=== PATIENT | male | born 1945 | race Caucasian/White ===

== ENCOUNTER → 2019-07-05 | Day surgery (SDC) | payer MEDICARE ==
[~2019-07-05] MED LIST: ATROPINE SULFATE 0.4 MG/ML 1 ML VIAL IM STA; SODIUM CHLORIDE 0.9% 500 ML 500 ML in EMPTY BAG 1 BAG IV PRN
--- NOTE | 2019-07-05 11:25 | US ---
EXAMINATION TYPE: US chest DATE OF EXAM: 07/05/2019 COMPARISON: CXR 06/30/19 CLINICAL HISTORY: J90 Pleural effusion Lt side. Abnormal x-ray. TECHNIQUE: Targeted ultrasound of the posterior lower left hemithorax EXAM MEASUREMENTS: Left Pleural Effusion pocket size: 11.5 cm Left skin surface to fluid distance: 1.7 cm Left side marked for possible thoracentesis outside the dept. Pulmonologists are able to review the images in the patient?s EMR. Confirmation of large left-sided pleural effusion on 8 images saved. No significant right effusion on single image saved. IMPRESSIONS: As above.
--- NOTE | 2019-07-05 12:49 | XR ---
EXAMINATION TYPE: XR chest 1V portable DATE OF EXAM: 07/05/2019 COMPARISON: Chest x-ray 5 days ago. HISTORY: Post left-sided thoracentesis TECHNIQUE: Single AP portable frontal upright view of the chest is obtained. FINDINGS: There is persistent moderate large size left-sided pleural effusion with associated compre ssive atelectasis. There is silhouetting of left heart border and hemidiaphragm The cardiac silhouet te size is enlarged with dual lead pacemaker and atherosclerotic aorta. Right lung remains clear. No pneumothorax noted after left-sided thoracentesis. No new mediastinal shift. The osseous structures are intact. IMPRESSION: No pneumothorax after left-sided thoracentesis. Persistent moderate to large size left p leural effusion.
--- NOTE | 2019-07-05 12:50 | PCN ---
PROCEDURE NOTE PROCEDURE: Left thoracentesis. Indication Pleural effusion. A time-out was completed verifying correct patient, procedure, site, positioning , and implant (s) or special equipment if applicable. Ultrasound guidance was used and appropriate fluid pocket was identified and marked. Patient was positioned, prepped and draped in usual sterile fashion. Lidocaine was used to anesthetize the area. A Thoracentesis catheter was introduced into the pleural space and fluid was removed. Blood loss was none. A chest x-ray was ordered to evaluate for pneumothorax. Total Fluid Removed 1850 mL. Color of Fluid: Dark brown Fluid was sent for appropriate laboratory tests. Patient tolerated the procedure well and there were no complications. The left posterior chest was marked by ultrasound. The fluid was sent for analysis. There was no immediate complication. There was 1850 mL of dark brown fluid removed. The patient tolerated the procedure well. There was no immediate complication. The patient will have a chest x-ray to determine whether or not there are any complications. The patient can resume his Plavix and aspirin tonight. MMODL / IJN: [id number] /
[2019-07-05 15:05] VITALS: TEMP 98.2
[2019-07-05 15:12] VITALS: RESP 16
[2019-07-05 15:18] VITALS: BP 105/70
[2019-07-05 15:19] VITALS: PULSE 64
[2019-07-05 16:28] LABS: Color,BF Yellow
[2019-07-05 16:32] LABS: Appearance,BF Cloudy
[2019-07-05 16:56] LABS: Nucleated Cells, Body Fluid 900 /uL; RBC, Body Fluid 16100 /uL
[2019-07-05 16:58] LABS: Mononuclear WBC,Body Fluid 100 %; Total Cells Counted,Body Fluid 100
== END ==
LOC: PROCWHC3 10:47
PROVIDERS: ATTEND Internal Medicine Critical Care Medicine
DX: J90 Pleural effusion, not elsewhere classified (principal); F41.9 Anxiety disorder, unspecified; I42.9 Cardiomyopathy, unspecified; F32.9 Major depressive disorder, single episode, unspecified; I25.10 Atherosclerotic heart disease of native coronary artery without angina pectoris; I50.9 Heart failure, unspecified; Z85.46 Personal history of malignant neoplasm of prostate; Z79.82 Long term (current) use of aspirin; Z79.899 Other long term (current) drug therapy; Z79.02 Long term (current) use of antithrombotics/antiplatelets; Z87.891 Personal history of nicotine dependence
CPT/HCPCS: 87798 ×3; 87496; 87498; 87529; 89050; 87252; 87502; 87634; 87070; 87205; 87075; 87116; 87102; 87206; 82945; 83615; 84157; 71045; 76604; 96372; 32554; J0461; 88108; 88305; 88341; 88342

== ENCOUNTER 2019-07-26 07:44 | Day surgery (SDC) | payer MEDICARE ==
[2019-07-26] MEDS ORDERED: ALPRAZolam 0.25 MG TAB PO ONE (08:22)
[2019-07-26 08:24] LABS: Mean Platelet Volume 7.2; Platelet Count 378 k/uL (150-450)
[2019-07-26 08:34] LABS: Prothrombin Time 10.5 sec (9.0-12.0)
[2019-07-26 08:41] VITALS: TEMP 97.6
--- NOTE | 2019-07-26 10:24 | XR ---
EXAMINATION TYPE: XR chest 1V portable DATE OF EXAM: 07/26/2019 COMPARISON: Prior chest x-ray dated 07/21/2019, 07/05/2019 HISTORY: Status post left thoracentesis TECHNIQUE: Single frontal view of the chest is obtained. FINDINGS: Minimal left apical pneumothorax is suspected. There is some improvement in the left pleur al effusion. Intracardiac defibrillator leads, generator are stable. Right lung shows stable appearan ce. Heart size is somewhat obscured. IMPRESSION: Minimal left apical pneumothorax.
[2019-07-26 11:39] VITALS: RESP 16
--- NOTE | 2019-07-26 12:39 | XR ---
EXAMINATION TYPE: XR chest 1V portable DATE OF EXAM: 07/26/2019 COMPARISON: Thoracentesis done 07/26/2019 and chest x-ray of 07/26/2019 (earlier on the same date). HISTORY: Status post thoracentesis. Evaluate for pneumothorax. TECHNIQUE: Single frontal view of the chest is obtained. FINDINGS: There is a persistent moderate left pleural effusion with associated left-sided airspace d isease. No postprocedural pneumothorax is seen. Dual-lead left-sided cardiac device is noted. Cardiom ediastinal silhouette appears similar but obscured and left cardiac border. Strand-like right basilar atelectasis is again noted. Degenerative changes of the shoulders. No acute osseous process. IMPRESSION: No postprocedural pneumothorax. Persistent moderate left pleural effusion and associated left-sided airspace disease.
--- NOTE | 2019-07-26 13:04 | US ---
EXAMINATION TYPE: US thoracentesis DATE OF EXAM: 07/26/2019 COMPARISON: Chest x-ray dated 07/21/2019 HISTORY: Pleural effusion. FINDINGS: Maximal barrier technique was utilized. The skin overlying a suitable pocket of fluid was localized and the overlying skin prepped and draped. Lidocaine was used for local anesthesia. Ultras ound was used with sterile technique. A 5 Jordanian catheter over guide needle was advanced into the pl eural fluid collection using ultrasound guidance and the catheter advanced, needle removed. Approxim ately 1.8 liter(s) of serous fluid was removed. Catheter was withdrawn and hemostasis achieved. Post procedure chest x-ray pending. The patient remained in observation for 2 1/2 hours following the proc edure. IMPRESSION: STATUS POST ULTRASOUND GUIDED THORACENTESIS, POST PROCEDURE CHEST X-RAY PENDING. THIS UT OCEDURE WAS PERFORMED BY THE UNDERSIGNED.
[2019-07-26 13:30] VITALS: BP 105/61; PULSE 70
[2019-07-26 14:48] LABS: Appearance,BF Hazy; Color,BF Yellow; Nucleated Cells, Body Fluid 1125 /uL; RBC, Body Fluid 3150 /uL
[2019-07-26 15:22] LABS: Mononuclear WBC,Body Fluid 99 %; Polynuclear WBC,Body Fluid 1 %; Total Cells Counted,Body Fluid 100
[2019-07-26 17:37] LABS: Glucose, BF Source Pleural Fluid; Glucose, Body Fluid 66 mg/dL; LDH, Body Fluid Source Pleural Fluid; Total Protein, Body Fluid 5000 mg/dL
== END 2019-07-26 13:30 | disposition home or self-care (01) ==
LOC: RADPROMAIN 07:44
PROVIDERS: ATTEND Internal Medicine Critical Care Medicine
DX: J90 Pleural effusion, not elsewhere classified (principal)
CPT/HCPCS: 32555; 71045; 82945; 83615; 84157; 85049; 85610; 87070; 87075; 87102; 87116; 87205; 87206; 88108; 88305; 88341; 88342; 89050

== ENCOUNTER → 2019-08-18 | Outpatient (CLI) | payer MEDICARE ==
[2019-08-18 13:39] LABS: INR 0.9 (<1.2); Partial Thromboplastin Time 24.8 sec (22.0-30.0)
[2019-08-18 13:42] LABS: Potassium 5.6 mmol/L (3.5-5.1)
== END | disposition home or self-care (01) ==
LOC: LABPAT 12:55
PROVIDERS: ATTEND Thoracic Surgery (Cardiothoracic Vascular Surgery)
DX: Z01.812 Encounter for preprocedural laboratory examination (principal); J90 Pleural effusion, not elsewhere classified; E86.0 Dehydration; R58 Hemorrhage, not elsewhere classified; E87.70 Fluid overload, unspecified
CPT/HCPCS: 80051; 82565; 82947; 84520; 85610; 85730

== ENCOUNTER 2019-08-25 09:54 | Day surgery (SDC) | payer MEDICARE ==
[2019-08-22 10:34] VITALS: BMI 27.3
[~2019-08-25 09:54] MED LIST changes: -ATROPINE SULFATE 0.4 MG/ML 1 ML VIAL IM STA; +HYDROmorphone 0.5 MG/0.5 ML SYRINGE IVP PRN; +LACTATED RINGERS 1,000 ML IV SCH; -SODIUM CHLORIDE 0.9% 500 ML 500 ML in EMPTY BAG 1 BAG IV PRN
[2019-08-25] MEDS ORDERED: LIDOCAINE 1% 20 ML VIAL (10MG/ML) FOR IV START INTRADERMA ONE (11:04)
[2019-08-25] MEDS ORDERED: ONDANSETRON 4 MG/2 ML VIAL IVP ONE (11:21)
[2019-08-25] MEDS ORDERED: LIDOCAINE 1% INJ 10MG/ML (20 ML MDV) SQ ONE ×3 (12:06→12:28)
[2019-08-25] MEDS ORDERED: fentaNYL (PF) 50 MCG/ML 2 ML AMP ONE (12:10)
[2019-08-25] MEDS ORDERED: MIDAZOLAM 2 MG/2 ML VIAL ONE (12:10)
[2019-08-25] MEDS ORDERED: KETOROLAC 30 MG/ML 1 ML VIAL ONE (12:10)
[2019-08-25] MEDS ORDERED: PROPOFOL 10 MG/ML 20 ML VIAL IV ONE (12:10)
[2019-08-25 13:02] VITALS: TEMP 96.9
--- NOTE | 2019-08-25 13:06 | FL ---
EXAMINATION TYPE: FL fluoroscopy <1hr DATE OF EXAM: 08/25/2019 CLINICAL HISTORY: Left pleural catheter insertion. TECHNIQUE: Fluoroscopy. COMPARISON: None. FINDINGS: Fluoroscopic guidance was provided during pleural catheter insertion procedure performed b mandeep Perez. A total of 4 seconds of fluoroscopic time was utilized during the procedure and single spot intraoperative image is acquired. Single image acquired focus is on lung base. IMPRESSION: As Above.
--- NOTE | 2019-08-25 13:09 | P.OP ---
Date of Procedure: 08/25/19 Preoperative Diagnosis: Recurrent left pleural effusion Postoperative Diagnosis: Same Procedure(s) Performed: Left Pleurx catheter implant with fluoroscopy Implants: Pleurx catheter Anesthesia: MAC Surgeon: Grant Perez Estimated Blood Loss (ml): 3 IV fluids (ml): 400 Pathology: other (Left pleural fluid for cytology) Condition: stable Disposition: PACU Indications for Procedure: 73-year-old male with recurrent left pleural effusion. This is a exudative effusion. He does have a history of heart failure. Patient is severely symptomatic and the fluid has recurred quite rapidly. He has had 3 previous thoracenteses in the last 4 months. Pleurx catheter drainage was recommended. Operative Findings: 3800 mL of serous fluid was drained Description of Procedure: Patient was brought to the operating room, placed supine on the fluoroscopy table. IV sedation was given. The left chest was sterilely wrapped and draped along with the left upper abdomen. One percent lidocaine was used to anesthetize the site and the left pleural space wasn't entered with a 18-gauge needle in the sixth interspace in the anterior axillary line. Clear serous fluid was identified. Guidewire was threaded into the left pleural cavity under fluoroscopic guidance. This site was then enlarged to 1.2 cm with a 11 blade. One percent lidocaine was used to anesthetize an area just below the costal margin and a counterincision was made here about 0.7 cm. Pleurx catheter was then tunneled from the subcostal site to the wire site and the cuff was left just under the skin at the subcostal site. Introducer and dilator were placed over the guidewire and passed into the left pleural space under fluoroscopic guidance. Dilator and wire were removed and through the introducer sheath the Pleurx catheter was introduced into the chest cavity. Introducer sheath was split and removed. Purse catheter was connected to suction and 3.75 L of fluid was suctioned free. The entry site was closed with a 4-0 Vicryl subcuticular stitch. The Pleurx catheter was secured at the exit site with a 2-0 silk suture. Band-Aid dressing was applied at the entry site and a standard Pleurx dressing at the exit site once we had completed drainage of the Pleurx catheter. Patient was then transferred to recovery in stable condition.
[2019-08-25] MEDS ORDERED: HYDROmorphone 1 MG/ML 1 ML SYRINGE IVP ONE ×7 (13:12→14:08)
--- NOTE | 2019-08-25 13:47 | XR ---
EXAMINATION TYPE: XR chest 1V portable DATE OF EXAM: 08/25/2019 COMPARISON: Chest x-ray August 15, 2019 and older studies. HISTORY: Left sided pleural catheter insertion. TECHNIQUE: Single frontal view of the chest is obtained. FINDINGS: There is new left basilar pleural catheter with improvement in left-sided effusion. Right l lacy remains clear. There is chronic parenchymal change. Right lung remains clear. The cardiac silhou ette size remains enlarged with dual lead pacemaker/AICD. The osseous structures remain demineraliz ed. IMPRESSION: Improved left-sided effusion after pleural catheter placement.
[2019-08-25] MEDS ORDERED: LACTATED RINGERS 1,000 ML IV ONE (14:17)
[2019-08-25 14:41] VITALS: BP 109/69; PULSE 57; RESP 16
== END 2019-08-25 15:09 | disposition home health service (06) ==
LOC: OR 09:54
PROVIDERS: ATTEND Thoracic Surgery (Cardiothoracic Vascular Surgery)
DX: J90 Pleural effusion, not elsewhere classified (principal); I50.22 Chronic systolic (congestive) heart failure; I25.10 Atherosclerotic heart disease of native coronary artery without angina pectoris; I25.5 Ischemic cardiomyopathy; E78.2 Mixed hyperlipidemia; Z95.810 Presence of automatic (implantable) cardiac defibrillator; Z79.02 Long term (current) use of antithrombotics/antiplatelets; Z79.82 Long term (current) use of aspirin; Z79.899 Other long term (current) drug therapy; Z95.5 Presence of coronary angioplasty implant and graft; Z88.6 Allergy status to analgesic agent; Z88.8 Allergy status to other drugs, medicaments and biological substances; Z87.891 Personal history of nicotine dependence; Z82.49 Family history of ischemic heart disease and other diseases of the circulatory system; Z85.46 Personal history of malignant neoplasm of prostate
CPT/HCPCS: 32550; 88108; 88305; 84132; 76000; 71045; J2250; J0690; J2405; J2001; J3010; J1885; J1170; J2704

== ENCOUNTER 2020-01-20 22:11 | Inpatient (IN) | payer MEDICARE ==
--- NOTE | 2020-01-20 22:54 | XR ---
EXAMINATION TYPE: XR chest 2V DATE OF EXAM: 01/20/2020 COMPARISON: 01/06/2020 HISTORY: Pleural effusion TECHNIQUE: FINDINGS: Heart is enlarged. There is blunting of the left costophrenic angle. There is left axillary pacemaker. There is mild pulmonary vascular congestion. Bony thorax is intact. IMPRESSION: Left pleural effusion and pleural thickening on the left lateral chest wall unchanged. Pu lmonary vascular congestion increased compared to last exam and consistent with some congestive heart failure.
[2020-01-20 22:56] LABS: Calcium 10.2 mg/dL (8.4-10.2); Potassium 5.5 mmol/L (3.5-5.1); Total Bilirubin 0.7 mg/dL (0.2-1.3); Total Protein 7.6 g/dL (6.3-8.2)
[2020-01-20] MEDS ORDERED: FUROSEMIDE 10 MG/ML 4 ML VIAL IV STA (22:58)
[2020-01-20 23:00] LABS: Anisocytosis Slight; Basophils % (A) 1 %; Eosinophils # (A) 0.1 k/uL (0-0.7); Eosinophils % (A) 1 %; HCT 45.1 % (39.0-53.0); HGB 13.8 gm/dL (13.0-17.5); Hypochromasia Moderate; Lymphocytes # (A) 0.9 k/uL (1.0-4.8); Lymphocytes % (A) 12 %; MCH 27.4 pg (25.0-35.0); MCHC 30.6 g/dL (31.0-37.0); MCV 89.7 fL (80.0-100.0); Mean Platelet Volume 8.2; Monocytes # (A) 0.5 k/uL (0-1.0); Monocytes % (A) 7 %; Neutrophils # (A) 6.1 k/uL (1.3-7.7); Neutrophils % (A) 78 %; Platelet Count 301 k/uL (150-450); RBC 5.03 m/uL (4.30-5.90); RDW 16.8 % (11.5-15.5); WBC 7.8 k/uL (3.8-10.6)
--- NOTE | 2020-01-20 23:00 | ED ---
SOB HPI <Kevin Melissa - Last Filed: 01/21/20 02:14> - General Source: patient Mode of arrival: wheelchair Limitations: no limitations <Isabel Wagoner - Last Filed: 01/21/20 14:43> - General Chief Complaint: Shortness of Breath Stated Complaint: JOHN Time Seen by Provider: 01/20/20 22:20 - History of Present Illness Initial Comments: 74-year-old male with history of congestive heart failure, chronic pleural effusion with drain currently placed presenting today for chief complaint of shortness of breath x 1 month. Patient states he's had increasing and progressive shortness of breath for the past month. He states is a chronic left-sided pleural effusion that he drains at home himself. He follows battery repairer Dr. Vale. Patient states that he has had stress of breath increasing over the past month he states he had seen his battery repairer within this timeframe. Patient states this was similar to his his CHF exacerbations in the past. Patient states he was a previous smoker. Patient denies any wheezing cough congestion he denies hemoptysis or leg swelling. Patient denies any histo ry of DVT or pulmonary embolism. Patient denies any chest pain pressure. Deep inspiration. Patient denies any recent surgeries, he denies any recent immobilization. Patient denies any recent fevers. Patient states the shortness of breath increases with lying flat or when ambulating. Remaining review of systems negative upon arrival patient appears well no signs of acute distress however is found to be hypoxic, low BP with improvement on second reading during history taking. Placed on oxygen. (Isabel Wagoner) - Related Data Home Medications Medication Instructions Recorded Confirmed Aspirin 81 mg PO QAM 06/03/16 01/21/20 Atorvastatin [Lipitor] 40 mg PO QAM 06/03/16 01/21/20 Clopidogrel [Plavix] 75 mg PO QAM 06/03/16 01/21/20 Furosemide [Lasix] 20 mg PO DAILY@1400 06/03/16 01/21/20 Lisinopril [Zestril] 2.5 mg PO QAM 06/03/16 01/21/20 Acetaminophen [Tylenol Arthritis] 650 mg PO Q6H PRN 10/07/16 01/21/20 Midodrine [ProAmatine] 10 mg PO BID 07/05/19 01/21/20 Furosemide [Lasix] 40 mg PO DAILY 01/21/20 01/21/20 QUEtiapine [SEROquel] 25 mg PO HS 01/21/20 01/21/20 Venlafaxine HCl [Effexor] 100 mg PO BID-W/MEALS 01/21/20 01/21/20 Previous Rx's Medication Instructions Recorded Carvedilol [Coreg] 3.125 mg PO BID-W/MEALS #60 tab 02/10/16 Nitroglycerin Sl Tabs [Nitrostat] 0.4 mg SUBLINGUAL Q5M PRN #25 tab 02/10/16 Allergies Allergy/AdvReac Type Severity Reaction Status Date / Time No Known Allergies Allergy Verified 01/21/20 12:14 Review of Systems ROS Other: All systems not noted in ROS Statement are negative. <Kevin Melissa - Last Filed: 01/21/20 02:14> ROS Other: All systems not noted in ROS Statement are negative. <Isabel Wagoner - Last Filed: 01/21/20 14:43> ROS Statement: Those systems with pertinent positive or pertinent negative responses have been documented in the HPI. Past Medical History Past Medical History: Heart Failure Additional Past Medical History / Comment(s): PROSTATE CANCER (2006-HAD IMPLANT). LEFT PLEURAL EFFUSION History of Any Multi-Drug Resistant Organisms: None Reported Past Surgical History: Hernia Repair, Orthopedic Surgery Additional Past Surgical History / Comment(s): TOTAL RIGHT HIP (2014). ORIF OF RIGHT HIP, REMOVAL OF HARDWARE RT HIP, 07/12/15. CARDIAC SURGERY Past Anesthesia/Blood Transfusion Reactions: No Reported Reaction Type of Cardiac Device: Permanent Pacemaker, AICD Device Placement Date:: 06/06/16 Past Psychological History: Anxiety, Depression Smoking Status: Former smoker Past Alcohol Use History: None Reported Past Drug Use History: None Reported - Past Family History Mother Family Medical History: Cancer, Hypertension Additional Family Medical History / Comment(s): MELANOMA Father Family Medical History: Congestive Heart Failure (CHF) Sister(s) Family Medical History: No Reported History Daughter(s) Family Medical History: No Reported History Son(s) Family Medical History: No Reported History <Isabel Wagoner - Last Filed: 01/21/20 14:43> General Exam Limitations: no limitations <Isabel Wagoner - Last Filed: 01/21/20 14:43> - General Exam Comments Initial Comments: General: The patient is awake and alert, in no distress, speaking complete sentences but does seem short of breath grossly when talking for long periods of time Eye: Pupils are equal, round and reactive to light, extra-ocular movements are intact. No nystagmus. There is normal conjunctiva bilaterally. No signs of icterus. Ears, nose, mouth and throat: There are moist mucous membranes and no oral lesions. Neck: The neck is supple, there is no tenderness or JVD. Cardiovascular: There is a regular rate and rhythm. No murmur, rub or gallop is appreciated. Respiratory: Respirations are non-labored, breath sounds are equal. Rhonchi and rales at lung bases b/l noted, no wheeze or stridor. Gastrointestinal: Soft, non-distended, non-tender abdomen without masses or organomegaly noted. There is no rebound or guarding present. Musculoskeletal: Normal ROM, no tenderness. Strength 5/5. Sensation intact. Radial and DP pulses equal bilaterally 2+. Neurological: A&O x 3. CN II-XII intact grossly, There are no obvious motor or sensory deficits. Coordination appears grossly intact. Speech is normal. Skin: Skin is warm and dry and no rashes or lesions are noted. NO LE edema. Psychiatric: Cooperative, appropriate mood & affect, normal judgment. (Pallavi Wagoneralexandra Kincaid) Course <Isabel Wagoner - Last Filed: 01/21/20 14:43> Vital Signs 01/20/20 01/20/20 01/20/20 22:13 22:30 23:00 Temperature 98.9 F Pulse Rate 81 103 H 105 H Respiratory 24 Rate Blood Pressure 77/58 90/61 96/64 O2 Sat by Pulse 93 L 100 99 Oximetry 01/20/20 01/20/20 01/21/20 23:30 23:45 00:00 Temperature Pulse Rate 104 H 104 H 105 H Respiratory Rate Blood Pressure 97/63 O2 Sat by Pulse 97 100 100 Oximetry 01/21/20 01/21/20 01/21/20 00:15 00:23 00:30 Temperature Pulse Rate 103 H 103 H 105 H Respiratory 25 H Rate Blood Pressure 75/23 85/68 85/68 O2 Sat by Pulse 100 99 Oximetry 01/21/20 01/21/20 01/21/20 00:38 00:45 01:00 Temperature Pulse Rate 104 H 103 H 105 H Respiratory 24 Rate Blood Pressure 129/60 129/60 129/60 O2 Sat by Pulse 100 100 Oximetry 01/21/20 01/21/20 01/21/20 01:03 01:15 01:22 Temperature Pulse Rate 93 105 H 102 H Respiratory 24 24 Rate Blood Pressure 82/58 88/54 91/50 O2 Sat by Pulse 99 100 100 Oximetry 01/21/20 01/21/20 01/21/20 01:30 01:44 01:45 Temperature Pulse Rate 106 H 102 H 105 H Respiratory 22 Rate Blood Pressure 91/50 98/65 98/65 O2 Sat by Pulse 100 98 94 L Oximetry 01/21/20 01/21/20 01/21/20 02:00 02:15 02:30 Temperature Pulse Rate 106 H 104 H 107 H Respiratory Rate Blood Pressure 85/65 86/65 84/56 O2 Sat by Pulse 81 L 100 99 Oximetry 01/21/20 01/21/20 01/21/20 02:45 02:54 03:15 Temperature Pulse Rate 106 H 105 H 49 L Respiratory 24 Rate Blood Pressure 114/76 88/52 88/66 O2 Sat by Pulse 100 100 100 Oximetry 01/21/20 01/21/20 03:29 03:30 Temperature 97.6 F Pulse Rate 101 H 106 H Respiratory 22 Rate Blood Pressure 92/75 92/75 O2 Sat by Pulse 100 100 Oximetry - Reevaluation(s) Reevaluation #1: Discussed case with Dr. Melissa, he will resume further management of patient including possible central line for BP management. 01/21/20 00:00 (Isabel Wagoner) Medical Decision Making - Lab Data Result diagrams: 01/20/20 22:37 01/20/20 22:37 <Kevin Melissa - Last Filed: 01/21/20 02:14> - Lab Data Result diagrams: 01/21/20 08:52 01/21/20 08:52 <Isabel Wagoner - Last Filed: 01/21/20 14:43> - Medical Decision Making Patient 74-year-old man presenting with symptoms of progressive worsening of CHF. He has lost all of his exercise tolerance. He is having severe exertional dyspnea. He is having orthopnea. The patient's workup does reveal evidence of congestive heart failure in the labs and any imaging. In light of this patient be admitted. He has not had recent echocardiogram and this will be ordered. I patient was having some hypotension in the urgency department, and this is discussed with the lockstitch zipper setter and also with cardiology. Patient started on levofed. I did discuss central line placement and at this point the patient is refusing to have this done, despite discussion that peripheral administration is not the optimal route. Patient states he may reconsider if things are not improving after trying peripheral administration The patient lactic acid does appear to be due to inadequate perfusion. He is not having symptoms of infection. No fever or chills. He does have risk factor in the indwelling thoracentesis tube. The patient has not noted any erythema or warmth. He has not noted any change in the drainage which she states remains straw-colored and clear. At his next drainage will send specimen for culture. (Kevin Melissa) - Lab Data Lab Results 01/20/20 01/20/20 01/20/20 Range/Units 22:37 22:37 22:37 WBC 7.8 (3.8-10.6) k/uL RBC 5.03 (4.30-5.90) m/uL Hgb 13.8 (13.0-17.5) gm/dL Hct 45.1 (39.0-53.0) % MCV 89.7 (80.0-100.0) fL MCH 27.4 (25.0-35.0) pg MCHC 30.6 L (31.0-37.0) g/dL RDW 16.8 H (11.5-15.5) % Plt Count 301 (150-450) k/uL Neutrophils % 78 % Lymphocytes % 12 % Monocytes % 7 % Eosinophils % 1 % Basophils % 1 % Neutrophils # 6.1 (1.3-7.7) k/uL Lymphocytes # 0.9 L (1.0-4.8) k/uL Monocytes # 0.5 (0-1.0) k/uL Eosinophils # 0.1 (0-0.7) k/uL Basophils # 0.0 (0-0.2) k/uL Hypochromasia Moderate Anisocytosis Slight PT 12.8 H (9.0-12.0) sec INR 1.3 H (<1.2) APTT 26.1 (22.0-30.0) sec D-Dimer 4.08 H (<0.60) mg/L FEU Sodium 133 L (137-145) mmol/L Potassium 5.5 H (3.5-5.1) mmol/L Chloride 98 (98-107) mmol/L Carbon Dioxide 23 (22-30) mmol/L Anion Gap 12 mmol/L BUN 32 H (9-20) mg/dL Creatinine 1.11 (0.66-1.25) mg/dL Est GFR (CKD-EPI)AfAm 76 (>60 ml/min/1.73 sqM) Est GFR (CKD-EPI)NonAf 66 (>60 ml/min/1.73 sqM) Glucose 126 H (74-99) mg/dL Lactic Ac Sepsis Rflx Plasma Lactic Acid Gurinder (0.7-2.0) mmol/L Calcium 10.2 (8.4-10.2) mg/dL Total Bilirubin 0.7 (0.2-1.3) mg/dL AST 198 H (17-59) U/L ALT 173 H (4-49) U/L Alkaline Phosphatase 287 H (38-126) U/L Troponin I (0.000-0.034) ng/mL NT-Pro-B Natriuret Pep pg/mL Total Protein 7.6 (6.3-8.2) g/dL Albumin 4.0 (3.5-5.0) g/dL 01/20/20 01/20/20 01/20/20 Range/Units 22:37 22:37 22:37 WBC (3.8-10.6) k/uL RBC (4.30-5.90) m/uL Hgb (13.0-17.5) gm/dL Hct (39.0-53.0) % MCV (80.0-100.0) fL MCH (25.0-35.0) pg MCHC (31.0-37.0) g/dL RDW (11.5-15.5) % Plt Count (150-450) k/uL Neutrophils % % Lymphocytes % % Monocytes % % Eosinophils % % Basophils % % Neutrophils # (1.3-7.7) k/uL Lymphocytes # (1.0-4.8) k/uL Monocytes # (0-1.0) k/uL Eosinophils # (0-0.7) k/uL Basophils # (0-0.2) k/uL Hypochromasia Anisocytosis PT (9.0-12.0) sec INR (<1.2) APTT (22.0-30.0) sec D-Dimer (<0.60) mg/L FEU Sodium (137-145) mmol/L Potassium (3.5-5.1) mmol/L Chloride (98-107) mmol/L Carbon Dioxide (22-30) mmol/L Anion Gap mmol/L BUN (9-20) mg/dL Creatinine (0.66-1.25) mg/dL Est GFR (CKD-EPI)AfAm (>60 ml/min/1.73 sqM) Est GFR (CKD-EPI)NonAf (>60 ml/min/1.73 sqM) Glucose (74-99) mg/dL Lactic Ac Sepsis Rflx Plasma Lactic Acid Gurinder 4.2 H* (0.7-2.0) mmol/L Calcium (8.4-10.2) mg/dL Total Bilirubin (0.2-1.3) mg/dL AST (17-59) U/L ALT (4-49) U/L Alkaline Phosphatase (38-126) U/L Troponin I 0.091 H* (0.000-0.034) ng/mL NT-Pro-B Natriuret Pep 18188 pg/mL Total Protein (6.3-8.2) g/dL Albumin (3.5-5.0) g/dL 01/20/20 Range/Units 23:25 WBC (3.8-10.6) k/uL RBC (4.30-5.90) m/uL Hgb (13.0-17.5) gm/dL Hct (39.0-53.0) % MCV (80.0-100.0) fL MCH (25.0-35.0) pg MCHC (31.0-37.0) g/dL RDW (11.5-15.5) % Plt Count (150-450) k/uL Neutrophils % % Lymphocytes % % Monocytes % % Eosinophils % % Basophils % % Neutrophils # (1.3-7.7) k/uL Lymphocytes # (1.0-4.8) k/uL Monocytes # (0-1.0) k/uL Eosinophils # (0-0.7) k/uL Basophils # (0-0.2) k/uL Hypochromasia Anisocytosis PT (9.0-12.0) sec INR (<1.2) APTT (22.0-30.0) sec D-Dimer (<0.60) mg/L FEU Sodium (137-145) mmol/L Potassium (3.5-5.1) mmol/L Chloride (98-107) mmol/L Carbon Dioxide (22-30) mmol/L Anion Gap mmol/L BUN (9-20) mg/dL Creatinine (0.66-1.25) mg/dL Est GFR (CKD-EPI)AfAm (>60 ml/min/1.73 sqM) Est GFR (CKD-EPI)NonAf (>60 ml/min/1.73 sqM) Glucose (74-99) mg/dL Lactic Ac Sepsis Rflx Y Plasma Lactic Acid Gurinder (0.7-2.0) mmol/L Calcium (8.4-10.2) mg/dL Total Bilirubin (0.2-1.3) mg/dL AST (17-59) U/L ALT (4-49) U/L Alkaline Phosphatase (38-126) U/L Troponin I (0.000-0.034) ng/mL NT-Pro-B Natriuret Pep pg/mL Total Protein (6.3-8.2) g/dL Albumin (3.5-5.0) g/dL Disposition <Kevin Melissa - Last Filed: 01/21/20 02:14> Is patient prescribed a controlled substance at d/c from ED?: No Time of Disposition: 14:43 Decision to Admit Reason: Admit from EC Decision Date: 01/21/20 Decision Time: 14:43 <Isabel Wagoner - Last Filed: 01/21/20 14:43> Clinical Impression: Congestive heart failure, Dyspnea, Hypotension, Hypoxia, Elevated brain natriuretic peptide (BNP) level, Lactic acidosis, Chronic pleural effusion Disposition: ADMITTED IP TO THIS HOSP Condition: Serious
[2020-01-20 23:02] LABS: INR 1.3 (<1.2)
[2020-01-20 23:03] LABS: Partial Thromboplastin Time 26.1 sec (22.0-30.0); Prothrombin Time 12.8 sec (9.0-12.0)
[2020-01-20 23:12] LABS: D-Dimer 4.08 mg/L FEU (<0.60)
[2020-01-20] MEDS ORDERED: SODIUM CHLORIDE 0.9% 500 ML 500 ML IV ONE ×2 (23:22→23:25)
[2020-01-20] MEDS ORDERED: SODIUM CHLORIDE 0.9% 500 ML 250 ML IV ONE (23:23)
[2020-01-20] MEDS ORDERED: PIPERACILLIN-TAZOBACTAM 3.375 GM in SODIUM CHLORIDE 0.9% 100 ML IVPB STA (23:26)
--- NOTE | 2020-01-20 23:48 | CT ---
EXAMINATION TYPE: CT chest angio for PE DATE OF EXAM: 01/20/2020 COMPARISON: HISTORY: elevated d-dimer CT DLP: 440.6 mGycm Automated exposure control for dose reduction was used. CONTRAST: Performed with IV Contrast, patient injected with 75 mL of Isovue 370. Multiple axial sections were obtained from the thoracic inlet to the diaphragm with intravenous contr ast. There are 3-D post processed images. FINDINGS: The heart is enlarged. There is irregular pleural thickening on the left lateral chest wall with locu lated pleural fluid in the major fissure. Thoracic aorta is atheromatous. There is no mediastinal julio nopathy. There are no hilar masses. I see no definite filling defects in the pulmonary arteries. Ther e is some coarse interstitial patchy infiltrates in the lower lung cooper. There is some coalescent 3 cm poorly marginated infiltrate right lower lobe. Thoracic aorta shows atheromatous change without e vidence of aneurysm. There is no mediastinal adenopathy. There is 1 cm calcified mediastinal lymph no de. There is left lower chest tube in good position. There is contrast reflux into the inferior vena cava that could relate to congestive heart failure. There is spurring in the thoracic spine. I see no compression fracture. IMPRESSION: No evidence of pulmonary embolism. Pulmonary infiltrates predominantly in the lower lung cooper with some loculated left side pleural ef fusion and pleural thickening. Cardiomegaly. I consider possibilities of chronic empyema and mesothel ioma. There is possible congestive heart failure.
[2020-01-21] MEDS ORDERED: DOBUTamine DRIP 500 MG in DEXTROSE/WATER 1 250ML.BAG IV SCH (00:15)
--- NOTE | 2020-01-21 00:50 | US ---
EXAMINATION TYPE: US abdomen limited DATE OF EXAM: 01/21/2020 COMPARISON: CT angio chest CLINICAL HISTORY: transaminitis. CHF per patient; JOHN EXAM MEASUREMENTS: Liver Length: 17.3 cm Gallbladder Wall: 0.6 cm CBD: 0.5 cm Right Kidney: 10.4 x 4.8 x 3.5 cm Pancreas: hyperechoic with mid mild heterogeneous appearance Liver: attenuated posteriorly suggests fatty liver Gallbladder: mid lumen wall polyp is noted as fixed oval focus isoechoic to wall = 0.4 x 0.3 x 0.4cm ; abnormally thickened wall with fluid layer within wall; sludge noted in fundus with possible hypere choic shadowing stone(s) = 0.9 x 0.4 x 0.6cm. Patient was unable to recline due to severe JOHN, thus g allbladder was only assessed by US in one position Evidence for sonographic Gonzalez's sign: no CBD: wnl Right Kidney: inferior cortical cyst is noted = 3.4 x 3.2 x 3.7cm. IMPRESSION: Mild gallbladder wall thickening and pericholecystic fluid that could relate to cholecyst itis. Congestive heart failure also possible. Small gallstone or gallbladder polyp. No dilated ducts.
[2020-01-21] MEDS ORDERED: NITROGLYCERIN SL TABS 0.4 MG TAB SUBLINGUAL PRN (01:37)
[2020-01-21] MEDS ORDERED: NOREPINEPHRINE 4 MG in SODIUM CHLORIDE 0.9% 250 ML IV ONE (02:30)
[2020-01-21 04:06] LABS: Glucose,Whole Blood 123 mg/dL (75-99)
[2020-01-21] MEDS ORDERED: NALOXONE 0.4 MG/ML 1 ML VIAL IV PRN (04:28)
[2020-01-21] MEDS: CARVEDILOL 3.125 MG TAB PO SCH ×2 (06:24→17:15)
--- NOTE | 2020-01-21 07:10 | XR ---
EXAMINATION TYPE: XR chest 1V DATE OF EXAM: 01/21/2020 CLINICAL HISTORY: Difficulty breathing progress study. TECHNIQUE: Single AP portable upright view of the chest is obtained. COMPARISON: Chest x-ray and CTA chest from one day earlier FINDINGS: Persistent cardiomegaly with dual lead pacemaker/ICD and atherosclerotic thoracic aorta. P ersistent small to moderate size left pleural fluid collection or pleural thickening with associated left basilar atelectasis and/or infiltrate. Right lung shows central consolidation with nodular conso lidation. Osseous structures are intact. Stable left basilar pleural drainage catheter noted. IMPRESSION: Overall stable findings, cardiomegaly and chronic emphysematous change with small to mo derate left pleural fluid collection and/or thickening with bilateral perihilar infiltrates, and mult ifocal areas of nodular consolidation bilaterally greater in the left lower lobe despite left-sided p leural drainage catheter.
[2020-01-21] MEDS: LISINOPRIL 2.5 MG TAB PO SCH (08:48)
[2020-01-21] MEDS: ATORVASTATIN 40 MG TAB PO SCH (08:48)
[2020-01-21] MEDS: FUROSEMIDE 40 MG TAB PO SCH ×2 (08:48→17:15)
[2020-01-21] MEDS: ASPIRIN 81 MG PO SCH (08:48)
[2020-01-21] MEDS: MIDODRINE 5 MG TAB PO SCH ×2 (08:48→17:15)
[2020-01-21] MEDS: CLOPIDOGREL 75 MG TAB PO SCH (08:48)
[2020-01-21 09:37] LABS: Calcium 9.7 mg/dL (8.4-10.2); Potassium 5.8 mmol/L (3.5-5.1)
[2020-01-21 09:55] LABS: Anisocytosis Slight; Basophils % (A) 1 %; Eosinophils % (A) 1 %; HCT 41.5 % (39.0-53.0); HGB 12.8 gm/dL (13.0-17.5); Hypochromasia Moderate; Lymphocytes # (A) 0.7 k/uL (1.0-4.8); Lymphocytes % (A) 9 %; MCH 27.6 pg (25.0-35.0); MCHC 30.8 g/dL (31.0-37.0); MCV 89.7 fL (80.0-100.0); Mean Platelet Volume 8.4; Monocytes # (A) 0.6 k/uL (0-1.0); Monocytes % (A) 7 %; Neutrophils % (A) 80 %; Platelet Count 275 k/uL (150-450); RBC 4.63 m/uL (4.30-5.90); RDW 16.8 % (11.5-15.5); WBC 7.5 k/uL (3.8-10.6)
--- NOTE | 2020-01-21 10:06 | P.CNPUL ---
History of Present Illness Consult date: 01/21/20 Reason for consult: dyspnea History of present illness: This is a 74-year-old male patient with known history of coronary artery disease with previous coronary intervention and stenting of the circumflex in addition to history of severe cardiomyopathy with an ejection fraction of 25% and chronic systolic dysfunction and severe resting bradycardia close the was chamber ICD placement. The patient was also having recurrent left-sided pleural effusion and he underwent a Pleurx catheter insertion back in August 2019 by cardiothoracic surgery. He has been undergoing daily drainage from his left lung and he typically drinks approximately 200 mL of pleural fluid.. The patient also has hypertension, prostate cancer and he has been treated with prostatic radiation therapy/implants. He has also history of osteoarthritis. The patient is an ex-smoker. [id number] smoking history. He came into the hospital because of worsening shortness of breath.. His been progressively getting more short of breath over the past month. His shortness of breath is essentially exertional and he also has orthopnea. No reported chest pain. No reported cough or sputum production. He is an ex-smoker. No wheezing. No previous history of DVT or pulmonary embolism. No fever. The white cell count at time of admission was 7.8. Hemoglobin was at 13.8. Coagulation profile was within normal. D-dimer was elevated at 4.08 and based on that the patient was given a CT angiogram that showed no evidence of any pulmonary embolism. 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 No evidence of any pneumonia. No evidence of any airspace disease. There was a 3 cm poorly marginated infiltrate in the right lower lobe and the significance of this abnormality is not known. In the emergency department, the patient was having episodes of hypotension. His systolic blood pressure was as low as 75. He was given pressors and currently is running on low-dose levothyroid at 0.03 g per KG per minute. His cardiac rhythm is ventricularly paced at the rate of 100. Note that the patient some minimal troponin elevation. ProBNP level was quite elevated. Lactic acid level was 4.2, admission dropped down to 2 and currently is on IV with KVO. Review of Systems Constitutional: Reports weakness, Reports weight loss (Lost 35-40 pounds) Eyes: denies blurred vision, denies bulging eye, denies decreased vision Ears: deny: decreased hearing, ear discharge, earache, tinnitus Ears, nose, mouth and throat: Denies headache, Denies sore throat Cardiovascular: Reports decreased exercise tolerance, Reports dyspnea on exertion, Reports shortness of breath Respiratory: Reports dyspnea Genitourinary: Reports as per HPI Musculoskeletal: Reports as per HPI Musculoskeletal: absent: ankle pain, ankle stiffness, ankle swelling Integumentary: Reports as per HPI Neurological: Reports as per HPI, Reports weakness Psychiatric: Reports as per HPI Endocrine: Reports as per HPI Hematologic/Lymphatic: Reports as per HPI Allergic/Immunologic: Reports allergic rhinitis Past Medical History Past Medical History: Coronary Artery Disease (CAD), Heart Failure Additional Past Medical History / Comment(s): PROSTATE CANCER (2006-HAD IMPLANT). LEFT PLEURAL EFFUSION History of Any Multi-Drug Resistant Organisms: None Reported Past Surgical History: Heart Catheterization With Stent, Hernia Repair, Orthopedic Surgery, Pacemaker Additional Past Surgical History / Comment(s): TOTAL RIGHT HIP (2014). ORIF OF RIGHT HIP, REMOVAL OF HARDWARE RT HIP, 07/12/15, insertion of a left-sided Pleurx catheter, insertion of a biventricular AICD him a cardiac catheterization with stenting of the circumflex in 2015 Past Anesthesia/Blood Transfusion Reactions: No Reported Reaction Type of Cardiac Device: Permanent Pacemaker, AICD Device Placement Date:: 2012 Past Psychological History: Anxiety, Depression Smoking Status: Former smoker Past Alcohol Use History: None Reported Additional Past Alcohol Use History / Comment(s): SMOKED FROM [id number], 1-2 PPD. Past Drug Use History: None Reported - Past Family History Mother Family Medical History: Cancer, Hypertension Additional Family Medical History / Comment(s): MELANOMA Father Family Medical History: Congestive Heart Failure (CHF) Sister(s) Family Medical History: No Reported History Daughter(s) Family Medical History: No Reported History Son(s) Family Medical History: No Reported History Medications and Allergies Home Medications Medication Instructions Recorded Confirmed Type Carvedilol [Coreg] 3.125 mg PO BID-W/MEALS #60 tab 02/10/16 08/22/19 Rx Nitroglycerin Sl Tabs [Nitrostat] 0.4 mg SUBLINGUAL Q5M PRN #25 tab 02/10/16 08/25/19 Rx Aspirin 81 mg PO QAM 06/03/16 08/22/19 History Atorvastatin [Lipitor] 40 mg PO QAM 06/03/16 08/25/19 History Clopidogrel [Plavix] 75 mg PO QAM 06/03/16 08/22/19 History Furosemide [Lasix] 40 mg PO BID 06/03/16 08/25/19 History Lisinopril [Zestril] 2.5 mg PO QAM 06/03/16 08/22/19 History Acetaminophen [Tylenol Arthritis] 1,300 mg PO BID 10/07/16 08/25/19 History Baclofen 10 mg PO QID PRN 07/05/19 08/25/19 History Midodrine [ProAmatine] 10 mg PO BID 07/05/19 08/22/19 History Allergies Allergy/AdvReac Type Severity Reaction Status Date / Time No Known Allergies Allergy Verified 01/20/20 22:19 Physical Exam Vitals: Vital Signs Temp Pulse Resp BP Pulse Ox 01/21/20 09:00 101 H 32 H 78/65 98 01/21/20 08:30 93 30 H 117/104 99 01/21/20 08:00 97.8 F 100 23 99/76 99 01/21/20 07:30 103 H 33 H 74/60 99 01/21/20 07:00 74 16 90/63 96 01/21/20 06:45 65 20 84/66 98 01/21/20 06:30 89 17 96/65 99 01/21/20 06:15 105 H 21 94/70 99 01/21/20 06:00 105 H 20 98/67 99 01/21/20 05:45 105 H 20 91/68 98 01/21/20 05:30 105 H 20 92/73 99 01/21/20 05:15 105 H 21 89/72 99 01/21/20 05:00 105 H 24 92/69 99 01/21/20 04:45 105 H 20 77/48 99 01/21/20 04:30 78 22 102/75 99 01/21/20 04:15 104 H 20 87/68 100 01/21/20 04:00 97.8 F 105 H 20 95/75 100 01/21/20 03:47 99 01/21/20 03:30 106 H 92/75 100 01/21/20 03:29 97.6 F 101 H 22 92/75 100 0307/20 03:15 49 L 88/66 100 01/21/20 02:54 105 H 24 88/52 100 01/21/20 02:45 106 H 114/76 100 01/21/20 02:30 107 H 84/56 99 01/21/20 02:15 104 H 86/65 100 01/21/20 02:00 106 H 85/65 81 L 01/21/20 01:45 105 H 98/65 94 L 01/21/20 01:44 102 H 22 98/65 98 01/21/20 01:30 106 H 91/50 100 01/21/20 01:22 102 H 24 91/50 100 01/21/20 01:15 105 H 88/54 100 01/21/20 01:03 93 24 82/58 99 01/21/20 01:00 105 H 129/60 01/21/20 00:45 103 H 129/60 100 01/21/20 00:38 104 H 24 129/60 100 01/21/20 00:30 105 H 85/68 01/21/20 00:23 103 H 25 H 85/68 99 01/21/20 00:15 103 H 75/23 100 01/21/20 00:00 105 H 100 01/20/20 23:45 104 H 100 01/20/20 23:30 104 H 97/63 97 01/20/20 23:00 105 H 96/64 99 01/20/20 22:30 103 H 90/61 100 01/20/20 22:13 98.9 F 81 24 77/58 93 L Intake and Output 01/20/20 01/21/20 01/21/20 22:59 06:59 14:59 Intake Total 251.510 230 Output Total 200 350 Balance 51.510 -120 Intake: IV 30 30 Normal saline 30 30 Intake, IV Titration 21.510 0 Amount Norepinephrine 4 mg In 21.510 0 Sodium Chloride 0.9% 250 ml @ 0.05 MCG/KG/MIN 16. 072 mls/hr IV .[id number] ONE Rx#:[id number] Oral 200 200 Output: Urine 200 350 Other: Weight 84.368 kg 84.368 kg - Constitutional General appearance: mild distress - EENT Eyes: Reports anicteric sclerae, Reports disc margins sharp, Reports edentulous, Reports PERRLA, Denies ptosis, Denies scleral icterus ENT: Reports hearing grossly normal, Reports NA/AT, Reports normal oropharynx, Denies thrush Ears: bilateral: normal - Neck Neck: Reports normal ROM, Denies lymphadenopathy, Denies rigidity, Denies stridor, Denies thyromegaly Carotids: bilateral: upstroke delayed Thyroid: bilateral: normal size - Respiratory Respiratory: bilateral: diminished, negative: dullness, rales, rhonchi, wheezing, wheezes or rhonchi. Some slightly diminished breath on the left lung base. The patient has a Pleurx catheter in place on the left side. - Cardiovascular Rhythm: regular Heart sounds: normal: S1, S2, the rhythm is Abnormal Heart Sounds: Reports systolic murmur, Reports S3 Gallop, Denies rub, Denies click, the pulses are diminished in all 4 extremities. - Gastrointestinal General gastrointestinal: Reports normal bowel sounds, Reports soft, Denies splenomegaly, Denies tenderness, Denies umbilical hernia, Denies ventral hernia - Integumentary Integumentary: Reports normal, Reports normal turgor - Neurologic Neurologic: CNII-XII intact - Musculoskeletal Musculoskeletal: Reports generalized weakness, Reports strength equal bilaterally - Psychiatric Psychiatric: Reports A&O x's 3, Reports appropriate affect, Reports intact judgment & insight Results - Laboratory Findings CBC and BMP: 01/21/20 08:52 01/21/20 08:52 ABG WBC 7.8 k/uL (3.8-10.6) 01/20/20 22:37 RBC 5.03 m/uL (4.30-5.90) 01/20/20 22:37 Hgb 13.8 gm/dL (13.0-17.5) 01/20/20 22:37 Hct 45.1 % (39.0-53.0) 01/20/20 22:37 MCV 89.7 fL (80.0-100.0) 01/20/20 22:37 MCH 27.4 pg (25.0-35.0) 01/20/20 22:37 MCHC 30.6 g/dL (31.0-37.0) L 01/20/20 22:37 RDW 16.8 % (11.5-15.5) H 01/20/20 22:37 Plt Count 301 k/uL (150-450) 01/20/20 22:37 Neutrophils % 78 % 01/20/20 22:37 Lymphocytes % 12 % 01/20/20 22:37 Monocytes % 7 % 01/20/20 22:37 Eosinophils % 1 % 01/20/20 22:37 Basophils % 1 % 01/20/20 22:37 Neutrophils # 6.1 k/uL (1.3-7.7) 01/20/20 22:37 Lymphocytes # 0.9 k/uL (1.0-4.8) L 01/20/20 22:37 Monocytes # 0.5 k/uL (0-1.0) 01/20/20 22:37 Eosinophils # 0.1 k/uL (0-0.7) 01/20/20 22:37 Basophils # 0.0 k/uL (0-0.2) 01/20/20 22:37 Hypochromasia Moderate 01/20/20 22:37 Anisocytosis Slight 01/20/20 22:37 PT 12.8 sec (9.0-12.0) H 01/20/20 22:37 INR 1.3 (<1.2) H 01/20/20 22:37 APTT 26.1 sec (22.0-30.0) 01/20/20 22:37 D-Dimer 4.08 mg/L FEU (<0.60) H 01/20/20 22:37 Sodium 132 mmol/L (137-145) L 01/21/20 08:52 Potassium 5.8 mmol/L (3.5-5.1) H 01/21/20 08:52 Chloride 98 mmol/L (98-107) 01/21/20 08:52 Carbon Dioxide 27 mmol/L (22-30) 01/21/20 08:52 Anion Gap 7 mmol/L 01/21/20 08:52 BUN 32 mg/dL (9-20) H 01/21/20 08:52 Creatinine 1.12 mg/dL (0.66-1.25) 01/21/20 08:52 Est GFR (CKD-EPI)AfAm 75 (>60 ml/min/1.73 sqM) 01/21/20 08:52 Est GFR (CKD-EPI)NonAf 65 (>60 ml/min/1.73 sqM) 01/21/20 08:52 Glucose 145 mg/dL (74-99) H 01/21/20 08:52 POC Glucose (mg/dL) 123 mg/dL (75-99) H 01/21/20 03:46 POC Glu Guest Relations Officer LUIZA Gardner, 01/21/20 03:46 Lactic Ac Sepsis Rflx Y 01/20/20 23:25 Plasma Lactic Acid Gurinder 2.0 mmol/L (0.7-2.0) 01/21/20 03:08 Calcium 9.7 mg/dL (8.4-10.2) 01/21/20 08:52 Total Bilirubin 0.7 mg/dL (0.2-1.3) 01/20/20 22:37 AST 198 U/L (17-59) H 01/20/20 22:37 ALT 173 U/L (4-49) H 01/20/20 22:37 Alkaline Phosphatase 287 U/L (38-126) H 01/20/20 22:37 Troponin I 0.091 ng/mL (0.000-0.034) H* 01/20/20 22:37 NT-Pro-B Natriuret Pep 78066 pg/mL 01/20/20 22:37 Total Protein 7.6 g/dL (6.3-8.2) 01/20/20 22:37 Albumin 4.0 g/dL (3.5-5.0) 01/20/20 22:37 PT/INR, D-dimer PT 12.8 sec (9.0-12.0) H 01/20/20 22:37 INR 1.3 (<1.2) H 01/20/20 22:37 D-Dimer 4.08 mg/L FEU (<0.60) H 01/20/20 22:37 Abnormal lab findings: Abnormal Labs 01/20/20 01/20/20 01/20/20 22:37 22:37 22:37 MCHC 30.6 L RDW 16.8 H Lymphocytes # 0.9 L PT 12.8 H INR 1.3 H D-Dimer 4.08 H Sodium 133 L Potassium 5.5 H BUN 32 H Glucose 126 H POC Glucose (mg/dL) Plasma Lactic Acid Gurinder AST 198 H ALT 173 H Alkaline Phosphatase 287 H Troponin I 01/20/20 01/20/20 01/21/20 22:37 22:37 03:46 MCHC RDW Lymphocytes # PT INR D-Dimer Sodium Potassium BUN Glucose POC Glucose (mg/dL) 123 H Plasma Lactic Acid Gurinder 4.2 H* AST ALT Alkaline Phosphatase Troponin I 0.091 H* 01/21/20 08:52 MCHC RDW Lymphocytes # PT INR D-Dimer Sodium 132 L Potassium 5.8 H BUN 32 H Glucose 145 H POC Glucose (mg/dL) Plasma Lactic Acid Gurinder AST ALT Alkaline Phosphatase Troponin I - Diagnostic Findings Chest x-ray: image reviewed CT scan - chest: image reviewed Assessment and Plan Plan: 1 shortness of breath exertion along with orthopnea and even dyspnea at rest. This is most consistent with underlying CHF. Suspect worsening his underlying cardiac function. Previous echocardiogram showed an ejection fraction of 25 percent. The patient has chronic systolic heart failure post biventricular AICD placement. The amount of fluid in the left lung is minimal based on the CAT scan findings. The patient is a Pleurx catheter and undergoing daily drainage. Output is been in the order of 200 mL. No evidence of any pneumonia or any o ther pulmonary decompensating factor. No evidence of any pulmonary embolism. Currently the patient is also running a lower blood pressure is requiring low- dose levo fed for hemodynamic support which is being administered at 0.03 g per KG minutes. 2 coronary artery disease. Previous non-STEMI with previous stenting of the circumflex, with minimal troponin leak, questionable acute non-STEMI con tributing to his further decompensated heart failure and hypotension 3 chronic left-sided pleural effusion post Pleurx catheter insertion 4 biventricular AICD placement 5 hyperlipidemia 6 history of prostate cancer with radiation therapy followed by Lupron injections 7 osteoarthritis 8 minimal troponin leak 9 mild lactic acidosis Plan My overall impression is that the patient has developed worsening in has heart failure. The exact decompensating fact it is not clear. Consider a recurrent non-STEMI/silent infarct. He is borderline hypotensive on low-dose pressors. Wean off pressors maintaining a mean artery pressure above 65 Check a serum cortisol level Check urinalysis Blood cultures of been sent and empiric antibiotic have been administered Check pro calcitonin level Drain the left-sided pleural effusion CAT scan of the chest was reviewed Reasonable to repeat echocardiogram to reevaluate LV function
--- NOTE | 2020-01-21 10:55 | CONS ---
CONSULTATION ATTENDING PHYSICIAN: Dr. Burnett. Mr. Barney is a 74-year-old male followed by Dr. Ordaz on a regular basis, known history of coronary artery disease status post stenting of the left circumflex in 2016, history of severe cardiomyopathy status post ICD implantation, history of recurrent left-sided pleural effusion with PleurX catheter inserted in 2019 with usual drainage of about 200 mL who presented with symptoms of progressive dyspnea. His symptoms have been going on for the last 3 months, worse over the last few days, came into the emergency room and subsequently admitted. He denies any peripheral edema or weight gain. He has no chest discomfort. He has an episode of PND. No significant dizziness or palpitation. There is no discharge from the device. His ejection fraction in the past was in the 25% range. He has not had any cough or fever at home. His coronary risk factors are positive for hyperlipidemia. He is nondiabetic. He is a nonsmoker. He has stopped about 7 years ago. MEDICATIONS: Include aspirin once a day, Plavix 75 mg daily, Coreg 3.125 mg twice a day, Lipitor 40 mg daily, midodrine 10 mg twice a day, Zestril 2.5 mg daily. REVIEW OF SYSTEMS: Respiratory system: He has the dyspnea on exertion and history of recurrent pleural effusion. No recent wheezing or cough. GI system: He denies any nausea or vomiting. No GI bleeding. system: No dysuria or hematuria. Nervous system: No stroke or seizure. PHYSICAL EXAMINATION: 74-year-old male, alert, oriented, in no apparent distress. Blood pressure running in the 80s to 90s on a very low dose of norepinephrine. Heart rate in the 90s. HEAD: Normocephalic. Eyes: Sclerae anicteric. Neck: Good upstroke. No bruit. No jugular venous distention. Lungs with crackles both bases. HEART: Regular rate and rhythm S1-S2 with a systolic murmur. No rub. ABDOMEN: Soft, nontender. Positive bowel sounds. No organomegaly. EXTREMITIES: No edema. LAB DATA: Lab data revealed BUN and creatinine 32 and 1.1. Potassium 5.8, hemoglobin 12.8. His troponin 0.091 [place] [address]. His AST and ALT are 198 and 173. His EKG revealed a paced rhythm. His chest x-ray shows a small effusion. IMPRESSION: 1. Symptoms of congestive heart failure in a patient with known history of severe cardiomyopathy. It does not appear to be an acute onset. It looks like it has been gradually getting worse over the last 3 months to the point that he was quite symptomatic. 2. Minimal elevation of troponin. No evidence to suggest acute coronary syndrome. 3. History of coronary artery disease status post stenting of left circumflex. 4. Status post ICD implant. 5. History of pleural effusion and PleurX catheter placement. 6. History of hyperlipidemia. RECOMMENDATION: From the cardiac standpoint, patient is on oral diuretics at this time. I will continue the rest of his medical regimen. Patient had low blood pressure in the past. He will have repeat echocardiogram. We will follow his renal function and depending on his progress, further recommendations will be made. Thank you for this consult. We will follow with you. RAGHU / ERIN: [id number] /
[2020-01-21] MEDS: ALPRAZolam 0.25 MG TAB PO PRN ×2 (12:08→18:08)
[2020-01-21 13:10] LABS: Appearance,Urine Clear (Clear); Bilirubin,Urine Negative (Negative); Blood,Urine Negative (Negative); Color,Urine Yellow; Glucose,Urine (UA) Negative (Negative); Ketones,Urine Negative (Negative); Leukocyte Esterase,Urine Negative (Negative); Nitrite,Urine Negative (Negative); PH, Urine 5.5 (5.0-8.0); Protein,Urine Trace (Negative); Specific Gravity,Urine 1.033 (1.001-1.035)
--- NOTE | 2020-01-21 13:54 | P.HPIM ---
History of Present Illness H&P Date: 01/21/20 Chief Complaint: Difficulty breathing This is a 74-year-old male patient of Dr. Burnett, Dr. Gilbert and Dr. Xi Ordaz with a previous medical history significant for hypertension, hyperlipidemia, osteoarthritis, prostate cancer that was diagnosed back in 2006 status post implants as well as Lupron injection, coronary artery disease with stent of the circumflex, severe cardiomyopathy and chronic systolic heart failure with known ejection fraction of 25%, bradycardia status post AICD implantation, recurrent left-sided pleural effusion status post Pleurx catheter insertion August 2019 by cardiothoracic surgery. Patient drains this himself or his daughter of 100-200 mL subpleural fluid daily. Patient also has history of hypertension, [id number] smoking history. Patient complains of shortness of breath for the past month gradually worsening. Shortness of breath is exceptionally worse with exertion. No chest pain, no cough or sputum production, reports weight loss. He complains of nausea occasionally, no abdominal pain. He complains of lightheadedness. He denies any use of steroids for the past 6 weeks. He denies any change and his medications recently. Patient relates that he has been using his mother's home oxygen at 4 L nasal cannula around the clock. Patient came into [facility] emergency center for evaluation, WBC 7.8, hemoglobin 13.8, d-dimer elevated at 4.08. CT angiogram of the chest did not show any pulmonary embolism. There was a small right-sided loculated pleural effusion along with pseudotumor in the left lung consistent with pleural fluid. No evidence of pneumonia. No airspace disease. 3 cm poorly marginated infiltrate in the right lower lobe and significance is unknown. Patient was hypotensive in the emergency center with systolic blood pressure down to 75. He was started on vasopressors and admitted into the intensive care unit with consults in place for pulmonary medicine and cardiology. Abdominal ultrasound revealed mild gallbladder wall thickening and air fluid that could relate chol ecystitis. Heart failure also possible. Small gallstone or gallbladder polyp. Fatty liver. Review of Systems Constitutional: Reports fatigue, Reports lethargy, Reports poor appetite, Reports weakness, Reports weight loss, Denies chills, Denies fever Eyes: denies blurred vision, denies pain Ears, nose, mouth and throat: Denies dysphagia, Denies headache, Denies nasal congestion, Denies nasal discharge, Denies sore throat, Denies vertigo Cardiovascular: Reports decreased exercise tolerance, Reports dyspnea on exertion, Reports lightheadedness, Reports orthopnea, Reports shortness of breath, Denies chest pain, Denies palpitations, Denies syncope Respiratory: Reports dyspnea, Reports home oxygen, Denies cough, Denies cough with sputum, Denies excessive sputum, Denies hemoptysis, Denies respiratory infections, Denies sleep apnea, Denies wheezing Gastrointestinal: Reports loss of appetite, Reports nausea, Denies abdominal p ain, Denies diarrhea, Denies vomiting Genitourinary: Denies dysuria, Denies urinary retention Musculoskeletal: Reports muscle weakness, Denies frequent falls, Denies gait dysfunction Integumentary: Denies pruritus, Denies rash Neurological: Denies change in mentation, Denies change in speech, Denies numbness, Denies weakness Psychiatric: Reports anxiety, Denies depression Endocrine: Denies fatigue, Denies weight change Past Medical History Past Medical History: Coronary Artery Disease (CAD), Heart Failure Additional Past Medical History / Comment(s): PROSTATE CANCER (2006-[employer]). LEFT PLEURAL EFFUSION History of Any Multi-Drug Resistant Organisms: None Reported Past Surgical History: Heart Catheterization With Stent, Hernia Repair, Orthopedic Surgery, Pacemaker Additional Past Surgical History / Comment(s): TOTAL RIGHT HIP (2014). ORIF OF RIGHT HIP, REMOVAL OF HARDWARE RT HIP, 07/12/15, insertion of a left-sided Pleurx catheter, insertion of a biventricular AICD him a cardiac catheterization with stenting of the circumflex in 2016 Past Anesthesia/Blood Transfusion Reactions: No Reported Reaction Type of Cardiac Device: Permanent Pacemaker, AICD Device Placement Date:: 2012 Past Psychological History: Anxiety, Depression Smoking Status: Former smoker Past Alcohol Use History: None Reported Additional Past Alcohol Use History / Comment(s): SMOKED FROM [id number], 1-2 PPD. Patient has history of drinking up to 14 drinks per week and currently at 2 beers every other day. He is using his mother's home oxygen at 4 L nasal cannula. Past Drug Use History: None Reported - Past Family History Mother Family Medical History: Cancer, Hypertension Additional Family Medical History / Comment(s): Mother is with history of hypertension and MELANOMA Father Family Medical History: Congestive Heart Failure (CHF) Additional Family Medical History / Comment(s): Father at age 89 from congestive heart failure. Sister(s) Family Medical History: No Reported History Additional Family Medical History / Comment(s): Patient has one half sister with no major medical problems. Daughter(s) Family Medical History: No Reported History Additional Family Medical History / Comment(s): Patient has one daughter with no major medical problems. Son(s) Family Medical History: No Reported History Additional Family Medical History / Comment(s): Patient has 2 sons, one in a motor vehicle accident after he was hit by a semitruck. Second son has no major medical problems. Medications and Allergies Home Medications Medication Instructions Recorded Confirmed Type Carvedilol [Coreg] 3.125 mg PO BID-W/MEALS #60 tab 02/10/16 01/21/20 Rx Nitroglycerin Sl Tabs [Nitrostat] 0.4 mg SUBLINGUAL Q5M PRN #25 tab 02/10/16 01/21/20 Rx Aspirin 81 mg PO QAM 06/03/16 01/21/20 History Atorvastatin [Lipitor] 40 mg PO QAM 06/03/16 01/21/20 History Clopidogrel [Plavix] 75 mg PO QAM 06/03/16 01/21/20 History Furosemide [Lasix] 20 mg PO DAILY@1400 06/03/16 01/21/20 History Lisinopril [Zestril] 2.5 mg PO QAM 06/03/16 01/21/20 History Acetaminophen [Tylenol Arthritis] 650 mg PO Q6H PRN 10/07/16 01/21/20 History Midodrine [ProAmatine] 10 mg PO BID 07/05/19 01/21/20 History Furosemide [Lasix] 40 mg PO DAILY 01/21/20 01/21/20 History QUEtiapine [SEROquel] 25 mg PO HS 01/21/20 01/21/20 History Venlafaxine HCl [Effexor] 100 mg PO BID-W/MEALS 01/21/20 01/21/20 History Allergies Allergy/AdvReac Type Severity Reaction Status Date / Time No Known Allergies Allergy Verified 01/21/20 12:14 Physical Exam Vitals: Vital Signs Temp Pulse Resp BP Pulse Ox 01/21/20 10:00 101 H 15 73/58 99 01/21/20 09:30 100 14 85/65 98 01/21/20 09:00 101 H 32 H 78/65 98 01/21/20 08:30 93 30 H 117/104 99 01/21/20 08:00 97.8 F 100 23 99/76 99 01/21/20 07:30 103 H 33 H 74/60 99 01/21/20 07:00 74 16 90/63 96 01/21/20 06:45 65 20 84/66 98 01/21/20 06:30 89 17 96/65 99 01/21/20 06:15 105 H 21 94/70 99 01/21/20 06:00 105 H 20 98/67 99 01/21/20 05:45 105 H 20 91/68 98 01/21/20 05:30 105 H 20 92/73 99 01/21/20 05:15 105 H 21 89/72 99 01/21/20 05:00 105 H 24 92/69 99 01/21/20 04:45 105 H 20 77/48 99 01/21/20 04:30 78 22 102/75 99 01/21/20 04:15 104 H 20 87/68 100 01/21/20 04:00 97.8 F 105 H 20 95/75 100 01/21/20 03:47 99 01/21/20 03:30 106 H 92/75 100 01/21/20 03:29 97.6 F 101 H 22 92/75 100 01/21/20 03:15 49 L 88/66 100 01/21/20 02:54 105 H 24 88/52 100 01/21/20 02:45 106 H 114/76 100 01/21/20 02:30 107 H 84/56 99 01/21/20 02:15 104 H 86/65 100 01/21/20 02:00 106 H 85/65 81 L 01/21/20 01:45 105 H 98/65 94 L 01/21/20 01:44 102 H 22 98/65 98 01/21/20 01:30 106 H 91/50 100 01/21/20 01:22 102 H 24 91/50 100 01/21/20 01:15 105 H 88/54 100 01/21/20 01:03 93 24 82/58 99 01/21/20 01:00 105 H 129/60 01/21/20 00:45 103 H 129/60 100 01/21/20 00:38 104 H 24 129/60 100 01/21/20 00:30 105 H 85/68 01/21/20 00:23 103 H 25 H 85/68 99 01/21/20 00:15 103 H 75/23 100 01/21/20 00:00 105 H 100 01/20/20 23:45 104 H 100 01/20/20 23:30 104 H 97/63 97 01/20/20 23:00 105 H 96/64 99 01/20/20 22:30 103 H 90/61 100 01/20/20 22:13 98.9 F 81 24 77/58 93 L Intake and Output 01/20/20 01/21/20 01/21/20 22:59 06:59 14:59 Intake Total 251.510 256.608 Output Total 200 550 Balance 51.510 -293.392 Intake: IV 30 40 Normal saline 30 40 Intake, IV Titration 21.510 16.608 Amount Norepinephrine 4 mg In 21.510 16.608 Sodium Chloride 0.9% 250 ml @ 0.05 MCG/KG/MIN 16. 072 mls/hr IV .[id number] Rx#:[id number] Oral 200 200 Output: Chest Tube Drainage 100 Pleural Catheter Left Mid 100 -Axillary Chest Urine 200 450 Other: Weight 84.368 kg 84.368 kg Gen: This is a 74-year-old male. Patient appears to be quite anxious. HEENT: Head is atraumatic, normocephalic. Pupils equal, round. Sclerae is anicteric. NECK: Supple. No JVD. No lymphadenopathy. No thyromegaly. LUNGS: Diminished bilaterally No wheezes or rhonchi. No intercostal retraction s. Pleurx catheter in the left. HEART: Regular rate and rhythm. Systolic murmur. ABDOMEN: Soft. Bowel sounds are present. No masses. No tenderness. EXTREMITIES: No pedal edema. No calf tenderness. NEUROLOGICAL: Patient is awake, alert and oriented x3. Cranial nerves 2 through 12 are grossly intact. Results CBC & Chem 7: 01/21/20 08:52 01/21/20 08:52 Labs: Abnormal Lab Results - Last 24 Hours (Table) 01/20/20 01/20/20 01/20/20 Range/Units 22:37 22:37 22:37 Hgb (13.0-17.5) gm/dL MCHC 30.6 L (31.0-37.0) g/dL RDW 16.8 H (11.5-15.5) % Lymphocytes # 0.9 L (1.0-4.8) k/uL PT 12.8 H (9.0-12.0) sec INR 1.3 H (<1.2) D-Dimer 4.08 H (<0.60) mg/L FEU Sodium 133 L (137-145) mmol/L Potassium 5.5 H (3.5-5.1) mmol/L BUN 32 H (9-20) mg/dL Glucose 126 H (74-99) mg/dL POC Glucose (mg/dL) (75-99) mg/dL Plasma Lactic Acid Gurinder (0.7-2.0) mmol/L AST 198 H (17-59) U/L ALT 173 H (4-49) U/L Alkaline Phosphatase 287 H (38-126) U/L Troponin I (0.000-0.034) ng/mL 01/20/20 01/20/20 01/21/20 Range/Units 22:37 22:37 03:46 Hgb (13.0-17.5) gm/dL MCHC (31.0-37.0) g/dL RDW (11.5-15.5) % Lymphocytes # (1.0-4.8) k/uL PT (9.0-12.0) sec INR (<1.2) D-Dimer (<0.60) mg/L FEU Sodium (137-145) mmol/L Potassium (3.5-5.1) mmol/L BUN (9-20) mg/dL Glucose (74-99) mg/dL POC Glucose (mg/dL) 123 H (75-99) mg/dL Plasma Lactic Acid Gurinder 4.2 H* (0.7-2.0) mmol/L AST (17-59) U/L ALT (4-49) U/L Alkaline Phosphatase (38-126) U/L Troponin I 0.091 H* (0.000-0.034) ng/mL 0301/21/20 01/21/20 Range/Units 08:52 08:52 08:52 Hgb 12.8 L (13.0-17.5) gm/dL MCHC 30.8 L (31.0-37.0) g/dL RDW 16.8 H (11.5-15.5) % Lymphocytes # 0.7 L (1.0-4.8) k/uL PT (9.0-12.0) sec INR (<1.2) D-Dimer (<0.60) mg/L FEU Sodium 132 L (137-145) mmol/L Potassium 5.8 H (3.5-5.1) mmol/L BUN 32 H (9-20) mg/dL Glucose 145 H (74-99) mg/dL POC Glucose (mg/dL) (75-99) mg/dL Plasma Lactic Acid Gurinder (0.7-2.0) mmol/L AST (17-59) U/L ALT (4-49) U/L Alkaline Phosphatase (38-126) U/L Troponin I 0.087 H* (0.000-0.034) ng/mL Thrombosis Risk Factor Assmnt - DVT/VTE Prophylaxis DVT/VTE Prophylaxis: Pharmacologic Prophylaxis ordered - Choose All That Apply Each Risk Factor Represents 2 Points: Age 61-74 years Thrombosis Risk Factor Assessment Total Risk Factor Score: 2 Thrombosis Risk Factor Assessment Level: Low Risk Assessment and Plan Plan: 1. Acute on chronic systolic heart failure with known ejection fraction of 25%. Repeat echocardiogram has been ordered. Lasix 40 mg twice daily, Lopressor an d lisinopril 2. Severe cardiomyopathy status post AICD. 3. Chronic left-sided pleural effusion status post pleural catheter insertion. Nursing is draining once daily. Obtain culture tomorrow. 4. Cardiogenic shock secondary to severe cardiomyopathy requiring vasopressors.. 5. History of coronary artery disease status post stenting of circumflex with mild elevation of troponins, possible acute non-ST OR. Cardiology consult. A aspirin 81 mg daily, Lipitor 40 mg daily, Coreg 3.125 mg twice daily, Plavix 75 mg daily 6. Hyperlipidemia. 7. History of prostate cancer status post radiation therapy and Lupron injections. 8. Elevated liver function tests possibly related to combination of heart failure and fatty liver. Acute hepatitis panel ordered. 9. Generalized anxiety disorder. Xanax 2.5 mg twice daily added. 10. Hyperkalemia. Continue Lasix, no potassium supplementation. 11. DVT prophylaxis. Heparin subcu. 12. GI prophylaxis. Pepcid. Patient will be admitted to the hospital for a minimum of 2 night stay. Discharge plan: To be determined. Impression and plan of care have been directed as dictated by the signing physician. Funmilayo Diaz nurse practitioner acting as scribe for signing physician.
--- NOTE | 2020-01-21 16:24 | ECHOF ---
Referral Reason:Heart Failure MEASUREMENTS -------- HEIGHT: 177.8 cm WEIGHT: 84.4 kg BP: 84/70 RVIDd: 3.8 cm (< 3.3) IVSd: 1.4 cm (0.6 - 1.1) LVIDd: 6.6 cm (3.9 - 5.3) LVPWd: 1.4 cm (0.6 - 1.1) IVSs: 1.5 cm LVIDs: 6.2 cm LVPWs: 1.4 cm LA Diam: 3.9 cm (2.7 - 3.8) LAESV Index (A-L): 32.56 ml/m Ao Diam: 3.2 cm (2.0 - 3.7) AV Cusp: 2.0 cm (1.5 - 2.6) MV EXCURSION: 17.007 mm (> 18.000) MV EF SLOPE: 145 mm/s (70 - 150) EPSS: 2.5 cm AR PHT: 458 ms RAP: 15.00 mmHg RVSP: 49.42 mmHg FINDINGS -------- Resting tachycardia (HR>100bpm). Pacerwire seen in RV and RA. This was a technically adequate study. The left ventricle is moderately dilated. There is moderate concentric left ventricular hypertrophy . Overall left ventricular systolic function is severely impaired with, an EF < 20%. The right ventricle is mild to moderately enlarged. The right ventricular systolic function is mode rately impaired. LA is midly dilated 29-33ml/m2. The right atrial size is normal. Interatrial and interventricular septum intact. There is mild aortic valve sclerosis. Mild mitral annular calcification present. Moderate mitral regurgitation is present. Moderate tricuspid regurgitation present. There is mild to moderate pulmonary hypertension. The r ight ventricular systolic pressure, as measured by Doppler, is 49.42mmHg. Trace/mild (physiologic) pulmonic regurgitation. The aortic root size is normal. Normal inferior vena cava with less than 50% inspiratory collapse consistent with estimated right atr ial pressure of 15 mmHg. There is no pericardial effusion. CONCLUSIONS -------- 1. Resting tachycardia (HR>100bpm). 2. Pacerwire seen in RV and RA. 3. This was a technically adequate study. 4. The left ventricle is moderately dilated. 5. There is moderate concentric left ventricular hypertrophy. 6. Overall left ventricular systolic function is severely impaired with, an EF < 20%. 7. The right ventricle is mild to moderately enlarged. 8. LA is midly dilated 29-33ml/m2. 9. There is mild aortic valve sclerosis. 10. Mild mitral annular calcification present. 11. Moderate mitral regurgitation is present. 12. Moderate tricuspid regurgitation present. 13. There is mild to moderate pulmonary hypertension. 14. Trace/mild (physiologic) pulmonic regurgitation. 15. Normal inferior vena cava with less than 50% inspiratory collapse consistent with estimated right atrial pressure of 15 mmHg. 16. There is no pericardial effusion. HAM PUMPER: Erica Jones RDCS
[2020-01-21 17:31] LABS: Hepatitis A Antibody IgM Non-Reactive (Non-Reactive); Hepatitis B Core IgM Non-Reactive (Non-Reactive); Hepatitis B Surface Antigen Non-Reactive (Non-Reactive); Hepatitis C IgG Antibody Non-Reactive (Non-Reactive)
[2020-01-21] MEDS: ACETAMINOPHEN TAB 325 MG TAB PO PRN (20:42)
[2020-01-21] MEDS: HEPARIN SODIUM,PORCINE 5,000 UNIT/ML 1 ML VIAL SQ SCH (20:43)
[2020-01-21] MEDS ORDERED: MELATONIN 3 MG TABLET PO SCH (21:00)
[2020-01-22] MEDS: NOREPINEPHRINE 4 MG in SODIUM CHLORIDE 0.9% 250 ML IV SCH ×2 (00:44→09:52)
[2020-01-22 05:17] LABS: Anisocytosis Slight; Basophils % (A) 1 %; Eosinophils # (A) 0.1 k/uL (0-0.7); Eosinophils % (A) 1 %; HCT 45.3 % (39.0-53.0); HGB 13.6 gm/dL (13.0-17.5); Hypochromasia Moderate; Lymphocytes # (A) 0.9 k/uL (1.0-4.8); Lymphocytes % (A) 12 %; MCH 27.3 pg (25.0-35.0); MCHC 30.1 g/dL (31.0-37.0); MCV 90.6 fL (80.0-100.0); Mean Platelet Volume 8.1; Monocytes # (A) 0.7 k/uL (0-1.0); Monocytes % (A) 9 %; Neutrophils # (A) 5.9 k/uL (1.3-7.7); Neutrophils % (A) 74 %; Platelet Count 261 k/uL (150-450); RDW 16.9 % (11.5-15.5); WBC 7.9 k/uL (3.8-10.6)
[2020-01-22 05:26] LABS: Calcium 9.6 mg/dL (8.4-10.2)
[2020-01-22 05:36] LABS: Potassium 6.3 mmol/L (3.5-5.1)
[2020-01-22] MEDS ORDERED: SODIUM BICARB 8.4% 50 ML SYR (1 MEQ/ML) IV STA (05:52)
[2020-01-22] MEDS ORDERED: DEXTROSE 10 % IN WATER 250 ML IV STA (05:55)
[2020-01-22] MEDS ORDERED: CALCIUM GLUCONATE 1 GM in SODIUM CHLORIDE 0.9% 100 ML IVPB ONE (06:00)
[2020-01-22] MEDS ORDERED: INSULIN REGULAR 100 UNIT/ML VIAL IV ONE (06:00)
[2020-01-22] MEDS ORDERED: DEXTROSE 50% SYRINGE 50 ML IVP ONE (06:15)
[2020-01-22] MEDS ORDERED: SODIUM CHLORIDE 0.9% 500 ML 250 ML IV ONE (06:30)
[2020-01-22] MEDS: ALPRAZolam 0.25 MG TAB PO PRN ×2 (06:35→20:29)
[2020-01-22] MEDS: CARVEDILOL 3.125 MG TAB PO SCH ×2 (06:41→17:16)
--- NOTE | 2020-01-22 08:37 | XR ---
EXAMINATION TYPE: XR chest 1V DATE OF EXAM: 01/22/2020 COMPARISON: 01/21/2020 HISTORY: 74-year-old male CHF TECHNIQUE: Single frontal view of the chest is obtained. FINDINGS: Left anterior chest wall ICD generator with right atrial and right ventricular leads. Heart remains m ildly enlarged with diffuse interstitial densities. Continued moderate left effusion with left basila r and retrocardiac opacity. Slight increased patchy right basilar opacity. IMPRESSION: 1. Continued changes of CHF with interstitial pulmonary edema. 2. Continued moderate left effusion with prominent left basilar atelectasis and/or consolidation. 3. Slight worsening aeration at the right base now.
[2020-01-22] MEDS: ASPIRIN 81 MG PO SCH (08:47)
[2020-01-22] MEDS: LISINOPRIL 2.5 MG TAB PO SCH (08:47)
[2020-01-22] MEDS: CLOPIDOGREL 75 MG TAB PO SCH (08:47)
[2020-01-22] MEDS: FAMOTIDINE 20 MG TAB PO SCH (08:47)
[2020-01-22] MEDS: FUROSEMIDE 40 MG TAB PO SCH ×2 (08:47→17:16)
[2020-01-22] MEDS: ATORVASTATIN 40 MG TAB PO SCH (08:47)
[2020-01-22] MEDS: MIDODRINE 5 MG TAB PO SCH ×2 (08:47→17:16)
[2020-01-22] MEDS: HEPARIN SODIUM,PORCINE 5,000 UNIT/ML 1 ML VIAL SQ SCH ×2 (08:48→20:29)
--- NOTE | 2020-01-22 09:09 | P.PN ---
Subjective Progress Note Date: 01/22/20 Principal diagnosis: Acute exacerbation of systolic congestive heart failure, ejection fraction less than 20% This is a 74-year-old male patient with known history of coronary artery disease with previous coronary intervention and stenting of the circumflex in addition to history of severe cardiomyopathy with an ejection fraction of 25% and chronic systolic dysfunction and severe resting bradycardia close the was chamber ICD placement. The patient was also having recurrent left-sided pleural effusion and he underwent a Pleurx catheter insertion back in August 2019 by car diothoracic surgery. He has been undergoing daily drainage from his left lung and he typically drinks approximately 200 mL of pleural fluid.. The patient also has hypertension, prostate cancer and he has been treated with prostatic radiation therapy/implants. He has also history of osteoarthritis. The patient is an ex-smoker. [id number] smoking history. He came into the hospital because of worsening shortness of breath.. His been progressively getting more short of breath over the past month. His shortness of breath is essentially exertional and he also has orthopnea. No reported chest pain. No reported cough or sputum production. He is an ex-smoker. No wheezing. No previous h istory of DVT or pulmonary embolism. No fever. The white cell count at time of admission was 7.8. Hemoglobin was at 13.8. Coagulation profile was within normal. D-dimer was elevated at 4.08 and based on that the patient was given a CT angiogram that showed no evidence of any pulmonary embolism. 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 No evidence of any pneumonia. No evidence of any airspace disease. There was a 3 cm poorly marginated infiltrate in the right lower lobe and the significance of this abnormality is not known. In the emergency department, the patient was having episodes of hypotension. His systolic blood pressure was as low as 75. He was given pressors and currently is running on low-dose levothyroid at 0.03 g per KG per minute. His cardiac rhythm is ventricularly paced at the rate of 100. Note that the patient some minimal troponin elevation. ProBNP level was quite elevated. Lactic acid level was 4.2, admission dropped down to 2 and currently is on IV with KVO. The patient is seen today 01/22/2020 in follow-up in the intensive care unit. He is currently awake and alert in no acute distress. Sitting up at the bedside. Maintaining O2 saturations in the 90s on 4 L/m per nasal cannula. Today's chest x-ray continues to show evidence of fluid volume overload. Echocardiogram reveals ejection fraction less than 20%. He is still requiring a small amount of norepinephrine at 0.03 mcg/kg/m. Potassium is 6.3. Sodium 130. Creatinine 1.46. White count 7.9. Hemoglobin 13.6. Troponin 0.077. He remains on Lasix 40 mg by mouth twice a day. Still remains in a positive balance. Weight is stable. Objective - Vital Signs Vital signs: Vital Signs Temp 97 F L 01/22/20 04:45 Pulse 91 01/22/20 08:30 Resp 25 H 01/22/20 08:30 BP 76/63 01/22/20 08:30 Pulse Ox 98 01/22/20 08:30 Intake & Output 01/21/20 01/22/20 01/22/20 17:59 06:59 18:59 Intake Total 320 Output Total 0 Balance 320 Weight Intake: IV 20 Normal saline 20 Intake, IV Titration Amount Norepinephrine 4 mg In Sodium Chloride 0.9% 250 ml @ 0.05 MCG/KG/MIN 16. 072 mls/hr IV .[id number] ONE Rx#:[id number] Norepinephrine 4 mg In Sodium Chloride 0.9% 250 ml @ 0.05 MCG/KG/MIN 16. 072 mls/hr IV .[id number] REPLACED BY [facility] Rx#:[id number] Oral 300 Output: Chest Tube Drainage Pleural Catheter Left Mid -Axillary Chest Urine 0 - Exam - Constitutional General appearance: Pleasant 74-year-old gentleman, on 4 L nasal cannula, in no acute distress. - EENT Eyes: Reports anicteric sclerae, Reports disc margins sharp, Reports edentulous, Reports PERRLA, Denies ptosis, Denies scleral icterus ENT: Reports hearing grossly normal, Reports NA/AT, Reports normal oropharynx, Denies thrush Ears: bilateral: normal - Neck Neck: Reports normal ROM, Denies lymphadenopathy, Denies rigidity, Denies stridor, Denies thyromegaly Carotids: bilateral: upstroke delayed Thyroid: bilateral: normal size - Respiratory Respiratory: Some slightly diminished breath on the left lung base. The patient has a Pleurx catheter in place on the left side. Crackles in posterior bases. - Cardiovascular Rhythm: regular Heart sounds: normal: S1, S2, the rhythm is Abnormal Heart Sounds: Reports systolic murmur, Reports S3 Gallop, Denies rub, Denies click, the pulses are diminished in all 4 extremities. - Gastrointestinal General gastrointestinal: Reports normal bowel sounds, Reports soft, Denies splenomegaly, Denies tenderness, Denies umbilical hernia, Denies ventral hernia - Integumentary Integumentary: Reports normal, Reports normal turgor - Neurologic Neurologic: CNII-XII intact - Musculoskeletal Musculoskeletal: Reports generalized weakness, Reports strength equal bilaterally - Psychiatric Psychiatric: Reports A&O x's 3, Reports appropriate affect, Reports intact judgment & insight - Labs CBC & Chem 7: 01/22/20 04:13 01/22/20 04:13 Labs: Abnormal Lab Results - Last 24 Hours (Table) 01/21/20 01/21/20 01/21/20 Range/Units 08:52 08:52 08:52 Hgb 12.8 L (13.0-17.5) gm/dL MCHC 30.8 L (31.0-37.0) g/dL RDW 16.8 H (11.5-15.5) % Lymphocytes # 0.7 L (1.0-4.8) k/uL Sodium 132 L (137-145) mmol/L Potassium 5.8 H (3.5-5.1) mmol/L Chloride (98-107) mmol/L BUN 32 H (9-20) mg/dL Creatinine (0.66-1.25) mg/dL Glucose 145 H (74-99) mg/dL Troponin I 0.087 H* (0.000-0.034) ng/mL Procalcitonin (0.02-0.09) ng/mL Urine Protein (Negative) 01/21/20 01/21/20 01/21/20 Range/Units 08:52 13:00 14:50 Hgb (13.0-17.5) gm/dL MCHC (31.0-37.0) g/dL RDW (11.5-15.5) % Lymphocytes # (1.0-4.8) k/uL Sodium (137-145) mmol/L Potassium (3.5-5.1) mmol/L Chloride (98-107) mmol/L BUN (9-20) mg/dL Creatinine (0.66-1.25) mg/dL Glucose (74-99) mg/dL Troponin I 0.077 H* (0.000-0.034) ng/mL Procalcitonin 0.15 H (0.02-0.09) ng/mL Urine Protein Trace H (Negative) 01/22/20 01/22/20 Range/Units 04:13 04:13 Hgb (13.0-17.5) gm/dL MCHC 30.1 L (31.0-37.0) g/dL RDW 16.9 H (11.5-15.5) % Lymphocytes # 0.9 L (1.0-4.8) k/uL Sodium 130 L (137-145) mmol/L Potassium 6.3 H* (3.5-5.1) mmol/L Chloride 95 L (98-107) mmol/L BUN 41 H (9-20) mg/dL Creatinine 1.46 H (0.66-1.25) mg/dL Glucose 113 H (74-99) mg/dL Troponin I (0.000-0.034) ng/mL Procalcitonin (0.02-0.09) ng/mL Urine Protein (Negative) Microbiology - Last 24 Hours (Table) 01/20/20 23:48 Blood Culture - Preliminary Blood No Growth after 24 hours Assessment and Plan Assessment: 1 shortness of breath exertion along with orthopnea and even dyspnea at rest. This is most consistent with underlying CHF. Repeat echocardiogram yesterday reveals ejection fraction less than 20%. The patient has chronic systolic heart failure post biventricular AICD placement. The amount of fluid in the left lung is minimal based on the CAT scan findings. The patient is a Pleurx catheter and undergoing daily drainage. Output is been in the order of 100 mL. No evidence of any pneumonia or any other pulmonary decompensating factor. No evidence of a ny pulmonary embolism. Currently the patient is also running a lower blood pressure is requiring low-dose norepinephrine for hemodynamic support which is being administered at 0.03 g per KG minutes. 2 coronary artery disease. Previous non-STEMI with previous stenting of the circumflex, with minimal troponin leak, questionable acute non-STEMI contributing to his further decompensated heart failure and hypotension 3 acute renal failure with a creatinine 1.46. Suspect cardiorenal syndrome. 4 chronic left-sided pleural effusion post Pleurx catheter insertion 5 biventricular AICD placement 6 hyperlipidemia 7 history of prostate cancer with radiation therapy followed by Lupron injections 8 osteoarthritis 9 minimal troponin leak 10 mild lactic acidosis Plan: The patient was seen and evaluated by Dr. Contreras. Chest x-ray and labs reviewed today. Cortisol was 0.87. Pro-calcitonin 0.15. We'll continue with his current medications. Cardiology is on the case and are planning dopamine at 2.5 mcg/kg/m and we'll try to wean off the norepinephrine. Titrate down the FiO2 as tolerated. We will continue to follow and make further recommendations based on his clinical status. Overall prognosis remains quite guarded. I, the cosigning physician, performed a history & physical examination of the patient. Lungs sounds with crackles in the bilateral posterior bases, diminished in the left Maintaining good O2 saturations in the 90s on 4 L/m per nasal cannula. I discussed the assessment and plan of care with my nurse practitioner, Christie Ricketts. I attest to the above note as dictated by her.
[2020-01-22] MEDS: DOBUTamine DRIP 500 MG in DEXTROSE/WATER 1 250ML.BAG IV SCH (09:45)
[2020-01-22] MEDS ORDERED: SODIUM POLYSTYRENE SULFONATE 15 GM/60 ML BOTTLE PO STA (10:42)
--- NOTE | 2020-01-22 11:23 | PN ---
PROGRESS NOTE Mr. Barney is a 74-year-old male who presented with symptoms of progressive dyspnea. He has a known history of severe ischemic cardiomyopathy status post ICD implant, history of PCI. He continues to be quite dyspneic. He has mild cough. No significant chest pain. He denies any dizziness or palpitation. He denies any nausea. His blood pressure is on the low side. There is no evidence of ventricular ectopic activity. He had an echocardiogram yesterday that revealed severely impaired left ventricular systolic function with evidence of moderate mitral and tricuspid regurgitation and moderate pulmonary hypertension. He continues to be on low dose of norepinephrine, aspirin 81 mg daily, Plavix 75 mg daily, Lasix 40 mg orally twice a day, lisinopril 2.5 mg daily, midodrine. PHYSICAL EXAMINATION: Blood pressure running in the 80s to 90s with heart rate in the 90s. Lungs was minimal crackles at the bases. HEART: Regular rate and rhythm S1, S2. No S3. No rub appreciated with a systolic murmur. ABDOMEN: Soft, nontender. EXTREMITIES: No edema. LAB DATA: Lab data revealed a troponin of 0.09, 0.08, 0.07. His BUN and creatinine worsened to 41, 1.46, potassium 6.3, hemoglobin 13.6. His AST and ALT are elevated as well as his NT proBNP on presentation. IMPRESSION: 1. Congestive heart failure with severe systolic dysfunction. 2. History of ICD implantation. 3. Cardiorenal syndrome. 4. History of pleural effusion with PleurX catheter placement and stable drainage. 5. History of hyperlipidemia. RECOMMENDATIONS: From the cardiac standpoint, I will start him on low-dose dobutamine to see if we can be stabilized his breathing and improve his cardiac output. I will follow his blood pressure closely. We will follow his renal function. His potassium has been corrected. Unfortunately, the prognosis remains quite poor. MMODL / IJN: [id number] /
--- NOTE | 2020-01-22 11:24 | P.PN ---
Subjective Progress Note Date: 01/22/20 This is a 74-year-old male patient of Dr. Burnett, Dr. Gilbert and Dr. Xi Ordaz with a previous medical history significant for hypertension, hyperlipidemia, osteoarthritis, prostate cancer that was diagnosed back in 2006 status post implants as well as Lupron injection, coronary artery disease with stent of the circumflex, severe cardiomyopathy and chronic systolic heart failure with known ejection fraction of 25%, bradycardia status post AICD implantation, recurrent left-sided pleural effusion status post Pleurx catheter insertion August 2019 by cardiothoracic surgery. Patient drains this himself or his daughter of 100-200 mL subpleural fluid daily. Patient also has history of hypertension, [id number] smoking history. Patient complains of shortness of breath for the past month gradually worsening. Shortness of breath is exceptionally worse with exertion. No chest pain, no cough or sputum production, reports weight loss. He complains of nausea occasionally, no abdominal pain. He complains of lightheadedness. He denies any use of steroids for the past 6 weeks. He denies any change and his medications recently. Patient relates that he has been using his mother's home oxygen at 4 L nasal cannula around the clock. Patient came into [facility] emergency center for evaluation, WBC 7.8, hemoglobin 13.8, d-dimer elevated at 4.08. CT angiogram of the chest did not show any pulmonary embolism. There was a small right-sided loculated pleural effusion along with pseudotumor in the left lung consistent with pleural fluid. No evidence of pneumonia. No airspace disease. 3 cm poorly marginated infiltrate in the right lower lobe and significance is unknown. Patient was hypotensive in the emergency center with systolic blood pressure down to 75. He was started on vasopressors and admitted into the intensive care unit with consults in place for pulmonary medicine and cardiology. Abdominal ultrasound revealed mild gallbladder wall thickening and air fluid that could relate cholecystitis. Heart failure also possible. Small gallstone or gallbladder polyp. Fatty liver. 01/21: Patient remains in intensive care unit. He is seen today sitting in the recliner. His breathing appears to be more comfortable. Patient states that he is feeling tight and did not sleep well last night. We will plan to increase melatonin dose. Patient has been seen by cardiology this morning and started on dobutamine. Patient is currently on norepinephrine as well. Echocardiogram reveals ejection fraction less than 20%, moderate mitral regurgitation, moderate tricuspid regurgitation, mild to moderate pulmonary hypertension.. Potassium this morning is 6.3 and pulmonary medicine has ordered insulin and dextrose. Patient is to be redrawn at noon today. WBC 7.9, hemoglobin 13.6, troponin 0.077. BUN 41 and creatinine 1.46. Acute hepatitis panel negative. Patient is currently on Lasix 40 mg oral twice daily. TSH will be ordered. Chest x-ray reveals changes of heart failure with interstitial pulmonary edema. Continued moderate left effusion with prominent left basilar atelectasis and/or consolidation. Slight worsening aeration of the right base Objective - Vital Signs Vital signs: Vital Signs Temp 94.3 F L 01/22/20 08:00 Pulse 91 01/22/20 09:00 Resp 24 01/22/20 09:00 BP 86/59 01/22/20 09:00 Pulse Ox 98 01/22/20 08:30 Intake & Output 01/21/20 01/22/20 01/22/20 17:59 06:59 18:59 Intake Total 558.125 Output Total 100 Balance 458.125 Weight Intake: IV 30 Normal saline 30 Intake, IV Titration 28.125 Amount Norepinephrine 4 mg In Sodium Chloride 0.9% 250 ml @ 0.05 MCG/KG/MIN 16. 072 mls/hr IV .[id number] [facility] Rx#:[id number] Norepinephrine 4 mg In 28.125 Sodium Chloride 0.9% 250 ml @ 0.05 MCG/KG/MIN 16. 072 mls/hr IV .[id number] [facility] Rx#:[id number] Oral 500 Output: Chest Tube Drainage Pleural Catheter Left Mid -Axillary Chest Urine 100 - Exam Review of Systems Constitutional: Reports fatigue, Reports lethargy, Reports poor appetite, Reports weakness, Reports weight loss, Denies chills, Denies fever Eyes: denies blurred vision, denies pain Ears, nose, mouth and throat: Denies dysphagia, Denies headache, Denies nasal congestion, Denies nasal discharge, Denies sore throat, Denies vertigo Cardiovascular: Reports decreased exercise tolerance, Reports dyspnea on exertion, Reports lightheadedness, Reports orthopnea, Reports shortness of breath, Denies chest pain, Denies palpitations, Denies syncope Respiratory: Reports dyspnea slightly improved, Reports home oxygen, Denies cough, Denies cough with sputum, Denies excessive sputum, Denies hemoptysis, Denies respiratory infections, Denies sleep apnea, Denies wheezing Gastrointestinal: Reports loss of appetite, Reports nausea, Denies abdominal pain, Denies diarrhea, Denies vomiting Genitourinary: Denies dysuria, Denies urinary retention Musculoskeletal: Reports muscle weakness, Denies frequent falls, Denies gait dysfunction Integumentary: Denies pruritus, Denies rash Neurological: Denies change in mentation, Denies change in speech, Denies numbness, Denies weakness Psychiatric: Reports anxiety, Denies depression Endocrine: Denies fatigue, Denies weight change Physical examination Gen: This is a 74-year-old male. Patient is sitting up in a recliner. He appears to be more comfortable today. No respiratory distress noted. HEENT: Head is atraumatic, normocephalic. Pupils equal, round. Sclerae is anicteric. NECK: Supple. No JVD. No lymphadenopathy. No thyromegaly. LUNGS: Diminished bilaterally No wheezes or rhonchi. No intercostal retractions. Pleurx catheter in the left. HEART: Regular rate and rhythm. Systolic murmur. ABDOMEN: Soft. Bowel sounds are present. No masses. No tenderness. EXTREMITIES: No pedal edema. No calf tenderness. Dorsalis pedis +2 bilaterally. NEUROLOGICAL: Patient is awake, alert and oriented x3. Cranial nerves 2 through 12 are grossly intact. - Labs CBC & Chem 7: 01/22/20 04:13 01/22/20 04:13 Labs: Abnormal Lab Results - Last 24 Hours (Table) 01/21/20 01/21/20 01/21/20 Range/Units 08:52 08:52 08:52 Hgb 12.8 L (13.0-17.5) gm/dL MCHC 30.8 L (31.0-37.0) g/dL RDW 16.8 H (11.5-15.5) % Lymphocytes # 0.7 L (1.0-4.8) k/uL Sodium (137-145) mmol/L Potassium (3.5-5.1) mmol/L Chloride (98-107) mmol/L BUN (9-20) mg/dL Creatinine (0.66-1.25) mg/dL Glucose (74-99) mg/dL Troponin I 0.087 H* (0.000-0.034) ng/mL Procalcitonin 0.15 H (0.02-0.09) ng/mL Urine Protein (Negative) 01/21/20 01/21/20 01/22/20 Range/Units 13:00 14:50 04:13 Hgb (13.0-17.5) gm/dL MCHC 30.1 L (31.0-37.0) g/dL RDW 16.9 H (11.5-15.5) % Lymphocytes # 0.9 L (1.0-4.8) k/uL Sodium (137-145) mmol/L Potassium (3.5-5.1) mmol/L Chloride (98-107) mmol/L BUN (9-20) mg/dL Creatinine (0.66-1.25) mg/dL Glucose (74-99) mg/dL Troponin I 0.077 H* (0.000-0.034) ng/mL Procalcitonin (0.02-0.09) ng/mL Urine Protein Trace H (Negative) 01/22/20 Range/Units 04:13 Hgb (13.0-17.5) gm/dL MCHC (31.0-37.0) g/dL RDW (11.5-15.5) % Lymphocytes # (1.0-4.8) k/uL Sodium 130 L (137-145) mmol/L Potassium 6.3 H* (3.5-5.1) mmol/L Chloride 95 L (98-107) mmol/L BUN 41 H (9-20) mg/dL Creatinine 1.46 H (0.66-1.25) mg/dL Glucose 113 H (74-99) mg/dL Troponin I (0.000-0.034) ng/mL Procalcitonin (0.02-0.09) ng/mL Urine Protein (Negative) Microbiology - Last 24 Hours (Table) 01/20/20 23:48 Blood Culture - Preliminary Blood No Growth after 24 hours Assessment and Plan Plan: 1. Acute on chronic systolic heart failure with known ejection fraction of 25%. Repeat echocardiogram as above. Patient started on dobutamine drip. Patient is currently on norepinephrine as well.. Lasix 40 mg twice daily, Lopressor and lisinopril 2. Severe cardiomyopathy status post AICD. 3. Chronic left-sided pleural effusion status post pleural catheter insertion. Nursing is draining once daily. Obtain culture. 4. Cardiogenic shock secondary to severe cardiomyopathy requiring vasopressors.. 5. History of coronary artery disease status post stenting of circumflex with mild elevation of troponins, possible acute non-ST MD. Cardiology consult. Aspirin 81 mg daily, Lipitor 40 mg daily, Coreg 3.125 mg twice daily, Plavix 75 mg daily 6. Hyperlipidemia. 7. History of prostate cancer status post radiation therapy and Lupron injections. 8. Elevated liver function tests possibly related to combination of heart failure and fatty liver. Acute hepatitis panel negative. 9. Generalized anxiety disorder. Xanax 2.5 mg twice daily added. 10. Hyperkalemia. Continue Lasix, no potassium supplementation. 11. DVT prophylaxis. Heparin subcu. 12. GI prophylaxis. Pepcid. Discharge plan: To be determined. Impression and plan of care have been directed as dictated by the signing physician. Funmilayo Diaz nurse practitioner acting as scribe for signing physician.
[2020-01-22 12:17] LABS: Potassium 4.9 mmol/L (3.5-5.1)
[2020-01-22 13:27] LABS: T4, Free (Free Thyroxine) 1.38 ng/dL (0.78-2.19)
[2020-01-22] MEDS: MELATONIN 5 MG TABLET PO SCH (20:29)
[2020-01-23 05:34] LABS: Anisocytosis Slight; Basophils % (A) 0 %; Eosinophils # (A) 0.1 k/uL (0-0.7); Eosinophils % (A) 2 %; HCT 43.2 % (39.0-53.0); HGB 13.1 gm/dL (13.0-17.5); Hypochromasia Moderate; Lymphocytes # (A) 0.8 k/uL (1.0-4.8); Lymphocytes % (A) 11 %; MCH 27.5 pg (25.0-35.0); MCHC 30.3 g/dL (31.0-37.0); MCV 90.7 fL (80.0-100.0); Mean Platelet Volume 8.1; Monocytes # (A) 0.8 k/uL (0-1.0); Monocytes % (A) 10 %; Neutrophils # (A) 5.7 k/uL (1.3-7.7); Neutrophils % (A) 75 %; Platelet Count 240 k/uL (150-450); RBC 4.76 m/uL (4.30-5.90); RDW 17.2 % (11.5-15.5); WBC 7.6 k/uL (3.8-10.6)
[2020-01-23 06:11] LABS: ALT 145 U/L (4-49); AST 126 U/L (17-59); African American GFR (CKD) >90 (>60 ml/min/1.73 sqM); Albumin 3.2 g/dL (3.5-5.0); Alkaline Phosphatase 262 U/L (38-126); Anion Gap 9 mmol/L; Blood Urea Nitrogen 33 mg/dL (9-20); Calcium 9.3 mg/dL (8.4-10.2); Carbon Dioxide 25 mmol/L (22-30); Chloride 96 mmol/L (98-107); Glucose 109 mg/dL (74-99); Non-African American GFR(CKD) 87 (>60 ml/min/1.73 sqM); Potassium 4.8 mmol/L (3.5-5.1); Sodium 130 mmol/L (137-145); Total Bilirubin 0.4 mg/dL (0.2-1.3); Total Protein 6.6 g/dL (6.3-8.2)
[2020-01-23] MEDS: NOREPINEPHRINE 4 MG in SODIUM CHLORIDE 0.9% 250 ML IV SCH (06:28)
[2020-01-23] MEDS: CARVEDILOL 3.125 MG TAB PO SCH (06:34)
--- NOTE | 2020-01-23 07:11 | XR ---
EXAMINATION TYPE: XR chest 1V portable DATE OF EXAM: 01/23/2020 COMPARISON: 01/22/2020 HISTORY: Shortness of breath TECHNIQUE: Single frontal view of the chest is obtained. FINDINGS: Enlarged cardiomediastinal silhouette. Moderate layering left pleural effusion is similar to the prior. Bibasilar airspace disease is slightly improved in the right lung base. Mild pulmonary vascular congestion remains. Dual lead left-sided cardiac device is seen. Diffuse osseous demineraliz ation. IMPRESSION: Improving fluid overload. Stable moderate left pleural effusion and left basilar airspac e disease however improving right basilar pulmonary edema is noted.
[2020-01-23] MEDS: CLOPIDOGREL 75 MG TAB PO SCH (08:29)
[2020-01-23] MEDS: ASPIRIN 81 MG PO SCH (08:29)
[2020-01-23] MEDS: FUROSEMIDE 40 MG TAB PO SCH ×2 (08:29→17:42)
[2020-01-23] MEDS: ALPRAZolam 0.25 MG TAB PO PRN ×2 (08:29→15:30)
[2020-01-23] MEDS: HEPARIN SODIUM,PORCINE 5,000 UNIT/ML 1 ML VIAL SQ SCH ×2 (08:29→20:24)
[2020-01-23] MEDS: MIDODRINE 5 MG TAB PO SCH ×3 (08:29→17:42)
[2020-01-23] MEDS: ATORVASTATIN 40 MG TAB PO SCH (08:29)
[2020-01-23] MEDS: LISINOPRIL 2.5 MG TAB PO SCH (08:30)
[2020-01-23] MEDS: FAMOTIDINE 20 MG TAB PO SCH (08:30)
[2020-01-23] MEDS: METOPROLOL SUCCINATE (ER) 25 MG TAB.ER.24H PO SCH (08:30)
[2020-01-23] MEDS: DOBUTamine DRIP 500 MG in DEXTROSE/WATER 1 250ML.BAG IV SCH (09:16)
--- NOTE | 2020-01-23 09:43 | PN ---
PROGRESS NOTE Mr. Barney is a 74-year-old male who has a known history of severe ischemic cardiomyopathy, status post ICD implant, who presented with worsening dyspnea going on for the last few months. He is feeling the same yesterday. He still has symptoms of PND and orthopnea. He has no chest pain. He has no dizziness or palpitation. He was initiated on IV dobutamine and he has tolerated that. He denies any nausea or vomiting. He continues to be at this time on aspirin once a day, carvedilol 3.125 mg twice a day, Plavix 75 mg daily, IV dobutamine. He is on low-dose of IV norepinephrine. He is on Lasix 40 mg twice a day, midodrine, lisinopril 2.5 mg daily. PHYSICAL EXAMINATION: Blood pressure running in the 90s with the heart rate in the low 100s. LUNGS: Clear with few crackles in the base. HEART: Regular rate and rhythm. S1, S2. No S3. No rub with a systolic murmur. ABDOMEN: Soft, nontender. EXTREMITIES: No edema. LAB DATA: Lab data revealed BUN and creatinine 33 and 0.85, potassium 4.8. His AST is 126, ALT is 145. IMPRESSION: 1. Severe congestive heart failure with severe ischemic cardiomyopathy. 2. Renal failure, improved. 3. Status post ICD implantation. 4. Hyperkalemia, resolved. 5. Pleural effusion with PleurX catheter. RECOMMENDATION: I will change him from carvedilol to metoprolol, that may help his blood pressure. Continue to follow his renal function. I will continue on IV dobutamine for now and depending on his progress, further recommendation will be made. MMODL / IJN: [id number] /
--- NOTE | 2020-01-23 11:40 | P.PN ---
Subjective Progress Note Date: 01/23/20 Principal diagnosis: Acute exacerbation of systolic congestive heart failure, ejection fraction less than 20% This is a 74-year-old male patient with known history of coronary artery disease with previous coronary intervention and stenting of the circumflex in addition to history of severe cardiomyopathy with an ejection fraction of 25% and chronic systolic dysfunction and severe resting bradycardia close the was chamber ICD placement. The patient was also having recurrent left-sided pleural effusion and he underwent a Pleurx catheter insertion back in August 2019 by car diothoracic surgery. He has been undergoing daily drainage from his left lung and he typically drinks approximately 200 mL of pleural fluid.. The patient also has hypertension, prostate cancer and he has been treated with prostatic radiation therapy/implants. He has also history of osteoarthritis. The patient is an ex-smoker. [id number] smoking history. He came into the hospital because of worsening shortness of breath.. His been progressively getting more short of breath over the past month. His shortness of breath is essentially exertional and he also has orthopnea. No reported chest pain. No reported cough or sputum production. He is an ex-smoker. No wheezing. No previous h istory of DVT or pulmonary embolism. No fever. The white cell count at time of admission was 7.8. Hemoglobin was at 13.8. Coagulation profile was within normal. D-dimer was elevated at 4.08 and based on that the patient was given a CT angiogram that showed no evidence of any pulmonary embolism. 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 No evidence of any pneumonia. No evidence of any airspace disease. There was a 3 cm poorly marginated infiltrate in the right lower lobe and the significance of this abnormality is not known. In the emergency department, the patient was having episodes of hypotension. His systolic blood pressure was as low as 75. He was given pressors and currently is running on low-dose levothyroid at 0.03 g per KG per minute. His cardiac rhythm is ventricularly paced at the rate of 100. Note that the patient some minimal troponin elevation. ProBNP level was quite elevated. Lactic acid level was 4.2, admission dropped down to 2 and currently is on IV with KVO. The patient is seen today 01/22/2020 in follow-up in the intensive care unit. He is currently awake and alert in no acute distress. Sitting up at the bedside. Maintaining O2 saturations in the 90s on 4 L/m per nasal cannula. Today's chest x-ray continues to show evidence of fluid volume overload. Echocardiogram reveals ejection fraction less than 20%. He is still requiring a small amount of norepinephrine at 0.03 mcg/kg/m. Potassium is 6.3. Sodium 130. Creatinine 1.46. White count 7.9. Hemoglobin 13.6. Troponin 0.077. He remains on Lasix 40 mg by mouth twice a day. Still remains in a positive balance. Weight is stable. The patient is seen today 01/23/2020 in follow-up in the in the chair at the bedside. Maintaining O2 saturations in the 90s on 4 L/m per nasal cannula. Chest x-ray showing improvement in the volume status. He is breathing a bit easier today compared to yesterday, he is complaining of weakness and fatigue. He is currently on norepinephrine at 0.04 mcg/kg/m. Dobutamine at 5 mcg/kg/m. Maintaining adequate urine output. Blood and urine cultures reveal no growth. White count 7.6. Hemoglobin 13.1. sodium 130. Creatinine 0.85. Potassium 4.8. TSH 5.68. T4 1 0.38. Objective - Vital Signs Vital signs: Vital Signs Temp 97.8 F 01/23/20 08:00 Pulse 105 H 01/23/20 10:00 Resp 28 H 01/23/20 10:00 BP 93/72 01/23/20 10:00 Pulse Ox 96 01/23/20 10:00 Intake & Output 01/22/20 01/23/20 01/23/20 18:59 06:59 18:59 Intake Total 1126.390 366.250 561.735 Output Total 380 1100 150 Balance 746.390 -733.750 411.735 Weight 84.368 kg Intake: IV 120 110 40 Normal saline 120 110 40 Intake, IV Titration 56.390 256.250 221.735 Amount DOBUTamine DRIP 500 mg In 28.265 221.735 Dextrose/Water 1 250ml. bag @ 5 MCG/KG/MIN 12.655 mls/hr IV .[id number] [facility] Rx#:[id number] Norepinephrine 4 mg In 28.125 256.250 Sodium Chloride 0.9% 250 ml @ 0.05 MCG/KG/MIN 16. 072 mls/hr IV .[id number] [facility] Rx#:[id number] Oral 950 300 Output: Chest Tube Drainage 80 Pleural Catheter Left Mid 80 -Axillary Chest Urine 300 1100 150 Other: Voiding Method Urinal Urinal - Exam - Constitutional General appearance: Pleasant 74-year-old gentleman, on 4 L nasal cannula, in no acute distress. - EENT Eyes: Reports anicteric sclerae, Reports disc margins sharp, Reports edentulous, Reports PERRLA, Denies ptosis, Denies scleral icterus ENT: Reports hearing grossly normal, Reports NA/AT, Reports normal oropharynx, D enies thrush Ears: bilateral: normal - Neck Neck: Reports normal ROM, Denies lymphadenopathy, Denies rigidity, Denies stridor, Denies thyromegaly Carotids: bilateral: upstroke delayed Thyroid: bilateral: normal size - Respiratory Respiratory: Some slightly diminished breath on the left lung base. The patient has a Pleurx catheter in place on the left side. Crackles in posterior bases. - Cardiovascular Rhythm: regular Heart sounds: normal: S1, S2, the rhythm is Abnormal Heart Sounds: Reports systolic murmur, Reports S3 Gallop, Denies rub, Denies click, the pulses are diminished in all 4 extremities. - Gastrointestinal General gastrointestinal: Reports normal bowel sounds, Reports soft, Denies splenomegaly, Denies tenderness, Denies umbilical hernia, Denies ventral hernia - Integumentary Integumentary: Reports normal, Reports normal turgor - Neurologic Neurologic: CNII-XII intact - Musculoskeletal Musculoskeletal: Reports generalized weakness, Reports strength equal bilaterally - Psychiatric Psychiatric: Reports A&O x's 3, Reports appropriate affect, Reports intact judgment & insight - Labs CBC & Chem 7: 01/23/20 05:12 01/23/20 05:12 Labs: Abnormal Lab Results - Last 24 Hours (Table) 01/22/20 01/23/20 01/23/20 Range/Units 11:53 05:12 05:12 MCHC 30.3 L (31.0-37.0) g/dL RDW 17.2 H (11.5-15.5) % Lymphocytes # 0.8 L (1.0-4.8) k/uL Sodium 130 L (137-145) mmol/L Chloride 96 L (98-107) mmol/L BUN 33 H (9-20) mg/dL Glucose 109 H (74-99) mg/dL AST 126 H (17-59) U/L ALT 145 H (4-49) U/L Alkaline Phosphatase 262 H (38-126) U/L Albumin 3.2 L (3.5-5.0) g/dL TSH 5.680 H (0.465-4.680) mIU/L Microbiology - Last 24 Hours (Table) 01/20/20 23:48 Blood Culture - Preliminary Blood No Growth after 48 hours 01/22/20 13:25 Gram Stain - Preliminary Pleural Fluid Body Fluid Culture - Preliminary Assessment and Plan Assessment: 1 shortness of breath exertion along with orthopnea and even dyspnea at rest. This is most consistent with underlying CHF. Repeat echocardiogram yesterday reveals ejection fraction less than 20%. The patient has chronic systolic heart failure post biventricular AICD placement. The amount of fluid in the left lung is minimal based on the CAT scan findings. The patient is a Pleurx catheter and undergoing daily drainage. Output is been in the order of 100 mL. No evidence of any pneumonia or any other pulmonary decompensating factor. No evidence of any pulmonary embolism. Currently the patient is also running a lower blood pressure is requiring low-dose norepinephrine for hemodynamic support which is being administered at 0.04 g per KG minutes. Dobutamine at 5 mcg/kg/m was added yesterday. 2 coronary artery disease. Previous non-STEMI with previous stenting of the circumflex, with minimal troponin leak, questionable acute non-STEMI contributing to his further decompensated heart failure and hypotension 3 acute renal failure with a creatinine 1.46. Suspect cardiorenal syndrome. 4 chronic left-sided pleural effusion post Pleurx catheter insertion 5 biventricular AICD placement 6 hyperlipidemia 7 history of prostate cancer with radiation therapy followed by Lupron injections 8 osteoarthritis 9 minimal troponin leak 10 mild lactic acidosis Plan: The patient was seen and evaluated by Dr. Contreras. Chest x-ray and labs reviewed today. We'll continue with his current medications. Titrate down the FiO2 as tolerated. We will continue to follow and make further recommendations based on his clinical status. Overall prognosis remains quite guarded. I, the cosigning physician, performed a history & physical examination of the patient. Lungs sounds with crackles in the bilateral posterior bases, diminished in the left Maintaining good O2 saturations in the 90s on 4 L/m per nasal cannula. I discussed the assessment and plan of care with my nurse practitioner, Christie Ricketts. I attest to the above note as dictated by her.
[2020-01-23] MEDS: LIOTHYRONINE SODIUM 5 MCG TAB PO SCH (12:22)
--- NOTE | 2020-01-23 13:38 | P.PN ---
Subjective Progress Note Date: 01/23/20 This is a 74-year-old male patient of Dr. Burnett, Dr. Gilbert and Dr. Xi Ordaz with a previous medical history significant for hypertension, hyperlipidemia, osteoarthritis, prostate cancer that was diagnosed back in 2006 status post implants as well as Lupron injection, coronary artery disease with stent of the circumflex, severe cardiomyopathy and chronic systolic heart failure with known ejection fraction of 25%, bradycardia status post AICD implantation, recurrent left-sided pleural effusion status post Pleurx catheter insertion August 2019 by cardiothoracic surgery. Patient drains this himself or his daughter of 100-200 mL subpleural fluid daily. Patient also has history of hypertension, [id number] smoking history. Patient complains of shortness of breath for the past month gradually worsening. Shortness of breath is exceptionally worse with exertion. No chest pain, no cough or sputum production, reports weight loss. He complains of nausea occasionally, no abdominal pain. He complains of lightheadedness. He denies any use of steroids for the past 6 weeks. He denies any change and his medications recently. Patient relates that he has been using his mother's home oxygen at 4 L nasal cannula around the clock. Patient came into [facility] emergency center for evaluation, WBC 7.8, hemoglobin 13.8, d-dimer elevated at 4.08. CT angiogram of the chest did not show any pulmonary embolism. There was a small right-sided loculated pleural effusion along with pseudotumor in the left lung consistent with pleural fluid. No evidence of pneumonia. No airspace disease. 3 cm poorly marginated infiltrate in the right lower lobe and significance is unknown. Patient was hypotensive in the emergency center with systolic blood pressure down to 75. He was started on vasopressors and admitted into the intensive care unit with consults in place for pulmonary medicine and cardiology. Abdominal ultrasound revealed mild gallbladder wall thickening and air fluid that could relate cholecystitis. Heart failure also possible. Small gallstone or gallbladder polyp. Fatty liver. 01/21: Patient remains in intensive care unit. He is seen today sitting in the recliner. His breathing appears to be more comfortable. Patient states that he is feeling tight and did not sleep well last night. We will plan to increase melatonin dose. Patient has been seen by cardiology this morning and started on dobutamine. Patient is currently on norepinephrine as well. Echocardiogram reveals ejection fraction less than 20%, moderate mitral regurgitation, moderate tricuspid regurgitation, mild to moderate pulmonary hypertension.. Potassium this morning is 6.3 and pulmonary medicine has ordered insulin and dextrose. Patient is to be redrawn at noon today. WBC 7.9, hemoglobin 13.6, troponin 0.077. BUN 41 and creatinine 1.46. Acute hepatitis panel negative. Patient is currently on Lasix 40 mg oral twice daily. TSH will be ordered. Chest x-ray reveals changes of heart failure with interstitial pulmonary edema. Continued moderate left effusion with prominent left basilar atelectasis and/or consolidation. Slight worsening aeration of the right base 01/22: Patient has been afebrile, heart rate 97, blood pressure 95/68, pulse ox 98% on 4 L nasal cannula. Repeat blood work reveals CBC unremarkable, sodium 1:30, potassium 4.8, chloride 96, CO2 25, BUN 33 and creatinine 0.85. AST 126, ALT 145, alkaline phosphatase 262. TSH 5.680 and free T4 1 0.38. Patient remains in the intensive care unit. Dobutamine drip increased to 5. Patient remains on levofloxacin as well. Patient states that he did not sleep last night. He is utilizing Xanax twice daily. He denies having any chest pain and no lower extremity edema. He does complain of shortness of breath. No lightheadedness or dizziness. Cytomel added and midodrine increased to 10 mg 3 times daily. Patient is concerned about his mother and his friend staying with her at this time. We will communicate with Dr. Burnett and ask for home care service to be arranged for his mother. Do not anticipate that he will be ready for discharge for another 4872 hours. Objective - Vital Signs Vital signs: Vital Signs Temp 97.8 F 01/23/20 08:00 Pulse 105 H 01/23/20 10:00 Resp 28 H 01/23/20 10:00 BP 93/72 01/23/20 10:00 Pulse Ox 96 01/23/20 10:00 Intake & Output 01/22/20 01/23/20 01/23/20 18:59 06:59 18:59 Intake Total 1126.390 366.250 561.735 Output Total 380 1100 150 Balance 746.390 -733.750 411.735 Weight 84.368 kg Intake: IV 120 110 40 Normal saline 120 110 40 Intake, IV Titration 56.390 256.250 221.735 Amount DOBUTamine DRIP 500 mg In 28.265 221.735 Dextrose/Water 1 250ml. bag @ 5 MCG/KG/MIN 12.655 mls/hr IV .[id number] [facility] Rx#:[id number] Norepinephrine 4 mg In 28.125 256.250 Sodium Chloride 0.9% 250 ml @ 0.05 MCG/KG/MIN 16. 072 mls/hr IV .[id number] [facility] Rx#:[id number] Oral 950 300 Output: Chest Tube Drainage 80 Pleural Catheter Left Mid 80 -Axillary Chest Urine 300 1100 150 Other: Voiding Method Urinal Urinal - Exam Review of Systems Constitutional: Reports fatigue, Reports lethargy, Reports poor appetite, Reports weakness, Reports weight loss, Denies chills, Denies fever Ears, nose, mouth and throat: Denies dysphagia, Denies headache, Denies nasal congestion, Denies nasal discharge, Denies sore throat, Denies vertigo Cardiovascular: Reports decreased exercise tolerance, Reports dyspnea on exert ion, Reports lightheadedness, Reports orthopnea, Reports shortness of breath, Denies chest pain, Denies palpitations, Denies syncope Respiratory: Reports dyspnea slightly improved, Reports home oxygen, Denies cough, Denies cough with sputum, Denies excessive sputum, Denies hemoptysis, Denies respiratory infections, Denies sleep apnea, Denies wheezing Gastrointestinal: Reports loss of appetite, Reports nausea, Denies abdominal pain, Denies diarrhea, Denies vomiting Genitourinary: Denies dysuria, Denies urinary retention Musculoskeletal: Reports muscle weakness, Denies frequent falls, Denies gait dysfunction Integumentary: Denies pruritus, Denies rash Neurological: Denies change in mentation, Denies change in speech, Denies numbness, Denies weakness Psychiatric: Reports anxiety, Denies depression Endocrine: Denies fatigue, Denies weight change Physical examination Gen: This is a 74-year-old male. Patient is sitting up in a recliner. He appears to be more comfortable at rest. No respiratory distress noted. HEENT: Head is atraumatic, normocephalic. Pupils equal, round. Sclerae is anicteric. NECK: Supple. No JVD. No lymphadenopathy. No thyromegaly. LUNGS: Diminished bilaterally and crackles bilaterally. Pleurx catheter in the left. HEART: Regular rate and rhythm. Systolic murmur. ABDOMEN: Soft. Bowel sounds are present. No masses. No tenderness. EXTREMITIES: No pedal edema. No calf tenderness. Dorsalis pedis +2 bilaterally. NEUROLOGICAL: Patient is awake, alert and oriented x3. Cranial nerves 2 through 12 are grossly intact. - Labs CBC & Chem 7: 01/23/20 05:12 01/23/20 05:12 Labs: Abnormal Lab Results - Last 24 Hours (Table) 01/22/20 01/23/20 01/23/20 Range/Units 11:53 05:12 05:12 MCHC 30.3 L (31.0-37.0) g/dL RDW 17.2 H (11.5-15.5) % Lymphocytes # 0.8 L (1.0-4.8) k/uL Sodium 130 L (137-145) mmol/L Chloride 96 L (98-107) mmol/L BUN 33 H (9-20) mg/dL Glucose 109 H (74-99) mg/dL AST 126 H (17-59) U/L ALT 145 H (4-49) U/L Alkaline Phosphatase 262 H (38-126) U/L Albumin 3.2 L (3.5-5.0) g/dL TSH 5.680 H (0.465-4.680) mIU/L Microbiology - Last 24 Hours (Table) 01/20/20 23:48 Blood Culture - Preliminary Blood No Growth after 48 hours 01/22/20 13:25 Gram Stain - Preliminary Pleural Fluid Body Fluid Culture - Preliminary Assessment and Plan Plan: 1. Acute on chronic systolic heart failure with known ejection fraction of 25%. Repeat echocardiogram as above. Patient started on dobutamine drip. Patient is currently on norepinephrine as well. Lasix 40 mg twice daily, Lopressor and lisinopril 2. Severe cardiomyopathy status post AICD. 3. Chronic left-sided pleural effusion status post pleural catheter insertion. Nursing is draining once daily. Obtain culture. 4. Cardiogenic shock secondary to severe cardiomyopathy requiring vasopressors. 5. History of coronary artery disease status post stenting of circumflex with mild elevation of troponins, possible acute non-ST ND. Cardiology consult. Aspirin 81 mg daily, Lipitor 40 mg daily, Coreg 3.125 mg twice daily, Plavix 75 mg daily 6. Hyperlipidemia. 7. History of prostate cancer status post radiation therapy and Lupron injections. 8. Elevated liver function tests possibly related to combination of heart failure and fatty liver. Acute hepatitis panel negative. 9. Generalized anxiety disorder. Xanax 2.5 mg twice daily added. 10. Hyperkalemia. Continue Lasix, no potassium supplementation. 11. DVT prophylaxis. Heparin subcu. 12. GI prophylaxis. Pepcid. Discharge plan: To be determined. Most likely return home. Impression and plan of care have been directed as dictated by the signing physician. Funmilayo Diaz nurse practitioner acting as scribe for signing physician.
[2020-01-23] MEDS: MELATONIN 5 MG TABLET PO SCH (20:24)
[2020-01-24] MEDS: NOREPINEPHRINE 4 MG in SODIUM CHLORIDE 0.9% 250 ML IV SCH ×2 (00:42→15:13)
[2020-01-24] MEDS: ALPRAZolam 0.25 MG TAB PO PRN ×3 (04:19→17:29)
[2020-01-24] MEDS: DOBUTamine DRIP 500 MG in DEXTROSE/WATER 1 250ML.BAG IV SCH ×2 (04:21→18:02)
[2020-01-24 06:11] LABS: Anisocytosis Slight; HGB 12.8 gm/dL (13.0-17.5); Hypochromasia Slight; MCH 27.8 pg (25.0-35.0); MCHC 31.2 g/dL (31.0-37.0); MCV 89.1 fL (80.0-100.0); Mean Platelet Volume 8.6; Platelet Count 212 k/uL (150-450); RDW 17.4 % (11.5-15.5); WBC 5.7 k/uL (3.8-10.6)
[2020-01-24 06:21] LABS: African American GFR (CKD) >90 (>60 ml/min/1.73 sqM); Anion Gap 8 mmol/L; Blood Urea Nitrogen 28 mg/dL (9-20); Calcium 9.3 mg/dL (8.4-10.2); Carbon Dioxide 26 mmol/L (22-30); Chloride 97 mmol/L (98-107); Glucose 102 mg/dL (74-99); Non-African American GFR(CKD) >90 (>60 ml/min/1.73 sqM); Sodium 131 mmol/L (137-145)
[2020-01-24 06:23] LABS: Potassium 5.3 mmol/L (3.5-5.1)
[2020-01-24] MEDS: MIDODRINE 5 MG TAB PO SCH ×3 (06:43→17:29)
[2020-01-24 07:06] LABS: Band Neutrophils % 1 %; Lymphocytes # (M) 0.91 k/uL (1.0-4.8); Monocytes # (M) 0.51 k/uL (0-1.0); Neutrophils % (M) 74 %; Nucleated Red Blood Cells 0 /100 WBC (0-0); Total Cells Counted 100
[2020-01-24 07:14] LABS: Polychromasia Present
[2020-01-24 07:19] LABS: Poikilocytosis (M) Present
--- NOTE | 2020-01-24 07:29 | XR ---
EXAMINATION TYPE: XR chest 1V portable DATE OF EXAM: 01/24/2020 CLINICAL HISTORY: Difficulty breathing progress study. TECHNIQUE: Single AP portable upright view of the chest is obtained. COMPARISON: Chest x-ray from one day earlier and older studies. CTA chest 4 days earlier. FINDINGS: There is persistent cardiomegaly with dual lead pacemaker/AICD and atherosclerotic and ect atic thoracic aorta. Background chronic emphysematous change with diffuse alveolar and interstitial o pacities bilaterally that appear more prominent from prior studies centered centrally. Silhouetting o f left hemidiaphragm redemonstrated. Osseous structures remain demineralized with degenerative change s in both shoulders and scoliosis in the visualized upper lumbar spine. Left basilar pleural drainage catheter remains present. IMPRESSION: Suspect worsening CHF exacerbation or developing ARDS on background mild underlying emphy sematous change as there is increasing central alveolar and interstitial edema and/or infiltrates and cardiomegaly redemonstrated.
--- NOTE | 2020-01-24 08:26 | PN ---
PROGRESS NOTE Mr. Barney is a 74-year-old male with known history of severe ischemic cardiomyopathy status post ICD implant who presented with worsening dyspnea. He is feeling slightly better today. His breathing is better. He is denying any chest pain. He denies any dizziness or palpitation. He denies any nausea. He is tolerating the IV dobutamine at 5 mcg/kg per minute. He has a history of recurrent left pleural effusion with PleurX. He continues to be on norepinephrine at a lower dose. He is on aspirin 81 mg daily, Lipitor 20 mg daily, Plavix 75 mg daily, lisinopril 2.5 mg daily, and metoprolol succinate 12.5 mg daily. PHYSICAL EXAMINATION: Blood pressure 101/60 with the heart rate in the 90s. LUNGS: No wheezes appreciated with mild decrease in breath sounds. HEART: Regular rate and rhythm. S1, S2. No S3 with systolic murmur. No diastolic murmur. ABDOMEN: Soft, nontender. EXTREMITIES: Trace to 1+ edema. LAB DATA: Lab data revealed BUN and creatinine 28 and 0.75. Potassium 5.3. Hemoglobin 12.8. IMPRESSION: 1. Congestive heart failure with severe ischemic cardiomyopathy. 2. Status post ICD implant. 3. History of coronary artery disease. 4. Pleural effusion, PleurX catheter. RECOMMENDATION: I will continue on the present dose of his IV dobutamine for another 24 hours, follow his renal function and blood pressure and depending on his progress, further adjustment will be made. Unfortunately, the prognosis remains quite guarded. MMODL / IJN: [id number] /
[2020-01-24] MEDS: ASPIRIN 81 MG PO SCH (08:56)
[2020-01-24] MEDS: HEPARIN SODIUM,PORCINE 5,000 UNIT/ML 1 ML VIAL SQ SCH ×2 (08:56→20:26)
[2020-01-24] MEDS: ATORVASTATIN 40 MG TAB PO SCH (08:56)
[2020-01-24] MEDS: FAMOTIDINE 20 MG TAB PO SCH (08:56)
[2020-01-24] MEDS: CLOPIDOGREL 75 MG TAB PO SCH (08:57)
[2020-01-24] MEDS: FUROSEMIDE 40 MG TAB PO SCH ×2 (08:57→17:29)
[2020-01-24] MEDS: LIOTHYRONINE SODIUM 5 MCG TAB PO SCH (08:59)
[2020-01-24] MEDS: METOPROLOL SUCCINATE (ER) 25 MG TAB.ER.24H PO SCH (09:42)
[2020-01-24] MEDS: LISINOPRIL 2.5 MG TAB PO SCH (09:43)
--- NOTE | 2020-01-24 10:53 | P.PN ---
Subjective Progress Note Date: 01/24/20 Principal diagnosis: Acute exacerbation of systolic congestive heart failure, ejection fraction less than 20% This is a 74-year-old male patient with known history of coronary artery disease with previous coronary intervention and stenting of the circumflex in addition to history of severe cardiomyopathy with an ejection fraction of 25% and chronic systolic dysfunction and severe resting bradycardia close the was chamber ICD placement. The patient was also having recurrent left-sided pleural effusion and he underwent a Pleurx catheter insertion back in August 2019 by car diothoracic surgery. He has been undergoing daily drainage from his left lung and he typically drinks approximately 200 mL of pleural fluid.. The patient also has hypertension, prostate cancer and he has been treated with prostatic radiation therapy/implants. He has also history of osteoarthritis. The patient is an ex-smoker. [id number] smoking history. He came into the hospital because of worsening shortness of breath.. His been progressively getting more short of breath over the past month. His shortness of breath is essentially exertional and he also has orthopnea. No reported chest pain. No reported cough or sputum production. He is an ex-smoker. No wheezing. No previous h istory of DVT or pulmonary embolism. No fever. The white cell count at time of admission was 7.8. Hemoglobin was at 13.8. Coagulation profile was within normal. D-dimer was elevated at 4.08 and based on that the patient was given a CT angiogram that showed no evidence of any pulmonary embolism. 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 No evidence of any pneumonia. No evidence of any airspace disease. There was a 3 cm poorly marginated infiltrate in the right lower lobe and the significance of this abnormality is not known. In the emergency department, the patient was having episodes of hypotension. His systolic blood pressure was as low as 75. He was given pressors and currently is running on low-dose levothyroid at 0.03 g per KG per minute. His cardiac rhythm is ventricularly paced at the rate of 100. Note that the patient some minimal troponin elevation. ProBNP level was quite elevated. Lactic acid level was 4.2, admission dropped down to 2 and currently is on IV with KVO. The patient is seen today 01/22/2020 in follow-up in the intensive care unit. He is currently awake and alert in no acute distress. Sitting up at the bedside. Maintaining O2 saturations in the 90s on 4 L/m per nasal cannula. Today's chest x-ray continues to show evidence of fluid volume overload. Echocardiogram reveals ejection fraction less than 20%. He is still requiring a small amount of norepinephrine at 0.03 mcg/kg/m. Potassium is 6.3. Sodium 130. Creatinine 1.46. White count 7.9. Hemoglobin 13.6. Troponin 0.077. He remains on Lasix 40 mg by mouth twice a day. Still remains in a positive balance. Weight is stable. The patient is seen today 01/23/2020 in follow-up in the in the chair at the bedside. Maintaining O2 saturations in the 90s on 4 L/m per nasal cannula. Chest x-ray showing improvement in the volume status. He is breathing a bit easier today compared to yesterday, he is complaining of weakness and fatigue. He is currently on norepinephrine at 0.04 mcg/kg/m. Dobutamine at 5 mcg/kg/m. Maintaining adequate urine output. Blood and urine cultures reveal no growth. White count 7.6. Hemoglobin 13.1. sodium 130. Creatinine 0.85. Potassium 4.8. TSH 5.68. T4 1 0.38. the patient is seen today 01/24/2020 in The intensive care unit. He is awake and alert in no acute distress. Maintaining good O2 saturations in the 90s on 4 L/m per nasal cannula. Chest x-ray continues to show some worsening congestive heart failure with mild underlying emphysema. There is increased central alveol interstitial edemaand/or infiltrates. Pleural fluid cultures reveal no growth. Blood cultures reveal no growth. He continues on norepinephrine at 0.01 mcg/kg/min. Remains on Dobutamine at 5 mcg/kg/min. White count 5.7. Hemoglobin 12.8. Potassium 5.3. 5.3. Creatinine 0.75. He remains on midodrine TID. BP marginal. On lasix 40 BID. Objective - Vital Signs Vital signs: Vital Signs Temp 97.6 F 01/24/20 08:00 Pulse 106 H 01/24/20 09:15 Resp 17 01/24/20 09:15 BP 87/63 01/24/20 09:15 Pulse Ox 99 01/24/20 09:15 Intake & Output 01/23/20 01/24/20 01/24/20 18:59 06:59 18:59 Intake Total 1212.454 614.694 510 Output Total 630 750 75 Balance 582.454 -135.306 435 Intake: IV 120 120 30 Normal saline 120 120 30 Intake, IV Titration 292.454 494.694 Amount DOBUTamine DRIP 500 mg In 221.735 241.5 Dextrose/Water 1 250ml. bag @ 5 MCG/KG/MIN 12.655 mls/hr IV .[id number] [facility] Rx#:[id number] Norepinephrine 4 mg In 70.719 253.194 Sodium Chloride 0.9% 250 ml @ 0.05 MCG/KG/MIN 16. 072 mls/hr IV .[id number] [facility] Rx#:[id number] Oral 800 480 Output: Chest Tube Drainage 140 Pleural Catheter Left Mid 140 -Axillary Chest Urine 350 750 75 Other 140 Other: Voiding Method Urinal Urinal # Bowel Movements 1 - Exam - Constitutional General appearance: Pleasant 74-year-old gentleman, on 4 L nasal cannula, in no acute distress. - EENT Eyes: Reports anicteric sclerae, Reports disc margins sharp, Reports edentulous, Reports PERRLA, Denies ptosis, Denies scleral icterus ENT: Reports hearing grossly normal, Reports NA/AT, Reports normal oropharynx, Denies thrush Ears: bilateral: normal - Neck Neck: Reports normal ROM, Denies lymphadenopathy, Denies rigidity, Denies stridor, Denies thyromegaly Carotids: bilateral: upstroke delayed Thyroid: bilateral: normal size - Respiratory Respiratory: Some slightly diminished breath on the left lung base. The patient has a Pleurx catheter in place on the left side. Crackles in posterior bases. - Cardiovascular Rhythm: regular Heart sounds: normal: S1, S2, the rhythm is Abnormal Heart Sounds: Reports systolic murmur, Reports S3 Gallop, Denies rub, Denies click, the pulses are diminished in all 4 extremities. - Gastrointestinal General gastrointestinal: Reports normal bowel sounds, Reports soft, Denies splenomegaly, Denies tenderness, Denies umbilical hernia, Denies ventral hernia - Integumentary Integumentary: Reports normal, Reports normal turgor - Neurologic Neurologic: CNII-XII intact - Musculoskeletal Musculoskeletal: Reports generalized weakness, Reports strength equal bilaterally - Psychiatric Psychiatric: Reports A&O x's 3, Reports appropriate affect, Reports intact judgment & insight - Labs CBC & Chem 7: 01/24/20 05:24 01/24/20 05:24 Labs: Abnormal Lab Results - Last 24 Hours (Table) 01/24/20 01/24/20 Range/Units 05:24 05:24 Hgb 12.8 L (13.0-17.5) gm/dL RDW 17.4 H (11.5-15.5) % Lymphocytes # (Manual) 0.91 L (1.0-4.8) k/uL Sodium 131 L (137-145) mmol/L Potassium 5.3 H (3.5-5.1) mmol/L Chloride 97 L (98-107) mmol/L BUN 28 H (9-20) mg/dL Glucose 102 H (74-99) mg/dL Microbiology - Last 24 Hours (Table) 01/20/20 23:48 Blood Culture - Preliminary Blood No Growth after 72 hours Assessment and Plan Assessment: 1 shortness of breath exertion along with orthopnea and even dyspnea at rest. This is most consistent with underlying CHF. Repeat echocardiogram yesterday reveals ejection fraction less than 20%. The patient has chronic systolic heart failure post biventricular AICD placement. The amount of fluid in the left lung is minimal based on the CAT scan findings. The patient is a Pleurx catheter and undergoing daily drainage. Output is been in the order of 100 mL. No evidence of any pneumonia or any other pulmonary decompensating factor. No evidence of any pulmonary embolism. Currently the patient is also running a lower blood pressure is requiring low-dose norepinephrine for hemodynamic support which is being administered at 0.04 g per KG minutes. Dobutamine at 5 mcg/kg/m was added yesterday. 2 coronary artery disease. Previous non-STEMI with previous stenting of the circumflex, with minimal troponin leak, questionable acute non-STEMI contribu ting to his further decompensated heart failure and hypotension 3 acute renal failure with a creatinine 1.46. Suspect cardiorenal syndrome. 4 chronic left-sided pleural effusion post Pleurx catheter insertion 5 biventricular AICD placement 6 hyperlipidemia 7 history of prostate cancer with radiation therapy followed by Lupron injections 8 osteoarthritis 9 minimal troponin leak 10 mild lactic acidosis Plan: The patient was seen and evaluated by Dr. Contreras. Chest x-ray and labs revi ewed today. Evidence of CHF. No concerns for ARDS at this point. We will continue the current treatment plan. Wean off the norepinephrine as tolerated. We will continue to follow. I, the cosigning physician, performed a history & physical examination of the patient. Lungs sounds with crackles in the bilateral posterior bases, diminished in the left Maintaining good O2 saturations in the 90s on 4 L/m per nasal cannula. I discussed the assessment and plan of care with my nurse practitioner, Christie Ricketts. I attest to the above note as dictated by her.
--- NOTE | 2020-01-24 14:31 | P.PN ---
Subjective Progress Note Date: 01/24/20 This is a 74-year-old male patient of Dr. Burnett, Dr. Gilbert and Dr. Xi Ordaz with a previous medical history significant for hypertension, hyperlipidemia, osteoarthritis, prostate cancer that was diagnosed back in 2006 status post implants as well as Lupron injection, coronary artery disease with stent of the circumflex, severe cardiomyopathy and chronic systolic heart failure with known ejection fraction of 25%, bradycardia status post AICD implantation, recurrent left-sided pleural effusion status post Pleurx catheter insertion August 2019 by cardiothoracic surgery. Patient drains this himself or his daughter of 100-200 mL subpleural fluid daily. Patient also has history of hypertension, [id number] smoking history. Patient complains of shortness of breath for the past month gradually worsening. Shortness of breath is exceptionally worse with exertion. No chest pain, no cough or sputum production, reports weight loss. He complains of nausea occasionally, no abdominal pain. He complains of lightheadedness. He denies any use of steroids for the past 6 weeks. He denies any change and his medications recently. Patient relates that he has been using his mother's home oxygen at 4 L nasal cannula around the clock. Patient came into [facility] emergency center for evaluation, WBC 7.8, hemoglobin 13.8, d-dimer elevated at 4.08. CT angiogram of the chest did not show any pulmonary embolism. There was a small right-sided loculated pleural effusion along with pseudotumor in the left lung consistent with pleural fluid. No evidence of pneumonia. No airspace disease. 3 cm poorly marginated infiltrate in the right lower lobe and significance is unknown. Patient was hypotensive in the emergency center with systolic blood pressure down to 75. He was started on vasopressors and admitted into the intensive care unit with consults in place for pulmonary medicine and cardiology. Abdominal ultrasound revealed mild gallbladder wall thickening and air fluid that could relate cholecystitis. Heart failure also possible. Small gallstone or gallbladder polyp. Fatty liver. 01/21: Patient remains in intensive care unit. He is seen today sitting in the recliner. His breathing appears to be more comfortable. Patient states that he is feeling tight and did not sleep well last night. We will plan to increase melatonin dose. Patient has been seen by cardiology this morning and started on dobutamine. Patient is currently on norepinephrine as well. Echocardiogram reveals ejection fraction less than 20%, moderate mitral regurgitation, moderate tricuspid regurgitation, mild to moderate pulmonary hypertension.. Potassium this morning is 6.3 and pulmonary medicine has ordered insulin and dextrose. Patient is to be redrawn at noon today. WBC 7.9, hemoglobin 13.6, troponin 0.077. BUN 41 and creatinine 1.46. Acute hepatitis panel negative. Patient is currently on Lasix 40 mg oral twice daily. TSH will be ordered. Chest x-ray reveals changes of heart failure with interstitial pulmonary edema. Continued moderate left effusion with prominent left basilar atelectasis and/or consolidation. Slight worsening aeration of the right base 01/22: Patient has been afebrile, heart rate 97, blood pressure 95/68, pulse ox 98% on 4 L nasal cannula. Repeat blood work reveals CBC unremarkable, sodium 1:30, potassium 4.8, chloride 96, CO2 25, BUN 33 and creatinine 0.85. AST 126, ALT 145, alkaline phosphatase 262. TSH 5.680 and free T4 1 0.38. Patient remains in the intensive care unit. Dobutamine drip increased to 5. Patient remains on levofloxacin as well. Patient states that he did not sleep last night. He is utilizing Xanax twice daily. He denies having any chest pain and no lower extremity edema. He does complain of shortness of breath. No lightheadedness or dizziness. Cytomel added and midodrine increased to 10 mg 3 times daily. Patient is concerned about his mother and his friend staying with her at this time. We will communicate with Dr. Burnett and ask for home care service to be arranged for his mother. Do not anticipate that he will be ready for discharge for another 48-72 hours. 01/23: Patient remains in intensive care unit on dobutamine at 5 mcg/kg/m and levo fed which is to be weaned off. Dr. Napoles is planning for another 24 hours of IV dobutamine. Patient states that he is feeling off today complaining of nausea. He states he did get some sleep last night. Patient has been noted to be more anxious and due to lack of appetite and insomnia, Remeron will be added. He continues to have shortness of breath with minimal activity. He remains awake and alert but he is stating that he wants to go home. We did arrange for home care for his mother yesterday. WBC 5.7, hemoglobin 12.8, potassium 5.3, creatinine 0.75. We did start midodrine yesterday 3 times daily 10 mg. The blood pressure seems to be stable today. Chest x-ray showing worsening CHF for developing ARDS on background mild underlying emphysematous change there is increasing central alveolar and interstitial edema and/or infiltrates and cardiomegaly. No concern for ARDS at this point per Dr. Contreras. Culture on Pleurx fluid is staph epidermidis. Objective - Vital Signs Vital signs: Vital Signs Temp 97.6 F 01/24/20 12:00 Pulse 106 H 01/24/20 12:15 Resp 71 H 01/24/20 12:15 BP 85/68 01/24/20 12:15 Pulse Ox 98 01/24/20 12:15 Intake & Output 01/23/20 01/24/20 01/24/20 18:59 06:59 18:59 Intake Total 1212.454 614.694 814.127 Output Total 630 750 355 Balance 582.454 -135.306 459.127 Intake: IV 120 120 60 Normal saline 120 120 60 Intake, IV Titration 292.454 494.694 34.127 Amount DOBUTamine DRIP 500 mg In 221.735 241.5 Dextrose/Water 1 250ml. bag @ 5 MCG/KG/MIN 12.655 mls/hr IV .[id number] [facility] Rx#:[id number] Norepinephrine 4 mg In 70.719 253.194 34.127 Sodium Chloride 0.9% 250 ml @ 0.05 MCG/KG/MIN 16. 072 mls/hr IV .[id number] [facility] Rx#:[id number] Oral 800 720 Output: Chest Tube Drainage 140 Pleural Catheter Left Mid 140 -Axillary Chest Urine 350 750 355 Other 140 Other: Voiding Method Urinal Urinal Urinal # Voids 1 # Bowel Movements 1 - Exam Review of Systems Constitutional: Reports fatigue, Reports lethargy, Reports poor appetite, Reports weakness, Reports weight loss, Denies chills, Denies fever Ears, nose, mouth and throat: Denies dysphagia, Denies headache, Denies nasal congestion, Denies nasal discharge, Denies sore throat, Denies vertigo Cardiovascular: Reports decreased exercise tolerance, Reports dyspnea on ex ertion, Reports lightheadedness, Reports orthopnea, Reports shortness of breath, Denies chest pain, Denies palpitations, Denies syncope Respiratory: Reports dyspnea slightly improved, Reports home oxygen, Denies cough, Denies cough with sputum, Denies excessive sputum, Denies hemoptysis, Denies respiratory infections, Denies sleep apnea, Denies wheezing Gastrointestinal: Reports loss of appetite, Reports nausea, Denies abdominal pain, Denies diarrhea, Denies vomiting Genitourinary: Denies dysuria, Denies urinary retention Musculoskeletal: Reports muscle weakness, Denies frequent falls, Denies gait dysfunction Integumentary: Denies pruritus, Denies rash Neurological: Denies change in mentation, Denies change in speech, Denies numbness, Denies weakness Psychiatric: Reports anxiety, Denies depression, reports insomnia Endocrine: Denies fatigue, Denies weight change Physical examination Gen: This is a 74-year-old male. Patient is sitting up in a recliner. He appears to be more comfortable at rest. No respiratory distress noted. HEENT: Head is atraumatic, normocephalic. Pupils equal, round. Sclerae is anicteric. NECK: Supple. No JVD. No lymphadenopathy. No thyromegaly. LUNGS: Diminished breath sounds Pleurx catheter in the left. Pleurx catheter draining this morning of straw-colored fluid. HEART: Regular rate and rhythm. Systolic murmur. ABDOMEN: Soft. Bowel sounds are present. No masses. No tenderness. EXTREMITIES: No pedal edema. No calf tenderness. Dorsalis pedis +2 bilaterally. NEUROLOGICAL: Patient is awake, alert and oriented x3. Cranial nerves 2 through 12 are grossly intact. - Labs CBC & Chem 7: 01/24/20 05:24 01/24/20 05:24 Labs: Abnormal Lab Results - Last 24 Hours (Table) 01/24/20 01/24/20 Range/Units 05:24 05:24 Hgb 12.8 L (13.0-17.5) gm/dL RDW 17.4 H (11.5-15.5) % Lymphocytes # (Manual) 0.91 L (1.0-4.8) k/uL Sodium 131 L (137-145) mmol/L Potassium 5.3 H (3.5-5.1) mmol/L Chloride 97 L (98-107) mmol/L BUN 28 H (9-20) mg/dL Glucose 102 H (74-99) mg/dL Microbiology - Last 24 Hours (Table) 01/22/20 13:25 Gram Stain - Preliminary Pleural Fluid Body Fluid Culture - Preliminary Staphylococcus epidermidis 01/20/20 23:48 Blood Culture - Preliminary Blood No Growth after 72 hours Assessment and Plan Plan: 1. Acute on chronic systolic heart failure with known ejection fraction of 25%. Repeat echocardiogram as above. Continue dobutamine drip. Patient is currently on norepinephrine as well and to be weaned today. Lasix 40 mg twice daily, Lopressor and lisinopril. Patient is on midodrine as well. 2. Severe cardiomyopathy status post AICD. 3. Chronic left-sided pleural effusion status post pleural catheter insertion. Nursing is draining once daily. 4. Cardiogenic shock secondary to severe cardiomyopathy requiring vasopressors. 5. History of coronary artery disease status post stenting of circumflex with mild elevation of troponins, possible acute non-ST SD. Cardiology consult. Aspirin 81 mg daily, Lipitor 40 mg daily, Toprol-XL 12.5 mg daily, Plavix 75 mg daily, lisinopril 2.5 mg daily 6. Hyperlipidemia. 7. History of prostate cancer status post radiation therapy and Lupron injections. 8. Elevated liver function tests possibly related to combination of heart failure and fatty liver. Acute hepatitis panel negative. 9. Generalized anxiety disorder. Continue Xanax 2.5 mg twice daily. Remeron 7.5 mg ordered. 10. Hyperkalemia. Continue Lasix, no potassium supplementation. 11. DVT prophylaxis. Heparin subcu. 12. GI prophylaxis. Pepcid. Discharge plan: To be determined. Most likely return home. Impression and plan of care have been directed as dictated by the signing physician. Funmilayo Diaz nurse practitioner acting as scribe for signing physician.
[2020-01-24] MEDS: MELATONIN 5 MG TABLET PO SCH (20:27)
[2020-01-24] MEDS ORDERED: MIRTAZAPINE 15 MG TAB PO SCH (21:00)
[2020-01-25] MEDS: NOREPINEPHRINE 4 MG in SODIUM CHLORIDE 0.9% 250 ML IV SCH ×2 (05:14→23:38)
[2020-01-25 05:28] LABS: Anisocytosis Slight; Basophils # (A) 0.1 k/uL (0-0.2); Basophils % (A) 1 %; Eosinophils # (A) 0.1 k/uL (0-0.7); Eosinophils % (A) 2 %; HCT 43.2 % (39.0-53.0); HGB 13.1 gm/dL (13.0-17.5); Hypochromasia Moderate; Lymphocytes # (A) 0.8 k/uL (1.0-4.8); Lymphocytes % (A) 11 %; MCH 27.3 pg (25.0-35.0); MCHC 30.3 g/dL (31.0-37.0); MCV 89.9 fL (80.0-100.0); Mean Platelet Volume 8.2; Monocytes # (A) 0.8 k/uL (0-1.0); Monocytes % (A) 12 %; Neutrophils % (A) 72 %; Platelet Count 261 k/uL (150-450); RBC 4.81 m/uL (4.30-5.90); RDW 17.4 % (11.5-15.5); WBC 6.9 k/uL (3.8-10.6)
[2020-01-25 05:40] LABS: African American GFR (CKD) >90 (>60 ml/min/1.73 sqM); Anion Gap 11 mmol/L; Blood Urea Nitrogen 26 mg/dL (9-20); Calcium 9.4 mg/dL (8.4-10.2); Carbon Dioxide 22 mmol/L (22-30); Chloride 97 mmol/L (98-107); Glucose 103 mg/dL (74-99); Non-African American GFR(CKD) 88 (>60 ml/min/1.73 sqM); Potassium 5.4 mmol/L (3.5-5.1); Sodium 130 mmol/L (137-145)
[2020-01-25] MEDS: MIDODRINE 5 MG TAB PO SCH ×3 (06:31→17:08)
[2020-01-25] MEDS: FUROSEMIDE 40 MG TAB PO SCH ×2 (07:29→17:08)
--- NOTE | 2020-01-25 08:18 | XR ---
EXAMINATION TYPE: XR chest 1V DATE OF EXAM: 01/25/2020 COMPARISON: 01/24/2020 HISTORY: Congestive heart failure TECHNIQUE: Single frontal view of the chest is obtained. FINDINGS: Similar appearing diffuse interstitial pulmonary edema and pulmonary vascular congestion. There is a stable retrocardiac density. There is redemonstration of cardiomegaly with dual lead left- sided cardiac device. Osseous structures are grossly intact. IMPRESSION: Similar moderate pulmonary vascular congestion and interstitial edema, likely on the bas is of decompensated congestive heart failure. Retrocardiac airspace disease is also stable that may r epresent small pleural effusion and atelectasis or less likely pneumonia.
[2020-01-25] MEDS: ATORVASTATIN 40 MG TAB PO SCH (08:25)
[2020-01-25] MEDS: LISINOPRIL 2.5 MG TAB PO SCH (08:25)
[2020-01-25] MEDS: FAMOTIDINE 20 MG TAB PO SCH (08:25)
[2020-01-25] MEDS: CLOPIDOGREL 75 MG TAB PO SCH (08:25)
[2020-01-25] MEDS: HEPARIN SODIUM,PORCINE 5,000 UNIT/ML 1 ML VIAL SQ SCH ×2 (08:25→20:36)
[2020-01-25] MEDS: ASPIRIN 81 MG PO SCH (08:26)
[2020-01-25] MEDS: LIOTHYRONINE SODIUM 5 MCG TAB PO SCH (08:26)
[2020-01-25] MEDS ORDERED: METOPROLOL SUCCINATE (ER) 25 MG TAB.ER.24H PO SCH (09:00)
[2020-01-25] MEDS ORDERED: FUROSEMIDE 10 MG/ML 4 ML VIAL IV ONE (09:00)
--- NOTE | 2020-01-25 11:16 | PN ---
PROGRESS NOTE Mr. Barney is a 74-year-old male with a known history of severe cardiomyopathy, status post ICD implantation, history of a PleurX catheter for recurrent pleural effusion, who presented with symptoms of worsening dyspnea and congestive heart failure. It has been going on for a few months. His breathing is better, but he was confused during the night. He is off the norepinephrine. He continue IV dobutamine. He denies any chest pain. No dizziness. He has some dyspnea, but he feels is better. He denies any palpitation. He continued to be in sinus mechanism. He has no nausea or vomiting. He continued to be on the Toprol-XL 12.5 mg daily, lisinopril 2.5 mg daily, IV dobutamine 5 mcg/kg per minute, aspirin, Plavix and Lipitor. PHYSICAL EXAMINATION: Blood pressure running in the 100s with a heart rate in the 90s. LUNGS: With decreased breath sounds at the bases with a few crackles. HEART: Regular rate and rhythm, S1, S2 with a systolic ejection murmur at the base. No diastolic murmur. ABDOMEN: Soft, nontender, positive bowel sounds, no organomegaly. EXTREMITIES: No edema. LAB DATA: Revealed BUN and creatinine 26 and 0.81, potassium 5.4, hemoglobin of 13.1, platelet count of 261. IMPRESSION: 1. Symptoms of congestive heart failure in a patient known history of severe ischemic cardiomyopathy status post ICD implantation. 2. History of coronary artery disease. 3. Pleural effusion with PleurX catheter. 4. Renal failure, improved. 5. Hypokalemia. 6. Hypotension, improved. RECOMMENDATION: I will increase the dose of his oral beta niranjan. I will give him 1 dose of IV Lasix. Continue to follow his renal function. Increase his level of activity and depending on his progress, further recommendation will be made. MMODL / IJN: [id number] /
--- NOTE | 2020-01-25 12:01 | P.PN ---
Subjective Progress Note Date: 01/25/20 On 01/25/2020 patient seen in follow-up in the intensive care unit. He is somnolent today, confused, she was only oriented to person, delirium screening was done, and patient passed with 2 mistakes on inattention but was negative for disorganized thinking. Does have periods of anxiety and agitation, and patient has not been able to sleep at night, Remeron was added by attending physician. he normally takes Seroquel at home, which has not been resumed while at the hospital, patient has been afebrile, he able to be weaned off the vasopressor support since yesterday at 11:00 in the morning, he has maintained a normal blood pressure, this morning he was seen by cardiology, and he is on dobutamine at 5 mics per kilo per minute, and a dose of Lasix was given, today's chest x- ray has been reviewed showing moderate pulmonary vascular congestion and interstitial edema. And sinus mechanism, with a rate of 97 BPM. Patient is also on maintenance dose of oral Lasix but he has been in positive fluid balance, +5 kg since admission Objective - Vital Signs Vital signs: Vital Signs Temp 97.6 F 01/25/20 08:00 Pulse 90 01/25/20 11:30 Resp 23 01/25/20 11:30 BP 91/52 01/25/20 11:30 Pulse Ox 96 01/25/20 11:30 Intake & Output 01/24/20 01/25/20 01/25/20 18:59 06:59 18:59 Intake Total 2006.290 120 290 Output Total 505 930 225 Balance 1502.290 -810 65 Weight 89.4 kg Intake: IV 120 120 50 Normal saline 120 120 50 Intake, IV Titration 207.290 Amount DOBUTamine DRIP 500 mg In 173.163 Dextrose/Water 1 250ml. bag @ 5 MCG/KG/MIN 12.655 mls/hr IV .[id number] TOD Rx#:[id number] Norepinephrine 4 mg In 34.127 Sodium Chloride 0.9% 250 ml @ 0.05 MCG/KG/MIN 16. 072 mls/hr IV .[id number] TOD Rx#:[id number] Oral 1680 240 Output: Chest Tube Drainage 150 Pleural Catheter Left Mid 150 -Axillary Chest Urine 355 930 225 Other: Voiding Method Urinal Urinal Urinal # Voids 1 1 1 # Bowel Movements 1 1 - Exam GENERAL EXAM: Somnolent, 74-year-old white male, on 2 L of oxygen, with a pulse ox of 96% somnolent, confused, oriented only to person, comfortable in no apparent distress. HEAD: Normocephalic/atraumatic. EYES: Normal reaction of pupils, equal size. Conjunctiva pink, sclera white. NOSE: Clear with pink turbinates. THROAT: No erythema or exudates. NECK: No masses, no JVD, no thyroid enlargement, no adenopathy. CHEST: No chest wall deformity. Symmetrical expansion. LUNGS: Equal air entry with basilar crackles, but no wheeze, rhonchi or dullness. CVS: Regular rate and rhythm, normal S1 and S2, no gallops, no murmurs, no rubs ABDOMEN: Soft, nontender. No hepatosplenomegaly, normal bowel sounds, no guard ing or rigidity. EXTREMITIES: No clubbing, no edema, no cyanosis, 2+ pulses and upper and lower extremities. MUSCULOSKELETAL: Muscle strength and tone normal. SPINE: No scoliosis or deformity SKIN: No rashes CENTRAL NERVOUS SYSTEM: Somnolent and oriented -1. No focal deficits, tone is normal in all 4 extremities. PSYCHIATRIC: Somnolent and oriented -1. Appropriate affect. Intact judgment and insight. - Labs CBC & Chem 7: 01/25/20 04:56 01/25/20 04:56 Labs: Abnormal Lab Results - Last 24 Hours (Table) 01/25/20 01/25/20 Range/Units 04:56 04:56 MCHC 30.3 L (31.0-37.0) g/dL RDW 17.4 H (11.5-15.5) % Lymphocytes # 0.8 L (1.0-4.8) k/uL Sodium 130 L (137-145) mmol/L Potassium 5.4 H (3.5-5.1) mmol/L Chloride 97 L (98-107) mmol/L BUN 26 H (9-20) mg/dL Glucose 103 H (74-99) mg/dL Microbiology - Last 24 Hours (Table) 01/22/20 13:25 Gram Stain - Preliminary Pleural Fluid Body Fluid Culture - Preliminary Staphylococcus epidermidis Alpha Hemolytic Streptococcus 01/20/20 23:48 Blood Culture - Preliminary Blood No Growth after 96 hours Assessment and Plan Plan: Assessment: 1 shortness of breath exertion along with orthopnea and even dyspnea at rest. This is most consistent with underlying CHF. Repeat echocardiogram yesterday reveals ejection fraction less than 20%. The patient has chronic systolic heart failure post biventricular AICD placement. The amount of fluid in the left lung is minimal based on the CAT scan findings. The patient is a Pleurx catheter and undergoing daily drainage. Output is been in the order of 100 mL. No evidence of any pneumonia or any other pulmonary decompensating factor. No evidence of any pulmonary embolism. Currently the patient is also running a lower blood pressure is requiring low-dose norepinephrine for hemodynamic support which is being administered at 0.04 g per KG minutes. Dobutamine at 5 mcg/kg/m was added yesterday. 2 coronary artery disease. Previous non-STEMI with previous stenting of the circumflex, with minimal troponin leak, questionable acute non-STEMI contributing to his further decompensated heart failure and hypotension 3 acute renal failure with a creatinine 1.46. Suspect cardiorenal syndrome. 4 chronic left-sided pleural effusion post Pleurx catheter insertion 5 biventricular AICD placement 6 hyperlipidemia 7 history of prostate cancer with radiation therapy followed by Lupron injections 8 osteoarthritis 9 minimal troponin leak 10 mild lactic acidosis 11 altered mental status, encephalopathy, likely, related to CHF, possibility of parapneumonic effusion based on pleural fluid culture positive for alphahemolytic streptococcus 12 alphahemolytic streptococcus in pleural fluid, possibly parapneumonic pleural effusion, will repeat pro calcitonin, and we'll repeat pleural fluid cultures Plan: We will add Rocephin, will send another set of pleural fluid cultures, will send another pro calcitonin, patient has been more confused, and restless, agitated and attempting to leave, especially at night, maintaining safety precautions, minimize use of benzodiazepines if possible, will consider adding Haldol, and restarting patient's home dose of Seroquel. Of vasopressor support, will remain on dobutamine drip today, and he was given a dose of IV Lasix per cardiology, and acute intake and output, daily weights, close hemodynamic monitoring, we'll continue to follow. She will be monitored in the intensive care unit today I performed a history & physical examination of the patient and discussed their management with my nurse practitioner, Roxanne Reddy. I reviewed the nurse practitioner's note and agree with the documented findings and plan of care. Lung sounds are positive for diminished breath sounds throughout the lung cooper. The findings and the impression was discussed with the patient. I attest to the documentation by the nurse practitioner. Time with Patient: Less than 30
--- NOTE | 2020-01-25 14:26 | P.PN ---
Subjective Progress Note Date: 01/25/20 This is a 74-year-old male patient of Dr. Burnett, Dr. Gilbert and Dr. Xi Ordaz with a previous medical history significant for hypertension, hyperlipidemia, osteoarthritis, prostate cancer that was diagnosed back in 2006 status post implants as well as Lupron injection, coronary artery disease with stent of the circumflex, severe cardiomyopathy and chronic systolic heart failure with known ejection fraction of 25%, bradycardia status post AICD implantation, recurrent left-sided pleural effusion status post Pleurx catheter insertion August 2019 by cardiothoracic surgery. Patient drains this himself or his daughter of 100-200 mL subpleural fluid daily. Patient also has history of hypertension, 25-nugz-duau smoking history. Patient complains of shortness of breath for the past month gradually worsening. Shortness of breath is exceptionally worse with exertion. No chest pain, no cough or sputum production, reports weight loss. He complains of nausea occasionally, no abdominal pain. He complains of lightheadedness. He denies any use of steroids for the past 6 weeks. He denies any change and his medications recently. Patient relates that he has been using his mother's home oxygen at 4 L nasal cannula around the clock. Patient came into [facility] emergency center for evaluation, WBC 7.8, hemoglobin 13.8, d-dimer elevated at 4.08. CT angiogram of the chest did not show any pulmonary embolism. There was a small right-sided loculated pleural effusion along with pseudotumor in the left lung consistent with pleural fluid. No evidence of pneumonia. No airspace disease. 3 cm poorly marginated infiltrate in the right lower lobe and significance is unknown. Patient was hypotensive in the emergency center with systolic blood pressure down to 75. He was started on vasopressors and admitted into the intensive care unit with consults in place for pulmonary medicine and cardiology. Abdominal ultrasound revealed mild gallbladder wall thickening and air fluid that could relate cholecystitis. Heart failure also possible. Small gallstone or gallbladder polyp. Fatty liver. 01/21: Patient remains in intensive care unit. He is seen today sitting in the recliner. His breathing appears to be more comfortable. Patient states that he is feeling tight and did not sleep well last night. We will plan to increase melatonin dose. Patient has been seen by cardiology this morning and started on dobutamine. Patient is currently on norepinephrine as well. Echocardiogram reveals ejection fraction less than 20%, moderate mitral regurgitation, moderate tricuspid regurgitation, mild to moderate pulmonary hypertension.. Potassium this morning is 6.3 and pulmonary medicine has ordered insulin and dextrose. Patient is to be redrawn at noon today. WBC 7.9, hemoglobin 13.6, troponin 0.077. BUN 41 and creatinine 1.46. Acute hepatitis panel negative. Patient is currently on Lasix 40 mg oral twice daily. TSH will be ordered. Chest x-ray reveals changes of heart failure with interstitial pulmonary edema. Continued moderate left effusion with prominent left basilar atelectasis and/or consolidation. Slight worsening aeration of the right base 01/22: Patient has been afebrile, heart rate 97, blood pressure 95/68, pulse ox 98% on 4 L nasal cannula. Repeat blood work reveals CBC unremarkable, sodium 1:30, potassium 4.8, chloride 96, CO2 25, BUN 33 and creatinine 0.85. AST 126, ALT 145, alkaline phosphatase 262. TSH 5.680 and free T4 1 0.38. Patient remains in the intensive care unit. Dobutamine drip increased to 5. Patient remains on levofloxacin as well. Patient states that he did not sleep last night. He is utilizing Xanax twice daily. He denies having any chest pain and no lower extremity edema. He does complain of shortness of breath. No lightheadedness or dizziness. Cytomel added and midodrine increased to 10 mg 3 times daily. Patient is concerned about his mother and his friend staying with her at this time. We will communicate with Dr. Burnett and ask for home care service to be arranged for his mother. Do not anticipate that he will be ready for discharge for another 48-72 hours. 01/23: Patient remains in intensive care unit on dobutamine at 5 mcg/kg/m and levo fed which is to be weaned off. Dr. Napoles is planning for another 24 hours of IV dobutamine. Patient states that he is feeling off today complaining of nausea. He states he did get some sleep last night. Patient has been noted to be more anxious and due to lack of appetite and insomnia, Remeron will be added. He continues to have shortness of breath with minimal activity. He remains awake and alert but he is stating that he wants to go home. We did arrange for home care for his mother yesterday. WBC 5.7, hemoglobin 12.8, potassium 5.3, creatinine 0.75. We did start midodrine yesterday 3 times daily 10 mg. The blood pressure seems to be stable today. Chest x-ray showing worsening CHF for developing ARDS on background mild underlying emphysematous change there is increasing central alveolar and interstitial edema and/or infiltrates and cardiomegaly. No concern for ARDS at this point per Dr. Contreras. Culture on Pleurx fluid is staph epidermidis. 01/24: Repeat chest x-ray reveals similar moderate pulmonary vascular congestion and interstitial edema likely on the basis of decompensated heart failure. Retrocardiac airspace disease is also stable that may represent small plural effusion and atelectasis or less likely pneumonia. Patient is afebrile, heart rate running between 76 and 106, blood pressure 95/75, pulse ox 96% on 2 L nasal cannula. Repeat lab work reveals unremarkable CBC. Sodium 1:30, potassium 5.4, chloride 97, CO2 22, BUN 26 and creatinine 0.81. Pleural fluid was Staphylococcus epidermidis and alphahemolytic streptococcus. Yesterday evening, patient was attempting to leave the intensive care unit in and removed mechanical service specialist and IV. Patient was returned to his room and IV access and monitoring was resumed. Patient is alert at this time. Nursing passes on that patient awakes and is very confused. He has not had consistent of sleep. Patient complains of feeling tired. Pulmonary has resumed his Seroquel and Effexor. We will continue Remeron as well both Seroquel and Remeron move to supper time. Patient is still on dobutamine for another 24 hours. He has been off norepineph rine since yesterday at 11 AM. He has a sitter at the bedside at this time. Consult added for Dr. Brown regarding hyponatremia. Objective - Vital Signs Vital signs: Vital Signs Temp 97.6 F 01/25/20 08:00 Pulse 76 01/25/20 10:00 Resp 21 01/25/20 10:00 BP 95/75 01/25/20 10:00 Pulse Ox 96 01/25/20 10:00 Intake & Output 01/24/20 01/25/20 01/25/20 18:59 06:59 18:59 Intake Total 2006.290 120 280 Output Total 505 930 125 Balance 1502.290 -810 155 Weight 89.4 kg Intake: IV 120 120 40 Normal saline 120 120 40 Intake, IV Titration 207.290 Amount DOBUTamine DRIP 500 mg In 173.163 Dextrose/Water 1 250ml. bag @ 5 MCG/KG/MIN 12.655 mls/hr IV .[id number] TOD Rx#:[id number] Norepinephrine 4 mg In 34.127 Sodium Chloride 0.9% 250 ml @ 0.05 MCG/KG/MIN 16. 072 mls/hr IV .[id number] TOD Rx#:[id number] Oral 1680 240 Output: Chest Tube Drainage 150 Pleural Catheter Left Mid 150 -Axillary Chest Urine 355 930 125 Other: Voiding Method Urinal Urinal Urinal # Voids 1 1 1 # Bowel Movements 1 - Exam Review of Systems Constitutional: Reports fatigue, Reports lethargy, Reports poor appetite, Reports weakness, Reports weight loss, Denies chills, Denies fever, reports daytime sleepiness Ears, nose, mouth and throat: Denies dysphagia, Denies headache, Denies nasal congestion, Denies nasal discharge, Denies sore throat, Denies vertigo Cardiovascular: Reports decreased exercise tolerance, Reports dyspnea on exertion, Reports lightheadedness, Reports orthopnea, Reports shortness of breath, Denies chest pain, Denies palpitations, Denies syncope Respiratory: Reports dyspnea slightly improved, Reports home oxygen, Denies cough, Denies cough with sputum, Denies excessive sputum, Denies hemoptysis, Denies respiratory infections, Denies sleep apnea, Denies wheezing Gastrointestinal: Reports loss of appetite, Reports nausea, Denies abdominal pain, Denies diarrhea, Denies vomiting Genitourinary: Denies dysuria, Denies urinary retention Musculoskeletal: Reports muscle weakness, Denies frequent falls, Denies gait dysfunction Integumentary: Denies pruritus, Denies rash Neurological: Denies change in mentation, Denies change in speech, Denies numbness, Denies weakness Psychiatric: Reports anxiety, Denies depression, reports insomnia Endocrine: Denies fatigue, Denies weight change Physical examination Gen: This is a 74-year-old male. Patient is sitting up in chair. He appears to be more comfortable at rest. No respiratory distress noted. HEENT: Head is atraumatic, normocephalic. Pupils equal, round. Sclerae is anicteric. NECK: Supple. No JVD. No lymphadenopathy. No thyromegaly. LUNGS: Diminished breath sounds Pleurx catheter in the left. Pleurx catheter in left side. HEART: Regular rate and rhythm. Systolic murmur. ABDOMEN: Soft. Bowel sounds are present. No masses. No tenderness. EXTREMITIES: No pedal edema. No calf tenderness. Dorsalis pedis +2 bilaterally. NEUROLOGICAL: Patient is awake, alert and oriented x3. Cranial nerves 2 through 12 are grossly intact. - Labs CBC & Chem 7: 01/25/20 04:56 03 04:56 Labs: Abnormal Lab Results - Last 24 Hours (Table) 01/25/20 01/25/20 Range/Units 04:56 04:56 MCHC 30.3 L (31.0-37.0) g/dL RDW 17.4 H (11.5-15.5) % Lymphocytes # 0.8 L (1.0-4.8) k/uL Sodium 130 L (137-145) mmol/L Potassium 5.4 H (3.5-5.1) mmol/L Chloride 97 L (98-107) mmol/L BUN 26 H (9-20) mg/dL Glucose 103 H (74-99) mg/dL Microbiology - Last 24 Hours (Table) 01/22/20 13:25 Gram Stain - Preliminary Pleural Fluid Body Fluid Culture - Preliminary Staphylococcus epidermidis Alpha Hemolytic Streptococcus 01/20/20 23:48 Blood Culture - Preliminary Blood No Growth after 96 hours Assessment and Plan Plan: 1. Acute on chronic systolic heart failure with known ejection fraction of 25%. Repeat echocardiogram as above. Continue dobutamine drip. Patient is currently off norepinephrine. Lasix 40 mg twice daily, Toprol-XL and lisinopril. Patient is on midodrine as well. 2. Severe cardiomyopathy status post AICD. 3. Chronic left-sided pleural effusion status post pleural catheter insertion. Nursing is draining once daily. Culture positive for alphahemolytic strep and Streptococcus epidermidis and patient started on ceftriaxone. 4. Cardiogenic shock secondary to severe cardiomyopathy requiring vasopressors. 5. History of coronary artery disease status post stenting of circumflex with mild elevation of troponins, possible acute non-ST NV. Cardiology consult. Aspirin 81 mg daily, Lipitor 40 mg daily, Toprol-XL 12.5 mg daily, Plavix 75 mg daily, lisinopril 2.5 mg daily 6. Hyperlipidemia. 7. History of prostate cancer status post radiation therapy and Lupron injections. 8. Elevated liver function tests possibly related to combination of heart failure and fatty liver. Acute hepatitis panel negative. 9. Generalized anxiety disorder. Continue Xanax 2.5 mg twice daily. Remeron 7.5 mg ordered. 10. Hyperkalemia. Continue Lasix, no potassium supplementation. 11. DVT prophylaxis. Heparin subcu. 12. GI prophylaxis. Pepcid. 13. Hyponatremia. Consult with nephrology added. 14. Acute delirium secondary to insomnia and ICU hospitalization. Patient has been resumed on Seroquel and Effexor by pulmonary medicine. We will continue Remeron as well and melatonin 10 mg at bedtime. Discharge plan: To be determined. Most likely return home. Impression and plan of care have been directed as dictated by the signing physician. Funmilayo Diaz nurse practitioner acting as scribe for signing physician.
[2020-01-25] MEDS: VENLAFAXINE HCL 50 MG TAB PO SCH (17:08)
[2020-01-25] MEDS: DOBUTamine DRIP 500 MG in DEXTROSE/WATER 1 250ML.BAG IV SCH (17:51)
[2020-01-25] MEDS: QUEtiapine 25 MG TAB PO SCH (17:52)
[2020-01-25] MEDS: MIRTAZAPINE 15 MG TAB PO SCH (17:53)
[2020-01-25] MEDS: MELATONIN 5 MG TABLET PO SCH (20:35)
[2020-01-25] MEDS ORDERED: QUEtiapine 25 MG TAB PO SCH (21:00)
[2020-01-26 05:52] LABS: Anisocytosis Slight; Basophils % (A) 1 %; Eosinophils # (A) 0.1 k/uL (0-0.7); Eosinophils % (A) 2 %; HCT 37.2 % (39.0-53.0); HGB 11.6 gm/dL (13.0-17.5); Hypochromasia Moderate; Lymphocytes # (A) 0.7 k/uL (1.0-4.8); Lymphocytes % (A) 11 %; MCH 27.7 pg (25.0-35.0); MCHC 31.2 g/dL (31.0-37.0); MCV 88.9 fL (80.0-100.0); Mean Platelet Volume 8.1; Monocytes # (A) 0.5 k/uL (0-1.0); Monocytes % (A) 8 %; Neutrophils # (A) 4.7 k/uL (1.3-7.7); Neutrophils % (A) 76 %; Platelet Count 226 k/uL (150-450); RBC 4.19 m/uL (4.30-5.90); RDW 17.6 % (11.5-15.5); WBC 6.2 k/uL (3.8-10.6)
[2020-01-26 06:02] LABS: African American GFR (CKD) >90 (>60 ml/min/1.73 sqM); Anion Gap 6 mmol/L; Blood Urea Nitrogen 24 mg/dL (9-20); Calcium 9.4 mg/dL (8.4-10.2); Carbon Dioxide 28 mmol/L (22-30); Chloride 95 mmol/L (98-107); Glucose 96 mg/dL (74-99); Non-African American GFR(CKD) 86 (>60 ml/min/1.73 sqM); Potassium 5.4 mmol/L (3.5-5.1); Sodium 129 mmol/L (137-145)
[2020-01-26] MEDS: VENLAFAXINE HCL 50 MG TAB PO SCH ×2 (06:32→17:11)
[2020-01-26] MEDS: MIDODRINE 5 MG TAB PO SCH ×3 (06:32→17:11)
[2020-01-26] MEDS ORDERED: FUROSEMIDE 10 MG/ML 4 ML VIAL IV STA (07:53)
[2020-01-26] MEDS: ASPIRIN 81 MG PO SCH (08:21)
[2020-01-26] MEDS: FAMOTIDINE 20 MG TAB PO SCH (08:21)
[2020-01-26] MEDS: LISINOPRIL 2.5 MG TAB PO SCH (08:21)
[2020-01-26] MEDS: METOPROLOL SUCCINATE (ER) 25 MG TAB.ER.24H PO SCH ×2 (08:21→20:38)
[2020-01-26] MEDS: ATORVASTATIN 40 MG TAB PO SCH (08:21)
[2020-01-26] MEDS: CLOPIDOGREL 75 MG TAB PO SCH (08:21)
[2020-01-26] MEDS: HEPARIN SODIUM,PORCINE 5,000 UNIT/ML 1 ML VIAL SQ SCH ×2 (08:21→20:37)
[2020-01-26] MEDS: FUROSEMIDE 40 MG TAB PO SCH (08:22)
--- NOTE | 2020-01-26 08:24 | PN ---
PROGRESS NOTE Mr. Barney is a 74-year-old male with a history of severe ischemic cardiomyopathy, history of ICD implantation who presented with progressive dyspnea going on for the last 3 months. He is feeling better since yesterday. He has slept better. He has no chest pain. No dizziness. No palpitation. He denies any nausea or vomiting. He is off the norepinephrine, but continues to be on IV dobutamine. He has a history of PleurX with recurrent effusion from the left pleura. He has no evidence of malignant arrhythmia. He continues to be on aspirin once a day, Lipitor 40 mg daily, Plavix 75 mg daily, IV dobutamine, Lasix 40 mg orally twice a day, lisinopril 2.5 mg daily, metoprolol succinate 25 mg daily. PHYSICAL EXAMINATION: Blood pressure running in the 100s with the heart rate in the low 100s. LUNGS: With few crackles at the bases. HEART: Regular rate and rhythm. S1, S2. No S3. No rub. ABDOMEN: Soft, nontender. EXTREMITIES: No significant edema. LAB DATA: Lab data revealed BUN and creatinine of 24 and 0.86, potassium 5.4, hemoglobin of 11.6, white blood cell of 6.2. His procalcitonin this 0.14, mildly elevated. IMPRESSION: 1. Congestive heart failure with severely impaired systolic function. 2. History of coronary artery disease. 3. ICD implantation. 4. Renal failure, improved. 5. History of recurrent pleural effusion. 6. Hyperlipidemia. 7. History of parapneumonic left pleural effusion. RECOMMENDATION: I would increase the dose of his Toprol. I will give him one extra dose of IV Lasix today. Continue IV dobutamine for another 24 hours and start to wean tomorrow. The prognosis remains quite guarded. MMODL / IJN: [id number] /
--- NOTE | 2020-01-26 08:44 | XR ---
EXAMINATION TYPE: XR chest 1V portable DATE OF EXAM: 01/26/2020 COMPARISON: 01/25/2020 HISTORY: Follow-up for pleural effusion. Shortness of breath. TECHNIQUE: Single frontal view of the chest is obtained. FINDINGS: Enlarged cardiomediastinal silhouette with dual lead left-sided cardiac device and stable retrocardiac airspace disease. Persistent moderate pulmonary vascular congestion. Diffuse osseous dem ineralization. IMPRESSION: Stable retrocardiac opacity may again represent a small pleural effusion and atelectasis or less likely pneumonia given the background moderate persistent pulmonary vascular congestion. Sugey sparrow consideration is for decompensated congestive heart failure.
[2020-01-26] MEDS: LIOTHYRONINE SODIUM 5 MCG TAB PO SCH (09:04)
--- NOTE | 2020-01-26 10:40 | P.PN ---
Subjective Progress Note Date: 01/26/20 On 01/25/2020 patient seen in follow-up in the intensive care unit. He is somnolent today, confused, she was only oriented to person, delirium screening was done, and patient passed with 2 mistakes on inattention but was negative for disorganized thinking. Does have periods of anxiety and agitation, and patient has not been able to sleep at night, Remeron was added by attending physician. he normally takes Seroquel at home, which has not been resumed while at the hospital, patient has been afebrile, he able to be weaned off the vasopressor support since yesterday at 11:00 in the morning, he has maintained a normal blood pressure, this morning he was seen by cardiology, and he is on dobutamine at 5 mics per kilo per minute, and a dose of Lasix was given, today's chest x- ray has been reviewed showing moderate pulmonary vascular congestion and interstitial edema. And sinus mechanism, with a rate of 97 BPM. Patient is also on maintenance dose of oral Lasix but he has been in positive fluid balance, +5 kg since admission On 01/26/2020 patient seen in follow-up in the intensive care unit, his mentation is somewhat improved, he is more easily arousable, level of consciousness is still lethargic but patient is able to open eyes, and have a brief conversation, he knew the place, the month and the president. Still positive on delirium screen features with 4 mistakes on inattention feature, with altered level of consciousness, with some improvement. No fever, slightly hypotensive, blood pressure 80s over 50s, patient is in a paced rhythm with a rate of 96 BPM. Room air pulse ox is 96%, lung sounds are diminished at the bases. Patient is on maintenance dose of oral Lasix, and she was given additional dose of IV Lasix per cardiology, remains on dobutamine drip at 5 mics per kilo per minute, maintenance IV fluids 0.9 normal saline at a rate of 10 ML per hour. Today's chest x-ray has been reviewed showing stable retrocardiac opacity that could represent a small pleural effusion and atelectasis or less likely pneumonia based on the appearance of moderate persistent pulmonary vascular congestion, Pleurx catheter was drained yesterday, culture is pending patient is covered with Rocephin Objective - Vital Signs Vital signs: Vital Signs Temp 97.9 F 01/26/20 08:00 Pulse 92 01/26/20 09:00 Resp 20 01/26/20 09:00 BP 84/55 01/26/20 09:00 Pulse Ox 96 01/26/20 09:00 Intake & Output 01/25/20 01/26/20 01/26/20 18:59 06:59 18:59 Intake Total 1380 120 280 Output Total 550 375 150 Balance 830 -255 130 Weight 91 kg 91 kg Intake: IV 170 120 30 Normal saline 120 120 30 cefTRIAXone 1 gm In 50 Sodium Chloride 0.9% 50 ml @ 100 mls/hr IVPB Q24H TOD Rx#:[id number] Intake, IV Titration 250 Amount DOBUTamine DRIP 500 mg In 250 Dextrose/Water 1 250ml. bag @ 5 MCG/KG/MIN 12.655 mls/hr IV .[id number] TOD Rx#:[id number] Oral 960 250 Output: Chest Tube Drainage 125 Pleural Catheter Left Mid 125 -Axillary Chest Urine 425 375 150 Other: Voiding Method Urinal Urinal Urinal # Voids 1 1 # Bowel Movements 1 1 - Exam GENERAL EXAM: Somnolent, 74-year-old white male, on 2 L of oxygen, with a pulse ox of 96% somnolent, confused, oriented only to person, comfortable in no apparent distress. HEAD: Normocephalic/atraumatic. EYES: Normal reaction of pupils, equal size. Conjunctiva pink, sclera white. NOSE: Clear with pink turbinates. THROAT: No erythema or exudates. NECK: No masses, no JVD, no thyroid enlargement, no adenopathy. CHEST: No chest wall deformity. Symmetrical expansion. LUNGS: Equal air entry with basilar crackles, but no wheeze, rhonchi or dullness. CVS: Regular rate and rhythm, normal S1 and S2, no gallops, no murmurs, no rubs ABDOMEN: Soft, nontender. No hepatosplenomegaly, normal bowel sounds, no guarding or rigidity. EXTREMITIES: No clubbing, no edema, no cyanosis, 2+ pulses and upper and lower extremities. MUSCULOSKELETAL: Muscle strength and tone normal. SPINE: No scoliosis or deformity SKIN: No rashes CENTRAL NERVOUS SYSTEM: Somnolent and oriented -2. No focal deficits, tone is normal in all 4 extremities. PSYCHIATRIC: Somnolent and oriented -2. Appropriate affect. Intact judgment and insight. - Labs CBC & Chem 7: 01/26/20 05:36 01/26/20 05:36 Labs: Abnormal Lab Results - Last 24 Hours (Table) 01/25/20 01/26/20 01/26/20 Range/Units 04:56 05:36 05:36 RBC 4.19 L (4.30-5.90) m/uL Hgb 11.6 L (13.0-17.5) gm/dL Hct 37.2 L (39.0-53.0) % RDW 17.6 H (11.5-15.5) % Lymphocytes # 0.7 L (1.0-4.8) k/uL Sodium 129 L (137-145) mmol/L Potassium 5.4 H (3.5-5.1) mmol/L Chloride 95 L (98-107) mmol/L BUN 24 H (9-20) mg/dL Procalcitonin 0.14 H (0.02-0.09) ng/mL Microbiology - Last 24 Hours (Table) 01/22/20 13:25 Gram Stain - Final Pleural Fluid Body Fluid Culture - Final Staphylococcus epidermidis Staphylococcus epidermidis#2 Acinetobacter lwoffi Alpha Hemolytic Streptococcus 01/20/20 23:48 Blood Culture - Preliminary Blood No Growth after 120 hours 01/25/20 12:50 Gram Stain - Preliminary Pleural Fluid Body Fluid Culture - Preliminary Assessment and Plan Plan: Assessment: 1 shortness of breath exertion along with orthopnea and even dyspnea at rest. This is most consistent with underlying CHF. Repeat echocardiogram yesterday reveals ejection fraction less than 20%. The patient has chronic systolic heart failure post biventricular AICD placement. The amount of fluid in the left lung is minimal based on the CAT scan findings. The patient is a Pleurx catheter and undergoing daily drainage. Output is been in the order of 100 mL. No evidence of any pneumonia or any other pulmonary decompensating factor. No evidence of any pulmonary embolism. Currently the patient is also running a lower blood pressure is requiring low-dose norepinephrine for hemodynamic support which is being administered at 0.04 g per KG minutes. Dobutamine at 5 mcg/kg/m was added yesterday. Levofed has been on hold for last 48 hours as of today on 01/26/2020 2 coronary artery disease. Previous non-STEMI with previous stenting of the circumflex, with minimal troponin leak, questionable acute non-STEMI contributing to his further decompensated heart failure and hypotension 3 acute renal failure with a creatinine 1.46. Suspect cardiorenal syndrome. 4 chronic left-sided pleural effusion post Pleurx catheter insertion 5 biventricular AICD placement 6 hyperlipidemia 7 history of prostate cancer with radiation therapy followed by Lupron injections 8 osteoarthritis 9 minimal troponin leak 10 mild lactic acidosis 11 altered mental status, encephalopathy, likely, related to CHF, possibility of parapneumonic effusion based on pleural fluid culture positive for alphahemolytic streptococcus 12 alphahemolytic streptococcus in pleural fluid, possibly parapneumonic pleural effusion, will repeat pro calcitonin, and we'll repeat pleural fluid cultures Plan: Continue Rocephin, awaiting results of the pleural fluid, patient was given a dose of IV Lasix in addition to maintenance Lasix, he is in positive fluid balance. Remains on dobutamine, radiology is following. Level of consciousness is improved, patient continues to be delirious, but non-agitated, maintain safety precautions. Continue monitoring in the ICU, will await results of the pleural fluid cultures. I performed a history & physical examination of the patient and discussed their management with my nurse practitioner, Roxanne Reddy. I reviewed the nurse practitioner's note and agree with the documented findings and plan of care. Lung sounds are positive for diminished breath sounds throughout the lung cooper. The findings and the impression was discussed with the patient. I attest to the documentation by the nurse practitioner. Time with Patient: Less than 30
[2020-01-26] MEDS: NOREPINEPHRINE 4 MG in SODIUM CHLORIDE 0.9% 250 ML IV SCH (13:32)
[2020-01-26] MEDS: DOBUTamine DRIP 500 MG in DEXTROSE/WATER 1 250ML.BAG IV SCH (14:40)
--- NOTE | 2020-01-26 16:12 | P.PN ---
Subjective Progress Note Date: 01/26/20 This is a 74-year-old male patient of Dr. Burnett, Dr. Gilbert and Dr. Xi Ordaz with a previous medical history significant for hypertension, hyperlipidemia, osteoarthritis, prostate cancer that was diagnosed back in 2006 status post implants as well as Lupron injection, coronary artery disease with stent of the circumflex, severe cardiomyopathy and chronic systolic heart failure with known ejection fraction of 25%, bradycardia status post AICD implantation, recurrent left-sided pleural effusion status post Pleurx catheter insertion August 2019 by cardiothoracic surgery. Patient drains this himself or his daughter of 100-200 mL subpleural fluid daily. Patient also has history of hypertension, [id number] smoking history. Patient complains of shortness of breath for the past month gradually worsening. Shortness of breath is exceptionally worse with exertion. No chest pain, no cough or sputum production, reports weight loss. He complains of nausea occasionally, no abdominal pain. He complains of lightheadedness. He denies any use of steroids for the past 6 weeks. He denies any change and his medications recently. Patient relates that he has been using his mother's home oxygen at 4 L nasal cannula around the clock. Patient came into [facility] emergency center for evaluation, WBC 7.8, hemoglobin 13.8, d-dimer elevated at 4.08. CT angiogram of the chest did not show any pulmonary embolism. There was a small right-sided loculated pleural effusion along with pseudotumor in the left lung consistent with pleural fluid. No evidence of pneumonia. No airspace disease. 3 cm poorly marginated infiltrate in the right lower lobe and significance is unknown. Patient was hypotensive in the emergency center with systolic blood pressure down to 75. He was started on vasopressors and admitted into the intensive care unit with consults in place for pulmonary medicine and cardiology. Abdominal ultrasound revealed mild gallbladder wall thickening and air fluid that could relate cholecystitis. Heart failure also possible. Small gallstone or gallbladder polyp. Fatty liver. 01/21: Patient remains in intensive care unit. He is seen today sitting in the recliner. His breathing appears to be more comfortable. Patient states that he is feeling tight and did not sleep well last night. We will plan to increase melatonin dose. Patient has been seen by cardiology this morning and started on dobutamine. Patient is currently on norepinephrine as well. Echocardiogram reveals ejection fraction less than 20%, moderate mitral regurgitation, moderate tricuspid regurgitation, mild to moderate pulmonary hypertension.. Potassium this morning is 6.3 and pulmonary medicine has ordered insulin and dextrose. Patient is to be redrawn at noon today. WBC 7.9, hemoglobin 13.6, troponin 0.077. BUN 41 and creatinine 1.46. Acute hepatitis panel negative. Patient is currently on Lasix 40 mg oral twice daily. TSH will be ordered. Chest x-ray reveals changes of heart failure with interstitial pulmonary edema. Continued moderate left effusion with prominent left basilar atelectasis and/or consolidation. Slight worsening aeration of the right base 01/22: Patient has been afebrile, heart rate 97, blood pressure 95/68, pulse ox 98% on 4 L nasal cannula. Repeat blood work reveals CBC unremarkable, sodium 1:30, potassium 4.8, chloride 96, CO2 25, BUN 33 and creatinine 0.85. AST 126, ALT 145, alkaline phosphatase 262. TSH 5.680 and free T4 1 0.38. Patient remains in the intensive care unit. Dobutamine drip increased to 5. Patient remains on levofloxacin as well. Patient states that he did not sleep last night. He is utilizing Xanax twice daily. He denies having any chest pain and no lower extremity edema. He does complain of shortness of breath. No lightheadedness or dizziness. Cytomel added and midodrine increased to 10 mg 3 times daily. Patient is concerned about his mother and his friend staying with her at this time. We will communicate with Dr. Burnett and ask for home care service to be arranged for his mother. Do not anticipate that he will be ready for discharge for another 48-72 hours. 01/23: Patient remains in intensive care unit on dobutamine at 5 mcg/kg/m and levo fed which is to be weaned off. Dr. Napoles is planning for another 24 hours of IV dobutamine. Patient states that he is feeling off today complaining of nausea. He states he did get some sleep last night. Patient has been noted to be more anxious and due to lack of appetite and insomnia, Remeron will be added. He continues to have shortness of breath with minimal activity. He remains awake and alert but he is stating that he wants to go home. We did arrange for home care for his mother yesterday. WBC 5.7, hemoglobin 12.8, potassium 5.3, creatinine 0.75. We did start midodrine yesterday 3 times daily 10 mg. The blood pressure seems to be stable today. Chest x-ray showing worsening CHF for developing ARDS on background mild underlying emphysematous change there is increasing central alveolar and interstitial edema and/or infiltrates and cardiomegaly. No concern for ARDS at this point per Dr. Contreras. Culture on Pleurx fluid is staph epidermidis. 01/24: Repeat chest x-ray reveals similar moderate pulmonary vascular congestion and interstitial edema likely on the basis of decompensated heart failure. Retrocardiac airspace disease is also stable that may represent small plural effusion and atelectasis or less likely pneumonia. Patient is afebrile, heart rate running between 76 and 106, blood pressure 95/75, pulse ox 96% on 2 L nasal cannula. Repeat lab work reveals unremarkable CBC. Sodium 1:30, potassium 5.4, chloride 97, CO2 22, BUN 26 and creatinine 0.81. Pleural fluid was Staphylococcus epidermidis and alphahemolytic streptococcus. Yesterday evening, patient was attempting to leave the intensive care unit in and removed geoscience professor and IV. Patient was returned to his room and IV access and monitoring was resumed. Patient is alert at this time. Nursing passes on that patient awakes and is very confused. He has not had consistent of sleep. Patient complains of feeling tired. Pulmonary has resumed his Seroquel and Effexor. We will continue Remeron as well both Seroquel and Remeron move to supper time. Patient is still on dobutamine for another 24 hours. He has been off norepineph rine since yesterday at 11 AM. He has a sitter at the bedside at this time. Consult added for Dr. Brown regarding hyponatremia. 01/25: Patient continues to have episodes of confusion but is easily reoriented. He is cooperative and follows commands during these episodes. He is able to answer all questions appropriately to time place and person. Ammonia level from yesterday was less than 9. He is continued on dobutamine drip at 5 g for another 24 hours.. Patient was given 1 dose of IV Lasix 40 mg this morning. Patient has been seen by Dr. Brown and ordered Lasix IV 40 mg every 12 hours. Urine osmolality 497, cortisol level 22. Sodium 129, potassium 5.4, chloride 95, CO2 28, BUN 24 and creatinine 0.86. WBC 6.2, hemoglobin 9.6, platelet count 226. Pro-calcitonin 0.14. Repeat chest x-ray reveals stable retrocardiac opacities may again represent small pleural effusion and atelectasis or less likely pneumonia. Primary consideration is decompensated congestive heart failure. Objective - Vital Signs Vital signs: Vital Signs Temp 97.9 F 01/26/20 08:00 Pulse 72 01/26/20 13:00 Resp 24 01/26/20 13:00 BP 88/60 01/26/20 13:00 Pulse Ox 98 01/26/20 13:00 Intake & Output 01/25/20 01/26/20 01/26/20 18:59 06:59 18:59 Intake Total 1380 120 320 Output Total 550 375 500 Balance 830 -255 -180 Weight 91 kg 91 kg Intake: IV 170 120 70 Normal saline 120 120 70 cefTRIAXone 1 gm In 50 Sodium Chloride 0.9% 50 ml @ 100 mls/hr IVPB Q24H TOD Rx#:[id number] Intake, IV Titration 250 Amount DOBUTamine DRIP 500 mg In 250 Dextrose/Water 1 250ml. bag @ 5 MCG/KG/MIN 12.655 mls/hr IV .[id number] TOD Rx#:[id number] Oral 960 250 Output: Chest Tube Drainage 125 Pleural Catheter Left Mid 125 -Axillary Chest Urine 425 375 500 Other: Voiding Method Urinal Urinal Urinal # Voids 1 1 # Bowel Movements 1 1 - Exam Review of Systems Constitutional: Reports fatigue, Reports lethargy, Reports poor appetite, Reports weakness, Reports weight loss, Denies chills, Denies fever, reports daytime sleepiness Ears, nose, mouth and throat: Denies dysphagia, Denies headache, Denies nasal congestion, Denies nasal discharge, Denies sore throat, Denies vertigo Cardiovascular: Reports decreased exercise tolerance, Reports dyspnea on ex ertion, Reports lightheadedness, Reports orthopnea, Reports shortness of breath, Denies chest pain, Denies palpitations, Denies syncope Respiratory: Reports dyspnea slightly improved, Reports home oxygen, Denies cough, Denies cough with sputum, Denies excessive sputum, Denies hemoptysis, Denies respiratory infections, Denies sleep apnea, Denies wheezing Gastrointestinal: Reports loss of appetite, Reports nausea, Denies abdominal pain, Denies diarrhea, Denies vomiting Genitourinary: Denies dysuria, Denies urinary retention Musculoskeletal: Reports muscle weakness, Denies frequent falls, Denies gait dysfunction Integumentary: Denies pruritus, Denies rash Neurological: Reports change in mentation, Denies change in speech, Denies numbness, Denies weakness Psychiatric: Reports anxiety, Denies depression, reports insomnia Endocrine: Denies fatigue, Denies weight change Physical examination Gen: This is a 74-year-old male. Patient is sitting up in chair. He appears to be more comfortable at rest. No respiratory distress noted. HEENT: Head is atraumatic, normocephalic. Pupils equal, round. Sclerae is anicteric. NECK: Supple. No JVD. No lymphadenopathy. No thyromegaly. LUNGS: Diminished breath sounds Pleurx catheter in the left. Pleurx catheter in left side. HEART: Regular rate and rhythm. Systolic murmur. ABDOMEN: Soft. Bowel sounds are present. No masses. No tenderness. EXTREMITIES: No pedal edema. No calf tenderness. Dorsalis pedis +2 bilaterally. NEUROLOGICAL: Patient is awake, alert and oriented x3. Cranial nerves 2 through 12 are grossly intact. - Labs CBC & Chem 7: 01/26/20 05:36 01/26/20 05:36 Labs: Abnormal Lab Results - Last 24 Hours (Table) 01/25/20 01/26/20 01/26/20 Range/Units 04:56 05:36 05:36 RBC 4.19 L (4.30-5.90) m/uL Hgb 11.6 L (13.0-17.5) gm/dL Hct 37.2 L (39.0-53.0) % RDW 17.6 H (11.5-15.5) % Lymphocytes # 0.7 L (1.0-4.8) k/uL Sodium 129 L (137-145) mmol/L Potassium 5.4 H (3.5-5.1) mmol/L Chloride 95 L (98-107) mmol/L BUN 24 H (9-20) mg/dL Procalcitonin 0.14 H (0.02-0.09) ng/mL Microbiology - Last 24 Hours (Table) 01/22/20 13:25 Gram Stain - Final Pleural Fluid Body Fluid Culture - Final Staphylococcus epidermidis Staphylococcus epidermidis#2 Acinetobacter lwoffi Alpha Hemolytic Streptococcus 01/20/20 23:48 Blood Culture - Preliminary Blood No Growth after 120 hours 01/25/20 12:50 Gram Stain - Preliminary Pleural Fluid Body Fluid Culture - Preliminary Assessment and Plan Plan: 1. Acute on chronic systolic heart failure with known ejection fraction of 25%. Repeat echocardiogram as above. Continue dobutamine drip. Patient is current ly off norepinephrine. Lasix 40 mg IV twice daily, Toprol-XL and lisinopril. Patient is on midodrine as well. 2. Severe cardiomyopathy status post AICD. 3. Chronic left-sided pleural effusion status post pleural catheter insertion. Nursing is draining once daily. Culture positive for alphahemolytic strep and Streptococcus epidermidis and patient started on ceftriaxone. 4. Cardiogenic shock secondary to severe cardiomyopathy requiring vasopressors. 5. History of coronary artery disease status post stenting of circumflex with mild elevation of troponins, possible acute non-ST IA. Cardiology consult. Aspirin 81 mg daily, Lipitor 40 mg daily, Toprol-XL 12.5 mg daily, Plavix 75 mg daily, lisinopril 2.5 mg daily 6. Hyperlipidemia. 7. History of prostate cancer status post radiation therapy and Lupron injections. 8. Elevated liver function tests possibly related to combination of heart failure and fatty liver. Acute hepatitis panel negative. 9. Generalized anxiety disorder. Continue Xanax 2.5 mg twice daily. Remeron 7.5 mg ordered. 10. Hyperkalemia. Continue Lasix, no potassium supplementation. 11. DVT prophylaxis. Heparin subcu. 12. GI prophylaxis. Pepcid. 13. Hyponatremia. Consult with nephrology appreciated. 14. Acute metabolic encephalopathy secondary to insomnia and ICU hospitalization. Patient has been resumed on Seroquel and Effexor by pulmonary medicine. We will continue Remeron as well and melatonin 10 mg at bedtime. Discharge plan: To be determined. Most likely return home. Impression and plan of care have been directed as dictated by the signing physician. Funmilayo Diaz nurse practitioner acting as scribe for signing physic shahriar.
[2020-01-26] MEDS: QUEtiapine 25 MG TAB PO SCH (17:12)
[2020-01-26] MEDS: MIRTAZAPINE 15 MG TAB PO SCH (17:38)
[2020-01-26] MEDS: FUROSEMIDE 10 MG/ML 4 ML VIAL IV SCH (20:37)
[2020-01-26] MEDS: MELATONIN 5 MG TABLET PO SCH (21:05)
--- NOTE | 2020-01-26 23:50 | CONS ---
CONSULTATION REASON FOR CONSULT: Hyponatremia. HISTORY OF PRESENT ILLNESS: Patient is a 74-year-old male with severe ischemic cardiomyopathy and EF of less than 20%. He was admitted to the hospital with shortness of breath. The patient is being diuresed. He was also maintained on dobutamine. Volume status has improved slightly. However, patient has become recently more confused. His sodium level was 133 on initial admission, currently it is at 129. Blood pressure remains low and dobutamine was started on 01/22/2020. Currently, Lasix is at 40 mg p.o. b.i.d. The patient has had good urine output. His chest x-ray from yesterday shows moderate pulmonary vascular congestion and interstitial edema. PAST MEDICAL HISTORY: Significant for hypertension, hyperlipidemia, osteoarthritis, coronary artery disease, history of prostatic CA, coronary artery disease. PAST SURGICAL HISTORY: Hip arthroplasty, right hip ORIF of the right hip, insertion of left-sided PleurX catheter, AICD placement, cardiac catheterization, coronary stenting. SOCIAL HISTORY: Patient is a former smoker. He does have history of anxiety and depression. MEDICATIONS: Medications prior to admission included Coreg, aspirin, Lipitor, Plavix, Lasix, Zestril, midodrine, Lasix, Seroquel, Effexor. ALLERGIES: None. REVIEW OF SYSTEMS: Negative for fever, chills, nausea, vomiting or abdominal pain. No diarrhea. Shortness of breath is present. PHYSICAL EXAMINATION: On examination, blood pressure is 84/62, heart rate 90 per minute, patient is afebrile. Examination of the heart S1, S2. Examination of the lungs, decreased breath sounds at bases. Bilateral basal crackles are heard. ABDOMEN: Soft, nontender. Examination of lower extremities shows chronic skin changes. Chronic edema noted bilaterally. [employer] exam shows patient is moving all 4 extremities. LAB: Show hemoglobin 11.6, sodium 129, potassium 5.4, chloride 95, BUN 24, serum creatinine 0.86. ASSESSMENT: 1. Hyponatremia appears to be hypervolemic. Blood pressure is low secondary to severe cardiomyopathy. The patient is volume overloaded, specially given the chest x-ray findings. I will increase his Lasix and recheck a sodium this evening. If the hyponatremia does not improve, I will add tolvaptan. The urine osmolality has been sent out. I will also check a random cortisol level given the hypotension, mild hyperkalemia along with the hyponatremia. The dobutamine is also usually made in D5W which we will add to worsening hyponatremia. 2. Severe cardiomyopathy, ejection fraction less than 20%. 3. Hypotension secondary to cardiomyopathy. 4. Mental status changes. Doubt it is from hyponatremia, but we will continue to monitor. No other focal motor deficits noted to suggest cerebrovascular accident. PLAN: Check random cortisol level. Check urine osmolality. Change Lasix to IV. Consider tolvaptan if sodium level does not improve. Thank you for this consultation. We will continue to follow the patient with you during his hospitalization. MMODL / IJN: [id number] /
[2020-01-27] MEDS: NOREPINEPHRINE 4 MG in SODIUM CHLORIDE 0.9% 250 ML IV SCH (05:29)
[2020-01-27 06:22] LABS: Anisocytosis Slight; Basophils % (A) 0 %; Eosinophils # (A) 0.1 k/uL (0-0.7); Eosinophils % (A) 2 %; HCT 38.3 % (39.0-53.0); HGB 11.9 gm/dL (13.0-17.5); Hypochromasia Moderate; Lymphocytes # (A) 0.5 k/uL (1.0-4.8); Lymphocytes % (A) 10 %; MCH 27.9 pg (25.0-35.0); MCHC 31.1 g/dL (31.0-37.0); MCV 89.9 fL (80.0-100.0); Mean Platelet Volume 7.3; Monocytes # (A) 0.6 k/uL (0-1.0); Monocytes % (A) 10 %; Neutrophils % (A) 75 %; Platelet Count 205 k/uL (150-450); RBC 4.26 m/uL (4.30-5.90); RDW 17.7 % (11.5-15.5); WBC 5.4 k/uL (3.8-10.6)
[2020-01-27 06:31] LABS: African American GFR (CKD) >90 (>60 ml/min/1.73 sqM); Anion Gap 7 mmol/L; Blood Urea Nitrogen 25 mg/dL (9-20); Calcium 9.5 mg/dL (8.4-10.2); Carbon Dioxide 26 mmol/L (22-30); Chloride 95 mmol/L (98-107); Glucose 79 mg/dL (74-99); Non-African American GFR(CKD) 81 (>60 ml/min/1.73 sqM); Potassium 5.2 mmol/L (3.5-5.1); Sodium 128 mmol/L (137-145)
[2020-01-27] MEDS: VENLAFAXINE HCL 50 MG TAB PO SCH ×2 (07:00→21:08)
[2020-01-27] MEDS: MIDODRINE 5 MG TAB PO SCH ×3 (07:00→17:18)
--- NOTE | 2020-01-27 07:48 | XR ---
EXAMINATION TYPE: XR chest 1V portable DATE OF EXAM: 01/27/2020 COMPARISON: 01/26/2020 HISTORY: Congestive heart failure TECHNIQUE: Single frontal view of the chest is obtained. FINDINGS: There is improved pulmonary vascular congestion. There is a retrocardiac opacity redemonstr ated with left midlung opacity. The right lung remains well aerated. Cardiomediastinal silhouette is enlarged. Dual lead left-sided cardiac device is again appreciated. Degenerative change of the should ers and spine are redemonstrated. No pneumothorax seen. IMPRESSION: Persistent left basilar opacity and left midlung opacity. Improved pulmonary vascular co ngestion.
[2020-01-27] MEDS: CLOPIDOGREL 75 MG TAB PO SCH (08:11)
[2020-01-27] MEDS: ATORVASTATIN 40 MG TAB PO SCH (08:11)
[2020-01-27] MEDS: ASPIRIN 81 MG PO SCH (08:11)
[2020-01-27] MEDS: HEPARIN SODIUM,PORCINE 5,000 UNIT/ML 1 ML VIAL SQ SCH ×2 (08:11→21:08)
[2020-01-27] MEDS: LISINOPRIL 2.5 MG TAB PO SCH (08:11)
[2020-01-27] MEDS: FAMOTIDINE 20 MG TAB PO SCH (08:11)
[2020-01-27] MEDS: FUROSEMIDE 10 MG/ML 4 ML VIAL IV SCH ×2 (08:11→17:19)
[2020-01-27] MEDS: LIOTHYRONINE SODIUM 5 MCG TAB PO SCH (08:11)
[2020-01-27] MEDS: METOPROLOL SUCCINATE (ER) 25 MG TAB.ER.24H PO SCH ×2 (08:12→21:08)
[2020-01-27] MEDS ORDERED: TOLVAPTAN 15 MG 1/2 TABLET PO ONE (10:00)
[2020-01-27] MEDS: ALPRAZolam 0.25 MG TAB PO PRN (10:43)
[2020-01-27] MEDS ORDERED: VANCOMYCIN IV PER PHARMACY 1 EACH MISC MISCELLANE PRN (11:16)
--- NOTE | 2020-01-27 11:32 | P.PN ---
Subjective Progress Note Date: 01/27/20 Principal diagnosis: Acute exacerbation of systolic congestive heart failure, ejection fraction less than 20% This is a 74-year-old male patient with known history of coronary artery disease with previous coronary intervention and stenting of the circumflex in addition to history of severe cardiomyopathy with an ejection fraction of 25% and chronic systolic dysfunction and severe resting bradycardia close the was chamber ICD placement. The patient was also having recurrent left-sided pleural effusion and he underwent a Pleurx catheter insertion back in August 2019 by car diothoracic surgery. He has been undergoing daily drainage from his left lung and he typically drinks approximately 200 mL of pleural fluid.. The patient also has hypertension, prostate cancer and he has been treated with prostatic radiation therapy/implants. He has also history of osteoarthritis. The patient is an ex-smoker. [id number] smoking history. He came into the hospital because of worsening shortness of breath.. His been progressively getting more short of breath over the past month. His shortness of breath is essentially exertional and he also has orthopnea. No reported chest pain. No reported cough or sputum production. He is an ex-smoker. No wheezing. No previous h istory of DVT or pulmonary embolism. No fever. The white cell count at time of admission was 7.8. Hemoglobin was at 13.8. Coagulation profile was within normal. D-dimer was elevated at 4.08 and based on that the patient was given a CT angiogram that showed no evidence of any pulmonary embolism. 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 No evidence of any pneumonia. No evidence of any airspace disease. There was a 3 cm poorly marginated infiltrate in the right lower lobe and the significance of this abnormality is not known. In the emergency department, the patient was having episodes of hypotension. His systolic blood pressure was as low as 75. He was given pressors and currently is running on low-dose levothyroid at 0.03 g per KG per minute. His cardiac rhythm is ventricularly paced at the rate of 100. Note that the patient some minimal troponin elevation. ProBNP level was quite elevated. Lactic acid level was 4.2, admission dropped down to 2 and currently is on IV with KVO. The patient is seen today 01/22/2020 in follow-up in the intensive care unit. He is currently awake and alert in no acute distress. Sitting up at the bedside. Maintaining O2 saturations in the 90s on 4 L/m per nasal cannula. Today's chest x-ray continues to show evidence of fluid volume overload. Echocardiogram reveals ejection fraction less than 20%. He is still requiring a small amount of norepinephrine at 0.03 mcg/kg/m. Potassium is 6.3. Sodium 130. Creatinine 1.46. White count 7.9. Hemoglobin 13.6. Troponin 0.077. He remains on Lasix 40 mg by mouth twice a day. Still remains in a positive balance. Weight is stable. The patient is seen today 01/23/2020 in follow-up in the in the chair at the bedside. Maintaining O2 saturations in the 90s on 4 L/m per nasal cannula. Chest x-ray showing improvement in the volume status. He is breathing a bit easier today compared to yesterday, he is complaining of weakness and fatigue. He is currently on norepinephrine at 0.04 mcg/kg/m. Dobutamine at 5 mcg/kg/m. Maintaining adequate urine output. Blood and urine cultures reveal no growth. White count 7.6. Hemoglobin 13.1. sodium 130. Creatinine 0.85. Potassium 4.8. TSH 5.68. T4 1 0.38. the patient is seen today 01/24/2020 in The intensive care unit. He is awake and alert in no acute distress. Maintaining good O2 saturations in the 90s on 4 L/m per nasal cannula. Chest x-ray continues to show some worsening congestive heart failure with mild underlying emphysema. There is increased central alveol interstitial edemaand/or infiltrates. Pleural fluid cultures reveal no growth. Blood cultures reveal no growth. He continues on norepinephrine at 0.01 mcg/kg/min. Remains on Dobutamine at 5 mcg/kg/min. White count 5.7. Hemoglobin 12.8. Potassium 5.3. 5.3. Creatinine 0.75. He remains on midodrine TID. BP marginal. On lasix 40 BID. The patient is seen today 01/27/2020 in follow up in the ICU. He is currently resting comfortably in bed. Awake, alert in no acute distress. He did have issues with anxiety earlier this a.m. Treated with Xanax and improved. Chest x-ray continues to show persistent left basilar opacity and left midlung opacity. Plan to drain fluid again today per Pleurx. We will send more cultures and fluid analysis. Cultures have been revealing Staphylococcus epidermidis and Acinetobacter. Follow-up cultures with coag-negative staph. vancomycin will be added Continue ceftriaxone. Dobutamine at 2.5 mcg/kg/m. Remains off norepinephrine. White count 5.4. Hemoglobin 11.9. Sodium 128. Potassium 5.2. Creatinine 0.94. Objective - Vital Signs Vital signs: Vital Signs Temp 98.0 F 01/27/20 08:00 Pulse 58 L 01/27/20 10:00 Resp 20 01/27/20 10:00 BP 93/66 01/27/20 10:00 Pulse Ox 93 L 01/27/20 10:00 Intake & Output 01/26/20 01/27/20 01/27/20 18:59 06:59 18:59 Intake Total 670 120 253.87 Output Total 522 470 400 Balance 148 -350 -146.13 Weight 91 kg 90.9 kg Intake: IV 170 120 40 Normal saline 120 120 40 cefTRIAXone 1 gm In 50 Sodium Chloride 0.9% 50 ml @ 100 mls/hr IVPB Q24H TOD Rx#:[id number] Intake, IV Titration 250 213.87 Amount DOBUTamine DRIP 500 mg In 250 213.87 Dextrose/Water 1 250ml. bag @ 5 MCG/KG/MIN 12.655 mls/hr IV .[id number] TOD Rx#:[id number] Oral 250 Output: Urine 520 470 400 Stool 2 Other: Voiding Method Urinal Urinal Urinal # Voids 1 # Bowel Movements 1 - Exam - Constitutional General appearance: Pleasant 74-year-old gentleman, on 4 L nasal cannula, in no acute distress. - EENT Eyes: Reports anicteric sclerae, Reports disc margins sharp, Reports edentulous, Reports PERRLA, Denies ptosis, Denies scleral icterus ENT: Reports hearing grossly normal, Reports NA/AT, Reports normal oropharynx, Denies thrush Ears: bilateral: normal - Neck Neck: Reports normal ROM, Denies lymphadenopathy, Denies rigidity, Denies stridor, Denies thyromegaly Carotids: bilateral: upstroke delayed Thyroid: bilateral: normal size - Respiratory Respiratory: Some slightly diminished breath on the left lung base. The patient has a Pleurx catheter in place on the left side. Crackles in posterior bases. - Cardiovascular Rhythm: regular Heart sounds: normal: S1, S2, the rhythm is Abnormal Heart Sounds: Reports systolic murmur, Reports S3 Gallop, Denies rub, Denies click, the pulses are diminished in all 4 extremities. - Gastrointestinal General gastrointestinal: Reports normal bowel sounds, Reports soft, Denies splenomegaly, Denies tenderness, Denies umbilical hernia, Denies ventral hernia - Integumentary Integumentary: Reports normal, Reports normal turgor - Neurologic Neurologic: CNII-XII intact - Musculoskeletal Musculoskeletal: Reports generalized weakness, Reports strength equal bilaterally - Psychiatric Psychiatric: Reports A&O x's 3, Reports appropriate affect, Reports intact judgment & insight - Labs CBC & Chem 7: 01/27/20 06:02 01/27/20 06:02 Labs: Abnormal Lab Results - Last 24 Hours (Table) 01/27/20 01/27/20 Range/Units 06:02 06:02 RBC 4.26 L (4.30-5.90) m/uL Hgb 11.9 L (13.0-17.5) gm/dL Hct 38.3 L (39.0-53.0) % RDW 17.7 H (11.5-15.5) % Lymphocytes # 0.5 L (1.0-4.8) k/uL Sodium 128 L (137-145) mmol/L Potassium 5.2 H (3.5-5.1) mmol/L Chloride 95 L (98-107) mmol/L BUN 25 H (9-20) mg/dL Microbiology - Last 24 Hours (Table) 01/20/20 23:48 Blood Culture - Final Blood No Growth after 144 hours 01/25/20 12:50 Gram Stain - Preliminary Pleural Fluid Body Fluid Culture - Preliminary Coagulase Negative Staph 01/22/20 13:25 Gram Stain - Final Pleural Fluid Body Fluid Culture - Final Staphylococcus epidermidis Staphylococcus epidermidis#2 Acinetobacter lwoffi Alpha Hemolytic Streptococcus Assessment and Plan Assessment: 1 shortness of breath exertion along with orthopnea and even dyspnea at rest. This is most consistent with underlying CHF. Repeat echocardiogram reveals ejection fraction less than 20%. The patient has chronic systolic heart failure post biventricular AICD placement. The amount of fluid in the left lung is m inimal based on the CAT scan findings. The patient is a Pleurx catheter and undergoing daily drainage. Output is been in the order of 100 mL. No evidence of any pneumonia or any other pulmonary decompensating factor. No evidence of any pulmonary embolism. Dobutamine at 2.5 mcg/kg/m was added yesterday. 2 coronary artery disease. Previous non-STEMI with previous stenting of the circumflex, with minimal troponin leak, questionable acute non-STEMI contributing to his further decompensated heart failure and hypotension 3 acute renal failure improved 0.94. Suspect cardiorenal syndrome. 4 chronic left-sided pleural effusion post Pleurx catheter insertion 5 biventricular AICD placement 6 hyperlipidemia 7 history of prostate cancer with radiation therapy followed by Lupron injections 8 osteoarthritis 9 minimal troponin leak 10 mild lactic acidosis Plan: The patient was seen and evaluated by Dr. Contreras. Chest x-ray and labs reviewed today. Cultures reviewed.We will add vancomycin. Continue ceftriaxone. Check pro calcitonin. Send repeat cultures. He has been weaned off no repinephrine Remains on dobutamine at 2.5 mcg/kg/m. We will continue to follow. I, the cosigning physician, performed a history & physical examination of the patient. Lungs sounds with crackles in the bilateral posterior bases, diminished in the left Maintaining good O2 saturations in the 90s on 4 L/m per nasal cannula. I discussed the assessment and plan of care with my nurse practitioner, Christie Ricketts. I attest to the above note as dictated by her.
[2020-01-27] MEDS ORDERED: VANCOMYCIN 1,500 MG in SODIUM CHLORIDE 0.9% 250 ML IVPB ONE (12:00)
--- NOTE | 2020-01-27 13:52 | P.PN ---
Subjective Progress Note Date: 01/27/20 This is a 74-year-old male patient of Dr. Burnett, Dr. Gilbert and Dr. Xi Ordaz with a previous medical history significant for hypertension, hyperlipidemia, osteoarthritis, prostate cancer that was diagnosed back in 2006 status post implants as well as Lupron injection, coronary artery disease with stent of the circumflex, severe cardiomyopathy and chronic systolic heart failure with known ejection fraction of 25%, bradycardia status post AICD implantation, recurrent left-sided pleural effusion status post Pleurx catheter insertion August 2019 by cardiothoracic surgery. Patient drains this himself or his daughter of 100-200 mL subpleural fluid daily. Patient also has history of hypertension, [id number] smoking history. Patient complains of shortness of breath for the past month gradually worsening. Shortness of breath is exceptionally worse with exertion. No chest pain, no cough or sputum production, reports weight loss. He complains of nausea occasionally, no abdominal pain. He complains of lightheadedness. He denies any use of steroids for the past 6 weeks. He denies any change and his medications recently. Patient relates that he has been using his mother's home oxygen at 4 L nasal cannula around the clock. Patient came into [facility] emergency center for evaluation, WBC 7.8, hemoglobin 13.8, d-dimer elevated at 4.08. CT angiogram of the chest did not show any pulmonary embolism. There was a small right-sided loculated pleural effusion along with pseudotumor in the left lung consistent with pleural fluid. No evidence of pneumonia. No airspace disease. 3 cm poorly marginated infiltrate in the right lower lobe and significance is unknown. Patient was hypotensive in the emergency center with systolic blood pressure down to 75. He was started on vasopressors and admitted into the intensive care unit with consults in place for pulmonary medicine and cardiology. Abdominal ultrasound revealed mild gallbladder wall thickening and air fluid that could relate cholecystitis. Heart failure also possible. Small gallstone or gallbladder polyp. Fatty liver. 01/21: Patient remains in intensive care unit. He is seen today sitting in the recliner. His breathing appears to be more comfortable. Patient states that he is feeling tight and did not sleep well last night. We will plan to increase melatonin dose. Patient has been seen by cardiology this morning and started on dobutamine. Patient is currently on norepinephrine as well. Echocardiogram reveals ejection fraction less than 20%, moderate mitral regurgitation, moderate tricuspid regurgitation, mild to moderate pulmonary hypertension.. Potassium this morning is 6.3 and pulmonary medicine has ordered insulin and dextrose. Patient is to be redrawn at noon today. WBC 7.9, hemoglobin 13.6, troponin 0.077. BUN 41 and creatinine 1.46. Acute hepatitis panel negative. Patient is currently on Lasix 40 mg oral twice daily. TSH will be ordered. Chest x-ray reveals changes of heart failure with interstitial pulmonary edema. Continued moderate left effusion with prominent left basilar atelectasis and/or consolidation. Slight worsening aeration of the right base 01/22: Patient has been afebrile, heart rate 97, blood pressure 95/68, pulse ox 98% on 4 L nasal cannula. Repeat blood work reveals CBC unremarkable, sodium 1:30, potassium 4.8, chloride 96, CO2 25, BUN 33 and creatinine 0.85. AST 126, ALT 145, alkaline phosphatase 262. TSH 5.680 and free T4 1 0.38. Patient remains in the intensive care unit. Dobutamine drip increased to 5. Patient remains on levofloxacin as well. Patient states that he did not sleep last night. He is utilizing Xanax twice daily. He denies having any chest pain and no lower extremity edema. He does complain of shortness of breath. No lightheadedness or dizziness. Cytomel added and midodrine increased to 10 mg 3 times daily. Patient is concerned about his mother and his friend staying with her at this time. We will communicate with Dr. Burnett and ask for home care service to be arranged for his mother. Do not anticipate that he will be ready for discharge for another 48-72 hours. 01/23: Patient remains in intensive care unit on dobutamine at 5 mcg/kg/m and levo fed which is to be weaned off. Dr. Napoles is planning for another 24 hours of IV dobutamine. Patient states that he is feeling off today complaining of nausea. He states he did get some sleep last night. Patient has been noted to be more anxious and due to lack of appetite and insomnia, Remeron will be added. He continues to have shortness of breath with minimal activity. He remains awake and alert but he is stating that he wants to go home. We did arrange for home care for his mother yesterday. WBC 5.7, hemoglobin 12.8, potassium 5.3, creatinine 0.75. We did start midodrine yesterday 3 times daily 10 mg. The blood pressure seems to be stable today. Chest x-ray showing worsening CHF for developing ARDS on background mild underlying emphysematous change there is increasing central alveolar and interstitial edema and/or infiltrates and cardiomegaly. No concern for ARDS at this point per Dr. Contreras. Culture on Pleurx fluid is staph epidermidis. 01/24: Repeat chest x-ray reveals similar moderate pulmonary vascular congestion and interstitial edema likely on the basis of decompensated heart failure. Retrocardiac airspace disease is also stable that may represent small plural effusion and atelectasis or less likely pneumonia. Patient is afebrile, heart rate running between 76 and 106, blood pressure 95/75, pulse ox 96% on 2 L nasal cannula. Repeat lab work reveals unremarkable CBC. Sodium 1:30, potassium 5.4, chloride 97, CO2 22, BUN 26 and creatinine 0.81. Pleural fluid was Staphylococcus epidermidis and alphahemolytic streptococcus. Yesterday evening, patient was attempting to leave the intensive care unit in and removed houseperson and IV. Patient was returned to his room and IV access and monitoring was resumed. Patient is alert at this time. Nursing passes on that patient awakes and is very confused. He has not had consistent of sleep. Patient complains of feeling tired. Pulmonary has resumed his Seroquel and Effexor. We will continue Remeron as well both Seroquel and Remeron move to supper time. Patient is still on dobutamine for another 24 hours. He has been off norepineph rine since yesterday at 11 AM. He has a sitter at the bedside at this time. Consult added for Dr. Brown regarding hyponatremia. 01/25: Patient continues to have episodes of confusion but is easily reoriented. He is cooperative and follows commands during these episodes. He is able to answer all questions appropriately to time place and person. Ammonia level from yesterday was less than 9. He is continued on dobutamine drip at 5 g for another 24 hours.. Patient was given 1 dose of IV Lasix 40 mg this morning. Patient has been seen by Dr. Brown and ordered Lasix IV 40 mg every 12 hours. Urine osmolality 497, cortisol level 22. Sodium 129, potassium 5.4, chloride 95, CO2 28, BUN 24 and creatinine 0.86. WBC 6.2, hemoglobin 9.6, platelet count 226. Pro-calcitonin 0.14. Repeat chest x-ray reveals stable retrocardiac opacities may again represent small pleural effusion and atelectasis or less likely pneumonia. Primary consideration is decompensated congestive heart failure. 01/26: Patient remains in the intensive care unit. He continues to have episodes of confusion but is easily reoriented. He is having occasional panic attack with increased anxiety. We will resume Xanax and continue his other psychiatric medications. He did sleep well last night most likely related to the Remeron and melatonin. Dobutamine has been decreased today to 2.5 mcg/kg/m. He is off norepinephrine. Repeat lab work reveals WBC 5.4, hemoglobin 11.9, sodium 128, potassium 5.[address], [address] Brown is on consult regarding hyponatremia. Objective - Vital Signs Vital signs: Vital Signs Temp 98.0 F 01/27/20 08:00 Pulse 58 L 01/27/20 10:00 Resp 20 01/27/20 10:00 BP 93/66 01/27/20 10:00 Pulse Ox 93 L 01/27/20 10:00 Intake & Output 01/26/20 01/27/20 01/27/20 18:59 06:59 18:59 Intake Total 670 120 253.87 Output Total 522 470 400 Balance 148 -350 -146.13 Weight 91 kg 90.9 kg Intake: IV 170 120 40 Normal saline 120 120 40 cefTRIAXone 1 gm In 50 Sodium Chloride 0.9% 50 ml @ 100 mls/hr IVPB Q24H TOD Rx#:[id number] Intake, IV Titration 250 213.87 Amount DOBUTamine DRIP 500 mg In 250 213.87 Dextrose/Water 1 250ml. bag @ 5 MCG/KG/MIN 12.655 mls/hr IV .[id number] TOD Rx#:[id number] Oral 250 Output: Urine 520 470 400 Stool 2 Other: Voiding Method Urinal Urinal Urinal # Voids 1 # Bowel Movements 1 - Exam Review of Systems Constitutional: Reports fatigue, Reports lethargy, Reports poor appetite, Reports weakness, Reports weight loss, Denies chills, Denies fever, reports daytime sleepiness Ears, nose, mouth and throat: Denies dysphagia, Denies headache, Denies nasal congestion, Denies nasal discharge, Denies sore throat, Denies vertigo Cardiovascular: Reports decreased exercise tolerance, Reports dyspnea on exert ion, Reports lightheadedness, Reports orthopnea, Reports shortness of breath, Denies chest pain, Denies palpitations, Denies syncope Respiratory: Reports dyspnea slightly improved, Reports home oxygen, Denies cough, Denies cough with sputum, Denies excessive sputum, Denies hemoptysis, Denies respiratory infections, Denies sleep apnea, Denies wheezing Gastrointestinal: Reports loss of appetite, Reports nausea, Denies abdominal pain, Denies diarrhea, Denies vomiting Genitourinary: Denies dysuria, Denies urinary retention Musculoskeletal: Reports muscle weakness, Denies frequent falls, Denies gait dysfunction Integumentary: Denies pruritus, Denies rash Neurological: Reports change in mentation, Denies change in speech, Denies numbness, Denies weakness Psychiatric: Reports anxiety, reports depression, reports insomnia Endocrine: Denies fatigue, Denies weight change Physical examination Gen: This is a 74-year-old male. Patient is sitting up on the edge of the bed. Patient appears somewhat anxious. No respiratory distress noted. HEENT: Head is atraumatic, normocephalic. Pupils equal, round. Sclerae is anicteric. NECK: Supple. No JVD. No lymphadenopathy. No thyromegaly. LUNGS: Diminished breath sounds Pleurx catheter in the left. HEART: Regular rate and rhythm. Systolic murmur. ABDOMEN: Soft. Bowel sounds are present. No masses. No tenderness. EXTREMITIES: No pedal edema. No calf tenderness. Dorsalis pedis +2 bilaterally. NEUROLOGICAL: Patient is awake, alert and oriented x3. Cranial nerves 2 through 12 are grossly intact. - Labs CBC & Chem 7: 01/27/20 06:02 01/27/20 06:02 Labs: Abnormal Lab Results - Last 24 Hours (Table) 01/27/20 01/27/20 Range/Units 06:02 06:02 RBC 4.26 L (4.30-5.90) m/uL Hgb 11.9 L (13.0-17.5) gm/dL Hct 38.3 L (39.0-53.0) % RDW 17.7 H (11.5-15.5) % Lymphocytes # 0.5 L (1.0-4.8) k/uL Sodium 128 L (137-145) mmol/L Potassium 5.2 H (3.5-5.1) mmol/L Chloride 95 L (98-107) mmol/L BUN 25 H (9-20) mg/dL Microbiology - Last 24 Hours (Table) 01/20/20 23:48 Blood Culture - Final Blood No Growth after 144 hours 01/25/20 12:50 Gram Stain - Preliminary Pleural Fluid Body Fluid Culture - Preliminary Coagulase Negative Staph 01/22/20 13:25 Gram Stain - Final Pleural Fluid Body Fluid Culture - Final Staphylococcus epidermidis Staphylococcus epidermidis#2 Acinetobacter lwoffi Alpha Hemolytic Streptococcus Assessment and Plan Plan: 1. Acute on chronic systolic heart failure with known ejection fraction of 25%. Repeat echocardiogram as above. Continue dobutamine drip decreased to 2.5 mcg/kg/m. Patient is currently off norepinephrine. Lasix 40 mg IV increase frequency to every 8 hours, Toprol-XL and lisinopril. Patient is on midodrine as well. 2. Severe cardiomyopathy status post AICD. 3. Chronic left-sided pleural effusion status post pleural catheter insertion. Nursing is draining once daily. Culture positive for alphahemolytic strep and Streptococcus epidermidis and patient started on ceftriaxone and vancomycin. 4. Cardiogenic shock secondary to severe cardiomyopathy requiring vasopressors. Patient is currently off norepinephrine. 5. History of coronary artery disease status post stenting of circumflex with mild elevation of troponins, possible acute non-ST MT. Cardiology consult. Aspirin 81 mg daily, Lipitor 40 mg daily, Toprol-XL 12.5 mg daily, Plavix 75 mg daily, lisinopril 2.5 mg daily 6. Hyperlipidemia. 7. History of prostate cancer status post radiation therapy and Lupron injections. 8. Elevated liver function tests possibly related to combination of heart failure and fatty liver. Acute hepatitis panel negative. 9. Generalized anxiety disorder. Continue Xanax 2.5 mg twice daily and Remeron 7.5 mg. 10. Hyperkalemia. Continue Lasix, no potassium supplementation. 11. DVT prophylaxis. Heparin subcu. 12. GI prophylaxis. Pepcid. 13. Hyponatremia. Consult with nephrology appreciated. 14. Acute metabolic encephalopathy secondary to insomnia and ICU hospitalization. Continue Seroquel and Effexor and continue Remeron as well and melatonin 10 mg at bedtime. Discharge plan: To be determined. Most likely return home. Impression and plan of care have been directed as dictated by the signing physician. Funmilayo Diaz nurse practitioner acting as scribe for signing physician.
--- NOTE | 2020-01-27 14:36 | PN ---
PROGRESS NOTE Patient is seen for followup for hyponatremia which is mainly hypervolemic. Patient has severe cardiomyopathy with ejection fraction less than 20%. He is maintained on dobutamine drip. Serum sodium has slowly decreased from around 133 on admission to 129. Yesterday, Lasix was increased to IV push Lasix and sodium is noted to be at 1:28 am today. Patient is maintained on dobutamine which is premade in D5W. Overall patient states he is feeling better. He has good urine output. PHYSICAL EXAMINATION: On examination today, blood pressure is 93/66, heart rate 58 per minute, patient is afebrile. Examination of the heart S1, S2. Examination of the lungs, bilateral breath sounds are heard. Abdomen is soft, non-tender. Examination of the lower extremities shows chronic skin changes, edema 1+ bilaterally chronic. 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 LABS: Show sodium 128, potassium 5.2, chloride 95, CO2 is 26, BUN 25, creatinine 0.94. ASSESSMENT: 1. Hypervolemic, hyponatremia, continue to diurese patient. Increase Lasix to 40 mg q.8 hours. Maintain fluid restriction. Increase protein intake. I will also give a dose of tolvaptan. Repeat sodium later on this evening. Random urine sodium was 15. This is lower secondary to severe cardiomyopathy and congestive heart failure. 2. Severe cardiomyopathy, ejection fraction less than 20%. 3. Volume overload, slowly improving. PLAN: Tolvaptan x1. Increase Lasix to 40 q.8. Increase protein intake. Restrict fluids. Repeat labs this evening and then again in a.m. MMODL / IJN: [id number] /
--- NOTE | 2020-01-27 16:48 | PN ---
PROGRESS NOTE Mr. Barney is a 74-year-old male with known history of severe ischemic cardiomyopathy, status post ICD implant, who presented with progressive dyspnea. He had possible infection in the left pleura. He is feeling much better this morning. His breathing is better. He has slept well. He is denying any chest pain. He denies any dizziness or palpitations. He denies any nausea. He continues to be on dobutamine 5 mcg/kg per minute. Hemodynamically his blood pressure and heart rate are under better control. He denies any dizziness or palpitations. In addition to the IV dobutamine, he is on aspirin once a day, Lipitor 40 mg daily, Plavix 75 mg daily, Lasix 40 mg IV q.12 hours, lisinopril 2.5 mg daily, midodrine and metoprolol succinate 25 mg twice a day. PHYSICAL EXAMINATION: Blood pressure is running in the high 90s with a heart rate in the 90s. LUNGS: Decreased breath sounds, more on the left base. HEART: Regular rate and rhythm. S1, S2. No S3, with a systolic murmur. ABDOMEN: Soft, nontender. EXTREMITIES: No significant edema. LAB DATA: BUN and creatinine 25 and 0.94. Potassium 5.2, hemoglobin 11.9. IMPRESSION: 1. Progressive dyspnea. Could be a combination of an infectious lung abnormality in view of the positive blood culture in addition to the worsening congestive heart failure with known history of systolic dysfunction. 2. Severe ischemic cardiomyopathy. 3. Status post implantable cardioverter defibrillator implant. 4. Renal failure, improved. 5. Recurrent pleural effusion with PleurX. RECOMMENDATIONS: I will cut down the dose of dobutamine to 2.5 mcg/kg daily. Continue the rest of his medical regimen. If he is stable, the dobutamine can be stopped tomorrow. He has been initiated on antibiotics by Dr. Contreras. Depending on his progress, further recommendations will be made. MMODL / IJN: [id number] /
[2020-01-27] MEDS: MIRTAZAPINE 15 MG TAB PO SCH (17:19)
[2020-01-27] MEDS: QUEtiapine 25 MG TAB PO SCH (17:19)
[2020-01-27 17:43] LABS: Calcium 9.6 mg/dL (8.4-10.2); Potassium 5.5 mmol/L (3.5-5.1)
[2020-01-27 18:06] LABS: Appearance,BF Clear; Color,BF Yellow; Nucleated Cells, Body Fluid 270 /uL; RBC, Body Fluid 725 /uL
[2020-01-27 20:06] LABS: Mononuclear WBC,Body Fluid 92 %; Polynuclear WBC,Body Fluid 8 %
[2020-01-27] MEDS: MELATONIN 5 MG TABLET PO SCH (21:08)
[2020-01-27] MEDS: DOBUTamine DRIP 500 MG in DEXTROSE/WATER 1 250ML.BAG IV SCH (21:24)
[2020-01-28] MEDS: VANCOMYCIN 1,500 MG in SODIUM CHLORIDE 0.9% 250 ML IVPB SCH ×3 (00:29→23:35)
[2020-01-28] MEDS: FUROSEMIDE 10 MG/ML 4 ML VIAL IV SCH ×2 (00:29→09:03)
[2020-01-28 01:42] LABS: Glucose, BF Source Pleural Fluid; Glucose, Body Fluid 56 mg/dL; LDH, Body Fluid Source Pleural Fluid
[2020-01-28] MEDS: NOREPINEPHRINE 4 MG in SODIUM CHLORIDE 0.9% 250 ML IV SCH ×2 (02:11→13:29)
[2020-01-28 05:50] LABS: Calcium 9.6 mg/dL (8.4-10.2); Potassium 5.1 mmol/L (3.5-5.1)
[2020-01-28 06:34] LABS: Anisocytosis Slight; HCT 38.9 % (39.0-53.0); Hypochromasia Moderate; MCHC 30.7 g/dL (31.0-37.0); Mean Platelet Volume 8.1; Platelet Count 210 k/uL (150-450); RBC 4.28 m/uL (4.30-5.90); RDW 17.5 % (11.5-15.5); WBC 5.8 k/uL (3.8-10.6)
[2020-01-28] MEDS: VENLAFAXINE HCL 50 MG TAB PO SCH ×2 (07:04→18:05)
[2020-01-28] MEDS: MIDODRINE 5 MG TAB PO SCH ×3 (07:05→18:07)
[2020-01-28] MEDS: ASPIRIN 81 MG PO SCH (08:20)
[2020-01-28] MEDS: CLOPIDOGREL 75 MG TAB PO SCH (08:20)
[2020-01-28] MEDS: FAMOTIDINE 20 MG TAB PO SCH (08:20)
[2020-01-28] MEDS: HEPARIN SODIUM,PORCINE 5,000 UNIT/ML 1 ML VIAL SQ SCH ×2 (08:21→21:22)
[2020-01-28] MEDS: LIOTHYRONINE SODIUM 5 MCG TAB PO SCH (08:21)
[2020-01-28] MEDS: ATORVASTATIN 40 MG TAB PO SCH (08:21)
[2020-01-28] MEDS: LISINOPRIL 2.5 MG TAB PO SCH (09:03)
[2020-01-28] MEDS: METOPROLOL SUCCINATE (ER) 25 MG TAB.ER.24H PO SCH ×2 (09:03→21:22)
--- NOTE | 2020-01-28 09:03 | XR ---
EXAMINATION TYPE: XR chest 1V portable DATE OF EXAM: 01/28/2020 COMPARISON: 01/27/2020 HISTORY: Follow-up for pleural effusions TECHNIQUE: Single frontal view of the chest is obtained. FINDINGS: There is a persistent retrocardiac opacity obscuring the left heart border and hemidiaphra gm. Strand-like right basilar atelectasis is seen. Cardiomediastinal silhouette is enlarged but parti ally obscured with dual lead left-sided cardiac device. Diffuse osseous demineralization.. IMPRESSION: Unchanged retrocardiac opacity that may represent a pleural effusion and atelectasis or pneumonia in the appropriate clinical setting.
--- NOTE | 2020-01-28 11:16 | P.PN ---
Subjective Progress Note Date: 01/28/20 This is a 74-year-old male patient of Dr. Burnett, Dr. Gilbert and Dr. Xi Ordaz with a previous medical history significant for hypertension, hyperlipidemia, osteoarthritis, prostate cancer that was diagnosed back in 2006 status post implants as well as Lupron injection, coronary artery disease with s tent of the circumflex, severe cardiomyopathy and chronic systolic heart failure with known ejection fraction of 25%, bradycardia status post AICD implantation, recurrent left-sided pleural effusion status post Pleurx catheter insertion August 2019 by cardiothoracic surgery. Patient drains this himself or his daughter of 100-200 mL subpleural fluid daily. Patient also has history of hypertension, [id number] smoking history. Patient complains of shortness of breath for the past month gradually worsening. Shortness of breath is exceptionally worse with exertion. No chest pain, no cough or sputum production, reports weight loss. He complains of nausea occasionally, no abdominal pain. He complains of lightheadedness. He denies any use of steroids for the past 6 weeks. He denies any change and his medications recently. Patient relates that he has been using his mother's home oxygen at 4 L nasal cannula around the clock. Patient came into [facility] emergency center for evaluation, WBC 7.8, hemoglobin 13.8, d-dimer elevated at 4.08. CT angiogram of the chest did not show any pulmonary embolism. There was a small right-sided loculated pleural effusion along with pseudotumor in the left lung consistent with pleural fluid. No evidence of pneumonia. No airspace disease. 3 cm poorly marginated infiltrate in the right lower lobe and significance is unknown. Patient was hypotensive in the emergency center with systolic blood pressure down to 75. He was started on vasopressors and admitted into the intensive care unit with consults in place for pulmonary medicine and cardiology. Abdominal ultrasound revealed mild gallbladder wall thickening and air fluid that could relate cholecystitis. Heart failure also possible. Small gallstone or gallbladder polyp. Fatty liver. 01/21: Patient remains in intensive care unit. He is seen today sitting in the recliner. His breathing appears to be more comfortable. Patient states that he is feeling tight and did not sleep well last night. We will plan to increase melatonin dose. Patient has been seen by cardiology this morning and started on dobutamine. Patient is currently on norepinephrine as well. Echocardiogram reveals ejection fraction less than 20%, moderate mitral regurgitation, moderate tricuspid regurgitation, mild to moderate pulmonary hypertension.. Potassium this morning is 6.3 and pulmonary medicine has ordered insulin and dextrose. Patient is to be redrawn at noon today. WBC 7.9, hemoglobin 13.6, troponin 0.077. BUN 41 and creatinine 1.46. Acute hepatitis panel negative. Patient is currently on Lasix 40 mg oral twice daily. TSH will be ordered. Chest x-ray reveals changes of heart failure with interstitial pulmonary edema. Continued moderate left effusion with prominent left basilar atelectasis and/or consolidation. Slight worsening aeration of the right base 01/22: Patient has been afebrile, heart rate 97, blood pressure 95/68, pulse ox 98% on 4 L nasal cannula. Repeat blood work reveals CBC unremarkable, sodium 1:30, potassium 4.8, chloride 96, CO2 25, BUN 33 and creatinine 0.85. AST 126, ALT 145, alkaline phosphatase 262. TSH 5.680 and free T4 1 0.38. Patient remains in the intensive care unit. Dobutamine drip increased to 5. Patient remains on levofloxacin as well. Patient states that he did not sleep last night. He is utilizing Xanax twice daily. He denies having any chest pain and no lower extremity edema. He does complain of shortness of breath. No lightheadedness or dizziness. Cytomel added and midodrine increased to 10 mg 3 times daily. Patient is concerned about his mother and his friend staying with her at this time. We will communicate with Dr. Burnett and ask for home care service to be arranged for his mother. Do not anticipate that he will be ready for discharge for another 48-72 hours. 01/23: Patient remains in intensive care unit on dobutamine at 5 mcg/kg/m and levo fed which is to be weaned off. Dr. Napoles is planning for another 24 hours of IV dobutamine. Patient states that he is feeling off today complaining of nausea. He states he did get some sleep last night. Patient has been noted to be more anxious and due to lack of appetite and insomnia, Remeron will be added. He continues to have shortness of breath with minimal activity. He remains awake and alert but he is stating that he wants to go home. We did arrange for home care for his mother yesterday. WBC 5.7, hemoglobin 12.8, potassium 5.3, creatinine 0.75. We did start midodrine yesterday 3 times daily 10 mg. The blood pressure seems to be stable today. Chest x-ray showing worsening CHF for developing ARDS on background mild underlying emphysematous change there is increasing central alveolar and interstitial edema and/or infiltrates and cardiomegaly. No concern for ARDS at this point per Dr. Contreras. Culture on Pleurx fluid is staph epidermidis. 01/24: Repeat chest x-ray reveals similar moderate pulmonary vascular congestion and interstitial edema likely on the basis of decompensated heart failure. Retrocardiac airspace disease is also stable that may represent small plural effusion and atelectasis or less likely pneumonia. Patient is afebrile, heart rate running between 76 and 106, blood pressure 95/75, pulse ox 96% on 2 L nasal cannula. Repeat lab work reveals unremarkable. Sodium 1:30, potassium 5.4, ch loride 97, CO2 22, BUN 26 and creatinine 0.81. Pleural fluid was Staphylococcus epidermidis and alphahemolytic streptococcus. Yesterday evening, patient was attempting to leave the intensive care unit in and removed security monitor and IV. Patient was returned to his room and IV access and monitoring was resumed. Patient is alert at this time. Nursing passes on that patient awakes and is very confused. He has not had consistent of sleep. Patient complains of feeling tired. Pulmonary has resumed his Seroquel and Effexor. We will continue Remeron as well both Seroquel and Remeron move to supper time. Patient is still on dobutamine for another 24 hours. He has been off norepinephrine since yesterday at 11 AM. He has a sitter at the bedside at this time. Consult added for Dr. Brown regarding hyponatremia. 01/25: Patient continues to have episodes of confusion but is easily reoriented. He is cooperative and follows commands during these episodes. He is able to answer all questions appropriately to time place and person. Ammonia level from yesterday was less than 9. He is continued on dobutamine drip at 5 g for another 24 hours.. Patient was given 1 dose of IV Lasix 40 mg this morning. Patient has been seen by Dr. Brown and ordered Lasix IV 40 mg every 12 hours. Urine osmolality 497, cortisol level 22. Sodium 129, potassium 5.4, chloride 95, CO2 28, BUN 24 and creatinine 0.86. WBC 6.2, hemoglobin 9.6, platelet count 226. Pro-calcitonin 0.14. Repeat chest x-ray reveals stable retrocardiac opacities may again represent small pleural effusion and atelectasis or less likely pneumonia. Primary consideration is decompensated congestive heart failure. 01/26: Patient remains in the intensive care unit. He continues to have episodes of confusion but is easily reoriented. He is having occasional panic attack with increased anxiety. We will resume Xanax and continue his other psychiatric medications. He did sleep well last night most likely related to the Remeron and melatonin. Dobutamine has been decreased today to 2.5 mcg/kg/m. He is off norepinephrine. Repeat lab work reveals WBC 5.4, hemoglobin 11.9, sodium 128, potassium 5.2, [address] Brown is on consult regarding hyponatremia. 314: Patient remains in intensive care unit sitting up in chair. He is complaining of pain to the right groin. Denies any dizziness or chest pain. Continues to have shortness of breath. He has not had any episodes of confusion overnight or today. Patient states that he slept well during the evening. Dobutamine continues to be at 2.5 MCG/KG/M. However he continues to be hypotensive. Morning meds were held due to his pressure. Sodium 128, potassium 5.1, BUN 28, creatinine 1.06 Review of Systems Constitutional: Reports fatigue, Reports lethargy, Reports poor appetite, Reports weakness, Reports weight loss, reports pain to right groin, Denies chills, Denies fever, reports daytime sleepiness Ears, nose, mouth and throat: Denies dysphagia, Denies headache, Denies nasal congestion, Denies nasal discharge, Denies sore throat, Denies vertigo Cardiovascular: Reports decreased exercise tolerance, Reports dyspnea on exertion, Reports lightheadedness, Reports orthopnea, Reports shortness of breath, Denies chest pain, Denies palpitations, Denies syncope Respiratory: Reports dyspnea slightly improved, Reports home oxygen, Denies cough, Denies cough with sputum, Denies excessive sputum, Denies hemoptysis, Denies respiratory infections, Denies sleep apnea, Denies wheezing Gastrointestinal: Reports loss of appetite, Reports nausea, Denies abdominal pain, Denies diarrhea, Denies vomiting Genitourinary: Denies dysuria, Denies urinary retention Musculoskeletal: Reports muscle weakness, Denies frequent falls, Denies gait dysfunction Integumentary: Denies pruritus, Denies rash Neurological: Reports change in mentation, Denies change in speech, Denies numbness, Denies weakness Psychiatric: Reports anxiety, reports depression, reports insomnia Endocrine: Denies fatigue, Denies weight change Objective - Vital Signs Vital signs: Vital Signs Temp 97.6 F 01/28/20 08:00 Pulse 67 01/28/20 10:00 Resp 20 01/28/20 10:00 BP 80/48 01/28/20 10:00 Pulse Ox 98 01/28/20 10:00 Intake & Output 01/27/20 01/28/20 01/28/20 18:59 06:59 18:59 Intake Total 670.00 370 140 Output Total 710 950 300 Balance -40.00 -580 -160 Weight 91.6 kg Intake: IV 420 370 140 Normal saline 120 120 40 Vancomycin 1,500 mg In 250 250 Sodium Chloride 0.9% 250 ml @ 125 mls/hr IVPB Q12H TOD Rx#:[id number] cefTRIAXone 1 gm In 50 100 Sodium Chloride 0.9% 50 ml @ 100 mls/hr IVPB Q24H TOD Rx#:[id number] Intake, IV Titration 250.00 Amount DOBUTamine DRIP 500 mg In 250.00 Dextrose/Water 1 250ml. bag @ 5 MCG/KG/MIN 12.655 mls/hr IV .[id number] TOD Rx#:[id number] Output: Chest Tube Drainage 110 Pleural Catheter Left Mid 110 -Axillary Chest Urine 600 950 300 Other: Voiding Method Urinal Urinal Urinal # Voids 0 1 0 - Exam Gen: This is a 74-year-old male. Patient is sitting up in chair. In no acute distress HEENT: Head is atraumatic, normocephalic. Pupils equal, round. Sclerae is anicteric. NECK: Supple. No JVD. No lymphadenopathy. No thyromegaly. LUNGS: Crackles to the left base, Pleurx catheter in the left. HEART: Regular rate and rhythm. Systolic murmur. ABDOMEN: Soft. Bowel sounds are present. No masses. No tenderness. EXTREMITIES: No pedal edema. No calf tenderness. Dorsalis pedis +2 bilaterally. NEUROLOGICAL: Patient is awake, alert and oriented x3. Cranial nerves 2 through 12 are grossly intact. - Labs CBC & Chem 7: 01/28/20 05:15 01/28/20 05:15 Labs: Abnormal Lab Results - Last 24 Hours (Table) 01/27/20 01/27/20 01/28/20 Range/Units 06:02 17:07 05:15 RBC (4.30-5.90) m/uL Hgb (13.0-17.5) gm/dL Hct (39.0-53.0) % MCHC (31.0-37.0) g/dL RDW (11.5-15.5) % Sodium 128 L 128 L (137-145) mmol/L Potassium 5.5 H (3.5-5.1) mmol/L Chloride 93 L (98-107) mmol/L BUN 29 H 28 H (9-20) mg/dL Procalcitonin 0.17 H (0.02-0.09) ng/mL 01/28/20 Range/Units 05:15 RBC 4.28 L (4.30-5.90) m/uL Hgb 12.0 L (13.0-17.5) gm/dL Hct 38.9 L (39.0-53.0) % MCHC 30.7 L (31.0-37.0) g/dL RDW 17.5 H (11.5-15.5) % Sodium (137-145) mmol/L Potassium (3.5-5.1) mmol/L Chloride (98-107) mmol/L BUN (9-20) mg/dL Procalcitonin (0.02-0.09) ng/mL Microbiology - Last 24 Hours (Table) 01/27/20 14:30 Gram Stain - Preliminary Pleural Fluid Body Fluid Culture - Preliminary 01/27/20 14:30 Anaerobic Culture - Preliminary Pleural Fluid 01/27/20 14:30 Acid Fast Bacilli Culture - Preliminary Pleural Fluid 01/27/20 14:30 Fungal Culture - Preliminary Pleural Fluid 01/25/20 12:50 Gram Stain - Preliminary Pleural Fluid Body Fluid Culture - Preliminary Staphylococcus epidermidis Assessment and Plan Plan: 1. Acute on chronic systolic heart failure with known ejection fraction of 25%. Repeat echocardiogram as above. Continue dobutamine drip decreased to 2.5 mcg/kg/m. Patient is currently off norepinephrine. Lasix 40 mg IV increase frequency to every 8 hours, Toprol-XL and lisinopril. Patient is on midodrine as well. 2. Severe cardiomyopathy status post AICD. 3. Chronic left-sided pleural effusion status post pleural catheter insertion. Nursing is draining once daily. Culture positive for alphahemolytic strep and Streptococcus epidermidis and patient started on ceftriaxone and vancomycin. 4. Cardiogenic shock secondary to severe cardiomyopathy requiring vasopressors. Patient is currently off norepinephrine. 5. History of coronary artery disease status post stenting of circumflex with mild elevation of troponins, possible acute non-ST VT. Cardiology consult. Aspirin 81 mg daily, Lipitor 40 mg daily, Toprol-XL 12.5 mg daily, Plavix 75 mg daily, lisinopril 2.5 mg daily 6. Hyperlipidemia. 7. History of prostate cancer status post radiation therapy and Lupron injections. 8. Elevated liver function tests possibly related to combination of heart failure and fatty liver. Acute hepatitis panel negative. 9. Generalized anxiety disorder. Continue Xanax 2.5 mg twice daily and Remeron 7.5 mg. 10. Hyperkalemia. Continue Lasix, no potassium supplementation. 11. DVT prophylaxis. Heparin subcu. 12. GI prophylaxis. Pepcid. 13. Hyponatremia. Consult with nephrology appreciated. 14. Acute metabolic encephalopathy secondary to insomnia and ICU hospitalization. DC Remeron, increased Seroquel 250 mg by mouth and continue Effexor continue melatonin 10 mg at bedtime Discharge plan: To be determined. Most likely return home. Impression and plan of care have been directed as dictated by the signing physician. Roxana Graham nurse practitioner acting as scribe for signing physician.
[2020-01-28] MEDS ORDERED: FUROSEMIDE 10 MG/ML 4 ML VIAL IV STA (11:46)
[2020-01-28] MEDS: ACETAMINOPHEN TAB 325 MG TAB PO PRN (11:52)
[2020-01-28] MEDS ORDERED: ONDANSETRON 4 MG/2 ML VIAL IVP PRN (12:58)
--- NOTE | 2020-01-28 13:15 | P.PN ---
Subjective Progress Note Date: 01/28/20 Principal diagnosis: This is 74-year-old male seen in consultation because of hyponatremia. He is deemed to have hypervolemic hyponatremia. Diuretics did not improve his sodium he was given 1 dose of Tolvaptan yesterday on 01/27/2020 and his sodium remains stable at 128. Previously his sodium was normal last year Workup including a TSH is slightly high, 5.6 normal range being 4.6 dated 01/22/2020, cortisol level is 22, free T4 is normal at 1.38 Urine osmolality is 497, urine sodium is 15 dated 01/26/2020 concurrent sodium was 128 Patient complains of loss of appetite. No nausea vomiting no headache no dizziness no chest pain no shortness of breath cough. No abdominal pain no diarrhea Orthostatics blood pressures supine blood pressure was 86/58 and sitting up was 94/57 Objective - Vital Signs Vital signs: Vital Signs Temp 97.6 F 01/28/20 08:00 Pulse 67 01/28/20 12:00 Resp 18 01/28/20 12:00 BP 94/67 01/28/20 12:00 Pulse Ox 98 01/28/20 12:00 Intake & Output 01/27/20 01/28/20 01/28/20 18:59 06:59 18:59 Intake Total 670.00 370 420 Output Total 710 950 300 Balance -40.00 -580 120 Weight 91.6 kg Intake: IV 420 370 420 Normal saline 120 120 70 Vancomycin 1,500 mg In 250 250 250 Sodium Chloride 0.9% 250 ml @ 125 mls/hr IVPB Q12H TOD Rx#:[id number] cefTRIAXone 1 gm In 50 100 Sodium Chloride 0.9% 50 ml @ 100 mls/hr IVPB Q24H TOD Rx#:[id number] Intake, IV Titration 250.00 Amount DOBUTamine DRIP 500 mg In 250.00 Dextrose/Water 1 250ml. bag @ 5 MCG/KG/MIN 12.655 mls/hr IV .[id number] TOD Rx#:[id number] Output: Chest Tube Drainage 110 Pleural Catheter Left Mid 110 -Axillary Chest Urine 600 950 300 Other: Voiding Method Urinal Urinal Urinal # Voids 0 1 0 On examination is awake alert oriented but somewhat anxious HEENT exam no JVP neck is supple no facial asymmetry Lungs are clear to auscultation fair air entry bilaterally except for diminished breath sounds on the left. A chest x-ray shows effusion and there has a Pleurx catheter Heart sounds are unremarkable for any murmur rub gallop Abdomen soft nontender no organomegaly ascites masses Extremity exam was trace edema Neurologically awake alert oriented - Labs CBC & Chem 7: 01/28/20 05:15 01/28/20 05:15 Labs: Abnormal Lab Results - Last 24 Hours (Table) 01/27/20 01/27/20 01/28/20 Range/Units 06:02 17:07 05:15 RBC (4.30-5.90) m/uL Hgb (13.0-17.5) gm/dL Hct (39.0-53.0) % MCHC (31.0-37.0) g/dL RDW (11.5-15.5) % Sodium 128 L 128 L (137-145) mmol/L Potassium 5.5 H (3.5-5.1) mmol/L Chloride 93 L (98-107) mmol/L BUN 29 H 28 H (9-20) mg/dL Procalcitonin 0.17 H (0.02-0.09) ng/mL 01/28/20 Range/Units 05:15 RBC 4.28 L (4.30-5.90) m/uL Hgb 12.0 L (13.0-17.5) gm/dL Hct 38.9 L (39.0-53.0) % MCHC 30.7 L (31.0-37.0) g/dL RDW 17.5 H (11.5-15.5) % Sodium (137-145) mmol/L Potassium (3.5-5.1) mmol/L Chloride (98-107) mmol/L BUN (9-20) mg/dL Procalcitonin (0.02-0.09) ng/mL Microbiology - Last 24 Hours (Table) 01/27/20 14:30 Gram Stain - Preliminary Pleural Fluid Body Fluid Culture - Preliminary 01/27/20 14:30 Anaerobic Culture - Preliminary Pleural Fluid 01/27/20 14:30 Acid Fast Bacilli Culture - Preliminary Pleural Fluid 01/27/20 14:30 Fungal Culture - Preliminary Pleural Fluid 01/25/20 12:50 Gram Stain - Preliminary Pleural Fluid Body Fluid Culture - Preliminary Staphylococcus epidermidis Assessment and Plan Assessment: Impression 1. Hyponatremia resistant to 1 dose of Tolvaptan her sodium stayed stable at 128., He made 1600 mL of urine There is no orthostatic changes, serum cortisol level is normal. A chest x-ray is not suggestive of CHF but there is fluid on the left lung and he has a Pleurx catheter Workup has shown TSH is slightly high at 5.6, free T4 was normal and was started on Cytomel which is his Synthroid equivalent. First dose was 5 days ago on 01/23/2020 2. Chronic left pleural effusion. Recommendation 1. As a diagnostic trial will discontinue the diuretics and give him IV fluids and carefully monitor him this is because he has not responded to aggressive Lasix 40 every 8 as well as Tolvaptan
--- NOTE | 2020-01-28 13:21 | PN ---
PROGRESS NOTE This patient has a history of severe ischemic cardiomyopathy, congestive cardiac failure and AICD placement. The patient has possibly some kind of lung infection or pleural infection. The patient's blood pressure has been running slightly low. He is comfortable. No acute respiratory distress is noted. Blood pressure is 90/66 mmHg. Intermittently the patient develops a blood pressure of 75 to 80. First and second heart sounds are normal. Lungs reveal bilateral basal rales. Abdomen is soft. PLAN: Patient is going to be started on Levophed. We will hold the lisinopril and metoprolol as well as Imdur and continue the same other medications. Patient's overall prognosis is poor. MMODL / IJN: [id number] /
[2020-01-28] MEDS: SODIUM CHLORIDE 0.9% 1,000 ML IV SCH (13:29)
--- NOTE | 2020-01-28 16:29 | P.PN ---
Subjective Progress Note Date: 01/28/20 This is a 74-year-old male patient with known history of coronary artery disease with previous coronary intervention and stenting of the circumflex in addition to history of severe cardiomyopathy with an ejection fraction of 25% and chronic systolic dysfunction and severe resting bradycardia close the was chamber ICD placement. The patient was also having recurrent left-sided pleural effusion and he underwent a Pleurx catheter insertion back in August 2019 by cardiothoracic surgery. He has been undergoing daily drainage from his left lung and he typically drinks approximately 200 mL of pleural fluid.. The patient also has hypertension, prostate cancer and he has been treated with prostatic radiation therapy/implants. He has also history of osteoarthritis. The patient is an ex-smoker. [id number] smoking history. He came into the hospital because of worsening shortness of breath.. His been progressively getting more short of breath over the past month. His shortness of breath is e ssentially exertional and he also has orthopnea. No reported chest pain. No reported cough or sputum production. He is an ex-smoker. No wheezing. No previous history of DVT or pulmonary embolism. No fever. The white cell count at time of admission was 7.8. Hemoglobin was at 13.8. Coagulation profile was within normal. D-dimer was elevated at 4.08 and based on that the patient was given a CT angiogram that showed no evidence of any pulmonary embolism. 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 No evidence of any pneumonia. No evidence of any airspace disease. There was a 3 cm poorly marginated infiltrate in the right lower lobe and the significance of this abnormality is not known. In the emergency department, the patient was having episodes of hypotension. His systolic blood pressure was as low as 75. He was given pressors and currently is running on low-dose levothyroid at 0.03 g per KG per minute. His cardiac rhythm is ventricularly paced at the rate of 100. Note that the patient some minimal troponin elevation. ProBNP level was quite elevated. Lactic acid level was 4.2, admission dropped down to 2 and currently is on IV with KVO. The patient is seen today 01/22/2020 in follow-up in the intensive care unit. He is currently awake and alert in no acute distress. Sitting up at the bedside. Maintaining O2 saturations in the 90s on 4 L/m per nasal cannula. Today's chest x-ray continues to show evidence of fluid volume overload. Echocardiogram reveals ejection fraction less than 20%. He is still requiring a small amount of norepinephrine at 0.03 mcg/kg/m. Potassium is 6.3. Sodium 130. Creatinine 1.46. White count 7.9. Hemoglobin 13.6. Troponin 0.077. He remains on Lasix 40 mg by mouth twice a day. Still remains in a positive balance. Weight is stable. The patient is seen today 01/23/2020 in follow-up in the in the chair at the bedside. Maintaining O2 saturations in the 90s on 4 L/m per nasal cannula. Chest x-ray showing improvement in the volume status. He is breathing a bit easier today compared to yesterday, he is complaining of weakness and fatigue. He is currently on norepinephrine at 0.04 mcg/kg/m. Dobutamine at 5 mcg/kg/m. Maintaining adequate urine output. Blood and urine cultures reveal no growth. White count 7.6. Hemoglobin 13.1. sodium 130. Creatinine 0.85. Potassium 4.8. TSH 5.68. T4 1 0.38. the patient is seen today 01/24/2020 in The intensive care unit. He is awake and alert in no acute distress. Maintaining good O2 saturations in the 90s on 4 L/m per nasal cannula. Chest x-ray continues to show some worsening congestive heart failure with mild underlying emphysema. There is increased central alveol interstitial edemaand/or infiltrates. Pleural fluid cultures reveal no growth. Blood cultures reveal no growth. He continues on norepinephrine at 0.01 mcg/kg/min. Remains on Dobutamine at 5 mcg/kg/min. White count 5.7. Hemoglobin 12.8. Potassium 5.3. 5.3. Creatinine 0.75. He remains on midodrine TID. BP marginal. On lasix 40 BID. The patient is seen today 01/27/2020 in follow up in the ICU. He is currently resting comfortably in bed. Awake, alert in no acute distress. He did have issues with anxiety earlier this a.m. Treated with Xanax and improved. Chest x-ray continues to show persistent left basilar opacity and left midlung opacity. Plan to drain fluid again today per Pleurx. We will send more cultures and fluid analysis. Cultures have been revealing Staphylococcus epidermidis and Acinetobacter. Follow-up cultures with coag-negative staph. vancomycin will be added Continue ceftriaxone. Dobutamine at 2.5 mcg/kg/m. Remains off norepinephrine. White count 5.4. Hemoglobin 11.9. Sodium 128. Potassium 5.2. Creatinine 0.94. On today's evaluation of 01/28/2020 the patient is feeling okay and he denies having any worsening shortness of breath. There was a concern of a left-sided pleural space infection. The patient a Pleurx catheter in place. There have been 2 cultures that are showing coagulase-negative staph, staph epidermidis in one of the cultures showed inflammatory except a glucose and Acinetobacter. The patient was placed on a combination of Rocephin and vancomycin. Nevertheless the fluid was reevaluated and analyzed. The fluid LDH and protein remains on a cell count remains low as not suggestive of any empyema or pleural space infection. Noted the patient is undergoing drainage and a daily basis. He is feeling well. He is on dobutamine at a dose of 2.5 mcg/kg per minute. He may need norepinephrine infusion on and off to maintain his blood pressure. His white cell count is not elevated. Sodium level is at 128 which is inconsistent with his CHF. Pro-calcitonin level was at 0.17. The chest x-ray from today showed retrocardiac opacity that may represent an underlying pleural effusion/atelectasis. Right lung essentially clear. No fever no chills. Altered mentation. No other significant events overnight. The patient is producing a better urine output. Balance is -6 20 mL over the past 24 hours. Objective - Vital Signs Vital signs: Vital Signs Temp 97.6 F 01/28/20 08:00 Pulse 72 01/28/20 14:00 Resp 23 01/28/20 14:00 BP 113/67 01/28/20 14:00 Pulse Ox 95 01/28/20 14:00 Intake & Output 01/27/20 01/28/20 01/28/20 18:59 06:59 18:59 Intake Total 670.00 370 480 Output Total 710 950 300 Balance -40.00 -580 180 Weight 91.6 kg Intake: IV 420 370 480 Normal saline 120 120 130 Vancomycin 1,500 mg In 250 250 250 Sodium Chloride 0.9% 250 ml @ 125 mls/hr IVPB Q12H [facility] Rx#:[id number] cefTRIAXone 1 gm In 50 100 Sodium Chloride 0.9% 50 ml @ 100 mls/hr IVPB Q24H [facility] Rx#:[id number] Intake, IV Titration 250.00 Amount DOBUTamine DRIP 500 mg In 250.00 Dextrose/Water 1 250ml. bag @ 5 MCG/KG/MIN 12.655 mls/hr IV .[id number] [facility] Rx#:[id number] Output: Chest Tube Drainage 110 Pleural Catheter Left Mid 110 -Axillary Chest Urine 600 950 300 Other: Voiding Method Urinal Urinal Urinal # Voids 0 1 0 - Exam - Constitutional General appearance: Pleasant 74-year-old gentleman, on 4 L nasal cannula, in no acute distress. - EENT Eyes: Reports anicteric sclerae, Reports disc margins sharp, Reports edentulous, Reports PERRLA, Denies ptosis, Denies scleral icterus ENT: Reports hearing grossly normal, Reports NA/AT, Reports normal oropharynx, Denies thrush Ears: bilateral: normal - Neck Neck: Reports normal ROM, Denies lymphadenopathy, Denies rigidity, Denies stridor, Denies thyromegaly Carotids: bilateral: upstroke delayed Thyroid: bilateral: normal size - Respiratory Respiratory: Some slightly diminished breath on the left lung base. The patient has a Pleurx catheter in place on the left side. Crackles in posterior bases. - Cardiovascular Rhythm: regular Heart sounds: normal: S1, S2, the rhythm is Abnormal Heart Sounds: Reports systolic murmur, Reports S3 Gallop, Denies rub, Denies click, the pulses are diminished in all 4 extremities. - Gastrointestinal General gastrointestinal: Reports normal bowel sounds, Reports soft, Denies sple nomegaly, Denies tenderness, Denies umbilical hernia, Denies ventral hernia - Integumentary Integumentary: Reports normal, Reports normal turgor - Neurologic Neurologic: CNII-XII intact - Musculoskeletal Musculoskeletal: Reports generalized weakness, Reports strength equal bilateral ly - Psychiatric Psychiatric: Reports A&O x's 3, Reports appropriate affect, Reports intact judgment & insight - Labs CBC & Chem 7: 01/28/20 05:15 01/28/20 05:15 Labs: Abnormal Lab Results - Last 24 Hours (Table) 01/27/20 01/27/20 01/28/20 Range/Units 06:02 17:07 05:15 RBC (4.30-5.90) m/uL Hgb (13.0-17.5) gm/dL Hct (39.0-53.0) % MCHC (31.0-37.0) g/dL RDW (11.5-15.5) % Sodium 128 L 128 L (137-145) mmol/L Potassium 5.5 H (3.5-5.1) mmol/L Chloride 93 L (98-107) mmol/L BUN 29 H 28 H (9-20) mg/dL Procalcitonin 0.17 H (0.02-0.09) ng/mL 01/28/20 Range/Units 05:15 RBC 4.28 L (4.30-5.90) m/uL Hgb 12.0 L (13.0-17.5) gm/dL Hct 38.9 L (39.0-53.0) % MCHC 30.7 L (31.0-37.0) g/dL RDW 17.5 H (11.5-15.5) % Sodium (137-145) mmol/L Potassium (3.5-5.1) mmol/L Chloride (98-107) mmol/L BUN (9-20) mg/dL Procalcitonin (0.02-0.09) ng/mL Microbiology - Last 24 Hours (Table) 01/27/20 14:30 Gram Stain - Preliminary Pleural Fluid Body Fluid Culture - Preliminary 01/27/20 14:30 Anaerobic Culture - Preliminary Pleural Fluid 01/27/20 14:30 Acid Fast Bacilli Culture - Preliminary Pleural Fluid 01/27/20 14:30 Fungal Culture - Preliminary Pleural Fluid 01/25/20 12:50 Gram Stain - Preliminary Pleural Fluid Body Fluid Culture - Preliminary Staphylococcus epidermidis Assessment and Plan Plan: 1 shortness of breath exertion along with orthopnea and even dyspnea at rest. The patient shortness of breath most consistent with CHF. The patient is a poor LV function. Currently on diuretics. Currently on dobutamine. There is a concern of a pleural space infection although this is not certain. The fluid itself is noninfected. It is transudate in nature. The cultures that were been obtained could be contaminants. There is coagulase negative staph in addition to gram-negative Acinetobacter and L5 moderate eccentric streptococcus. The patient was given a combination of antibiotics including Rocephin and vancomycin. He is afebrile. No leukocytosis. He is undergoing daily drainage of the Pleurx catheter. Clinically is feeling better. Urine output is improving. 2 coronary artery disease. Previous non-STEMI with previous stenting of the circumflex, with minimal troponin leak, questionable acute non-STEMI contributing to his further decompensated heart failure and hypotension 3 chronic left-sided pleural effusion post Pleurx catheter insertion 4 biventricular AICD placement 5 hyperlipidemia 6 history of prostate cancer with radiation therapy followed by Lupron injections 7 osteoarthritis 8 minimal troponin leak 9 mild lactic acidosis Plan Daily drainage of the Pleurx catheter Continue dobutamine at 2.5 mcg/kg per minute Continue Lasix Use levo fed if needed to support the blood pressure The patient was given a dose of Tolvaptan and his sodium remains stable at 128. He producing adequate urine output. No orthostatic changes. Serum cortisol is normal. Chest x-ray still consistent with CHF. We'll continue to follow. Daily drainage of the Pleurx catheter.
[2020-01-28] MEDS: QUEtiapine 50 MG TAB PO SCH (18:05)
[2020-01-28] MEDS: DOBUTamine DRIP 500 MG in DEXTROSE/WATER 1 250ML.BAG IV SCH (20:53)
[2020-01-28] MEDS: MELATONIN 5 MG TABLET PO SCH (23:35)
[2020-01-29] MEDS: ALPRAZolam 0.25 MG TAB PO PRN (00:59)
[2020-01-29 05:18] LABS: Anisocytosis Slight; HCT 36.2 % (39.0-53.0); HGB 11.2 gm/dL (13.0-17.5); Hypochromasia Moderate; MCH 28.1 pg (25.0-35.0); MCV 90.8 fL (80.0-100.0); Mean Platelet Volume 7.9; Platelet Count 212 k/uL (150-450); RBC 3.99 m/uL (4.30-5.90); RDW 17.8 % (11.5-15.5); WBC 5.7 k/uL (3.8-10.6)
[2020-01-29 05:25] LABS: Albumin 2.8 g/dL (3.5-5.0); Calcium 9.2 mg/dL (8.4-10.2); Potassium 5.6 mmol/L (3.5-5.1); Total Bilirubin 0.5 mg/dL (0.2-1.3); Total Protein 5.8 g/dL (6.3-8.2)
[2020-01-29] MEDS: NOREPINEPHRINE 4 MG in SODIUM CHLORIDE 0.9% 250 ML IV SCH ×2 (06:43→19:56)
[2020-01-29] MEDS: MIDODRINE 5 MG TAB PO SCH ×3 (06:49→18:04)
[2020-01-29] MEDS: VENLAFAXINE HCL 50 MG TAB PO SCH ×2 (06:49→18:04)
--- NOTE | 2020-01-29 07:44 | XR ---
EXAMINATION TYPE: XR chest 1V portable DATE OF EXAM: 01/29/2020 COMPARISON: 01/28/2020 HISTORY: Cough TECHNIQUE: Single frontal view of the chest is obtained. FINDINGS: There is a persistent retrocardiac opacity obscuring the left heart border and hemidiaphra gm. Strand-like right basilar atelectasis is seen. Cardiomediastinal silhouette is enlarged but parti ally obscured with dual lead left-sided cardiac device. Diffuse osseous demineralization.. IMPRESSION: Stable x-ray with bilateral infiltrate and small effusion greater on the left correlate for CHF. Otherwise consider pneumonia.
[2020-01-29] MEDS: HEPARIN SODIUM,PORCINE 5,000 UNIT/ML 1 ML VIAL SQ SCH ×2 (09:11→20:06)
[2020-01-29] MEDS: FAMOTIDINE 20 MG TAB PO SCH (09:11)
[2020-01-29] MEDS: ATORVASTATIN 40 MG TAB PO SCH (09:11)
[2020-01-29] MEDS: LIOTHYRONINE SODIUM 5 MCG TAB PO SCH (09:11)
[2020-01-29] MEDS: ASPIRIN 81 MG PO SCH (09:11)
[2020-01-29] MEDS: CLOPIDOGREL 75 MG TAB PO SCH (09:11)
[2020-01-29] MEDS: SODIUM CHLORIDE 0.9% 1,000 ML IV SCH (09:12)
[2020-01-29] MEDS ORDERED: TOLVAPTAN 15 MG 1/2 TABLET PO ONE (10:07)
--- NOTE | 2020-01-29 10:08 | P.PN ---
Subjective Progress Note Date: 01/29/20 Principal diagnosis: This is 74-year-old male seen in consultation because of hyponatremia. He was deemed to have hypervolemic hyponatremia. Diuretics did not improve his sodium, additionally he was given 1 dose of Tolvaptan on 01/27/2020 and his sodium remains stable at 128. Previously his sodium was normal last year Workup including a TSH is slightly high, 5.6 normal range being 4.6 dated 01/22/2020, cortisol level is 22, free T4 is normal at 1.38 Urine osmolality is 497, urine sodium is 15 dated 01/26/2020 concurrent sodium was 128. Yesterday on 01/28/2020 I stopped his Lasix and start him on IV fluids at 50 an hour. His creatinine went up to 1.5 and sodium is down to 127 in spite of this. 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 His on dobutamine for the last several days. He is on lisinopril 0.5 mg daily Patient has subjectively improved with less shortness of breath. No nausea vomiting no headache no dizziness no chest pain no shortness of breath cough. No abdominal pain no diarrhea Yesterday Orthostatics blood pressures supine blood pressure was 86/58 and sitting up was 94/57 Objective - Vital Signs Vital signs: Vital Signs Temp 96.0 F L 01/29/20 08:00 Pulse 70 01/29/20 09:00 Resp 20 01/29/20 09:00 BP 95/71 01/29/20 09:00 Pulse Ox 94 L 01/29/20 09:00 Intake & Output 01/28/20 01/29/20 01/29/20 18:59 06:59 18:59 Intake Total 680 1439.603 150 Output Total 525 325 0 Balance 155 1114.603 150 Weight 95.5 kg Intake: IV 680 700 150 Normal saline 330 700 150 Vancomycin 1,500 mg In 250 Sodium Chloride 0.9% 250 ml @ 125 mls/hr IVPB Q12H [facility] Rx#:[id number] cefTRIAXone 1 gm In 100 Sodium Chloride 0.9% 50 ml @ 100 mls/hr IVPB Q24H [facility] Rx#:[id number] Intake, IV Titration 148.603 Amount DOBUTamine DRIP 500 mg In 148.603 Dextrose/Water 1 250ml. bag @ 5 MCG/KG/MIN 12.655 mls/hr IV .[id number] [facility] Rx#:[id number] Oral 591 Output: Chest Tube Drainage 25 Pleural Catheter Left Mid 25 -Axillary Chest Urine 500 325 0 Other: Voiding Method Urinal Urinal Urinal # Voids 0 1 0 On examination is awake alert oriented comfortable HEENT exam no JVP neck is supple no facial asymmetry Lungs are significant for reduced air entry in the left side with the Pleurx catheter but on the right side clear to auscultation fair air entry Heart sounds are unremarkable for any murmur rub gallop. Abdomen soft nontender no organomegaly ascites masses no suprapubic tenderness Extremity exam was no edema. Neurologically awake alert oriented - Labs CBC & Chem 7: 01/29/20 04:26 01/29/20 04:26 Labs: Abnormal Lab Results - Last 24 Hours (Table) 01/29/20 01/29/20 Range/Units 04:26 04:26 RBC 3.99 L (4.30-5.90) m/uL Hgb 11.2 L (13.0-17.5) gm/dL Hct 36.2 L (39.0-53.0) % RDW 17.8 H (11.5-15.5) % Sodium 127 L (137-145) mmol/L Potassium 5.6 H (3.5-5.1) mmol/L Chloride 97 L (98-107) mmol/L BUN 31 H (9-20) mg/dL Creatinine 1.56 H (0.66-1.25) mg/dL AST 86 H (17-59) U/L ALT 88 H (4-49) U/L Alkaline Phosphatase 206 H (38-126) U/L Total Protein 5.8 L (6.3-8.2) g/dL Albumin 2.8 L (3.5-5.0) g/dL Microbiology - Last 24 Hours (Table) 01/27/20 14:30 Gram Stain - Preliminary Pleural Fluid Body Fluid Culture - Preliminary Coagulase Negative Staph 01/27/20 14:30 Acid Fast Bacilli Smear - Final Pleural Fluid Acid Fast Bacilli Culture - Preliminary 01/25/20 12:50 Gram Stain - Preliminary Pleural Fluid Body Fluid Culture - Preliminary Staphylococcus epidermidis Acinetobacter lwoffi Assessment and Plan Assessment: Impression 1. Hyponatremia likely from reduce renal perfusion because of cardiomyopathy poor ejection fraction. He was resistant to 1 dose of Tolvaptan her sodium stayed stable at 128. Workup has shown TSH is slightly high at 5.6, free T4 was normal and was started on Cytomel which is his Synthroid equivalent. First dose was 5 days ago on 01/23/2020 There is no orthostatic changes, serum cortisol level is normal. A chest x-ray is not suggestive of CHF but there is fluid on the left lung and he has a Pleurx catheter. Hyponatremia remains in spite of giving him IV fluids yesterday at 50 an hour after discontinuing the Lasix. Hyponatremia secondary to decreased perfusion of the kidneys 2. He now has acute kidney injury additionally creatinine going up to 1.5 and the only explanation is combination of diuresis low blood pressure and cardiorenal syndrome with ejection fraction of 20% or lower in spite of being on dobutamine 2. Chronic left pleural effusion. Recommendation 1. Will give him IV fluids 100 and hour for 5 hours. Follow-up with 50 an hour 2. Check bladder scan. 3. Obtain urinalysis to ensure there is no other reason for his acute kidney injury 4. Maintain dobutamine. 5. One more dose of Tolvaptan 15 mg
[2020-01-29] MEDS: METOPROLOL SUCCINATE (ER) 25 MG TAB.ER.24H PO SCH (10:22)
--- NOTE | 2020-01-29 10:47 | P.PN ---
Subjective Progress Note Date: 01/29/20 This is a 74-year-old male patient of Dr. Burnett, Dr. Gilbert and Dr. Xi Ordaz with a previous medical history significant for hypertension, hyperlipidemia, osteoarthritis, prostate cancer that was diagnosed back in 2006 status post implants as well as Lupron injection, coronary artery disease with s tent of the circumflex, severe cardiomyopathy and chronic systolic heart failure with known ejection fraction of 25%, bradycardia status post AICD implantation, recurrent left-sided pleural effusion status post Pleurx catheter insertion August 2019 by cardiothoracic surgery. Patient drains this himself or his daughter of 100-200 mL subpleural fluid daily. Patient also has history of hypertension, [id number] smoking history. Patient complains of shortness of breath for the past month gradually worsening. Shortness of breath is exceptionally worse with exertion. No chest pain, no cough or sputum production, reports weight loss. He complains of nausea occasionally, no abdominal pain. He complains of lightheadedness. He denies any use of steroids for the past 6 weeks. He denies any change and his medications recently. Patient relates that he has been using his mother's home oxygen at 4 L nasal cannula around the clock. Patient came into [facility] emergency center for evaluation, WBC 7.8, hemoglobin 13.8, d-dimer elevated at 4.08. CT angiogram of the chest did not show any pulmonary embolism. There was a small right-sided loculated pleural effusion along with pseudotumor in the left lung consistent with pleural fluid. No evidence of pneumonia. No airspace disease. 3 cm poorly marginated infiltrate in the right lower lobe and significance is unknown. Patient was hypotensive in the emergency center with systolic blood pressure down to 75. He was started on vasopressors and admitted into the intensive care unit with consults in place for pulmonary medicine and cardiology. Abdominal ultrasound revealed mild gallbladder wall thickening and air fluid that could relate cholecystitis. Heart failure also possible. Small gallstone or gallbladder polyp. Fatty liver. 01/21: Patient remains in intensive care unit. He is seen today sitting in the recliner. His breathing appears to be more comfortable. Patient states that he is feeling tight and did not sleep well last night. We will plan to increase melatonin dose. Patient has been seen by cardiology this morning and started on dobutamine. Patient is currently on norepinephrine as well. Echocardiogram reveals ejection fraction less than 20%, moderate mitral regurgitation, moderate tricuspid regurgitation, mild to moderate pulmonary hypertension.. Potassium this morning is 6.3 and pulmonary medicine has ordered insulin and dextrose. Patient is to be redrawn at noon today. WBC 7.9, hemoglobin 13.6, troponin 0.077. BUN 41 and creatinine 1.46. Acute hepatitis panel negative. Patient is currently on Lasix 40 mg oral twice daily. TSH will be ordered. Chest x-ray reveals changes of heart failure with interstitial pulmonary edema. Continued moderate left effusion with prominent left basilar atelectasis and/or consolidation. Slight worsening aeration of the right base 01/22: Patient has been afebrile, heart rate 97, blood pressure 95/68, pulse ox 98% on 4 L nasal cannula. Repeat blood work reveals CBC unremarkable, sodium 1:30, potassium 4.8, chloride 96, CO2 25, BUN 33 and creatinine 0.85. AST 126, ALT 145, alkaline phosphatase 262. TSH 5.680 and free T4 1 0.38. Patient remains in the intensive care unit. Dobutamine drip increased to 5. Patient remains on levofloxacin as well. Patient states that he did not sleep last night. He is utilizing Xanax twice daily. He denies having any chest pain and no lower extremity edema. He does complain of shortness of breath. No lightheadedness or dizziness. Cytomel added and midodrine increased to 10 mg 3 times daily. Patient is concerned about his mother and his friend staying with her at this time. We will communicate with Dr. Burnett and ask for home care service to be arranged for his mother. Do not anticipate that he will be ready for discharge for another 48-72 hours. 01/23: Patient remains in intensive care unit on dobutamine at 5 mcg/kg/m and levo fed which is to be weaned off. Dr. Napoles is planning for another 24 hours of IV dobutamine. Patient states that he is feeling off today complaining of nausea. He states he did get some sleep last night. Patient has been noted to be more anxious and due to lack of appetite and insomnia, Remeron will be added. He continues to have shortness of breath with minimal activity. He remains awake and alert but he is stating that he wants to go home. We did arrange for home care for his mother yesterday. WBC 5.7, hemoglobin 12.8, potassium 5.3, creatinine 0.75. We did start midodrine yesterday 3 times daily 10 mg. The blood pressure seems to be stable today. Chest x-ray showing worsening CHF for developing ARDS on background mild underlying emphysematous change there is increasing central alveolar and interstitial edema and/or infiltrates and cardiomegaly. No concern for ARDS at this point per Dr. Contreras. Culture on Pleurx fluid is staph epidermidis. 01/24: Repeat chest x-ray reveals similar moderate pulmonary vascular congestion and interstitial edema likely on the basis of decompensated heart failure. Retrocardiac airspace disease is also stable that may represent small plural effusion and atelectasis or less likely pneumonia. Patient is afebrile, heart rate running between 76 and 106, blood pressure 95/75, pulse ox 96% on 2 L nasal cannula. Repeat lab work reveals unremarkable. Sodium 1:30, potassium 5.4, ch loride 97, CO2 22, BUN 26 and creatinine 0.81. Pleural fluid was Staphylococcus epidermidis and alphahemolytic streptococcus. Yesterday evening, patient was attempting to leave the intensive care unit in and removed health care analyst and IV. Patient was returned to his room and IV access and monitoring was resumed. Patient is alert at this time. Nursing passes on that patient awakes and is very confused. He has not had consistent of sleep. Patient complains of feeling tired. Pulmonary has resumed his Seroquel and Effexor. We will continue Remeron as well both Seroquel and Remeron move to supper time. Patient is still on dobutamine for another 24 hours. He has been off norepinephrine since yesterday at 11 AM. He has a sitter at the bedside at this time. Consult added for Dr. Brown regarding hyponatremia. 01/25: Patient continues to have episodes of confusion but is easily reoriented. He is cooperative and follows commands during these episodes. He is able to answer all questions appropriately to time place and person. Ammonia level from yesterday was less than 9. He is continued on dobutamine drip at 5 g for another 24 hours.. Patient was given 1 dose of IV Lasix 40 mg this morning. Patient has been seen by Dr. Brown and ordered Lasix IV 40 mg every 12 hours. Urine osmolality 497, cortisol level 22. Sodium 129, potassium 5.4, chloride 95, CO2 28, BUN 24 and creatinine 0.86. WBC 6.2, hemoglobin 9.6, platelet count 226. Pro-calcitonin 0.14. Repeat chest x-ray reveals stable retrocardiac opacities may again represent small pleural effusion and atelectasis or less likely pneumonia. Primary consideration is decompensated congestive heart failure. 01/26: Patient remains in the intensive care unit. He continues to have episodes of confusion but is easily reoriented. He is having occasional panic attack with increased anxiety. We will resume Xanax and continue his other psychiatric medications. He did sleep well last night most likely related to the Remeron and melatonin. Dobutamine has been decreased today to 2.5 mcg/kg/m. He is off norepinephrine. Repeat lab work reveals WBC 5.4, hemoglobin 11.9, sodium 128, potassium 5.2, creatinine 0.94. Dr. Brown is on consult regarding hyponatremia. 314: Patient remains in intensive care unit sitting up in chair. He is complaining of pain to the right groin. Denies any dizziness or chest pain. Continues to have shortness of breath. He has not had any episodes of confusion overnight or today. Patient states that he slept well during the evening. Dobutamine continues to be at 2.5 MCG/KG/M. However he continues to be hypotensive. Morning meds were held due to his pressure. Sodium 128, potassium 5.1, BUN 28, creatinine 1.06 01/28: Patient remains in intensive care unit sitting up in bed. Patient has no complete concerns at this time. He denies any difficulty breathing or shortness of breath. He continues to be on dobutamine and hypotensive. Hemoglobin 11.2, sodium 127, potassium 5.6, BUN 31, creatinine 1.56, AST 86, ALT 88, alkaline phosphatase 206. The Pleurx catheters in place. Patient is producing better urine output. Review of Systems Constitutional: Reports fatigue, Reports lethargy, Reports poor appetite, Reports weakness, Reports weight loss, reports pain to right groin, Denies chills, Denies fever, reports daytime sleepiness Ears, nose, mouth and throat: Denies dysphagia, Denies headache, Denies nasal congestion, Denies nasal discharge, Denies sore throat, Denies vertigo Cardiovascular: Reports decreased exercise tolerance, Reports dyspnea on exertion, Reports lightheadedness, Reports orthopnea, Reports shortness of breath, Denies chest pain, Denies palpitations, Denies syncope Respiratory: Reports dyspnea slightly improved, Reports home oxygen, Denies cough, Denies cough with sputum, Denies excessive sputum, Denies hemoptysis, Denies respiratory infections, Denies sleep apnea, Denies wheezing Gastrointestinal: Reports loss of appetite, Reports nausea, Denies abdominal pain, Denies diarrhea, Denies vomiting Genitourinary: Denies dysuria, Denies urinary retention Musculoskeletal: Reports muscle weakness, Denies frequent falls, Denies gait dys function Integumentary: Denies pruritus, Denies rash Neurological: Reports change in mentation, Denies change in speech, Denies numbness, Denies weakness Psychiatric: Reports anxiety, reports depression, reports insomnia Endocrine: Denies fatigue, Denies weight change Objective - Vital Signs Vital signs: Vital Signs Temp 96.0 F L 01/29/20 08:00 Pulse 66 01/29/20 10:00 Resp 19 01/29/20 10:00 BP 98/64 01/29/20 10:00 Pulse Ox 95 01/29/20 10:00 Intake & Output 01/28/20 01/29/20 01/29/20 18:59 06:59 18:59 Intake Total 680 1439.603 200 Output Total 525 325 0 Balance 155 1114.603 200 Weight 95.5 kg Intake: IV 680 700 200 Normal saline 330 700 200 Vancomycin 1,500 mg In 250 Sodium Chloride 0.9% 250 ml @ 125 mls/hr IVPB Q12H TOD Rx#:[id number] cefTRIAXone 1 gm In 100 Sodium Chloride 0.9% 50 ml @ 100 mls/hr IVPB Q24H TOD Rx#:[id number] Intake, IV Titration 148.603 Amount DOBUTamine DRIP 500 mg In 148.603 Dextrose/Water 1 250ml. bag @ 5 MCG/KG/MIN 12.655 mls/hr IV .[id number] TOD Rx#:[id number] Oral 591 Output: Chest Tube Drainage 25 Pleural Catheter Left Mid 25 -Axillary Chest Urine 500 325 0 Other: Voiding Method Urinal Urinal Urinal # Voids 0 1 0 - Exam Gen: This is a 74-year-old male. Patient is sitting up in chair. In no acute distress HEENT: Head is atraumatic, normocephalic. Pupils equal, round. Sclerae is anicteric. NECK: Supple. No JVD. No lymphadenopathy. No thyromegaly. LUNGS: Crackles to the left base, Pleurx catheter in the left. HEART: Regular rate and rhythm. Systolic murmur. ABDOMEN: Soft. Bowel sounds are present. No masses. No tenderness. EXTREMITIES: No pedal edema. No calf tenderness. Dorsalis pedis +2 bilaterally. NEUROLOGICAL: Patient is awake, alert and oriented x3. Cranial nerves 2 through 12 are grossly intact. - Labs CBC & Chem 7: 01/29/20 04:26 01/29/20 04:26 Labs: Abnormal Lab Results - Last 24 Hours (Table) 01/29/20 01/29/20 Range/Units 04:26 04:26 RBC 3.99 L (4.30-5.90) m/uL Hgb 11.2 L (13.0-17.5) gm/dL Hct 36.2 L (39.0-53.0) % RDW 17.8 H (11.5-15.5) % Sodium 127 L (137-145) mmol/L Potassium 5.6 H (3.5-5.1) mmol/L Chloride 97 L (98-107) mmol/L BUN 31 H (9-20) mg/dL Creatinine 1.56 H (0.66-1.25) mg/dL AST 86 H (17-59) U/L ALT 88 H (4-49) U/L Alkaline Phosphatase 206 H (38-126) U/L Total Protein 5.8 L (6.3-8.2) g/dL Albumin 2.8 L (3.5-5.0) g/dL Microbiology - Last 24 Hours (Table) 01/27/20 14:30 Gram Stain - Preliminary Pleural Fluid Body Fluid Culture - Preliminary Coagulase Negative Staph 01/27/20 14:30 Acid Fast Bacilli Smear - Final Pleural Fluid Acid Fast Bacilli Culture - Preliminary 01/25/20 12:50 Gram Stain - Preliminary Pleural Fluid Body Fluid Culture - Preliminary Staphylococcus epidermidis Acinetobacter lwoffi Assessment and Plan Plan: 1. Acute on chronic systolic heart failure with known ejection fraction of 25%. Repeat echocardiogram as above. Continue dobutamine drip decreased to 2.5 mcg/kg/m. Patient is currently off norepinephrine. Lasix 40 mg IV increase frequency to every 8 hours, Toprol-XL and lisinopril. Patient is on midodrine as well. 2. Severe cardiomyopathy status post AICD. 3. Chronic left-sided pleural effusion status post pleural catheter insertion. Nursing is draining once daily. Culture positive for alphahemolytic strep and Streptococcus epidermidis and patient started on ceftriaxone and vancomycin. 4. Cardiogenic shock secondary to severe cardiomyopathy requiring vasopressors. Patient is currently off norepinephrine. 5. Hypervolemic hyponatremia. Nephrology consult appreciated. IV fluids 100 and hour for 5 hours then 50 ML per hour. Bladder scan. Tolvaptan 15 mg 1 dose 6. History of coronary artery disease status post stenting of circumflex with mild elevation of troponins, possible acute non-ST HI. Cardiology consult. Aspirin 81 mg daily, Lipitor 40 mg daily, Toprol-XL 12.5 mg daily, Plavix 75 mg daily, lisinopril 2.5 mg daily 7. Hyperlipidemia. 8. History of prostate cancer status post radiation therapy and Lupron injections. 9. Elevated liver function tests possibly related to combination of heart failure and fatty liver. Acute hepatitis panel negative. 10. Generalized anxiety disorder. Continue Xanax 2.5 mg twice daily and Remeron 7.5 mg. 11. Hyperkalemia. Continue Lasix, no potassium supplementation. 12. DVT prophylaxis. Heparin subcu. 13. GI prophylaxis. Pepcid. 14. Hyponatremia. Consult with nephrology appreciated. 15. Acute metabolic encephalopathy secondary to insomnia and ICU hospitalization. DC Remeron, increased Seroquel 250 mg by mouth and continue Effexor continue melatonin 10 mg at bedtime Discharge plan: To be determined. Most likely return home. Impression and plan of care have been directed as dictated by the signing physician. Roxana Graham nurse practitioner acting as scribe for signing physician.
[2020-01-29] MEDS ORDERED: VANCOMYCIN TROUGH DUE 1 EACH MISC MISCELLANE ONE (11:00)
[2020-01-29 11:16] LABS: Amorphous Sediment,Urine Rare /hpf; Appearance,Urine Cloudy (Clear); Bacteria,Urine Rare /hpf; Bilirubin,Urine Negative (Negative); Blood,Urine Negative (Negative); Color,Urine Yellow; Glucose,Urine (UA) Negative (Negative); Hyaline Casts,Urine 3 /lpf (0-2); Ketones,Urine Negative (Negative); Leukocyte Esterase,Urine Negative (Negative); Mucus,Urine Rare /hpf; Nitrite,Urine Negative (Negative); Protein,Urine Trace (Negative); RBC,Urine 2 /hpf (0-5); Specific Gravity,Urine 1.013 (1.001-1.035); Squamous Epithelial Cell,Urine <1 /hpf (0-4); Urobilinogen,Urine <2.0 mg/dL (<2.0); WBC,Urine 2 /hpf (0-5)
--- NOTE | 2020-01-29 11:19 | P.PN ---
Subjective Progress Note Date: 01/29/20 This is a 74-year-old male patient with known history of coronary artery disease with previous coronary intervention and stenting of the circumflex in addition to history of severe cardiomyopathy with an ejection fraction of 25% and chronic systolic dysfunction and severe resting bradycardia close the was chamber ICD placement. The patient was also having recurrent left-sided pleural effusion and he underwent a Pleurx catheter insertion back in August 2019 by cardiothoracic surgery. He has been undergoing daily drainage from his left lung and he typically drinks approximately 200 mL of pleural fluid.. The patient also has hypertension, prostate cancer and he has been treated with prostatic radiation therapy/implants. He has also history of osteoarthritis. The patient is an ex-smoker. [id number] smoking history. He came into the hospital because of worsening shortness of breath.. His been progressively getting more short of breath over the past month. His shortness of breath is e ssentially exertional and he also has orthopnea. No reported chest pain. No reported cough or sputum production. He is an ex-smoker. No wheezing. No previous history of DVT or pulmonary embolism. No fever. The white cell count at time of admission was 7.8. Hemoglobin was at 13.8. Coagulation profile was within normal. D-dimer was elevated at 4.08 and based on that the patient was given a CT angiogram that showed no evidence of any pulmonary embolism. 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 No evidence of any pneumonia. No evidence of any airspace disease. There was a 3 cm poorly marginated infiltrate in the right lower lobe and the significance of this abnormality is not known. In the emergency department, the patient was having episodes of hypotension. His systolic blood pressure was as low as 75. He was given pressors and currently is running on low-dose levothyroid at 0.03 g per KG per minute. His cardiac rhythm is ventricularly paced at the rate of 100. Note that the patient some minimal troponin elevation. ProBNP level was quite elevated. Lactic acid level was 4.2, admission dropped down to 2 and currently is on IV with KVO. The patient is seen today 01/22/2020 in follow-up in the intensive care unit. He is currently awake and alert in no acute distress. Sitting up at the bedside. Maintaining O2 saturations in the 90s on 4 L/m per nasal cannula. Today's chest x-ray continues to show evidence of fluid volume overload. Echocardiogram reveals ejection fraction less than 20%. He is still requiring a small amount of norepinephrine at 0.03 mcg/kg/m. Potassium is 6.3. Sodium 130. Creatinine 1.46. White count 7.9. Hemoglobin 13.6. Troponin 0.077. He remains on Lasix 40 mg by mouth twice a day. Still remains in a positive balance. Weight is stable. The patient is seen today 01/23/2020 in follow-up in the in the chair at the bedside. Maintaining O2 saturations in the 90s on 4 L/m per nasal cannula. Chest x-ray showing improvement in the volume status. He is breathing a bit easier today compared to yesterday, he is complaining of weakness and fatigue. He is currently on norepinephrine at 0.04 mcg/kg/m. Dobutamine at 5 mcg/kg/m. Maintaining adequate urine output. Blood and urine cultures reveal no growth. White count 7.6. Hemoglobin 13.1. sodium 130. Creatinine 0.85. Potassium 4.8. TSH 5.68. T4 1 0.38. the patient is seen today 01/24/2020 in The intensive care unit. He is awake and alert in no acute distress. Maintaining good O2 saturations in the 90s on 4 L/m per nasal cannula. Chest x-ray continues to show some worsening congestive heart failure with mild underlying emphysema. There is increased central alveol interstitial edemaand/or infiltrates. Pleural fluid cultures reveal no growth. Blood cultures reveal no growth. He continues on norepinephrine at 0.01 mcg/kg/min. Remains on Dobutamine at 5 mcg/kg/min. White count 5.7. Hemoglobin 12.8. Potassium 5.3. 5.3. Creatinine 0.75. He remains on midodrine TID. BP marginal. On lasix 40 BID. The patient is seen today 01/27/2020 in follow up in the ICU. He is currently resting comfortably in bed. Awake, alert in no acute distress. He did have issues with anxiety earlier this a.m. Treated with Xanax and improved. Chest x-ray continues to show persistent left basilar opacity and left midlung opacity. Plan to drain fluid again today per Pleurx. We will send more cultures and fluid analysis. Cultures have been revealing Staphylococcus epidermidis and Acinetobacter. Follow-up cultures with coag-negative staph. vancomycin will be added Continue ceftriaxone. Dobutamine at 2.5 mcg/kg/m. Remains off norepinephrine. White count 5.4. Hemoglobin 11.9. Sodium 128. Potassium 5.2. Creatinine 0.94. On today's evaluation of 01/28/2020 the patient is feeling okay and he denies having any worsening shortness of breath. There was a concern of a left-sided pleural space infection. The patient a Pleurx catheter in place. There have been 2 cultures that are showing coagulase-negative staph, staph epidermidis in one of the cultures showed inflammatory except a glucose and Acinetobacter. The patient was placed on a combination of Rocephin and vancomycin. Nevertheless the fluid was reevaluated and analyzed. The fluid LDH and protein remains on a cell count remains low as not suggestive of any empyema or pleural space infection. Noted the patient is undergoing drainage and a daily basis. He is feeling well. He is on dobutamine at a dose of 2.5 mcg/kg per minute. He may need norepinephrine infusion on and off to maintain his blood pressure. His white cell count is not elevated. Sodium level is at 128 which is inconsistent with his CHF. Pro-calcitonin level was at 0.17. The chest x-ray from today showed retrocardiac opacity that may represent an underlying pleural effusion/atelectasis. Right lung essentially clear. No fever no chills. Altered mentation. No other significant events overnight. The patient is producing a better urine output. Balance is -6 20 mL over the past 24 hours. On today's evaluation of 01/29/2020, the patient is feeling well. He is sitting up on a chair. He is on dobutamine 2.5 mcg/kg per minute. He is on no Lasix for now. Repeat fluid evaluation from the pleural drainage showed coagulase- negative staph epidermidis. The patient is on vancomycin. I'm not absolutely sure there is a true infection. The fluid analysis came back negative for infection or exudate in sheet turner to be severely a transudative fluid and the white cells and the pleural fluid is low. The total amount of output from yesterday's drainage was 25 mL. He is afebrile. He has no significant leukocytosis. I am going to ask IDs opinion regarding the possibility of a pleural space infection which I think it's not highly likely at this point in time. Meanwhile, the patient's creatinine is up to 1.5. This is to be monitored. No angina. No palpitation. No other complaints otherwise. Vancomycin level needs to be checked also. He is being supported with norepinephrine infusion for blood pressure support. Objective - Vital Signs Vital signs: Vital Signs Temp 96.0 F L 01/29/20 08:00 Pulse 71 01/29/20 11:00 Resp 16 01/29/20 11:00 BP 102/68 01/29/20 11:00 Pulse Ox 96 01/29/20 11:00 Intake & Output 01/28/20 01/29/20 01/29/20 18:59 06:59 18:59 Intake Total 680 1439.603 300 Output Total 525 325 350 Balance 155 1114.603 -50 Weight 95.5 kg Intake: IV 680 700 300 Normal saline 330 700 300 Vancomycin 1,500 mg In 250 Sodium Chloride 0.9% 250 ml @ 125 mls/hr IVPB Q12H TOD Rx#:[id number] cefTRIAXone 1 gm In 100 Sodium Chloride 0.9% 50 ml @ 100 mls/hr IVPB Q24H TOD Rx#:[id number] Intake, IV Titration 148.603 Amount DOBUTamine DRIP 500 mg In 148.603 Dextrose/Water 1 250ml. bag @ 5 MCG/KG/MIN 12.655 mls/hr IV .[id number] TOD Rx#:[id number] Oral 591 Output: Chest Tube Drainage 25 Pleural Catheter Left Mid 25 -Axillary Chest Urine 500 325 350 Other: Voiding Method Urinal Urinal Urinal # Voids 0 1 0 - Exam - Constitutional General appearance: Pleasant 74-year-old gentleman, on 4 L nasal cannula, in no acute distress. - EENT Eyes: Reports anicteric sclerae, Reports disc margins sharp, Reports edentulous, Reports PERRLA, Denies ptosis, Denies scleral icterus ENT: Reports hearing grossly normal, Reports NA/AT, Reports normal oropharynx, Denies thrush Ears: bilateral: normal - Neck Neck: Reports normal ROM, Denies lymphadenopathy, Denies rigidity, Denies stridor, Denies thyromegaly Carotids: bilateral: upstroke delayed Thyroid: bilateral: normal size - Respiratory Respiratory: Some slightly diminished breath on the left lung base. The patient has a Pleurx catheter in place on the left side. Crackles in posterior bases. - Cardiovascular Rhythm: regular Heart sounds: normal: S1, S2, the rhythm is Abnormal Heart Sounds: Reports systolic murmur, Reports S3 Gallop, Denies rub, Denies click, the pulses are diminished in all 4 extremities. - Gastrointestinal General gastrointestinal: Reports normal bowel sounds, Reports soft, Denies splenomegaly, Denies tenderness, Denies umbilical hernia, Denies ventral hernia - Integumentary Integumentary: Reports normal, Reports normal turgor - Neurologic Neurologic: CNII-XII intact - Musculoskeletal Musculoskeletal: Reports generalized weakness, Reports strength equal bilaterally - Psychiatric Psychiatric: Reports A&O x's 3, Reports appropriate affect, Reports intact judgment & insight - Labs CBC & Chem 7: 01/29/20 04:26 01/29/20 04:26 Labs: Abnormal Lab Results - Last 24 Hours (Table) 01/29/20 01/29/20 Range/Units 04:26 04:26 RBC 3.99 L (4.30-5.90) m/uL Hgb 11.2 L (13.0-17.5) gm/dL Hct 36.2 L (39.0-53.0) % RDW 17.8 H (11.5-15.5) % Sodium 127 L (137-145) mmol/L Potassium 5.6 H (3.5-5.1) mmol/L Chloride 97 L (98-107) mmol/L BUN 31 H (9-20) mg/dL Creatinine 1.56 H (0.66-1.25) mg/dL AST 86 H (17-59) U/L ALT 88 H (4-49) U/L Alkaline Phosphatase 206 H (38-126) U/L Total Protein 5.8 L (6.3-8.2) g/dL Albumin 2.8 L (3.5-5.0) g/dL Microbiology - Last 24 Hours (Table) 01/27/20 14:30 Gram Stain - Preliminary Pleural Fluid Body Fluid Culture - Preliminary Coagulase Negative Staph 01/27/20 14:30 Acid Fast Bacilli Smear - Final Pleural Fluid Acid Fast Bacilli Culture - Preliminary 01/25/20 12:50 Gram Stain - Preliminary Pleural Fluid Body Fluid Culture - Preliminary Staphylococcus epidermidis Acinetobacter lwoffi Assessment and Plan Plan: 1 shortness of breath exertion secondary decompensated heart failure with severe systolic congestion heart failure.. The patient shortness of breath most consistent with CHF. The patient is a poor LV function. Currently on diuretics. Currently on dobutamine. There is a concern of a pleural space infection although this is not certain. The fluid itself is noninfected. It is transudate in nature. The cultures that were been obtained could be contaminants. There is coagulase negative staph in addition to gram-negative Acinetobacter and L5 moderate eccentric streptococcus. The patient was given a combination of antibiotics including Rocephin and vancomycin. He is afebrile. No leukocytosis. He is undergoing daily drainage of the Pleurx catheter. Clinically is feeling better. The patient had a third fluid evaluation that came back again coagulase-negative staph. I kept the vancomycin. Discontinue the Rocephin. I'm going to ask the opening of infectious disease regarding the possibility of adding a pleural space infection which in my opinion is of a low likelihood. We'll continue the vancomycin for now. 2 coronary artery disease. Previous non-STEMI with previous stenting of the circumflex, with minimal troponin leak, questionable acute non-STEMI contributing to his further decompensated heart failure and hypotension 3 chronic left-sided pleural effusion post Pleurx catheter insertion 4 biventricular AICD placement 5 hyperlipidemia 6 history of prostate cancer with radiation therapy followed by Lupron injections 7 osteoarthritis 8 minimal troponin leak 9 mild lactic acidosis 10. acute kidney injury Plan Daily drainage of the Pleurx catheter and consult infectious disease regarding the possibility of doing a pleural space infection Continue dobutamine at 2.5 mcg/kg per minute Monitor the renal function as I'm concerned of the creatinine is still in up to 1.5. The patient is producing adequate urine output. Use levo fed if needed to support the blood pressure The patient was given a dose of Tolvaptan and his sodium remains stable at 128. He producing adequate urine output. No orthostatic changes. Serum cortisol is normal. Chest x-ray still consistent with CHFand there is still some opacification of the left lower base. Keep in ICU. Cardiology to follow. . We'll continue to follow. Daily drainage of the Pleurx catheter.
--- NOTE | 2020-01-29 12:09 | PN ---
PROGRESS NOTE This patient's electronic medical records and clinical panels reviewed. Condition discussed with Dr. Contreras as well as the nurse taking care of the patient and Dr. Eng. The patient has a severe ischemic cardiomyopathy. The patient's remains hyponatremic. His blood pressure remains borderline. 98/64 mmHg. First and second heart sounds are heard. Lungs reveal bilateral diminished air entry. Patient's creatinine has increased to 1.56. We are going to try the patient on fluid challenge to see there is any improvement. Otherwise, if the patient develops more congestive heart failure. Diuretics will be reinstituted. MMODL / IJN: [id number] /
[2020-01-29] MEDS ORDERED: VANCOMYCIN IV PER PHARMACY 1 EACH MISC MISCELLANE PRN (12:21)
[2020-01-29] MEDS: QUEtiapine 50 MG TAB PO SCH (18:04)
[2020-01-29] MEDS: VANCOMYCIN 1,500 MG in SODIUM CHLORIDE 0.9% 250 ML IVPB SCH (18:13)
[2020-01-29] MEDS: LISINOPRIL 2.5 MG TAB PO SCH (18:13)
[2020-01-29 18:35] LABS: Calcium 9.4 mg/dL (8.4-10.2); Potassium 5.9 mmol/L (3.5-5.1)
[2020-01-29] MEDS ORDERED: DEXTROSE 50% SYRINGE 50 ML IVP STA (19:50)
[2020-01-29] MEDS ORDERED: FUROSEMIDE 10 MG/ML 2 ML VIAL IV ONE (20:00)
[2020-01-29] MEDS ORDERED: INSULIN REGULAR 100 UNIT/ML VIAL IV ONE (20:00)
[2020-01-29] MEDS: MELATONIN 5 MG TABLET PO SCH (20:07)
[2020-01-29] MEDS: SODIUM CHLORIDE 0.9% 250 ML IV SCH (21:03)
[2020-01-30 05:25] LABS: Anisocytosis Slight; HCT 37.6 % (39.0-53.0); HGB 11.5 gm/dL (13.0-17.5); Hypochromasia Marked; MCH 27.6 pg (25.0-35.0); MCHC 30.5 g/dL (31.0-37.0); MCV 90.5 fL (80.0-100.0); Mean Platelet Volume 7.7; Platelet Count 225 k/uL (150-450); RBC 4.16 m/uL (4.30-5.90); RDW 17.7 % (11.5-15.5); WBC 7.4 k/uL (3.8-10.6)
[2020-01-30 05:36] LABS: Albumin 2.8 g/dL (3.5-5.0); C Reactive Protein 60.3 mg/L (<10.0); Calcium 9.6 mg/dL (8.4-10.2); Potassium 5.5 mmol/L (3.5-5.1); Total Bilirubin 0.7 mg/dL (0.2-1.3)
[2020-01-30 05:39] LABS: Vancomycin,Random 22.4 ug/mL
[2020-01-30 06:19] LABS: Erythrocyte Sedimentation Rate 24 mm/hr (0-15)
[2020-01-30] MEDS: MIDODRINE 5 MG TAB PO SCH ×3 (06:25→17:25)
[2020-01-30] MEDS: SODIUM CHLORIDE 0.9% 1,000 ML IV SCH ×2 (06:26→17:24)
[2020-01-30] MEDS: VENLAFAXINE HCL 50 MG TAB PO SCH ×2 (06:32→17:25)
--- NOTE | 2020-01-30 07:45 | XR ---
EXAMINATION TYPE: XR chest 1V portable DATE OF EXAM: 01/30/2020 COMPARISON: 01/29/2020 HISTORY: Shortness of breath TECHNIQUE: Single frontal view of the chest is obtained. FINDINGS: Retrocardiac opacity is seen with layering pleural effusion extending up the left hemithor ax. Skinfold overlies the right lateral lung with lung markings seen peripheral to this. Right pleura l effusion has resolved. Stable mild interstitial pulmonary edema. Cardiomediastinal silhouette is en larged with dual lead left-sided cardiac device. Diffuse osseous demineralization is seen. IMPRESSION: Similar retrocardiac opacity with loculated pleural effusion layering of the left hemith orax. Resolved right pleural effusion and stable mild interstitial pulmonary edema.
[2020-01-30] MEDS ORDERED: TOLVAPTAN 15 MG 1/2 TABLET PO ONE (08:10)
--- NOTE | 2020-01-30 08:27 | P.PN ---
Subjective Patient is seen in follow-up for acute kidney injury and hyponatremia. Sodium level CXXIX today. Renal function fairly stable. Denies chest pain or shortness of breath. Maintain on dobutamine. Patient has systolic CHF with ejection fraction of less than 20% with moderate tricuspid regurgitation and pulmonary hypertension. Vital signs are stable. General: The patient appeared well nourished and normally developed. HEENT: Head exam is unremarkable. Neck is without jugular venous distension. LUNGS: Breath sounds decreased. HEART: Rate and Rhythm are regular. First and second heart sounds normal. No murmurs, rubs or gallops. ABDOMEN: Abdominal exam reveals normal bowel sounds. Non-tender and non- distended. No evidence of peritonitis. EXTREMITITES: No clubbing, cyanosis, or edema. Objective - Vital Signs Vital signs: Vital Signs Temp 96.9 F L 01/30/20 08:00 Pulse 81 01/30/20 08:00 Resp 21 01/30/20 08:00 BP 112/73 01/30/20 08:00 Pulse Ox 90 L 01/30/20 08:00 Intake & Output 01/29/20 01/30/20 01/30/20 18:59 06:59 18:59 Intake Total 1850 1100 200 Output Total 755 620 100 Balance 1095 480 100 Weight 95.2 kg Intake: IV 850 1100 200 Normal saline 850 1100 200 Oral 1000 Output: Chest Tube Drainage 75 Pleural Catheter Left Mid 75 -Axillary Chest Urine 680 620 100 Other: Voiding Method Indwelling Catheter Indwelling Catheter # Voids 0 - Labs CBC & Chem 7: 01/30/20 04:49 01/30/20 04:49 Labs: Abnormal Lab Results - Last 24 Hours (Table) 01/29/20 01/29/20 01/29/20 Range/Units 10:52 11:21 17:53 RBC (4.30-5.90) m/uL Hgb (13.0-17.5) gm/dL Hct (39.0-53.0) % MCHC (31.0-37.0) g/dL RDW (11.5-15.5) % ESR (0-15) mm/hr Sodium 129 L (137-145) mmol/L Potassium 5.9 H (3.5-5.1) mmol/L Chloride 96 L (98-107) mmol/L BUN 33 H (9-20) mg/dL Creatinine 1.67 H (0.66-1.25) mg/dL Glucose (74-99) mg/dL AST (17-59) U/L ALT (4-49) U/L Alkaline Phosphatase (38-126) U/L C-Reactive Protein (<10.0) mg/L Total Protein (6.3-8.2) g/dL Albumin (3.5-5.0) g/dL Urine Protein Trace H (Negative) Amorphous Sediment Rare H (None) /hpf Urine Bacteria Rare H (None) /hpf Hyaline Casts 3 H (0-2) /lpf Urine Mucus Rare H (None) /hpf Vancomycin Trough 30.6 H* ug/mL 01/30/20 01/30/20 Range/Units 04:49 04:49 RBC 4.16 L (4.30-5.90) m/uL Hgb 11.5 L (13.0-17.5) gm/dL Hct 37.6 L (39.0-53.0) % MCHC 30.5 L (31.0-37.0) g/dL RDW 17.7 H (11.5-15.5) % ESR 24 H (0-15) mm/hr Sodium 129 L (137-145) mmol/L Potassium 5.5 H (3.5-5.1) mmol/L Chloride (98-107) mmol/L BUN 33 H (9-20) mg/dL Creatinine 1.64 H (0.66-1.25) mg/dL Glucose 65 L (74-99) mg/dL AST 78 H (17-59) U/L ALT 83 H (4-49) U/L Alkaline Phosphatase 223 H (38-126) U/L C-Reactive Protein 60.3 H (<10.0) mg/L Total Protein 6.0 L (6.3-8.2) g/dL Albumin 2.8 L (3.5-5.0) g/dL Urine Protein (Negative) Amorphous Sediment (None) /hpf Urine Bacteria (None) /hpf Hyaline Casts (0-2) /lpf Urine Mucus (None) /hpf Vancomycin Trough ug/mL Microbiology - Last 24 Hours (Table) 01/27/20 14:30 Gram Stain - Preliminary Pleural Fluid Body Fluid Culture - Preliminary Staphylococcus epidermidis Assessment and Plan Plan: Assessment: 1. Acute kidney injury mostly prerenal secondary to cardiorenal syndrome. Creatinine stable at 1.64 today. 2. Acute on chronic systolic CHF with ejection fraction of less than 20% with moderate tricuspid regurgitation and pulmonary hypertension. 3. Hypervolemic hyponatremia. 4. Chronic left-sided pleural effusion. Patient has a Pleurx catheter. 5. Hyperkalemia secondary to acute kidney injury. Lisinopril discontinued. Plan: Decrease rate of normal saline to 50 mL an hour. Samsca 15 mg once today. Maintain fluid restriction. Continue to monitor renal function and urine output. Repeat electrolytes in the morning. Avoid nephrotoxins. Vancomycin not given today due to high level.
[2020-01-30 08:34] LABS: Glucose,Whole Blood 139 mg/dL (75-99)
[2020-01-30] MEDS: HEPARIN SODIUM,PORCINE 5,000 UNIT/ML 1 ML VIAL SQ SCH ×2 (08:45→20:11)
[2020-01-30] MEDS: LIOTHYRONINE SODIUM 5 MCG TAB PO SCH (08:46)
[2020-01-30] MEDS: CLOPIDOGREL 75 MG TAB PO SCH (08:46)
[2020-01-30] MEDS: ATORVASTATIN 40 MG TAB PO SCH (08:46)
[2020-01-30] MEDS: ASPIRIN 81 MG PO SCH (08:46)
[2020-01-30] MEDS: FAMOTIDINE 20 MG TAB PO SCH (08:46)
--- NOTE | 2020-01-30 10:16 | P.CONS ---
History of Present Illness - Reason for Consult Consult date: 01/29/20 STAPH INFECTION Requesting physician: Delta Ramirez - Chief Complaint shortness of breath x 1 month - History of Present Illness Patient is a 74-year-old male with a past medical history significant for recurrent left-sided pleural effusion for the patient did underwent Pleurx catheter insertion August [address] surgery and the patient has been undergoing daily drainage from his left side draining about 200 mL of pleural fluid which he describes to be more of a urine color no purulence patient presented to the ER at [facility] on January 20, 2020 with increasing shortness of breath that has been getting worse over the last 1 month the patient denies having any chest pain very minimal cough no sputum production no nausea no vomiting no URI symptoms no abdominal pain or any diarrhea, on arrival to the hospital the patient has been afebrile and no fever has been recording during this admission over the last 10 days, the patient also have a normal white count throughout his hospital stay, the patient did have pleural fluid sent for analysis on January 26 which was clear nucleated cell of 270 PMNs of 8 mononuclear cell 92%, and the culture from it is coming back positive with Staphylococcus epidermidis patient also have pleural fluid culture done on the and the which did shows staph epidermidis as well as Acinetobacter t he patient was started on vancomycin infectious was consulted today for further recommendation regarding antibiotic therapy. Review of Systems Positive point has been mentioned HPI rest of the systems are negative Past Medical History Past Medical History: Heart Failure Additional Past Medical History / Comment(s): PROSTATE CANCER (2006-HAD IMPLANT). LEFT PLEURAL EFFUSION History of Any Multi-Drug Resistant Organisms: None Reported Past Surgical History: Hernia Repair, Orthopedic Surgery Additional Past Surgical History / Comment(s): TOTAL RIGHT HIP (2014). ORIF OF RIGHT HIP, REMOVAL OF HARDWARE RT HIP, 07/12/15. CARDIAC SURGERY Past Anesthesia/Blood Transfusion Reactions: No Reported Reaction Type of Cardiac Device: Permanent Pacemaker, AICD Device Placement Date:: 06/06/16 Past Psychological History: Anxiety, Depression Smoking Status: Former smoker Past Alcohol Use History: None Reported Past Drug Use History: None Reported - Past Family History Mother Family Medical History: Cancer, Hypertension Additional Family Medical History / Comment(s): MELANOMA Father Family Medical History: Congestive Heart Failure (CHF) Additional Family Medical History / Comment(s): Father at age 89 from congestive heart failure. Sister(s) Family Medical History: No Reported History Additional Family Medical History / Comment(s): Patient has one half sister with no major medical problems. Daughter(s) Family Medical History: No Reported History Additional Family Medical History / Comment(s): Patient has one daughter with no major medical problems. Son(s) Family Medical History: No Reported History Additional Family Medical History / Comment(s): Patient has 2 sons, one in a motor vehicle accident after he was hit by a semitruck. Second son has no major medical problems. Medications and Allergies Home Medications Medication Instructions Recorded Confirmed Type Carvedilol [Coreg] 3.125 mg PO BID-W/MEALS #60 tab 02/10/16 01/21/20 Rx Nitroglycerin Sl Tabs [Nitrostat] 0.4 mg SUBLINGUAL Q5M PRN #25 tab 02/10/16 01/21/20 Rx Aspirin 81 mg PO QAM 06/03/16 01/21/20 History Atorvastatin [Lipitor] 40 mg PO QAM 06/03/16 01/21/20 History Clopidogrel [Plavix] 75 mg PO QAM 06/03/16 01/21/20 History Furosemide [Lasix] 20 mg PO DAILY@1400 06/03/16 01/21/20 History Lisinopril [Zestril] 2.5 mg PO QAM 06/03/16 01/21/20 History Acetaminophen [Tylenol Arthritis] 650 mg PO Q6H PRN 10/07/16 01/21/20 History Midodrine [ProAmatine] 10 mg PO BID 07/05/19 01/21/20 History Furosemide [Lasix] 40 mg PO DAILY 01/21/20 01/21/20 History QUEtiapine [SEROquel] 25 mg PO HS 01/21/20 01/21/20 History Venlafaxine HCl [Effexor] 100 mg PO BID-W/MEALS 01/21/20 01/21/20 History Allergies Allergy/AdvReac Type Severity Reaction Status Date / Time No Known Allergies Allergy Verified 01/21/20 12:14 Physical Exam Vitals: Vital Signs Temp Pulse Resp BP Pulse Ox 01/29/20 19:00 79 24 106/69 98 01/29/20 18:30 82 22 103/71 96 01/29/20 18:00 72 19 99/71 97 01/29/20 17:30 76 22 119/88 98 01/29/20 17:00 89 20 105/79 98 01/29/20 16:30 87 20 104/77 97 01/29/20 16:00 97.4 F L 75 22 103/74 94 L 01/29/20 15:30 70 20 105/66 98 01/29/20 15:00 70 20 101/64 97 01/29/20 14:30 67 18 89/63 98 01/29/20 14:00 87 24 93/58 94 L 01/29/20 13:30 69 19 102/65 96 01/29/20 13:00 72 23 100/53 95 01/29/20 12:30 97.2 F L 72 24 94/64 95 01/29/20 12:00 80 20 98/68 96 01/29/20 11:30 71 19 98/67 95 01/29/20 11:00 71 16 102/68 96 01/29/20 10:30 69 20 100/66 93 L 01/29/20 10:00 66 19 98/64 95 01/29/20 09:30 67 21 91/65 97 01/29/20 09:00 70 20 95/71 94 L 01/29/20 08:30 71 20 94/62 95 01/29/20 08:00 96.0 F L 68 23 99/66 95 01/29/20 07:30 70 24 104/76 96 01/29/20 07:00 90 14 102/69 96 01/29/20 06:30 63 16 91/57 97 01/29/20 06:00 86 17 95/66 97 01/29/20 05:30 86 21 96/66 96 01/29/20 05:00 64 16 95/64 95 01/29/20 04:30 63 17 80/62 93 L 01/29/20 04:00 96 F L 35 H 82/66 94 L 01/29/20 03:30 65 20 80/56 92 L 01/29/20 03:00 61 16 80/56 94 L 01/29/20 02:30 69 18 84/62 92 L 01/29/20 02:00 66 18 84/66 96 01/29/20 01:30 70 17 100/65 97 01/29/20 01:00 87 16 95/71 95 01/29/20 00:30 70 19 88/67 99 01/29/20 00:23 67 18 88/67 96 01/29/20 00:00 96 F L 67 18 90/58 98 01/28/20 23:30 74 20 92/72 95 01/28/20 23:00 87 24 83/68 95 01/28/20 22:30 76 28 H 88/70 95 01/28/20 22:00 75 26 H 92/69 97 01/28/20 21:30 64 12 106/92 98 01/28/20 21:00 77 21 88/67 97 01/28/20 20:30 71 21 94/68 92 L 01/28/20 20:00 96.7 F L 73 22 93/60 97 01/28/20 19:30 70 21 82/68 95 Intake and Output 01/29/20 01/29/20 01/29/20 06:59 14:59 22:59 Intake Total 1041 1600 300 Output Total 325 535 250 Balance 716 1065 50 Intake: IV 450 600 300 Normal saline 450 600 300 Oral 591 1000 Output: Chest Tube Drainage 75 Pleural Catheter Left Mid 75 -Axillary Chest Urine 325 535 175 Other: Voiding Method Urinal Indwelling Catheter Indwelling Catheter # Voids 1 0 Weight 95.5 kg GENERAL DESCRIPTION: Elderly male lying in bed, no distress. No tachypnea or accessory muscle of respiration use. HEENT: Shows Pallor , no scleral icterus. Oral mucous membrane is dry. No pharyngeal erythema or thrush NECK: Trachea central, no thyromegaly. LUNGS: Unlabored breathing. Decreased breath sound the base. Left chest wall Pleurx catheter site with no swelling no redness or evidence of any tunnel infection HEART: S1, S2, regular rate and rhythm. No loud murmur ABDOMEN: Soft, no tenderness , guarding or rigidity, no organomegaly EXTREMITIES: No edema of feet. SKIN: No rash, no masses palpable. NEUROLOGICAL: The patient is awake, alert, oriented x3, mood and affect normal. Results CBC & Chem 7: 01/30/20 04:49 01/30/20 04:49 Labs: Abnormal Lab Results - Last 24 Hours (Table) 01/29/20 01/29/20 01/29/20 Range/Units 04:26 04:26 10:52 RBC 3.99 L (4.30-5.90) m/uL Hgb 11.2 L (13.0-17.5) gm/dL Hct 36.2 L (39.0-53.0) % RDW 17.8 H (11.5-15.5) % Sodium 127 L (137-145) mmol/L Potassium 5.6 H (3.5-5.1) mmol/L Chloride 97 L (98-107) mmol/L BUN 31 H (9-20) mg/dL Creatinine 1.56 H (0.66-1.25) mg/dL AST 86 H (17-59) U/L ALT 88 H (4-49) U/L Alkaline Phosphatase 206 H (38-126) U/L Total Protein 5.8 L (6.3-8.2) g/dL Albumin 2.8 L (3.5-5.0) g/dL Urine Protein Trace H (Negative) Amorphous Sediment Rare H (None) /hpf Urine Bacteria Rare H (None) /hpf Hyaline Casts 3 H (0-2) /lpf Urine Mucus Rare H (None) /hpf Vancomycin Trough ug/mL 01/29/20 01/29/20 Range/Units 11:21 17:53 RBC (4.30-5.90) m/uL Hgb (13.0-17.5) gm/dL Hct (39.0-53.0) % RDW (11.5-15.5) % Sodium 129 L (137-145) mmol/L Potassium 5.9 H (3.5-5.1) mmol/L Chloride 96 L (98-107) mmol/L BUN 33 H (9-20) mg/dL Creatinine 1.67 H (0.66-1.25) mg/dL AST (17-59) U/L ALT (4-49) U/L Alkaline Phosphatase (38-126) U/L Total Protein (6.3-8.2) g/dL Albumin (3.5-5.0) g/dL Urine Protein (Negative) Amorphous Sediment (None) /hpf Urine Bacteria (None) /hpf Hyaline Casts (0-2) /lpf Urine Mucus (None) /hpf Vancomycin Trough 30.6 H* ug/mL Microbiology - Last 24 Hours (Table) 01/27/20 14:30 Gram Stain - Preliminary Pleural Fluid Body Fluid Culture - Preliminary Staphylococcus epidermidis 01/27/20 14:30 Acid Fast Bacilli Smear - Final Pleural Fluid Acid Fast Bacilli Culture - Preliminary 01/25/20 12:50 Gram Stain - Preliminary Pleural Fluid Body Fluid Culture - Preliminary Staphylococcus epidermidis Acinetobacter lwoffi Assessment and Plan Assessment: 1-patient with a history of recurrent left-sided pleural effusion for which the patient did have Pleurx catheter placed back in August 2019 now being admitted to hospital with increasing shortness of breath in this patient who did not have any fever or elevated white count however he has grown staph epidermidis on mu ltiple occasion from his pleural fluid with a question of mild infection versus colonization of his Pleurx catheter there was no evidence of any tunnel infection. 2- pt not behaving as empyema. (1) Chronic pleural effusion Current Visit: Yes Status: Acute Code(s): J90 - PLEURAL EFFUSION, NOT EL SEWHERE CLASSIFIED SNOMED Code(s): 25351531 Plan: 1-vancomycin pharmacy to dose target trough of 15 while watching his kidney function and vancomycin trough closely 2-patient can be switched over to oral Bactrim DS or doxycycline depending upon his kidney function on discharge for 1 to 2-week course We will follow on clinical condition and cultures to further adjust medication if needed Thank you for this consultation will follow this patient along with you Time with Patient: Greater than 30
--- NOTE | 2020-01-30 11:28 | PN ---
PROGRESS NOTE This patient has a severe nonischemic cardiomyopathy and patient has been admitted with acute respiratory distress and has been treated with congestive heart failure as well as possible some infection in the pleural cavity. The patient remains comfortable, denies any orthopnea or PND. Blood pressure now is 105/56 mmHg, heart rate is 80 per minute. First and second heart sounds are normal. Lung examination reveals bilateral basal rales in the lower 1/3 of the lung cooper. The chest x-ray suggestive of congestive cardiac failure. Sodium is 129, creatinine is 1.64. ASSESSMENT AND PLAN: At this point in time, to me it seems that patient does have evidence of fluid overload and will benefit from diuretics. We will discuss this with Dr. Milligan. [id number] / IJN: [id number] /
--- NOTE | 2020-01-30 11:32 | P.PN ---
Subjective Progress Note Date: 01/30/20 Principal diagnosis: Acute Severe systolic congestive heart failure This is a 74-year-old male patient with known history of coronary artery disease with previous coronary intervention and stenting of the circumflex in addition to history of severe cardiomyopathy with an ejection fraction of 25% and chronic systolic dysfunction and severe resting bradycardia close the was chamber ICD placement. The patient was also having recurrent left-sided pleural effusion and he underwent a Pleurx catheter insertion back in August 2019 by cardiothoracic surgery. He has been undergoing daily drainage from his left lung and he typically drinks approximately 200 mL of pleural fluid.. The patient also has hypertension, prostate cancer and he has been treated with prostatic radiation therapy/implants. He has also history of osteoarthritis. The patient is an ex-smoker. [id number] smoking history. He came into the hospital because of worsening shortness of breath.. His been progressively getting more short of breath over the past month. His shortness of breath is essentially exertional and he also has orthopnea. No reported chest pain. No reported cough or sputum production. He is an ex-smoker. No wheezing. No previous history of DVT or pulmonary embolism. No fever. The white cell count at time of admission was 7.8. Hemoglobin was at 13.8. Coagulation profile was within normal. D-dimer was elevated at 4.08 and based on that the patient was given a CT angiogram that showed no evidence of any pulmonary embolism. 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 No evidence of any pneumonia. No evidence of any airspace disease. There was a 3 cm poorly marginated infiltrate in the right lower lobe and the significance of this abnormality is not known. In the emergency department, the patient was having episodes of hypotension. His systolic blood pressure was as low as 75. He was given pressors and currently is running on low-dose levothyroid at 0.03 g per KG per minute. His cardiac rhythm is ventricularly paced at the rate of 100. Note that the patient some minimal troponin elevation. ProBNP level was quite elevated. Lactic acid level was 4.2, admission dropped down to 2 and currently is on IV with KVO. The patient is seen today 01/22/2020 in follow-up in the intensive care unit. He is currently awake and alert in no acute distress. Sitting up at the bedside. Maintaining O2 saturations in the 90s on 4 L/m per nasal cannula. Today's chest x-ray continues to show evidence of fluid volume overload. Echocardiogram reveals ejection fraction less than 20%. He is still requiring a small amount of norepinephrine at 0.03 mcg/kg/m. Potassium is 6.3. Sodium 130. Creatinine 1.46. White count 7.9. Hemoglobin 13.6. Troponin 0.077. He remains on Lasix 40 mg by mouth twice a day. Still remains in a positive balance. Weight is stable. The patient is seen today 01/23/2020 in follow-up in the in the chair at the bedside. Maintaining O2 saturations in the 90s on 4 L/m per nasal cannula. Chest x-ray showing improvement in the volume status. He is breathing a bit easier today compared to yesterday, he is complaining of weakness and fatigue. He is currently on norepinephrine at 0.04 mcg/kg/m. Dobutamine at 5 mcg/kg/m. Maintaining adequate urine output. Blood and urine cultures reveal no growth. White count 7.6. Hemoglobin 13.1. sodium 130. Creatinine 0.85. Potassium 4.8. TSH 5.68. T4 1 0.38. the patient is seen today 01/24/2020 in The intensive care unit. He is awake and alert in no acute distress. Maintaining good O2 saturations in the 90s on 4 L/m per nasal cannula. Chest x-ray continues to show some worsening congestive heart failure with mild underlying emphysema. There is increased central alveol interstitial edemaand/or infiltrates. Pleural fluid cultures reveal no growth. Blood cultures reveal no growth. He continues on norepinephrine at 0.01 mcg/kg/min. Remains on Dobutamine at 5 mcg/kg/min. White count 5.7. Hemoglobin 12.8. Potassium 5.3. 5.3. Creatinine 0.75. He remains on midodrine TID. BP marginal. On lasix 40 BID. The patient is seen today 01/27/2020 in follow up in the ICU. He is currently resting comfortably in bed. Awake, alert in no acute distress. He did have issues with anxiety earlier this a.m. Treated with Xanax and improved. Chest x-ray continues to show persistent left basilar opacity and left midlung opacity. Plan to drain fluid again today per Pleurx. We will send more cultures and fluid analysis. Cultures have been revealing Staphylococcus epidermidis and Acinetobacter. Follow-up cultures with coag-negative staph. vancomycin will be added Continue ceftriaxone. Dobutamine at 2.5 mcg/kg/m. Remains off norepinephrine. White count 5.4. Hemoglobin 11.9. Sodium 128. Potassium 5.2. Creatinine 0.94. On today's evaluation of 01/28/2020 the patient is feeling okay and he denies having any worsening shortness of breath. There was a concern of a left-sided pleural space infection. The patient a Pleurx catheter in place. There have been 2 cultures that are showing coagulase-negative staph, staph epidermidis in one of the cultures showed inflammatory except a glucose and Acinetobacter. The patient was placed on a combination of Rocephin and vancomycin. Nevertheless the fluid was reevaluated and analyzed. The fluid LDH and protein remains on a cell count remains low as not suggestive of any empyema or pleural space infection. Noted the patient is undergoing drainage and a daily basis. He is feeling well. He is on dobutamine at a dose of 2.5 mcg/kg per minute. He may need norepinephrine infusion on and off to maintain his blood pressure. His white cell count is not elevated. Sodium level is at 128 which is inconsistent with his CHF. Pro-calcitonin level was at 0.17. The chest x-ray from today showed retrocardiac opacity that may represent an underlying pleural effusion/atelectasis. Right lung essentially clear. No fever no chills. Altered mentation. No other significant events overnight. The patient is producing a better urine output. Balance is -6 20 mL over the past 24 hours. On today's evaluation of 01/29/2020, the patient is feeling well. He is sitting up on a chair. He is on dobutamine 2.5 mcg/kg per minute. He is on no Lasix for now. Repeat fluid evaluation from the pleural drainage showed coagulase-neg ative staph epidermidis. The patient is on vancomycin. I'm not absolutely sure there is a true infection. The fluid analysis came back negative for infection or exudate in sheet turner to be severely a transudative fluid and the white cells and the pleural fluid is low. The total amount of output from yesterday's drainage was 25 mL. He is afebrile. He has no significant leukocytosis. I am going to ask IDs opinion regarding the possibility of a pleural space infection which I think it's not highly likely at this point in time. Meanwhile, the patient's creatinine is up to 1.5. This is to be monitored. No angina. No palpitation. No other complaints otherwise. Vancomycin level needs to be checked also. He is being supported with norepinephrine infusion for blood pressure support. Reevaluated today on 01/30/20, patient was seen in the intensive care unit, remains on Dobutrex at 2.5 mcg/kg/m, he is also on Lasix, feeling better, breathing easier, responding well to diuretics. However considering that the patient is still on Dobutrex, I plan to keep him in the ICU for the next 24 hours. Patient is not requiring any norepinephrine. Chest x-ray continues to show some retrocardiac loculated pleural effusion in the left hemithorax, and improving interstitial edema. WBC count is 7.4 hemoglobin is 11.5. Electrolytes showed elevated potassium of 5.5 sodium is 129 BUN is 33 and creatinine is 1.64. Albumin is 2.8 Objective - Vital Signs Vital signs: Vital Signs Temp 96.9 F L 01/30/20 08:00 Pulse 77 01/30/20 11:00 Resp 21 01/30/20 11:00 BP 91/59 01/30/20 11:00 Pulse Ox 97 01/30/20 11:00 Intake & Output 01/29/20 01/30/20 01/30/20 18:59 06:59 18:59 Intake Total 1850 1100 588.038 Output Total 755 620 185 Balance 1095 480 403.038 Weight 95.2 kg Intake: IV 850 1100 350 Normal saline 850 1100 350 Intake, IV Titration 238.038 Amount DOBUTamine DRIP 500 mg In 238.038 Dextrose/Water 1 250ml. bag @ 5 MCG/KG/MIN 12.655 mls/hr IV .[id number] [facility] Rx#:[id number] Oral 1000 Output: Chest Tube Drainage 75 Pleural Catheter Left Mid 75 -Axillary Chest Urine 680 620 185 Other: Voiding Method Indwelling Catheter Indwelling Catheter Indwelling Catheter # Voids 0 - Exam Physical Exam: Revealed 74-year-old white male on 4 L nasal cannula, in no distress. Head: Atraumatic, normocephalic. HEENT:[Neck is supple.] [No neck masses.] [No thyromegaly.] [No JVD.] PERRLA, EOMI, no icterus. Throat is clear. Chest: [Symmetrical chest expansion, diminished breath sounds at the bases and crackles, no rhonchi and no wheezes.] Cardiac Exam: [Normal S1 and S2, no S3 gallop, 2/6 systolic murmur thought the precordium. Abdomen: [Soft, nontender, no megaly, no rebound, no guarding, normal bowel sounds.] Extremities: [No clubbing, no edema, no cyanosis.] Neurological Exam: [No focal neurologic deficit.] Alert oriented 3. Psychiatric: Normal mood, affect and normal mental status examination. Skin: No rashes. - Labs CBC & Chem 7: 01/30/20 04:49 01/30/20 04:49 Labs: Abnormal Lab Results - Last 24 Hours (Table) 01/29/20 01/29/20 01/30/20 Range/Units 11:21 17:53 04:49 RBC 4.16 L (4.30-5.90) m/uL Hgb 11.5 L (13.0-17.5) gm/dL Hct 37.6 L (39.0-53.0) % MCHC 30.5 L (31.0-37.0) g/dL RDW 17.7 H (11.5-15.5) % ESR 24 H (0-15) mm/hr Sodium 129 L (137-145) mmol/L Potassium 5.9 H (3.5-5.1) mmol/L Chloride 96 L (98-107) mmol/L BUN 33 H (9-20) mg/dL Creatinine 1.67 H (0.66-1.25) mg/dL Glucose (74-99) mg/dL POC Glucose (mg/dL) (75-99) mg/dL AST (17-59) U/L ALT (4-49) U/L Alkaline Phosphatase (38-126) U/L C-Reactive Protein (<10.0) mg/L Total Protein (6.3-8.2) g/dL Albumin (3.5-5.0) g/dL Vancomycin Trough 30.6 H* ug/mL 01/30/20 01/30/20 Range/Units 04:49 08:13 RBC (4.30-5.90) m/uL Hgb (13.0-17.5) gm/dL Hct (39.0-53.0) % MCHC (31.0-37.0) g/dL RDW (11.5-15.5) % ESR (0-15) mm/hr Sodium 129 L (137-145) mmol/L Potassium 5.5 H (3.5-5.1) mmol/L Chloride (98-107) mmol/L BUN 33 H (9-20) mg/dL Creatinine 1.64 H (0.66-1.25) mg/dL Glucose 65 L (74-99) mg/dL POC Glucose (mg/dL) 139 H (75-99) mg/dL AST 78 H (17-59) U/L ALT 83 H (4-49) U/L Alkaline Phosphatase 223 H (38-126) U/L C-Reactive Protein 60.3 H (<10.0) mg/L Total Protein 6.0 L (6.3-8.2) g/dL Albumin 2.8 L (3.5-5.0) g/dL Vancomycin Trough ug/mL Microbiology - Last 24 Hours (Table) 01/27/20 14:30 Gram Stain - Preliminary Pleural Fluid Body Fluid Culture - Preliminary Staphylococcus epidermidis Assessment and Plan Assessment: Impression: Acute hypoxic respiratory failure secondary to acute severe systolic congestive heart failure. And impaired LV function. Coronary artery disease and previous non-ST elevation myocardial infarction, possible acute non-ST elevation myocardial infarction on this admission. Chronic left-sided pleural effusion, status post Pleurx catheter insertion. Biventricular AICD placement. History of prostate cancer followed by radiation and presently on Lupron injections. Degenerative joint disease. Acute kidney injury, improving. Could be cardiorenal in nature. Recommendation: Continue Pleurx catheter drainage, seen and addressed by infectious disease on the case. Continue dobutamine. Continue to monitor electrolytes and renal profile daily. Continue tolvaptan, sodium today is 129. Once Dobutrex is discontinued, we will likely transfer out of the ICU to a monitor bed on selective. We'll continue to follow Time with Patient: Less than 30
[2020-01-30] MEDS: DOBUTamine DRIP 500 MG in DEXTROSE/WATER 1 250ML.BAG IV SCH ×2 (12:05→18:20)
[2020-01-30] MEDS ORDERED: FUROSEMIDE 10 MG/ML 4 ML VIAL IV STA (12:38)
--- NOTE | 2020-01-30 12:40 | P.PN ---
Subjective Progress Note Date: 01/30/20 This is a 74-year-old male patient of Dr. Burnett, Dr. Gilbert and Dr. Xi Ordaz with a previous medical history significant for hypertension, hyperlipidemia, osteoarthritis, prostate cancer that was diagnosed back in 2006 status post implants as well as Lupron injection, coronary artery disease with stent of the circumflex, severe cardiomyopathy and chronic systolic heart failure with known ejection fraction of 25%, bradycardia status post AICD implantation, recurrent left-sided pleural effusion status post Pleurx catheter insertion August 2019 by cardiothoracic surgery. Patient drains this himself or his daughter of 100-200 mL subpleural fluid daily. Patient also has history of hypertension, [id number] smoking history. Patient complains of shortness of breath for the past month gradually worsening. Shortness of breath is exceptionally worse with exertion. No chest pain, no cough or sputum production, reports weight loss. He complains of nausea occasionally, no abdominal pain. He complains of lightheadedness. He denies any use of steroids for the past 6 weeks. He denies any change and his medications recently. Patient relates that he has been using his mother's home oxygen at 4 L nasal cannula around the clock. Patient came into [facility] emergency center for evaluation, WBC 7.8, hemoglobin 13.8, d-dimer elevated at 4.08. CT angiogram of the chest did not show any pulmonary embolism. There was a small right-sided loculated pleural effusion along with pseudotumor in the left lung consistent with pleural fluid. No evidence of pneumonia. No airspace disease. 3 cm poorly marginated infiltrate in the right lower lobe and significance is unknown. Patient was hypotensive in the emergency center with systolic blood pressure down to 75. He was started on vasopressors and admitted into the intensive care unit with consults in place for pulmonary medicine and cardiology. Abdominal ultrasound revealed mild gallbladder wall thickening and air fluid that could relate cholecystitis. Heart failure also possible. Small gallstone or gallbladder polyp. Fatty liver. 01/21: Patient remains in intensive care unit. He is seen today sitting in the recliner. His breathing appears to be more comfortable. Patient states that he is feeling tight and did not sleep well last night. We will plan to increase melatonin dose. Patient has been seen by cardiology this morning and started on dobutamine. Patient is currently on norepinephrine as well. Echocardiogram reveals ejection fraction less than 20%, moderate mitral regurgitation, moderate tricuspid regurgitation, mild to moderate pulmonary hypertension.. Potassium this morning is 6.3 and pulmonary medicine has ordered insulin and dextrose. Patient is to be redrawn at noon today. WBC 7.9, hemoglobin 13.6, troponin 0.077. BUN 41 and creatinine 1.46. Acute hepatitis panel negative. Patient is currently on Lasix 40 mg oral twice daily. TSH will be ordered. Chest x-ray reveals changes of heart failure with interstitial pulmonary edema. Continued moderate left effusion with prominent left basilar atelectasis and/or consolidation. Slight worsening aeration of the right base 01/22: Patient has been afebrile, heart rate 97, blood pressure 95/68, pulse ox 98% on 4 L nasal cannula. Repeat blood work reveals CBC unremarkable, sodium 1:30, potassium 4.8, chloride 96, CO2 25, BUN 33 and creatinine 0.85. AST 126, ALT 145, alkaline phosphatase 262. TSH 5.680 and free T4 1 0.38. Patient remains in the intensive care unit. Dobutamine drip increased to 5. Patient remains on levofloxacin as well. Patient states that he did not sleep last night. He is utilizing Xanax twice daily. He denies having any chest pain and no lower extremity edema. He does complain of shortness of breath. No lightheadedness or dizziness. Cytomel added and midodrine increased to 10 mg 3 times daily. Patient is concerned about his mother and his friend staying with her at this time. We will communicate with Dr. Burnett and ask for home care service to be arranged for his mother. Do not anticipate that he will be ready for discharge for another 48-72 hours. 01/23: Patient remains in intensive care unit on dobutamine at 5 mcg/kg/m and levo fed which is to be weaned off. Dr. Napoles is planning for another 24 hours of IV dobutamine. Patient states that he is feeling off today complaining of nausea. He states he did get some sleep last night. Patient has been noted to be more anxious and due to lack of appetite and insomnia, Remeron will be added. He continues to have shortness of breath with minimal activity. He remains awake and alert but he is stating that he wants to go home. We did arrange for home care for his mother yesterday. WBC 5.7, hemoglobin 12.8, potassium 5.3, creatinine 0.75. We did start midodrine yesterday 3 times daily 10 mg. The blood pressure seems to be stable today. Chest x-ray showing worsening CHF for developing ARDS on background mild underlying emphysematous change there is increasing central alveolar and interstitial edema and/or infiltrates and cardiomegaly. No concern for ARDS at this point per Dr. Contreras. Culture on Pleurx fluid is staph epidermidis. 01/24: Repeat chest x-ray reveals similar moderate pulmonary vascular congestion and interstitial edema likely on the basis of decompensated heart failure. Retrocardiac airspace disease is also stable that may represent small plural effusion and atelectasis or less likely pneumonia. Patient is afebrile, heart rate running between 76 and 106, blood pressure 95/75, pulse ox 96% on 2 L nasal cannula. Repeat lab work reveals unremarkable CBC. Sodium 1:30, potassium 5.4, chloride 97, CO2 22, BUN 26 and creatinine 0.81. Pleural fluid was Staphylococcus epidermidis and alphahemolytic streptococcus. Yesterday evening, patient was attempting to leave the intensive care unit in and removed alarm security or surveillance monitor and IV. Patient was returned to his room and IV access and monitoring was resumed. Patient is alert at this time. Nursing passes on that patient awakes and is very confused. He has not had consistent of sleep. Patient complains of feeling tired. Pulmonary has resumed his Seroquel and Effexor. We will continue Remeron as well both Seroquel and Remeron move to supper time. Patient is still on dobutamine for another 24 hours. He has been off norepineph rine since yesterday at 11 AM. He has a sitter at the bedside at this time. Consult added for Dr. Brown regarding hyponatremia. 01/25: Patient continues to have episodes of confusion but is easily reoriented. He is cooperative and follows commands during these episodes. He is able to answer all questions appropriately to time place and person. Ammonia level from yesterday was less than 9. He is continued on dobutamine drip at 5 g for another 24 hours.. Patient was given 1 dose of IV Lasix 40 mg this morning. Patient has been seen by Dr. Brown and ordered Lasix IV 40 mg every 12 hours. Urine osmolality 497, cortisol level 22. Sodium 129, potassium 5.4, chloride 95, CO2 28, BUN 24 and creatinine 0.86. WBC 6.2, hemoglobin 9.6, platelet count 226. Pro-calcitonin 0.14. Repeat chest x-ray reveals stable retrocardiac opacities may again represent small pleural effusion and atelectasis or less likely pneumonia. Primary consideration is decompensated congestive heart failure. 01/26: Patient remains in the intensive care unit. He continues to have episodes of confusion but is easily reoriented. He is having occasional panic attack with increased anxiety. We will resume Xanax and continue his other psychiatric medications. He did sleep well last night most likely related to the Remeron and melatonin. Dobutamine has been decreased today to 2.5 mcg/kg/m. He is off norepinephrine. Repeat lab work reveals WBC 5.4, hemoglobin 11.9, sodium 128, potassium 5.2, creatinine 0.94. Dr. Brown is on consult regarding hyponatremia. 314: Patient remains in intensive care unit sitting up in chair. He is complaining of pain to the right groin. Denies any dizziness or chest pain. Continues to have shortness of breath. He has not had any episodes of confusion overnight or today. Patient states that he slept well during the evening. Dobutamine continues to be at 2.5 MCG/KG/M. However he continues to be hypotensive. Morning meds were held due to his pressure. Sodium 128, potassium 5.1, BUN 28, creatinine 1.06 01/28: Patient remains in intensive care unit sitting up in bed. Patient has no complete concerns at this time. He denies any difficulty breathing or shortness of breath. He continues to be on dobutamine and hypotensive. Hemoglobin 11.2, sodium 127, potassium 5.6, BUN 31, creatinine 1.56, AST 86, ALT 88, alkaline phosphatase 206. The Pleurx catheters in place. Patient is producing better urine output. 01/29: Patient remains in the intensive care unit. Dobutamine was discontinued this morning. Patient is complaining of having dizziness on and off. Blood pressure is been marginal. He is scheduled for one dose of Lasix 40 a blood pressure is maintained. Patient is also complaining of significant weakness. He continues to have lower extremity edema. Confusion episodes have been less frequent. Patient is afebrile, heart rate 76, blood pressure 90/60, pulse ox 96% on 2 L nasal cannula. Repeat blood work reveals WBC 7.4, hemoglobin 11.5, platelet count 225. Sed rate 24, C-reactive protein 60.3. Sodium 129, potassium 5.5, chloride 99, CO2 23, BUN 33, creatinine 1.64. Blood sugar 65. Liver function tests remain elevated with AST 78, ALT 83, alkaline phosphatase 223. Pro- calcitonin 0.52. Patient has been on IV antibiotics in the form of vancomycin. Patient has been seen by Dr. Sen with recommendations for either Bactrim or doxycycline depending on kidney function at time of discharge for one to 2 week course. Objective - Vital Signs Vital signs: Vital Signs Temp 96.9 F L 01/30/20 08:00 Pulse 77 01/30/20 11:00 Resp 21 01/30/20 11:00 BP 91/59 01/30/20 11:00 Pulse Ox 97 01/30/20 11:00 Intake & Output 01/29/20 01/30/20 01/30/20 18:59 06:59 18:59 Intake Total 1850 1100 588.038 Output Total 755 620 185 Balance 1095 480 403.038 Weight 95.2 kg Intake: IV 850 1100 350 Normal saline 850 1100 350 Intake, IV Titration 238.038 Amount DOBUTamine DRIP 500 mg In 238.038 Dextrose/Water 1 250ml. bag @ 5 MCG/KG/MIN 12.655 mls/hr IV .[id number] [facility] Rx#:[id number] Oral 1000 Output: Chest Tube Drainage 75 Pleural Catheter Left Mid 75 -Axillary Chest Urine 680 620 185 Other: Voiding Method Indwelling Catheter Indwelling Catheter Indwelling Catheter # Voids 0 - Exam Review of Systems Constitutional: Reports fatigue, Reports lethargy, Reports poor appetite, Reports weakness, Reports weight loss, Denies chills, Denies fever, reports daytime sleepiness Ears, nose, mouth and throat: Denies dysphagia, Denies headache, Denies nasal congestion, Denies nasal discharge, Denies sore throat, reports vertigo Cardiovascular: Reports decreased exercise tolerance, Reports dyspnea on exert ion, Reports lightheadedness, Reports orthopnea, Reports shortness of breath, Denies chest pain, Denies palpitations, Denies syncope Respiratory: Reports dyspnea slightly improved, Reports home oxygen, Denies cough, Denies cough with sputum, Denies excessive sputum, Denies hemoptysis, Denies respiratory infections, Denies sleep apnea, Denies wheezing Gastrointestinal: Reports loss of appetite, Reports nausea, Denies abdominal pain, Denies diarrhea, Denies vomiting Genitourinary: Denies dysuria, Denies urinary retention Musculoskeletal: Reports muscle weakness, Denies frequent falls, Denies gait dysfunction Integumentary: Denies pruritus, Denies rash Neurological: Reports change in mentation, Denies change in speech, Denies numbness, Denies weakness Psychiatric: Reports anxiety, reports depression, reports insomnia Endocrine: Denies fatigue, Denies weight change Physical examination Gen: This is a 74-year-old male. Patient is sitting up on the edge of the bed. No respiratory distress noted. HEENT: Head is atraumatic, normocephalic. Pupils equal, round. Sclerae is anicteric. NECK: Supple. No JVD. No lymphadenopathy. No thyromegaly. LUNGS: Diminished breath sounds Pleurx catheter in the left. HEART: Regular rate and rhythm. Systolic murmur. ABDOMEN: Soft. Bowel sounds are present. No masses. No tenderness. EXTREMITIES: 2+ pedal edema. No calf tenderness. Dorsalis pedis +2 bilaterally. NEUROLOGICAL: Patient is awake, alert and oriented x3. Cranial nerves 2 through 12 are grossly intact. - Labs CBC & Chem 7: 01/30/20 04:49 01/30/20 04:49 Labs: Abnormal Lab Results - Last 24 Hours (Table) 01/29/20 01/29/20 01/30/20 Range/Units 11:21 17:53 04:49 RBC 4.16 L (4.30-5.90) m/uL Hgb 11.5 L (13.0-17.5) gm/dL Hct 37.6 L (39.0-53.0) % MCHC 30.5 L (31.0-37.0) g/dL RDW 17.7 H (11.5-15.5) % ESR 24 H (0-15) mm/hr Sodium 129 L (137-145) mmol/L Potassium 5.9 H (3.5-5.1) mmol/L Chloride 96 L (98-107) mmol/L BUN 33 H (9-20) mg/dL Creatinine 1.67 H (0.66-1.25) mg/dL Glucose (74-99) mg/dL POC Glucose (mg/dL) (75-99) mg/dL AST (17-59) U/L ALT (4-49) U/L Alkaline Phosphatase (38-126) U/L C-Reactive Protein (<10.0) mg/L Total Protein (6.3-8.2) g/dL Albumin (3.5-5.0) g/dL Vancomycin Trough 30.6 H* ug/mL 01/30/20 01/30/20 Range/Units 04:49 08:13 RBC (4.30-5.90) m/uL Hgb (13.0-17.5) gm/dL Hct (39.0-53.0) % MCHC (31.0-37.0) g/dL RDW (11.5-15.5) % ESR (0-15) mm/hr Sodium 129 L (137-145) mmol/L Potassium 5.5 H (3.5-5.1) mmol/L Chloride (98-107) mmol/L BUN 33 H (9-20) mg/dL Creatinine 1.64 H (0.66-1.25) mg/dL Glucose 65 L (74-99) mg/dL POC Glucose (mg/dL) 139 H (75-99) mg/dL AST 78 H (17-59) U/L ALT 83 H (4-49) U/L Alkaline Phosphatase 223 H (38-126) U/L C-Reactive Protein 60.3 H (<10.0) mg/L Total Protein 6.0 L (6.3-8.2) g/dL Albumin 2.8 L (3.5-5.0) g/dL Vancomycin Trough ug/mL Microbiology - Last 24 Hours (Table) 01/27/20 14:30 Gram Stain - Preliminary Pleural Fluid Body Fluid Culture - Preliminary Staphylococcus epidermidis Assessment and Plan Plan: 1. Acute on chronic systolic heart failure with known ejection fraction of 25%. Repeat echocardiogram as above. Dobutamine drip was discontinued this morning. Patient is currently off norepinephrine. Lasix 40 mg IV once if blood pressure stable, continue midodrine 10 mg 3 times daily. 2. Severe cardiomyopathy status post AICD. 3. Chronic left-sided pleural effusion status post pleural catheter insertion. Nursing is draining once daily. Culture positive for alphahemolytic strep and Streptococcus epidermidis. Continue vancomycin. Dr. Sen consult appreciated. Patient to be on Bactrim or doxycycline for 1-2 weeks at the time of discharge. 4. Cardiogenic shock secondary to severe cardiomyopathy requiring vasopressors. Patient is currently off norepinephrine. 5. History of coronary artery disease status post stenting of circumflex with mild elevation of troponins, possible acute non-ST HI. Cardiology consult. Aspirin 81 mg daily, Lipitor 40 mg daily, Plavix 75 mg daily, 6. Hyperlipidemia. 7. History of prostate cancer status post radiation therapy and Lupron injections. 8. Elevated liver function tests possibly related to combination of heart failure and fatty liver. Acute hepatitis panel negative. 9. Generalized anxiety disorder. Continue Xanax 2.5 mg twice daily and Remeron 7.5 mg. 10. Hyperkalemia. Continue Lasix, no potassium supplementation. 11. DVT prophylaxis. Heparin subcu. 12. GI prophylaxis. Pepcid. 13. Hyponatremia. Consult with nephrology appreciated. 14. Acute metabolic encephalopathy secondary to insomnia and ICU hospitalization. Continue Seroquel and Effexor and continue Remeron as well and melatonin 10 mg at bedtime. 15. Hypothyroidism. Patient was started on Cytomel 5 g daily. 16. Recurrent depression. Continue Seroquel 50 mg daily and Effexor 100 mg tw ice daily. Discharge plan: To be determined. Most likely return home. Impression and plan of care have been directed as dictated by the signing physician. Funmilayo Diaz nurse practitioner acting as scribe for signing physician.
[2020-01-30] MEDS: NOREPINEPHRINE 4 MG in SODIUM CHLORIDE 0.9% 250 ML IV SCH (12:48)
[2020-01-30] MEDS ORDERED: FUROSEMIDE 10 MG/ML 10 ML VIAL IV STA (17:13)
[2020-01-30] MEDS: QUEtiapine 50 MG TAB PO SCH (17:25)
[2020-01-30] MEDS ORDERED: SODIUM BICARB 8.4% 50 ML SYR (1 MEQ/ML) IV STA (19:17)
[2020-01-30] MEDS ORDERED: INSULIN REGULAR 100 UNIT/ML VIAL IV ONE (19:18)
[2020-01-30] MEDS ORDERED: DEXTROSE 50% SYRINGE 50 ML IVP STA (19:19)
[2020-01-30 20:10] LABS: Glucose,Whole Blood 123 mg/dL (75-99)
[2020-01-30] MEDS: MELATONIN 5 MG TABLET PO SCH (20:11)
--- NOTE | 2020-01-30 20:34 | PN ---
PROGRESS NOTE DATE OF SERVICE: 01/30/2020 REASON FOR FOLLOWUP: Positive culture from PleurX catheter. INTERVAL HISTORY: The patient is currently afebrile. The patient's breathing is baseline. He denies having any chest pain. Minimal cough. No sputum. No abdominal pain. No diarrhea. PHYSICAL EXAMINATION: Blood pressure is 97/82 with a pulse of 71, temperature 98, he is 95% on 4 liters nasal cannula. General description is an elderly male lying in bed in no distress. RESPIRATORY SYSTEM: Unlabored breathing. Decreased breath sounds at the bases. No wheeze. HEART: S1, S2. Regular rate and rhythm. ABDOMEN: Soft. No tenderness. LABS: Hemoglobin is 11.5, white count 7.5. BUN of 23, creatinine 1.64. DIAGNOSTIC IMPRESSION AND PLAN: Patient admitted to the hospital. Culture from the PleurX catheter has grown Streptococcus intermedius. Patient to continue with vancomycin while inpatient on discharge for a short course. Continue close outpatient followup. MMODL / IJN: [id number] /
[2020-01-31] MEDS: NOREPINEPHRINE 4 MG in SODIUM CHLORIDE 0.9% 250 ML IV SCH ×2 (04:19→20:53)
[2020-01-31 04:46] LABS: Anisocytosis Slight; HCT 37.1 % (39.0-53.0); HGB 11.3 gm/dL (13.0-17.5); Hypochromasia Marked; MCH 28.1 pg (25.0-35.0); MCHC 30.6 g/dL (31.0-37.0); MCV 91.9 fL (80.0-100.0); Mean Platelet Volume 7.7; Platelet Count 206 k/uL (150-450); RBC 4.03 m/uL (4.30-5.90); RDW 17.8 % (11.5-15.5); WBC 6.5 k/uL (3.8-10.6)
[2020-01-31 04:54] LABS: Calcium 9.4 mg/dL (8.4-10.2); Potassium 4.9 mmol/L (3.5-5.1)
[2020-01-31 05:19] LABS: Glucose,Whole Blood 71 mg/dL (75-99)
[2020-01-31] MEDS: MIDODRINE 5 MG TAB PO SCH ×3 (06:37→17:31)
[2020-01-31] MEDS: VENLAFAXINE HCL 50 MG TAB PO SCH ×2 (06:37→17:31)
--- NOTE | 2020-01-31 06:42 | XR ---
EXAMINATION TYPE: XR chest 1V portable DATE OF EXAM: 01/31/2020 CLINICAL HISTORY: Difficulty breathing progress study. TECHNIQUE: Single AP portable upright view of the chest is obtained. COMPARISON: Chest x-ray from one day earlier and older studies. FINDINGS: Cardiomegaly with dual lead pacemaker/AICD and atherosclerotic thoracic aorta is redemonst rated. High riding humeral heads bilaterally consistent with chronic rotator cuff tears is redemonstr ated. Persistent small to moderate size left pleural fluid collection extending to left lung apex. As sociated left basilar atelectasis and/or infiltrate. Some left-sided volume loss with mediastinal kelly ft. Background chronic emphysematous change. Right lung remains clear. IMPRESSION: Overall stable findings, chronic emphysematous change and cardiomegaly with small to mo derate size left pleural fluid collection with associated left basilar atelectasis and/or infiltrate and left-sided volume loss are all redemonstrated.
[2020-01-31] MEDS: ATORVASTATIN 40 MG TAB PO SCH (08:15)
[2020-01-31] MEDS: ASPIRIN 81 MG PO SCH (08:15)
[2020-01-31] MEDS: FAMOTIDINE 20 MG TAB PO SCH (08:15)
[2020-01-31] MEDS: CLOPIDOGREL 75 MG TAB PO SCH (08:15)
[2020-01-31] MEDS: LIOTHYRONINE SODIUM 5 MCG TAB PO SCH (08:15)
[2020-01-31] MEDS: HEPARIN SODIUM,PORCINE 5,000 UNIT/ML 1 ML VIAL SQ SCH ×2 (08:15→21:59)
--- NOTE | 2020-01-31 08:59 | P.PN ---
Subjective Patient is seen in follow-up for acute kidney injury and hyponatremia. Sodium level 132 today. Renal function fairly stable. Denies chest pain or shortness of breath. Maintained on dobutamine. Patient has systolic CHF with ejection fraction of less than 20% with moderate tricuspid regurgitation and pulmonary hypertension. Urine output had dropped Jeremie dobutamine was discontinued yesterday. Vital signs are stable. General: The patient appeared well nourished and normally developed. HEENT: Head exam is unremarkable. Neck is without jugular venous distension. LUNGS: Breath sounds decreased. HEART: Rate and Rhythm are regular. First and second heart sounds normal. No murmurs, rubs or gallops. ABDOMEN: Abdominal exam reveals normal bowel sounds. Non-tender and non- distended. No evidence of peritonitis. EXTREMITITES: 1+ edema. Objective - Vital Signs Vital signs: Vital Signs Temp 97.8 F 01/31/20 08:00 Pulse 102 H 01/31/20 08:00 Resp 18 01/31/20 08:00 BP 109/66 01/31/20 08:00 Pulse Ox 94 L 01/31/20 08:00 Intake & Output 01/30/20 01/31/20 01/31/20 18:59 06:59 18:59 Intake Total 988.038 825 100 Output Total 689 1344 70 Balance 299.038 -519 30 Weight 93.6 kg Intake: IV 750 550 100 Normal saline 750 550 100 Intake, IV Titration 238.038 Amount DOBUTamine DRIP 500 mg In 238.038 Dextrose/Water 1 250ml. bag @ 5 MCG/KG/MIN 12.655 mls/hr IV .[id number] [facility] Rx#:[id number] Norepinephrine 4 mg In 0 Sodium Chloride 0.9% 250 ml @ 0.05 MCG/KG/MIN 16. 072 mls/hr IV .[id number] [facility] Rx#:[id number] Oral 275 Output: Chest Tube Drainage 220 Pleural Catheter Left Mid 220 -Axillary Chest Urine 469 1344 70 Other: Voiding Method Indwelling Catheter Indwelling Catheter Indwelling Catheter - Labs CBC & Chem 7: 01/31/20 04:10 01/31/20 04:10 Labs: Abnormal Lab Results - Last 24 Hours (Table) 01/30/20 01/30/20 01/30/20 Range/Units 04:49 18:15 20:09 RBC (4.30-5.90) m/uL Hgb (13.0-17.5) gm/dL Hct (39.0-53.0) % MCHC (31.0-37.0) g/dL RDW (11.5-15.5) % Sodium (137-145) mmol/L Potassium 6.1 H* (3.5-5.1) mmol/L BUN (9-20) mg/dL Creatinine (0.66-1.25) mg/dL Glucose (74-99) mg/dL POC Glucose (mg/dL) 123 H (75-99) mg/dL Procalcitonin 0.52 H (0.02-0.09) ng/mL 01/31/20 01/31/20 01/31/20 Range/Units 04:10 04:10 05:17 RBC 4.03 L (4.30-5.90) m/uL Hgb 11.3 L (13.0-17.5) gm/dL Hct 37.1 L (39.0-53.0) % MCHC 30.6 L (31.0-37.0) g/dL RDW 17.8 H (11.5-15.5) % Sodium 132 L (137-145) mmol/L Potassium (3.5-5.1) mmol/L BUN 35 H (9-20) mg/dL Creatinine 1.65 H (0.66-1.25) mg/dL Glucose 65 L (74-99) mg/dL POC Glucose (mg/dL) 71 L (75-99) mg/dL Procalcitonin (0.02-0.09) ng/mL Microbiology - Last 24 Hours (Table) 01/27/20 14:30 Anaerobic Culture - Final Pleural Fluid Assessment and Plan Plan: Assessment: 1. Acute kidney injury mostly prerenal secondary to cardiorenal syndrome. Creatinine stable at 1.65 today. 2. Acute on chronic systolic CHF with ejection fraction of less than 20% with moderate tricuspid regurgitation and pulmonary hypertension. 3. Hypervolemic hyponatremia. Status post Samsca. Better. 4. Chronic left-sided pleural effusion. Patient has a Pleurx catheter. 5. Hyperkalemia secondary to acute kidney injury. Lisinopril discontinued. Better. Plan: Hep-Lock IV fluids. Lasix 60 mg IV once today. Maintain fluid restriction. Continue to monitor renal function and urine output. Repeat electrolytes in the morning. Avoid nephrotoxins. Monitor vancomycin levels closely.
[2020-01-31] MEDS ORDERED: FUROSEMIDE 10 MG/ML 10 ML VIAL IV STA (09:34)
[2020-01-31] MEDS ORDERED: VANCOMYCIN 1,500 MG in SODIUM CHLORIDE 0.9% 250 ML IVPB ONE (10:00)
--- NOTE | 2020-01-31 10:49 | CDI ---
Documentation Clarification Form Date: 01/31/2020 10:35:52 AM From: Chante StephenGiraldoLIAN soni, CCDS Admit Date: 01/21/2020 01:37:00 AM Patient Name: Derick Barney Visit Number: [id number] Discharge Date: ATTENTION: The Clinical Documentation Specialists (CDI) and [facility] Coding Staff appreciate your assistance in clarifying documentation. Please respond to the clarification below the line at the bottom and electronically sign. The CDI & [facility] Coding staff will review the response and follow-up if needed. Please note: Queries are made part of the Legal Health Record. If you have any questions, please contact the author of this message via ITS. Dr. Ubaldo Arroyo: Conflicting documentation has been found in the medical record: Per the 01/28 Cardiology Progress Note: "The patient has a severe ischemic cardiomyopathy." Per the 01/29 Cardiology Progress Note: "The patient has a severe non-ischemic cardiomyopathy." History/Risk Factors: Hypertension, Hyperlipidemia, Prostate CA with implants, CAD w/stent circumflex, "severe" cardiomyopathy, Chronic systolic heart failure with EF 25%, Bradycardia status post AICD & recurrent left side pleural effusion with Pleurx cathh insertion, smoker x50 years. Clinical Indicators: Presented to the ED on 01/19 with SOB, has Pleurx cath which he drains himself, hypoxic & low BP. Diagnosed with Acute on chronic systolic heart failure, Severe cardiomyopathy, nos; Chronic left side pleural effusion, Cardiogenic shock. 01/20 ECHO: Resting tachycardia, HR >100 bpm, Pacer wires in RV & RA, Left ventricle moderately dilated, Moderate concentric LVH, Left ventricular systolic function severely impaired w/EF <20%, Right ventricle mild-mod enlarged, Mild aortic valve sclerosis, Moderate MR, Moderate TR, Mild-mod pulmonary hypertension, Trace/mild pulmonic regurgitation. Treatment: 01/19: IV Lasix, IV fluid bolus 500 mls @ 999 mls/hr, IV Zosyn, IV Dobutamine, IV Levophed, po ASA, po Plavix, po Lasix. 01/24: IV Lasix, IV Rocephin. IV Lasix & antibiotics continued. In your opinion, please clarify the type of severe cardiomyopathy: Severe Ischemic Cardiomyopathy Severe Non-ischemic Cardiomyopathy Other, please specify: Unable to determine (Last Revision: February 2018) Query response documented by Dr. VC Arroyo in 01/03 PN & also subsequent PNs by Dr. VC Arroyo & Dr. Swapnil Ordaz: Severe ischemic cardiomyopathy MTDD
--- NOTE | 2020-01-31 11:13 | CDI ---
Documentation Clarification Form Date: 01/31/2020 10:51:31 AM From: Chante Giraldo CCS, CCDS Admit Date: 01/21/2020 01:37:00 AM Patient Name: Derick Barney Visit Number: [id number] Discharge Date: ATTENTION: The Clinical Documentation Specialists (CDI) and [facility] Coding Staff appreciate your assistance in clarifying documentation. Please respond to the clarification below the line at the bottom and electronically sign. The CDI & [facility] Coding staff will review the response and follow-up if needed. Please note: Queries are made part of the Legal Health Record. If you have any questions, please contact the author of this message via ITS. Dr. Kobi Oakley: Cardiorenal syndrome is documented throughout the chart without mention of Chronic Kidney Disease: o 01/21, 01/22, 01/23, 01/24, 01/25, 01/26, 01/29, Pulmonary Progress Notes. o 01/29, 01/30 Nephrology Progress notes. o 01/21 Cardiology Progress Notes. History/Risk Factors: Chronic systolic heart failure w/EF 20-25%, Severe cardiomyopathy, Chronic left side pleural effusion with Pleurx Cath, CAD w/stent, [place], Hyperlipidemia, Prostate CA status post radiation, Fatty liver. Clinical Indicators: Admitted 01/20 with acute on chronic systolic heart failure, Severe cardiomyopathy w/AICD, Chronic left side pleural effusion w/Pleurx cath, Cardiogenic shock secondary to severe cardiomyopathy. GFR: 01/19: 66; 01/20: 65; 01/21: 47; 01/22: 87; 01/23 >90; 01/24: 88; 01/25: 86; 01/26: 81- 67; 01/27: 70; 01/28: 44-40; 01/29: 41; 01/30: 41. BUN: 01/19: 32; 01/20: 32; 01/21: 41; 01/22: 33; 01/23: 28; 01/24: 26; 01/25: 24; 01/26: 25 - 29; 01/27: 28; 01/28: 31-33; 01/29: 33; 01/30: 35 Creatinine: 01/21: 1.46; 01/28: 1.56 - 1.57; 01/29: 1.64; 01/30: 1.65 LAB 01/19:Na 133*, K 5.5&, Glucose 126^, Lactic Acid 4.2^^, AST 198^, ALT 173^, Alk Phos 287^, Trop 0.091. Treatment on admission: IV Lasix, IV fluid bolus 500 mls @ 200 mls/hr, IV Dobutamine, IV Levophed. 01/21: IV NaBicarb, IV Calcium Gluconate, IV Insulin, IV Dextrose/Water. 01/24 IV Lasix, IV Rocephin. In order to capture the severity of condition, please clarify the stage of the CKD, if known: CKD Stage 1 (GFR > 90) CKD Stage 2 (GFR 60-89) CKD Stage 3 (GFR 30-59) Other, please specify Unable to determine (Last Revision: December 2019) ckd, unable to determine now MTDD
--- NOTE | 2020-01-31 12:06 | US ---
EXAMINATION TYPE: US venous doppler duplex LE DATE OF EXAM: 01/31/2020 12:00 PM COMPARISON: NONE CLINICAL HISTORY: rt dvt/swelling. Bilateral lower ext. edema/ CHF exacerbation SIDE PERFORMED: Bilateral TECHNIQUE: The lower extremity deep venous system is examined utilizing real time linear array sonog chelo with graded compression, doppler sonography and color-flow sonography. VESSELS IMAGED: Common Femoral Vein Deep Femoral Vein Greater Saphenous Vein * Femoral Vein Popliteal Vein Small Saphenous Vein * Proximal Calf Veins (* superficial vessels) Right Leg: Negative for DVT Left Leg: Negative for DVT Grayscale, color doppler, spectral doppler imaging performed of the deep veins of the bilateral lower extremities. There is normal flow and compressibility. Abnormal pulsatile waveforms suggest product of right heart failure. IMPRESSION: No ultrasound evidence for acute DVT in either lower extremity.
--- NOTE | 2020-01-31 12:26 | P.PN ---
Subjective Progress Note Date: 01/31/20 Principal diagnosis: Acute Severe systolic congestive heart failure This is a 74-year-old male patient with known history of coronary artery disease with previous coronary intervention and stenting of the circumflex in addition to history of severe cardiomyopathy with an ejection fraction of 25% and chronic systolic dysfunction and severe resting bradycardia close the was chamber ICD placement. The patient was also having recurrent left-sided pleural effusion and he underwent a Pleurx catheter insertion back in August 2019 by cardiothoracic surgery. He has been undergoing daily drainage from his left lung and he typically drinks approximately 200 mL of pleural fluid.. The patient also has hypertension, prostate cancer and he has been treated with prostatic radiation therapy/implants. He has also history of osteoarthritis. The patient is an ex-smoker. 33-momo-vyew smoking history. He came into the hospital because of worsening shortness of breath.. His been progressively getting more short of breath over the past month. His shortness of breath is essentially exertional and he also has orthopnea. No reported chest pain. No reported cough or sputum production. He is an ex-smoker. No wheezing. No previous history of DVT or pulmonary embolism. No fever. The white cell count at time of admission was 7.8. Hemoglobin was at 13.8. Coagulation profile was within normal. D-dimer was elevated at 4.08 and based on that the patient was given a CT angiogram that showed no evidence of any pulmonary embolism. 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 No evidence of any pneumonia. No evidence of any airspace disease. There was a 3 cm poorly marginated infiltrate in the right lower lobe and the significance of this abnormality is not known. In the emergency department, the patient was having episodes of hypotension. His systolic blood pressure was as low as 75. He was given pressors and currently is running on low-dose levothyroid at 0.03 g per KG per minute. His cardiac rhythm is ventricularly paced at the rate of 100. Note that the patient some minimal troponin elevation. ProBNP level was quite elevated. Lactic acid level was 4.2, admission dropped down to 2 and currently is on IV with KVO. The patient is seen today 01/22/2020 in follow-up in the intensive care unit. He is currently awake and alert in no acute distress. Sitting up at the bedside. Maintaining O2 saturations in the 90s on 4 L/m per nasal cannula. Today's chest x-ray continues to show evidence of fluid volume overload. Echocardiogram reveals ejection fraction less than 20%. He is still requiring a small amount of norepinephrine at 0.03 mcg/kg/m. Potassium is 6.3. Sodium 130. Creatinine 1.46. White count 7.9. Hemoglobin 13.6. Troponin 0.077. He remains on Lasix 40 mg by mouth twice a day. Still remains in a positive balance. Weight is stable. The patient is seen today 01/23/2020 in follow-up in the in the chair at the bedside. Maintaining O2 saturations in the 90s on 4 L/m per nasal cannula. Chest x-ray showing improvement in the volume status. He is breathing a bit easier today compared to yesterday, he is complaining of weakness and fatigue. He is currently on norepinephrine at 0.04 mcg/kg/m. Dobutamine at 5 mcg/kg/m. Maintaining adequate urine output. Blood and urine cultures reveal no growth. White count 7.6. Hemoglobin 13.1. sodium 130. Creatinine 0.85. Potassium 4.8. TSH 5.68. T4 1 0.38. the patient is seen today 01/24/2020 in The intensive care unit. He is awake and alert in no acute distress. Maintaining good O2 saturations in the 90s on 4 L/m per nasal cannula. Chest x-ray continues to show some worsening congestive heart failure with mild underlying emphysema. There is increased central alveol interstitial edemaand/or infiltrates. Pleural fluid cultures reveal no growth. Blood cultures reveal no growth. He continues on norepinephrine at 0.01 mcg/kg/min. Remains on Dobutamine at 5 mcg/kg/min. White count 5.7. Hemoglobin 12.8. Potassium 5.3. 5.3. Creatinine 0.75. He remains on midodrine TID. BP marginal. On lasix 40 BID. The patient is seen today 01/27/2020 in follow up in the ICU. He is currently resting comfortably in bed. Awake, alert in no acute distress. He did have issues with anxiety earlier this a.m. Treated with Xanax and improved. Chest x-ray continues to show persistent left basilar opacity and left midlung opacity. Plan to drain fluid again today per Pleurx. We will send more cultures and fluid analysis. Cultures have been revealing Staphylococcus epidermidis and Acinetobacter. Follow-up cultures with coag-negative staph. vancomycin will be added Continue ceftriaxone. Dobutamine at 2.5 mcg/kg/m. Remains off norepinephrine. White count 5.4. Hemoglobin 11.9. Sodium 128. Potassium 5.2. Creatinine 0.94. On today's evaluation of 01/28/2020 the patient is feeling okay and he denies having any worsening shortness of breath. There was a concern of a left-sided pleural space infection. The patient a Pleurx catheter in place. There have been 2 cultures that are showing coagulase-negative staph, staph epidermidis in one of the cultures showed inflammatory except a glucose and Acinetobacter. The patient was placed on a combination of Rocephin and vancomycin. Nevertheless the fluid was reevaluated and analyzed. The fluid LDH and protein remains on a cell count remains low as not suggestive of any empyema or pleural space infection. Noted the patient is undergoing drainage and a daily basis. He is feeling well. He is on dobutamine at a dose of 2.5 mcg/kg per minute. He may need norepinephrine infusion on and off to maintain his blood pressure. His white cell count is not elevated. Sodium level is at 128 which is inconsistent with his CHF. Pro-calcitonin level was at 0.17. The chest x-ray from today showed retrocardiac opacity that may represent an underlying pleural effusion/atelectasis. Right lung essentially clear. No fever no chills. Altered mentation. No other significant events overnight. The patient is producing a better urine output. Balance is -6 20 mL over the past 24 hours. On today's evaluation of 01/29/2020, the patient is feeling well. He is sitting up on a chair. He is on dobutamine 2.5 mcg/kg per minute. He is on no Lasix for now. Repeat fluid evaluation from the pleural drainage showed coagulase-neg ative staph epidermidis. The patient is on vancomycin. I'm not absolutely sure there is a true infection. The fluid analysis came back negative for infection or exudate in bottom turner to be severely a transudative fluid and the white cells and the pleural fluid is low. The total amount of output from yesterday's drainage was 25 mL. He is afebrile. He has no significant leukocytosis. I am going to ask IDs opinion regarding the possibility of a pleural space infection which I think it's not highly likely at this point in time. Meanwhile, the patient's creatinine is up to 1.5. This is to be monitored. No angina. No palpitation. No other complaints otherwise. Vancomycin level needs to be checked also. He is being supported with norepinephrine infusion for blood pressure support. Reevaluated today on 01/30/20, patient was seen in the intensive care unit, remains on Dobutrex at 2.5 mcg/kg/m, he is also on Lasix, feeling better, breathing easier, responding well to diuretics. However considering that the patient is still on Dobutrex, I plan to keep him in the ICU for the next 24 hours. Patient is not requiring any norepinephrine. Chest x-ray continues to show some retrocardiac loculated pleural effusion in the left hemithorax, and improving interstitial edema. WBC count is 7.4 hemoglobin is 11.5. Electrolytes showed elevated potassium of 5.5 sodium is 129 BUN is 33 and creatinine is 1.64. Albumin is 2.8 Reevaluated today on 01/31/20, patient was taken off dobutamine yesterday, however after dobutamine was discontinued, his urine output was extremely poor. He was placed back again by cardiology on dobutamine, and he remains on diuretics, and his urine output is excellent. Patient is feeling better, breathing easier. Hardly any cough no wheezing no shortness of breath, continues to have left pleural effusion, with a Pleurx catheter remains in place. Chest x-ray is suggestive of interstitial edema. Cytology from the pleural effusion remains pending. Patient was noted to have asymmetrical swelling of the lower extremities today, hence a venous Doppler was done. It was negative for deep vein thrombosis. Labs from today were reviewed. Creatinine is 1.65. Holding about the same over the last 4 days. Remains on diuretics as per nephrology Objective - Vital Signs Vital signs: Vital Signs Temp 97.8 F 01/31/20 08:00 Pulse 101 H 01/31/20 10:15 Resp 16 01/31/20 10:15 BP 94/73 01/31/20 10:15 Pulse Ox 97 01/31/20 10:15 Intake & Output 01/30/20 01/31/20 01/31/20 18:59 06:59 18:59 Intake Total 988.038 825 100 Output Total 689 1344 70 Balance 299.038 -519 30 Weight 93.6 kg Intake: IV 750 550 100 Normal saline 750 550 100 Intake, IV Titration 238.038 Amount DOBUTamine DRIP 500 mg In 238.038 Dextrose/Water 1 250ml. bag @ 5 MCG/KG/MIN 12.655 mls/hr IV .[id number] TOD Rx#:[id number] Norepinephrine 4 mg In 0 Sodium Chloride 0.9% 250 ml @ 0.05 MCG/KG/MIN 16. 072 mls/hr IV .[id number] TOD Rx#:[id number] Oral 275 Output: Chest Tube Drainage 220 Pleural Catheter Left Mid 220 -Axillary Chest Urine 469 1344 70 Other: Voiding Method Indwelling Catheter Indwelling Catheter Indwelling Catheter - Exam Physical Exam: Revealed 74-year-old white male on 4 L nasal cannula, in no distress. Head: Atraumatic, normocephalic. HEENT:[Neck is supple.] [No neck masses.] [No thyromegaly.] [No JVD.] PERRLA, EOMI, no icterus. Throat is clear. Chest: [Symmetrical chest expansion, diminished breath sounds at the bases and crackles, no rhonchi and no wheezes.] Pleurx catheter noted on the left side Cardiac Exam: [Normal S1 and S2, no S3 gallop, 2/6 systolic murmur thought the precordium. Abdomen: [Soft, nontender, no megaly, no rebound, no guarding, normal bowel sounds.] Extremities: [No clubbing, asymmetric of swelling and edema noted in the right lower extremity compared to left lower extremity hence venous Doppler was done and it was negative Neurological Exam: [No focal neurologic deficit.] Alert oriented 3. Psychiatric: Normal mood, affect and normal mental status examination. Skin: No rashes. - Labs CBC & Chem 7: 01/31/20 04:10 01/31/20 04:10 Labs: Abnormal Lab Results - Last 24 Hours (Table) 01/30/20 01/30/20 01/31/20 Range/Units 18:15 20:09 04:10 RBC (4.30-5.90) m/uL Hgb (13.0-17.5) gm/dL Hct (39.0-53.0) % MCHC (31.0-37.0) g/dL RDW (11.5-15.5) % Sodium 132 L (137-145) mmol/L Potassium 6.1 H* (3.5-5.1) mmol/L BUN 35 H (9-20) mg/dL Creatinine 1.65 H (0.66-1.25) mg/dL Glucose 65 L (74-99) mg/dL POC Glucose (mg/dL) 123 H (75-99) mg/dL 01/31/20 01/31/20 Range/Units 04:10 05:17 RBC 4.03 L (4.30-5.90) m/uL Hgb 11.3 L (13.0-17.5) gm/dL Hct 37.1 L (39.0-53.0) % MCHC 30.6 L (31.0-37.0) g/dL RDW 17.8 H (11.5-15.5) % Sodium (137-145) mmol/L Potassium (3.5-5.1) mmol/L BUN (9-20) mg/dL Creatinine (0.66-1.25) mg/dL Glucose (74-99) mg/dL POC Glucose (mg/dL) 71 L (75-99) mg/dL Microbiology - Last 24 Hours (Table) 01/27/20 14:30 Anaerobic Culture - Final Pleural Fluid Assessment and Plan Assessment: Impression: Acute hypoxic respiratory failure secondary to acute severe systolic congestive heart failure. And impaired LV function. Coronary artery disease and previous non-ST elevation myocardial infarction, possible acute non-ST elevation myocardial infarction on this admission. Chronic left-sided pleural effusion, status post Pleurx catheter insertion. Biventricular AICD placement. History of prostate cancer followed by radiation and presently on Lupron injections. Degenerative joint disease. Acute kidney injury, improving. Could be cardiorenal in nature. Recommendation: Continue Pleurx catheter drainage, Continue diuretics. Continue dobutamine. Continue to monitor electrolytes and renal profile daily. Continue to monitor in the ICU while on Dobutrex. We'll continue to follow Time with Patient: Less than 30
--- NOTE | 2020-01-31 13:12 | P.PN ---
Subjective Progress Note Date: 01/31/20 This is a 74-year-old male patient of Dr. Burnett, Dr. Gilbert and Dr. Xi Ordaz with a previous medical history significant for hypertension, hyperlipidemia, osteoarthritis, prostate cancer that was diagnosed back in 2006 status post implants as well as Lupron injection, coronary artery disease with stent of the circumflex, severe cardiomyopathy and chronic systolic heart failure with known ejection fraction of 25%, bradycardia status post AICD implantation, recurrent left-sided pleural effusion status post Pleurx catheter insertion August 2019 by cardiothoracic surgery. Patient drains this himself or his daughter of 100-200 mL subpleural fluid daily. Patient also has history of hypertension, [id number] smoking history. Patient complains of shortness of breath for the past month gradually worsening. Shortness of breath is exceptionally worse with exertion. No chest pain, no cough or sputum production, reports weight loss. He complains of nausea occasionally, no abdominal pain. He complains of lightheadedness. He denies any use of steroids for the past 6 weeks. He denies any change and his medications recently. Patient relates that he has been using his mother's home oxygen at 4 L nasal cannula around the clock. Patient came into [facility] emergency center for evaluation, WBC 7.8, hemoglobin 13.8, d-dimer elevated at 4.08. CT angiogram of the chest did not show any pulmonary embolism. There was a small right-sided loculated pleural effusion along with pseudotumor in the left lung consistent with pleural fluid. No evidence of pneumonia. No airspace disease. 3 cm poorly marginated infiltrate in the right lower lobe and significance is unknown. Patient was hypotensive in the emergency center with systolic blood pressure down to 75. He was started on vasopressors and admitted into the intensive care unit with consults in place for pulmonary medicine and cardiology. Abdominal ultrasound revealed mild gallbladder wall thickening and air fluid that could relate cholecystitis. Heart failure also possible. Small gallstone or gallbladder polyp. Fatty liver. 01/21: Patient remains in intensive care unit. He is seen today sitting in the recliner. His breathing appears to be more comfortable. Patient states that he is feeling tight and did not sleep well last night. We will plan to increase melatonin dose. Patient has been seen by cardiology this morning and started on dobutamine. Patient is currently on norepinephrine as well. Echocardiogram reveals ejection fraction less than 20%, moderate mitral regurgitation, moderate tricuspid regurgitation, mild to moderate pulmonary hypertension.. Potassium this morning is 6.3 and pulmonary medicine has ordered insulin and dextrose. Patient is to be redrawn at noon today. WBC 7.9, hemoglobin 13.6, troponin 0.077. BUN 41 and creatinine 1.46. Acute hepatitis panel negative. Patient is currently on Lasix 40 mg oral twice daily. TSH will be ordered. Chest x-ray reveals changes of heart failure with interstitial pulmonary edema. Continued moderate left effusion with prominent left basilar atelectasis and/or consolidation. Slight worsening aeration of the right base 01/22: Patient has been afebrile, heart rate 97, blood pressure 95/68, pulse ox 98% on 4 L nasal cannula. Repeat blood work reveals CBC unremarkable, sodium 1:30, potassium 4.8, chloride 96, CO2 25, BUN 33 and creatinine 0.85. AST 126, ALT 145, alkaline phosphatase 262. TSH 5.680 and free T4 1 0.38. Patient remains in the intensive care unit. Dobutamine drip increased to 5. Patient remains on levofloxacin as well. Patient states that he did not sleep last night. He is utilizing Xanax twice daily. He denies having any chest pain and no lower extremity edema. He does complain of shortness of breath. No lightheadedness or dizziness. Cytomel added and midodrine increased to 10 mg 3 times daily. Patient is concerned about his mother and his friend staying with her at this time. We will communicate with Dr. Burnett and ask for home care service to be arranged for his mother. Do not anticipate that he will be ready for discharge for another 48-72 hours. 01/23: Patient remains in intensive care unit on dobutamine at 5 mcg/kg/m and levo fed which is to be weaned off. Dr. Napoles is planning for another 24 hours of IV dobutamine. Patient states that he is feeling off today complaining of nausea. He states he did get some sleep last night. Patient has been noted to be more anxious and due to lack of appetite and insomnia, Remeron will be added. He continues to have shortness of breath with minimal activity. He remains awake and alert but he is stating that he wants to go home. We did arrange for home care for his mother yesterday. WBC 5.7, hemoglobin 12.8, potassium 5.3, creatinine 0.75. We did start midodrine yesterday 3 times daily 10 mg. The blood pressure seems to be stable today. Chest x-ray showing worsening CHF for developing ARDS on background mild underlying emphysematous change there is increasing central alveolar and interstitial edema and/or infiltrates and cardiomegaly. No concern for ARDS at this point per Dr. Contreras. Culture on Pleurx fluid is staph epidermidis. 01/24: Repeat chest x-ray reveals similar moderate pulmonary vascular congestion and interstitial edema likely on the basis of decompensated heart failure. Retrocardiac airspace disease is also stable that may represent small plural effusion and atelectasis or less likely pneumonia. Patient is afebrile, heart rate running between 76 and 106, blood pressure 95/75, pulse ox 96% on 2 L nasal cannula. Repeat lab work reveals unremarkable CBC. Sodium 1:30, potassium 5.4, chloride 97, CO2 22, BUN 26 and creatinine 0.81. Pleural fluid was Staphylococcus epidermidis and alphahemolytic streptococcus. Yesterday evening, patient was attempting to leave the intensive care unit in and removed threat monitoring analyst and IV. Patient was returned to his room and IV access and monitoring was resumed. Patient is alert at this time. Nursing passes on that patient awakes and is very confused. He has not had consistent of sleep. Patient complains of feeling tired. Pulmonary has resumed his Seroquel and Effexor. We will continue Remeron as well both Seroquel and Remeron move to supper time. Patient is still on dobutamine for another 24 hours. He has been off norepineph rine since yesterday at 11 AM. He has a sitter at the bedside at this time. Consult added for Dr. Brown regarding hyponatremia. 01/25: Patient continues to have episodes of confusion but is easily reoriented. He is cooperative and follows commands during these episodes. He is able to answer all questions appropriately to time place and person. Ammonia level from yesterday was less than 9. He is continued on dobutamine drip at 5 g for another 24 hours.. Patient was given 1 dose of IV Lasix 40 mg this morning. Patient has been seen by Dr. Brown and ordered Lasix IV 40 mg every 12 hours. Urine osmolality 497, cortisol level 22. Sodium 129, potassium 5.4, chloride 95, CO2 28, BUN 24 and creatinine 0.86. WBC 6.2, hemoglobin 9.6, platelet count 226. Pro-calcitonin 0.14. Repeat chest x-ray reveals stable retrocardiac opacities may again represent small pleural effusion and atelectasis or less likely pneumonia. Primary consideration is decompensated congestive heart failure. 01/26: Patient remains in the intensive care unit. He continues to have episodes of confusion but is easily reoriented. He is having occasional panic attack with increased anxiety. We will resume Xanax and continue his other psychiatric medications. He did sleep well last night most likely related to the Remeron and melatonin. Dobutamine has been decreased today to 2.5 mcg/kg/m. He is off norepinephrine. Repeat lab work reveals WBC 5.4, hemoglobin 11.9, sodium 128, potassium 5.2, creatinine 0.94. Dr. Brown is on consult regarding hyponatremia. 314: Patient remains in intensive care unit sitting up in chair. He is complaining of pain to the right groin. Denies any dizziness or chest pain. Continues to have shortness of breath. He has not had any episodes of confusion overnight or today. Patient states that he slept well during the evening. Dobutamine continues to be at 2.5 MCG/KG/M. However he continues to be hypotensive. Morning meds were held due to his pressure. Sodium 128, potassium 5.1, BUN 28, creatinine 1.06 01/28: Patient remains in intensive care unit sitting up in bed. Patient has no complete concerns at this time. He denies any difficulty breathing or shortness of breath. He continues to be on dobutamine and hypotensive. Hemoglobin 11.2, sodium 127, potassium 5.6, BUN 31, creatinine 1.56, AST 86, ALT 88, alkaline phosphatase 206. The Pleurx catheters in place. Patient is producing better urine output. 01/29: Patient remains in the intensive care unit. Dobutamine was discontinued this morning. Patient is complaining of having dizziness on and off. Blood pressure is been marginal. He is scheduled for one dose of Lasix 40 a blood pressure is maintained. Patient is also complaining of significant weakness. He continues to have lower extremity edema. Confusion episodes have been less frequent. Patient is afebrile, heart rate 76, blood pressure 90/60, pulse ox 96% on 2 L nasal cannula. Repeat blood work reveals WBC 7.4, hemoglobin 11.5, platelet count 225. Sed rate 24, C-reactive protein 60.3. Sodium 129, potassium 5.5, chloride 99, CO2 23, BUN 33, creatinine 1.64. Blood sugar 65. Liver function tests remain elevated with AST 78, ALT 83, alkaline phosphatase 223. Pro-calcitonin 0.52. Patient has been on IV antibiotics in the form of vancomycin. Patient has been seen by Dr. Sen with recommendations for either Bactrim or doxycycline depending on kidney function at time of discharge for one to 2 week course. 01/30: Patient was unable to be weaned off dobutamine yesterday. He has been continued on dobutamine. He has had essentially no urine output. He received Lasix 40 mg yesterday followed by Lasix 80 mg IV push. Patient is complaining of feeling dizzy. He is up to the chair into bed only. He has been afebrile, heart rate 98, blood pressure 80/69, pulse ox 95%. Repeat blood work reveals WBC 6.5, hemoglobin 11.5, platelet count 206. Sodium 132, potassium 4.9, chloride 101, CO2 23, BUN 35 and creatinine 1.65. Blood sugars running between [address] Ramirez discussed with the patient his current condition and prognosis in detail. Discussed option of no CODE STATUS and also of hospice care. This was previously discussed over the weekend with the patient as well. Patient seems to understand. Case management has been updated. Nursing to discuss with cardiology in order for them to further give patient details on his prognosis regarding his cardiac function and prognosis. Venous duplex of the bilateral lower extending negative for DVT. Objective - Vital Signs Vital signs: Vital Signs Temp 97.8 F 01/31/20 08:00 Pulse 102 H 01/31/20 08:00 Resp 18 01/31/20 08:00 BP 109/66 01/31/20 08:00 Pulse Ox 94 L 01/31/20 08:00 Intake & Output 01/30/20 01/31/20 01/31/20 18:59 06:59 18:59 Intake Total 988.038 825 100 Output Total 689 1344 70 Balance 299.038 -519 30 Weight 93.6 kg Intake: IV 750 550 100 Normal saline 750 550 100 Intake, IV Titration 238.038 Amount DOBUTamine DRIP 500 mg In 238.038 Dextrose/Water 1 250ml. bag @ 5 MCG/KG/MIN 12.655 mls/hr IV .[id number] [facility] Rx#:[id number] Norepinephrine 4 mg In 0 Sodium Chloride 0.9% 250 ml @ 0.05 MCG/KG/MIN 16. 072 mls/hr IV .[id number] [facility] Rx#:[id number] Oral 275 Output: Chest Tube Drainage 220 Pleural Catheter Left Mid 220 -Axillary Chest Urine 469 1344 70 Other: Voiding Method Indwelling Catheter Indwelling Catheter Indwelling Catheter - Exam Review of Systems Constitutional: Reports fatigue, Reports lethargy, Reports poor appetite, Reports weakness, Reports weight loss, Denies chills, Denies fever, reports daytime sleepiness Ears, nose, mouth and throat: Denies dysphagia, Denies headache, Denies nasal congestion, Denies nasal discharge, Denies sore throat, reports vertigo Cardiovascular: Reports decreased exercise tolerance, Reports dyspnea on exert ion, Reports lightheadedness, Reports orthopnea, Reports shortness of breath, Denies chest pain, Denies palpitations, Denies syncope Respiratory: Reports dyspnea slightly improved, Reports home oxygen, Denies cough, Denies cough with sputum, Denies excessive sputum, Denies hemoptysis, Denies respiratory infections, Denies sleep apnea, Denies wheezing Gastrointestinal: Reports loss of appetite, Reports nausea, Denies abdominal pain, Denies diarrhea, Denies vomiting Genitourinary: Denies dysuria, Denies urinary retention Musculoskeletal: Reports muscle weakness, Denies frequent falls, Denies gait dysfunction Integumentary: Denies pruritus, Denies rash Neurological: Reports change in mentation, Denies change in speech, Denies numbness, reports weakness Psychiatric: Reports anxiety, reports depression, reports insomnia Endocrine: Denies fatigue, Denies weight change Physical examination Gen: This is a 74-year-old male. Patient is sitting up on the edge of the bed. No respiratory distress noted. HEENT: Head is atraumatic, normocephalic. Pupils equal, round. Sclerae is anicteric. NECK: Supple. No JVD. No lymphadenopathy. No thyromegaly. LUNGS: Diminished breath sounds Pleurx catheter in the left. HEART: Regular rate and rhythm. Systolic murmur. ABDOMEN: Soft. Bowel sounds are present. No masses. No tenderness. EXTREMITIES: 2+ pedal edema. No calf tenderness. Dorsalis pedis +2 bilaterally. NEUROLOGICAL: Patient is awake, alert and oriented x3. Cranial nerves 2 through 12 are grossly intact. - Labs CBC & Chem 7: 01/31/20 04:10 01/31/20 04:10 Labs: Abnormal Lab Results - Last 24 Hours (Table) 01/30/20 01/30/20 01/30/20 Range/Units 04:49 18:15 20:09 RBC (4.30-5.90) m/uL Hgb (13.0-17.5) gm/dL Hct (39.0-53.0) % MCHC (31.0-37.0) g/dL RDW (11.5-15.5) % Sodium (137-145) mmol/L Potassium 6.1 H* (3.5-5.1) mmol/L BUN (9-20) mg/dL Creatinine (0.66-1.25) mg/dL Glucose (74-99) mg/dL POC Glucose (mg/dL) 123 H (75-99) mg/dL Procalcitonin 0.52 H (0.02-0.09) ng/mL 01/31/20 01/31/20 01/31/20 Range/Units 04:10 04:10 05:17 RBC 4.03 L (4.30-5.90) m/uL Hgb 11.3 L (13.0-17.5) gm/dL Hct 37.1 L (39.0-53.0) % MCHC 30.6 L (31.0-37.0) g/dL RDW 17.8 H (11.5-15.5) % Sodium 132 L (137-145) mmol/L Potassium (3.5-5.1) mmol/L BUN 35 H (9-20) mg/dL Creatinine 1.65 H (0.66-1.25) mg/dL Glucose 65 L (74-99) mg/dL POC Glucose (mg/dL) 71 L (75-99) mg/dL Procalcitonin (0.02-0.09) ng/mL Microbiology - Last 24 Hours (Table) 01/27/20 14:30 Anaerobic Culture - Final Pleural Fluid Assessment and Plan Plan: 1. Acute on chronic systolic heart failure with known ejection fraction of 25%. Repeat echocardiogram as above. Dobutamine drip has been continued. Patient is currently off norepinephrine. Lasix 60 mg IV once. Lasix is being dosed daily. Continue midodrine 10 mg 3 times daily. 2. Severe cardiomyopathy status post AICD. 3. Chronic left-sided pleural effusion status post pleural catheter insertion. Nursing is draining once daily. Culture positive for alpha hemolytic strep and Streptococcus epidermidis. Continue vancomycin. Dr. Sen consult appreciated. 4. Cardiogenic shock secondary to severe cardiomyopathy requiring vasopressors. Patient is currently off norepinephrine. 5. History of coronary artery disease status post stenting of circumflex with mild elevation of troponins, possible acute non-ST ID. Cardiology consult. Aspirin 81 mg daily, Lipitor 40 mg daily, Plavix 75 mg daily, 6. Hyperlipidemia. 7. History of prostate cancer status post radiation therapy and Lupron injec tions. 8. Elevated liver function tests possibly related to combination of heart failure and fatty liver. Acute hepatitis panel negative. 9. Generalized anxiety disorder. Continue Xanax 2.5 mg twice daily and Remeron 7.5 mg. 10. Hyperkalemia. Continue Lasix, no potassium supplementation. 11. DVT prophylaxis. Heparin subcu. 12. GI prophylaxis. Pepcid. 13. Hyponatremia. Consult with nephrology appreciated. 14. Acute metabolic encephalopathy secondary to insomnia and ICU hospita lization. Continue Seroquel and Effexor and continue Remeron as well and melatonin 10 mg at bedtime. 15. Hypothyroidism. Patient was started on Cytomel 5 g daily. 16. Recurrent depression. Continue Seroquel 50 mg daily and Effexor 100 mg twice daily. Discharge plan: To be determined. Most likely return home. Possibly home with hospice. CODE STATUS: CODE STATUS has been discussed with the patient with recommendations for no code due to current treatment and prognosis. CODE STATUS is currently full code. Impression and plan of care have been directed as dictated by the signing phys braulio. Funmilayo Diaz nurse practitioner acting as scribe for signing physician.
[2020-01-31] MEDS: DOBUTamine DRIP 500 MG in DEXTROSE/WATER 1 250ML.BAG IV SCH (13:36)
[2020-01-31] MEDS ORDERED: SODIUM CHLORIDE 0.65% NASAL SPRAY 44 ML BTL NASAL PRN (13:59)
[2020-01-31] MEDS: QUEtiapine 50 MG TAB PO SCH (17:31)
--- NOTE | 2020-01-31 19:45 | PN ---
PROGRESS NOTE This patient's electronic medical records and the lab tests and vital signs were reviewed. This patient is seen for acute on chronic systolic heart failure with severely impaired left ventricular systolic function. The patient's dobutamine was weaned off yesterday. Subsequently patient's urine output dropped and he became slightly hypotensive and so the dobutamine drip was started again and the patient's subsequent urine output is improved. Yesterday, patient's random urine sodium was 40, which is less than optimal. We will recheck the urine sodium today after the morning dose of the Lasix. He is feeling comfortable. He is not short of breath. I had some discussion with the patient regarding his code status. We will also discuss with the patient's family members. Patient's overall prognosis is very guarded. I would also recommend a primary care PCP to discuss with the family members about the code status. We will at present continue the dobutamine drip. We will slowly wean him down to 2.5 mics over next 24 hours and see how he is responding. Blood pressure is 109/66 mmHg. Heart rate is 100 per minute. First and second heart sounds are normal. Lungs reveal bilateral diminished air entry and basal rales are noted. The creatinine is 1.6. At present we will continue the current medications. MMODL / IJN: [id number] /
[2020-01-31] MEDS: MELATONIN 5 MG TABLET PO SCH (21:59)
--- NOTE | 2020-01-31 22:42 | PN ---
PROGRESS NOTE DATE OF SERVICE: 01/31/2020. REASON FOR FOLLOWUP: PleurX catheter culture positive for Staph epidermidis. INTERVAL HISTORY: The patient is currently afebrile. The patient has been sleeping today. The patient apparently cannot be weaned off of dobutamine. No vomiting or any diarrhea has been reported. Patient was unable to provide any history today. PHYSICAL EXAMINATION: Blood pressure 93/50 with a pulse of 100, temperature 98. He is 97% on 3 L nasal cannula. General description is an elderly male lying in bed in no distress. RESPIRATORY SYSTEM: Unlabored breathing with decreased breath sounds at the base. No wheeze. HEART: S1, S2. Regular rate and rhythm. ABDOMEN: Soft. No tenderness. LABS: Hemoglobin 11.3, white count 6.5, creatinine 1.65. Vancomycin level of 16. Blood culture on admission negative. DIAGNOSTIC IMPRESSION AND PLAN: Patient with a positive pleural fluid culture with Staphylococcus epidermidis in this patient who did have a PleurX catheter with a question of possible colonization versus mild infection. The patient infection . He is on vancomycin. Transition to oral on discharge. Monitor his clinical course closely. MMODL / IJN: [id number] /
[2020-02-01] MEDS: ALPRAZolam 0.25 MG TAB PO PRN (02:24)
[2020-02-01 05:34] LABS: Anisocytosis Slight; Basophils % (A) 1 %; Eosinophils # (A) 0.1 k/uL (0-0.7); Eosinophils % (A) 2 %; HCT 37.3 % (39.0-53.0); HGB 11.4 gm/dL (13.0-17.5); Hypochromasia Marked; Lymphocytes # (A) 0.5 k/uL (1.0-4.8); Lymphocytes % (A) 8 %; MCH 27.9 pg (25.0-35.0); MCHC 30.5 g/dL (31.0-37.0); MCV 91.5 fL (80.0-100.0); Mean Platelet Volume 7.9; Monocytes # (A) 0.4 k/uL (0-1.0); Monocytes % (A) 8 %; Neutrophils # (A) 4.3 k/uL (1.3-7.7); Neutrophils % (A) 78 %; Platelet Count 231 k/uL (150-450); RBC 4.08 m/uL (4.30-5.90); RDW 17.6 % (11.5-15.5); WBC 5.5 k/uL (3.8-10.6)
[2020-02-01 05:44] LABS: Albumin 2.7 g/dL (3.5-5.0); Calcium 9.7 mg/dL (8.4-10.2); Potassium 4.9 mmol/L (3.5-5.1); Total Bilirubin 0.6 mg/dL (0.2-1.3); Total Protein 5.9 g/dL (6.3-8.2)
[2020-02-01 05:49] LABS: Vancomycin,Random 17.5 ug/mL
[2020-02-01] MEDS: VENLAFAXINE HCL 50 MG TAB PO SCH ×2 (06:56→18:13)
[2020-02-01] MEDS: MIDODRINE 5 MG TAB PO SCH ×3 (06:56→18:13)
--- NOTE | 2020-02-01 07:27 | XR ---
EXAMINATION TYPE: XR chest 1V DATE OF EXAM: 02/01/2020 COMPARISON: 01/31/20 HISTORY: Congestive heart failure TECHNIQUE: Single frontal view of the chest is obtained. FINDINGS: Enlarged cardiomediastinal silhouette remains with dual lead left-sided cardiac device. Sm all retrocardiac probable pleural effusion with associated left basilar airspace disease is again see n. Mild pulmonary vascular congestion. No acute osseous process. IMPRESSION: Similar sequela of congestive heart failure with probable small left pleural effusion an d left basilar airspace disease and mild diffuse interstitial pulmonary edema.
--- NOTE | 2020-02-01 09:17 | P.PN ---
Subjective Patient is seen in follow-up for acute kidney injury and hyponatremia. Sodium level stable at 132 today. Renal function slightly better. Does get dyspneic without oxygen support. Maintained on dobutamine. Patient has systolic CHF with ejection fraction of less than 20% with moderate tricuspid regurgitation and pulmonary hypertension. Urine output 60-70 mL an hour. Vital signs are stable. General: The patient appeared well nourished and normally developed. HEENT: Head exam is unremarkable. Neck is without jugular venous distension. LUNGS: Breath sounds decreased. HEART: Rate and Rhythm are regular. First and second heart sounds normal. No murmurs, rubs or gallops. ABDOMEN: Abdominal exam reveals normal bowel sounds. Non-tender and non- distended. No evidence of peritonitis. EXTREMITITES: 1+ edema. Objective - Vital Signs Vital signs: Vital Signs Temp 97.9 F 02/01/20 08:00 Pulse 100 02/01/20 08:00 Resp 15 02/01/20 08:00 BP 103/71 02/01/20 08:00 Pulse Ox 93 L 02/01/20 08:00 Intake & Output 01/31/20 02/01/20 02/01/20 18:59 06:59 18:59 Intake Total 740.274 360 200 Output Total 1185 600 150 Balance -444.726 -240 50 Weight 91.9 kg Intake: IV 210 110 20 Normal saline 210 110 20 Intake, IV Titration 530.274 Amount DOBUTamine DRIP 500 mg In 280.274 Dextrose/Water 1 250ml. bag @ 2.5 MCG/KG/MIN 7.14 mls/hr IV .Q24H [facility] Rx#: [id number] Vancomycin 1,500 mg In 250 Sodium Chloride 0.9% 250 ml @ 125 mls/hr IVPB ONCE ONE Rx#:[id number] Oral 250 180 Output: Chest Tube Drainage 110 Pleural Catheter Left Mid 110 -Axillary Chest Urine 1075 600 150 Other: Voiding Method Indwelling Catheter Indwelling Catheter Indwelling Catheter - Labs CBC & Chem 7: 02/01/20 04:58 02/01/20 04:58 Labs: Abnormal Lab Results - Last 24 Hours (Table) 02/01/20 02/01/20 Range/Units 04:58 04:58 RBC 4.08 L (4.30-5.90) m/uL Hgb 11.4 L (13.0-17.5) gm/dL Hct 37.3 L (39.0-53.0) % MCHC 30.5 L (31.0-37.0) g/dL RDW 17.6 H (11.5-15.5) % Lymphocytes # 0.5 L (1.0-4.8) k/uL Sodium 132 L (137-145) mmol/L BUN 30 H (9-20) mg/dL Creatinine 1.45 H (0.66-1.25) mg/dL ALT 68 H (4-49) U/L Alkaline Phosphatase 204 H (38-126) U/L Total Protein 5.9 L (6.3-8.2) g/dL Albumin 2.7 L (3.5-5.0) g/dL Microbiology - Last 24 Hours (Table) 01/25/20 12:50 Gram Stain - Final Pleural Fluid Body Fluid Culture - Final Staphylococcus epidermidis Acinetobacter lwoffi Viridans streptococcus group Assessment and Plan Plan: Assessment: 1. Acute kidney injury mostly prerenal secondary to cardiorenal syndrome. Renal function better. Creatinine 1.45 today. 2. Acute on chronic systolic CHF with ejection fraction of less than 20% with moderate tricuspid regurgitation and pulmonary hypertension. 3. Hypervolemic hyponatremia. Status post Samsca. Better. 4. Chronic left-sided pleural effusion. Patient has a Pleurx catheter. 5. Hyperkalemia secondary to acute kidney injury. Lisinopril discontinued. Better. 6. Volume overload. Plan: Start Lasix drip at 10 mL an hour. Maintain fluid restriction. Continue to monitor renal function and urine output. Repeat electrolytes in the morning. Avoid nephrotoxins. Monitor vancomycin levels closely.
[2020-02-01] MEDS: ASPIRIN 81 MG PO SCH (09:30)
[2020-02-01] MEDS: ATORVASTATIN 40 MG TAB PO SCH (09:30)
[2020-02-01] MEDS: CLOPIDOGREL 75 MG TAB PO SCH (09:30)
[2020-02-01] MEDS: FAMOTIDINE 20 MG TAB PO SCH (09:30)
[2020-02-01] MEDS: LIOTHYRONINE SODIUM 5 MCG TAB PO SCH (09:30)
[2020-02-01] MEDS: HEPARIN SODIUM,PORCINE 5,000 UNIT/ML 1 ML VIAL SQ SCH ×2 (09:31→20:08)
[2020-02-01] MEDS: ACETAMINOPHEN TAB 325 MG TAB PO PRN (09:31)
[2020-02-01] MEDS: VANCOMYCIN 1,500 MG in SODIUM CHLORIDE 0.9% 250 ML IVPB SCH (10:09)
[2020-02-01] MEDS: FUROSEMIDE 100 MG in SODIUM CHLORIDE 0.9% 90 ML IV SCH ×3 (10:30→20:09)
--- NOTE | 2020-02-01 11:55 | P.PN ---
Subjective Progress Note Date: 02/01/20 Principal diagnosis: Acute Severe systolic congestive heart failure This is a 74-year-old male patient with known history of coronary artery disease with previous coronary intervention and stenting of the circumflex in addition to history of severe cardiomyopathy with an ejection fraction of 25% and chronic systolic dysfunction and severe resting bradycardia close the was chamber ICD placement. The patient was also having recurrent left-sided pleural effusion and he underwent a Pleurx catheter insertion back in August 2019 by cardiothoracic surgery. He has been undergoing daily drainage from his left lung and he typically drinks approximately 200 mL of pleural fluid.. The patient also has hypertension, prostate cancer and he has been treated with prostatic radiation therapy/implants. He has also history of osteoarthritis. The patient is an ex-smoker. [id number] smoking history. He came into the hospital because of worsening shortness of breath.. His been progressively getting more short of breath over the past month. His shortness of breath is essentially exertional and he also has orthopnea. No reported chest pain. No reported cough or sputum production. He is an ex-smoker. No wheezing. No previous history of DVT or pulmonary embolism. No fever. The white cell count at time of admission was 7.8. Hemoglobin was at 13.8. Coagulation profile was within normal. D-dimer was elevated at 4.08 and based on that the patient was given a CT angiogram that showed no evidence of any pulmonary embolism. 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 No evidence of any pneumonia. No evidence of any airspace disease. There was a 3 cm poorly marginated infiltrate in the right lower lobe and the significance of this abnormality is not known. In the emergency department, the patient was having episodes of hypotension. His systolic blood pressure was as low as 75. He was given pressors and currently is running on low-dose levothyroid at 0.03 g per KG per minute. His cardiac rhythm is ventricularly paced at the rate of 100. Note that the patient some minimal troponin elevation. ProBNP level was quite elevated. Lactic acid level was 4.2, admission dropped down to 2 and currently is on IV with KVO. The patient is seen today 01/22/2020 in follow-up in the intensive care unit. He is currently awake and alert in no acute distress. Sitting up at the bedside. Maintaining O2 saturations in the 90s on 4 L/m per nasal cannula. Today's chest x-ray continues to show evidence of fluid volume overload. Echocardiogram reveals ejection fraction less than 20%. He is still requiring a small amount of norepinephrine at 0.03 mcg/kg/m. Potassium is 6.3. Sodium 130. Creatinine 1.46. White count 7.9. Hemoglobin 13.6. Troponin 0.077. He remains on Lasix 40 mg by mouth twice a day. Still remains in a positive balance. Weight is stable. The patient is seen today 01/23/2020 in follow-up in the in the chair at the bedside. Maintaining O2 saturations in the 90s on 4 L/m per nasal cannula. Chest x-ray showing improvement in the volume status. He is breathing a bit easier today compared to yesterday, he is complaining of weakness and fatigue. He is currently on norepinephrine at 0.04 mcg/kg/m. Dobutamine at 5 mcg/kg/m. Maintaining adequate urine output. Blood and urine cultures reveal no growth. White count 7.6. Hemoglobin 13.1. sodium 130. Creatinine 0.85. Potassium 4.8. TSH 5.68. T4 1 0.38. the patient is seen today 01/24/2020 in The intensive care unit. He is awake and alert in no acute distress. Maintaining good O2 saturations in the 90s on 4 L/m per nasal cannula. Chest x-ray continues to show some worsening congestive heart failure with mild underlying emphysema. There is increased central alveol interstitial edemaand/or infiltrates. Pleural fluid cultures reveal no growth. Blood cultures reveal no growth. He continues on norepinephrine at 0.01 mcg/kg/min. Remains on Dobutamine at 5 mcg/kg/min. White count 5.7. Hemoglobin 12.8. Potassium 5.3. 5.3. Creatinine 0.75. He remains on midodrine TID. BP marginal. On lasix 40 BID. The patient is seen today 01/27/2020 in follow up in the ICU. He is currently resting comfortably in bed. Awake, alert in no acute distress. He did have issues with anxiety earlier this a.m. Treated with Xanax and improved. Chest x-ray continues to show persistent left basilar opacity and left midlung opacity. Plan to drain fluid again today per Pleurx. We will send more cultures and fluid analysis. Cultures have been revealing Staphylococcus epidermidis and Acinetobacter. Follow-up cultures with coag-negative staph. vancomycin will be added Continue ceftriaxone. Dobutamine at 2.5 mcg/kg/m. Remains off norepinephrine. White count 5.4. Hemoglobin 11.9. Sodium 128. Potassium 5.2. Creatinine 0.94. On today's evaluation of 01/28/2020 the patient is feeling okay and he denies having any worsening shortness of breath. There was a concern of a left-sided pleural space infection. The patient a Pleurx catheter in place. There have been 2 cultures that are showing coagulase-negative staph, staph epidermidis in one of the cultures showed inflammatory except a glucose and Acinetobacter. The patient was placed on a combination of Rocephin and vancomycin. Nevertheless the fluid was reevaluated and analyzed. The fluid LDH and protein remains on a cell count remains low as not suggestive of any empyema or pleural space infection. Noted the patient is undergoing drainage and a daily basis. He is feeling well. He is on dobutamine at a dose of 2.5 mcg/kg per minute. He may need norepinephrine infusion on and off to maintain his blood pressure. His white cell count is not elevated. Sodium level is at 128 which is inconsistent with his CHF. Pro-calcitonin level was at 0.17. The chest x-ray from today showed retrocardiac opacity that may represent an underlying pleural effusion/atelectasis. Right lung essentially clear. No fever no chills. Altered mentation. No other significant events overnight. The patient is producing a better urine output. Balance is -6 20 mL over the past 24 hours. On today's evaluation of 01/29/2020, the patient is feeling well. He is sitting up on a chair. He is on dobutamine 2.5 mcg/kg per minute. He is on no Lasix for now. Repeat fluid evaluation from the pleural drainage showed coagulase-neg ative staph epidermidis. The patient is on vancomycin. I'm not absolutely sure there is a true infection. The fluid analysis came back negative for infection or exudate in porcelain turner to be severely a transudative fluid and the white cells and the pleural fluid is low. The total amount of output from yesterday's drainage was 25 mL. He is afebrile. He has no significant leukocytosis. I am going to ask IDs opinion regarding the possibility of a pleural space infection which I think it's not highly likely at this point in time. Meanwhile, the patient's creatinine is up to 1.5. This is to be monitored. No angina. No palpitation. No other complaints otherwise. Vancomycin level needs to be checked also. He is being supported with norepinephrine infusion for blood pressure support. Reevaluated today on 01/30/20, patient was seen in the intensive care unit, remains on Dobutrex at 2.5 mcg/kg/m, he is also on Lasix, feeling better, breathing easier, responding well to diuretics. However considering that the patient is still on Dobutrex, I plan to keep him in the ICU for the next 24 hours. Patient is not requiring any norepinephrine. Chest x-ray continues to show some retrocardiac loculated pleural effusion in the left hemithorax, and improving interstitial edema. WBC count is 7.4 hemoglobin is 11.5. Electrolytes showed elevated potassium of 5.5 sodium is 129 BUN is 33 and creatinine is 1.64. Albumin is 2.8 Reevaluated today on 01/31/20, patient was taken off dobutamine yesterday, however after dobutamine was discontinued, his urine output was extremely poor. He was placed back again by cardiology on dobutamine, and he remains on diuretics, and his urine output is excellent. Patient is feeling better, breathing easier. Hardly any cough no wheezing no shortness of breath, continues to have left pleural effusion, with a Pleurx catheter remains in place. Chest x-ray is suggestive of interstitial edema. Cytology from the pleural effusion remains pending. Patient was noted to have asymmetrical swelling of the lower extremities today, hence a venous Doppler was done. It was negative for deep vein thrombosis. Labs from today were reviewed. Creatinine is 1.65. Holding about the same over the last 4 days. Remains on diuretics as per nephrology Reevaluated today on 02/01/20, patient remains on Dobutrex, and now he was started on Lasix infusion at 10 mg per hour. Overall cardiac status is extremely poor, patient was seen by hospice, and I believe that is very appropriate to consider hospice on this patient. Clearly has a terminal disease, and I believe his long-term prognosis and quality of life is extremely poor. Patient obviously is considering hospice, and he would have another session with hospice staff later today. In the meantime, the plan is to continue dobutamine and Lasix. Patient is developing worsening left-sided pleural effusion in spite of of left Pleurx catheter in place. And he is clearly developing interstitial edema. Labs and chest x-ray were reviewed today Objective - Vital Signs Vital signs: Vital Signs Temp 97.9 F 02/01/20 08:00 Pulse 101 H 02/01/20 11:00 Resp 20 02/01/20 11:42 BP 89/57 02/01/20 11:00 Pulse Ox 100 02/01/20 11:00 Intake & Output 01/31/20 02/01/20 02/01/20 18:59 06:59 18:59 Intake Total 740.274 360 230 Output Total 1185 600 250 Balance -444.726 -240 -20 Weight 91.9 kg 91.9 kg Intake: IV 210 110 50 Normal saline 210 110 50 Intake, IV Titration 530.274 Amount DOBUTamine DRIP 500 mg In 280.274 Dextrose/Water 1 250ml. bag @ 2.5 MCG/KG/MIN 7.14 mls/hr IV .Q24H TOD Rx#: [id number] Vancomycin 1,500 mg In 250 Sodium Chloride 0.9% 250 ml @ 125 mls/hr IVPB ONCE ONE Rx#:[id number] Oral 250 180 Output: Chest Tube Drainage 110 Pleural Catheter Left Mid 110 -Axillary Chest Urine 1075 600 250 Other: Voiding Method Indwelling Catheter Indwelling Catheter Indwelling Catheter - Exam Physical Exam: Revealed 74-year-old white male on 4 L nasal cannula, in no distress. Head: Atraumatic, normocephalic. HEENT:[Neck is supple.] [No neck masses.] [No thyromegaly.] [No JVD.] PERRLA, EOMI, no icterus. Throat is clear. Chest: [Symmetrical chest expansion, diminished breath sounds at the bases and crackles, at the bases especially at the left base] Pleurx catheter noted on the left side Cardiac Exam: [Normal S1 and S2, no S3 gallop, 2/6 systolic murmur thought the precordium. Abdomen: [Soft, nontender, no megaly, no rebound, no guarding, normal bowel sounds.] Extremities: [No clubbing, asymmetric of swelling and edema noted in the right lower extremity compared to left lower extremity hence venous Doppler was done and it was negative Neurological Exam: [No focal neurologic deficit.] Alert oriented 3. Psychiatric: Normal mood, affect and normal mental status examination. Skin: No rashes. - Labs CBC & Chem 7: 02/01/20 04:58 02/01/20 04:58 Labs: Abnormal Lab Results - Last 24 Hours (Table) 02/01/20 02/01/20 Range/Units 04:58 04:58 RBC 4.08 L (4.30-5.90) m/uL Hgb 11.4 L (13.0-17.5) gm/dL Hct 37.3 L (39.0-53.0) % MCHC 30.5 L (31.0-37.0) g/dL RDW 17.6 H (11.5-15.5) % Lymphocytes # 0.5 L (1.0-4.8) k/uL Sodium 132 L (137-145) mmol/L BUN 30 H (9-20) mg/dL Creatinine 1.45 H (0.66-1.25) mg/dL ALT 68 H (4-49) U/L Alkaline Phosphatase 204 H (38-126) U/L Total Protein 5.9 L (6.3-8.2) g/dL Albumin 2.7 L (3.5-5.0) g/dL Microbiology - Last 24 Hours (Table) 01/25/20 12:50 Gram Stain - Final Pleural Fluid Body Fluid Culture - Final Staphylococcus epidermidis Acinetobacter lwoffi Viridans streptococcus group Assessment and Plan Assessment: Impression: Acute hypoxic respiratory failure secondary to acute severe systolic congestive heart failure. And impaired LV function. Coronary artery disease and previous non-ST elevation myocardial infarction, possible acute non-ST elevation myocardial infarction on this admission. Chronic left-sided pleural effusion, status post Pleurx catheter insertion. Biventricular AICD placement. History of prostate cancer followed by radiation and presently on Lupron injections. Degenerative joint disease. Acute kidney injury, improving. Could be cardiorenal in nature. Recommendation: Continue Pleurx catheter drainage, Continue diuretics. Presently on Lasix IV infusion at 10 mg per hour. Continue dobutamine. Continue to monitor electrolytes and renal profile daily. I fully agree with hospice plans and hospice care. Prognosis is extremely poor. Time with Patient: Less than 30
[2020-02-01] MEDS ORDERED: FUROSEMIDE 10 MG/ML 10 ML VIAL IV STA (12:20)
[2020-02-01] MEDS: NOREPINEPHRINE 4 MG in SODIUM CHLORIDE 0.9% 250 ML IV SCH (12:37)
--- NOTE | 2020-02-01 12:43 | P.PN ---
Subjective Progress Note Date: 02/01/20 This is a 74-year-old male patient of Dr. Burnett, Dr. Gilbert and Dr. Xi Ordaz with a previous medical history significant for hypertension, hyperlipidemia, osteoarthritis, prostate cancer that was diagnosed back in 2006 status post implants as well as Lupron injection, coronary artery disease with stent of the circumflex, severe cardiomyopathy and chronic systolic heart failure with known ejection fraction of 25%, bradycardia status post AICD implantation, recurrent left-sided pleural effusion status post Pleurx catheter insertion August 2019 by cardiothoracic surgery. Patient drains this himself or his daughter of 100-200 mL subpleural fluid daily. Patient also has history of hypertension, [id number] smoking history. Patient complains of shortness of breath for the past month gradually worsening. Shortness of breath is exceptionally worse with exertion. No chest pain, no cough or sputum production, reports weight loss. He complains of nausea occasionally, no abdominal pain. He complains of lightheadedness. He denies any use of steroids for the past 6 weeks. He denies any change and his medications recently. Patient relates that he has been using his mother's home oxygen at 4 L nasal cannula around the clock. Patient came into [facility] emergency center for evaluation, WBC 7.8, hemoglobin 13.8, d-dimer elevated at 4.08. CT angiogram of the chest did not show any pulmonary embolism. There was a small right-sided loculated pleural effusion along with pseudotumor in the left lung consistent with pleural fluid. No evidence of pneumonia. No airspace disease. 3 cm poorly marginated infiltrate in the right lower lobe and significance is unknown. Patient was hypotensive in the emergency center with systolic blood pressure down to 75. He was started on vasopressors and admitted into the intensive care unit with consults in place for pulmonary medicine and cardiology. Abdominal ultrasound revealed mild gallbladder wall thickening and air fluid that could relate cholecystitis. Heart failure also possible. Small gallstone or gallbladder polyp. Fatty liver. 01/21: Patient remains in intensive care unit. He is seen today sitting in the recliner. His breathing appears to be more comfortable. Patient states that he is feeling tight and did not sleep well last night. We will plan to increase melatonin dose. Patient has been seen by cardiology this morning and started on dobutamine. Patient is currently on norepinephrine as well. Echocardiogram reveals ejection fraction less than 20%, moderate mitral regurgitation, moderate tricuspid regurgitation, mild to moderate pulmonary hypertension.. Potassium this morning is 6.3 and pulmonary medicine has ordered insulin and dextrose. Patient is to be redrawn at noon today. WBC 7.9, hemoglobin 13.6, troponin 0.077. BUN 41 and creatinine 1.46. Acute hepatitis panel negative. Patient is currently on Lasix 40 mg oral twice daily. TSH will be ordered. Chest x-ray reveals changes of heart failure with interstitial pulmonary edema. Continued moderate left effusion with prominent left basilar atelectasis and/or consolidation. Slight worsening aeration of the right base 01/22: Patient has been afebrile, heart rate 97, blood pressure 95/68, pulse ox 98% on 4 L nasal cannula. Repeat blood work reveals CBC unremarkable, sodium 1:30, potassium 4.8, chloride 96, CO2 25, BUN 33 and creatinine 0.85. AST 126, ALT 145, alkaline phosphatase 262. TSH 5.680 and free T4 1 0.38. Patient remains in the intensive care unit. Dobutamine drip increased to 5. Patient remains on levofloxacin as well. Patient states that he did not sleep last night. He is utilizing Xanax twice daily. He denies having any chest pain and no lower extremity edema. He does complain of shortness of breath. No lightheadedness or dizziness. Cytomel added and midodrine increased to 10 mg 3 times daily. Patient is concerned about his mother and his friend staying with her at this time. We will communicate with Dr. Burnett and ask for home care service to be arranged for his mother. Do not anticipate that he will be ready for discharge for another 48-72 hours. 01/23: Patient remains in intensive care unit on dobutamine at 5 mcg/kg/m and levo fed which is to be weaned off. Dr. Napoles is planning for another 24 hours of IV dobutamine. Patient states that he is feeling off today complaining of nausea. He states he did get some sleep last night. Patient has been noted to be more anxious and due to lack of appetite and insomnia, Remeron will be added. He continues to have shortness of breath with minimal activity. He remains awake and alert but he is stating that he wants to go home. We did arrange for home care for his mother yesterday. WBC 5.7, hemoglobin 12.8, potassium 5.3, creatinine 0.75. We did start midodrine yesterday 3 times daily 10 mg. The blood pressure seems to be stable today. Chest x-ray showing worsening CHF for developing ARDS on background mild underlying emphysematous change there is increasing central alveolar and interstitial edema and/or infiltrates and cardiomegaly. No concern for ARDS at this point per Dr. Contreras. Culture on Pleurx fluid is staph epidermidis. 01/24: Repeat chest x-ray reveals similar moderate pulmonary vascular congestion and interstitial edema likely on the basis of decompensated heart failure. Retrocardiac airspace disease is also stable that may represent small plural effusion and atelectasis or less likely pneumonia. Patient is afebrile, heart rate running between 76 and 106, blood pressure 95/75, pulse ox 96% on 2 L nasal cannula. Repeat lab work reveals unremarkable CBC. Sodium 1:30, potassium 5.4, chloride 97, CO2 22, BUN 26 and creatinine 0.81. Pleural fluid was Staphylococcus epidermidis and alphahemolytic streptococcus. Yesterday evening, patient was attempting to leave the intensive care unit in and removed sewer connector and IV. Patient was returned to his room and IV access and monitoring was resumed. Patient is alert at this time. Nursing passes on that patient awakes and is very confused. He has not had consistent of sleep. Patient complains of feeling tired. Pulmonary has resumed his Seroquel and Effexor. We will continue Remeron as well both Seroquel and Remeron move to supper time. Patient is still on dobutamine for another 24 hours. He has been off norepineph rine since yesterday at 11 AM. He has a sitter at the bedside at this time. Consult added for Dr. Brown regarding hyponatremia. 01/25: Patient continues to have episodes of confusion but is easily reoriented. He is cooperative and follows commands during these episodes. He is able to answer all questions appropriately to time place and person. Ammonia level from yesterday was less than 9. He is continued on dobutamine drip at 5 g for another 24 hours.. Patient was given 1 dose of IV Lasix 40 mg this morning. Patient has been seen by Dr. Brown and ordered Lasix IV 40 mg every 12 hours. Urine osmolality 497, cortisol level 22. Sodium 129, potassium 5.4, chloride 95, CO2 28, BUN 24 and creatinine 0.86. WBC 6.2, hemoglobin 9.6, platelet count 226. Pro-calcitonin 0.14. Repeat chest x-ray reveals stable retrocardiac opacities may again represent small pleural effusion and atelectasis or less likely pneumonia. Primary consideration is decompensated congestive heart failure. 01/26: Patient remains in the intensive care unit. He continues to have episodes of confusion but is easily reoriented. He is having occasional panic attack with increased anxiety. We will resume Xanax and continue his other psychiatric medications. He did sleep well last night most likely related to the Remeron and melatonin. Dobutamine has been decreased today to 2.5 mcg/kg/m. He is off norepinephrine. Repeat lab work reveals WBC 5.4, hemoglobin 11.9, sodium 128, potassium 5.2, creatinine 0.94. Dr. Brown is on consult regarding hyponatremia. 314: Patient remains in intensive care unit sitting up in chair. He is complaining of pain to the right groin. Denies any dizziness or chest pain. Continues to have shortness of breath. He has not had any episodes of confusion overnight or today. Patient states that he slept well during the evening. Dobutamine continues to be at 2.5 MCG/KG/M. However he continues to be hypotensive. Morning meds were held due to his pressure. Sodium 128, potassium 5.1, BUN 28, creatinine 1.06 01/28: Patient remains in intensive care unit sitting up in bed. Patient has no complete concerns at this time. He denies any difficulty breathing or shortness of breath. He continues to be on dobutamine and hypotensive. Hemoglobin 11.2, sodium 127, potassium 5.6, BUN 31, creatinine 1.56, AST 86, ALT 88, alkaline phosphatase 206. The Pleurx catheters in place. Patient is producing better urine output. 01/29: Patient remains in the intensive care unit. Dobutamine was discontinued this morning. Patient is complaining of having dizziness on and off. Blood pressure is been marginal. He is scheduled for one dose of Lasix 40 a blood pressure is maintained. Patient is also complaining of significant weakness. He continues to have lower extremity edema. Confusion episodes have been less frequent. Patient is afebrile, heart rate 76, blood pressure 90/60, pulse ox 96% on 2 L nasal cannula. Repeat blood work reveals WBC 7.4, hemoglobin 11.5, platelet count 225. Sed rate 24, C-reactive protein 60.3. Sodium 129, potassium 5.5, chloride 99, CO2 23, BUN 33, creatinine 1.64. Blood sugar 65. Liver function tests remain elevated with AST 78, ALT 83, alkaline phosphatase 223. Pro-calcitonin 0.52. Patient has been on IV antibiotics in the form of vancomycin. Patient has been seen by Dr. Sen with recommendations for either Bactrim or doxycycline depending on kidney function at time of discharge for one to 2 week course. 01/30: Patient was unable to be weaned off dobutamine yesterday. He has been continued on dobutamine. He has had essentially no urine output. He received Lasix 40 mg yesterday followed by Lasix 80 mg IV push. Patient is complaining of feeling dizzy. He is up to the chair into bed only. He has been afebrile, heart rate 98, blood pressure 80/69, pulse ox 95%. Repeat blood work reveals WBC 6.5, hemoglobin 11.5, platelet count 206. Sodium 132, potassium 4.9, chloride 101, CO2 23, BUN 35 and creatinine 1.65. Blood sugars running between [address] Ramirez discussed with the patient his current condition and prognosis in detail. Discussed option of no CODE STATUS and also of hospice care. This was previously discussed over the weekend with the patient as well. Patient seems to understand. Case management has been updated. Nursing to discuss with cardiology in order for them to further give patient details on his prognosis regarding his cardiac function and prognosis. Venous duplex of the bilateral lower extending negative for DVT. 01/31: Patient is seen in the intensive care unit. He remains on dobutamine at 2.5 mcg/kg/m. Has been started on Lasix drip this morning. Urine output overnight has been 45-70 mL per hour. Currently urine output is at 35 mL per hour. Patient has been afebrile, heart rate 101, blood pressure 89/57, pulse ox 100% on 2 L nasal cannula. The patient remains a full code despite discussion yesterday. Dr. Grey also discussed and reinforced need for hospice care and transition to no code. Hospice informational meeting to take place today and his daughter is to be in attendance. Objective - Vital Signs Vital signs: Vital Signs Temp 97.9 F 02/01/20 08:00 Pulse 101 H 02/01/20 11:00 Resp 20 02/01/20 11:00 BP 89/57 02/01/20 11:00 Pulse Ox 100 02/01/20 11:00 Intake & Output 01/31/20 02/01/20 02/01/20 18:59 06:59 18:59 Intake Total 740.274 360 230 Output Total 1185 600 250 Balance -444.726 -240 -20 Weight 91.9 kg 91.9 kg Intake: IV 210 110 50 Normal saline 210 110 50 Intake, IV Titration 530.274 Amount DOBUTamine DRIP 500 mg In 280.274 Dextrose/Water 1 250ml. bag @ 2.5 MCG/KG/MIN 7.14 mls/hr IV .Q24H [facility] Rx#: [id number] Vancomycin 1,500 mg In 250 Sodium Chloride 0.9% 250 ml @ 125 mls/hr IVPB ONCE ONE Rx#:[id number] Oral 250 180 Output: Chest Tube Drainage 110 Pleural Catheter Left Mid 110 -Axillary Chest Urine 1075 600 250 Other: Voiding Method Indwelling Catheter Indwelling Catheter Indwelling Catheter - Exam Review of Systems Constitutional: Reports fatigue, Reports lethargy, Reports poor appetite, Repo rts weakness, Reports weight loss, Denies chills, Denies fever, reports daytime sleepiness Ears, nose, mouth and throat: Denies dysphagia, Denies headache, Denies nasal congestion, Denies nasal discharge, Denies sore throat, reports vertigo Cardiovascular: Reports decreased exercise tolerance, Reports dyspnea on exertion, Reports lightheadedness, Reports orthopnea, Reports shortness of breath, Denies chest pain, Denies palpitations, Denies syncope Respiratory: Reports dyspnea slightly improved, Reports home oxygen, Denies cough, Denies cough with sputum, Denies excessive sputum, Denies hemoptysis, Denies respiratory infections, Denies sleep apnea, Denies wheezing Gastrointestinal: Reports loss of appetite, Reports nausea, Denies abdominal pain, Denies diarrhea, Denies vomiting Genitourinary: Denies dysuria, Denies urinary retention Musculoskeletal: Reports muscle weakness, Denies frequent falls, Denies gait dysfunction Integumentary: Denies pruritus, Denies rash Neurological: Reports change in mentation, Denies change in speech, Denies numbness, reports weakness continued Psychiatric: Reports anxiety, reports depression, reports insomnia Endocrine: Denies fatigue, Denies weight change Physical examination Gen: This is a 74-year-old male. Patient is sitting up in chair. No respiratory distress noted at rest. HEENT: Head is atraumatic, normocephalic. Pupils equal, round. Sclerae is anicteric. NECK: Supple. No JVD. No lymphadenopathy. No thyromegaly. LUNGS: Diminished breath sounds Pleurx catheter in the left. HEART: Regular rate and rhythm. Systolic murmur. ABDOMEN: Soft. Bowel sounds are present. No masses. No tenderness. EXTREMITIES: 2+ pedal edema. No calf tenderness. Dorsalis pedis +2 bilaterally. NEUROLOGICAL: Patient is awake, alert and oriented x3. Cranial nerves 2 through 12 are grossly intact. - Labs CBC & Chem 7: 02/01/20 04:58 02/01/20 04:58 Labs: Abnormal Lab Results - Last 24 Hours (Table) 02/01/20 02/01/20 Range/Units 04:58 04:58 RBC 4.08 L (4.30-5.90) m/uL Hgb 11.4 L (13.0-17.5) gm/dL Hct 37.3 L (39.0-53.0) % MCHC 30.5 L (31.0-37.0) g/dL RDW 17.6 H (11.5-15.5) % Lymphocytes # 0.5 L (1.0-4.8) k/uL Sodium 132 L (137-145) mmol/L BUN 30 H (9-20) mg/dL Creatinine 1.45 H (0.66-1.25) mg/dL ALT 68 H (4-49) U/L Alkaline Phosphatase 204 H (38-126) U/L Total Protein 5.9 L (6.3-8.2) g/dL Albumin 2.7 L (3.5-5.0) g/dL Microbiology - Last 24 Hours (Table) 01/25/20 12:50 Gram Stain - Final Pleural Fluid Body Fluid Culture - Final Staphylococcus epidermidis Acinetobacter lwoffi Viridans streptococcus group Assessment and Plan Plan: 1. Acute on chronic systolic heart failure with known ejection fraction of 25%. Repeat echocardiogram as above. Dobutamine drip has been continued. Patient is currently off norepinephrine. Lasix gtt started. Continue midodrine 10 mg 3 times daily. 2. Severe cardiomyopathy status post AICD. 3. Chronic left-sided pleural effusion status post pleural catheter insertion. Nursing is draining once daily. Culture positive for alpha hemolytic strep and Streptococcus epidermidis. Continue vancomycin. Dr. Sen consult appreciated. 4. Cardiogenic shock secondary to severe cardiomyopathy requiring vasopressors. Patient is currently off norepinephrine. 5. History of coronary artery disease status post stenting of circumflex with mild elevation of troponins, possible acute non-ST ID. Cardiology consult. Aspirin 81 mg daily, Lipitor 40 mg daily, Plavix 75 mg daily, 6. Hyperlipidemia. 7. History of prostate cancer status post radiation therapy and Lupron injections. 8. Elevated liver function tests possibly related to combination of heart failure and fatty liver. Acute hepatitis panel negative. 9. Generalized anxiety disorder. Continue Xanax 2.5 mg twice daily and Remeron 7.5 mg. 10. Hyperkalemia. Continue Lasix, no potassium supplementation. 11. DVT prophylaxis. Heparin subcu. 12. GI prophylaxis. Pepcid. 13. Hyponatremia. Consult with nephrology appreciated. 14. Acute metabolic encephalopathy secondary to insomnia and ICU hospitalization. Continue Seroquel and Effexor and continue Remeron as well and melatonin 10 mg at bedtime. 15. Hypothyroidism. Patient was started on Cytomel 5 g daily. 16. Recurrent depression. Continue Seroquel 50 mg daily and Effexor 100 mg twice daily. Discharge plan: To be determined. Most likely return home. Possibly home with hospice. Hospice meeting today. CODE STATUS: CODE STATUS has been discussed with the patient with recommendations for no code due to current treatment and prognosis. CODE STATUS is currently full code. Impression and plan of care have been directed as dictated by the signing physician. Funmilayo Diaz nurse practitioner acting as scribe for signing physician.
--- NOTE | 2020-02-01 12:53 | PN ---
PROGRESS NOTE This patient is followed here for acute refractory systolic heart failure with ischemic cardiomyopathy and severely impaired left ventricular systolic function. The patient's urine output remains between 40 to 60 mL/hour. He has been started on Lasix drip at 10 mg/hour, but the last couple of hours, patient's urine output is only 15-20 mL/hour. The patient remains comfortable. Patient does have a 3 to 4+ edema. ASSESSMENT AND PLAN: This patient has refractory heart failure. At present, patient is dependent upon dobutamine. We will give him Lasix bolus of 120 mg and recheck the random urine sodium up to 2 hours to see how good whether the Lasix is effective or not. After that, we will give him Zaroxolyn 5 mg today. If there is no significant improvement in the patient's urine output, a Diamox can be added and now the patient's potassium is 4.9. We can consider adding Aldactone. Patient's prognosis remains extremely guarded and we will talk with the family members regarding the palliative care. MMBAMBI / SRAVANTHIN: [id number] /
[2020-02-01] MEDS ORDERED: METOLAZONE 5 MG TAB PO STA (14:16)
[2020-02-01] MEDS: QUEtiapine 50 MG TAB PO SCH (18:13)
--- NOTE | 2020-02-01 18:29 | PN ---
PROGRESS NOTE DATE OF SERVICE: 02/01/2020 REASON FOR FOLLOWUP: PleurX catheter positive culture. INTERVAL HISTORY: The patient is currently afebrile; still complaining of shortness of breath. He did have a cough with occasional sputum. The pleural fluid is clear with no purulence. No chest pain. No abdominal pain and no diarrhea. PHYSICAL EXAMINATION: Blood pressure is 105/82 with a pulse of 103, temperature 98. He is 98% on 2 L nasal cannula. General description is an elderly male up in the chair in no distress. RESPIRATORY SYSTEM: Unlabored breathing with decreased breath sounds at the base. No wheeze. HEART: S1, S2. Regular rate and rhythm. ABDOMEN: Soft. No tenderness. LABS: Hemoglobin is 11.4, white count 5.5. BUN of 30, creatinine 1.45. DIAGNOSTIC IMPRESSION AND PLAN: Patient with a positive PleurX catheter culture with Staph epidermidis in this patient who is currently covered with vancomycin; to continue now and monitor clinical course closely.hopefully transition to oral antibiotic on discharge. Continue with supportive care. MMODL / SRAVANTHIN: [id number] / MTDD
[2020-02-01] MEDS: MELATONIN 5 MG TABLET PO SCH (20:08)
[2020-02-01] MEDS: DOCUSATE 100 MG CAP PO PRN (20:08)
[2020-02-02] MEDS: FUROSEMIDE 100 MG in SODIUM CHLORIDE 0.9% 90 ML IV SCH ×3 (02:06→21:32)
[2020-02-02 04:51] LABS: Anisocytosis Slight; Basophils % (A) 0 %; Eosinophils # (A) 0.1 k/uL (0-0.7); Eosinophils % (A) 2 %; HCT 37.9 % (39.0-53.0); HGB 11.7 gm/dL (13.0-17.5); Hypochromasia Marked; Lymphocytes # (A) 0.6 k/uL (1.0-4.8); Lymphocytes % (A) 10 %; MCH 27.8 pg (25.0-35.0); MCHC 30.8 g/dL (31.0-37.0); MCV 90.2 fL (80.0-100.0); Mean Platelet Volume 7.8; Monocytes # (A) 0.5 k/uL (0-1.0); Monocytes % (A) 8 %; Neutrophils # (A) 4.6 k/uL (1.3-7.7); Neutrophils % (A) 76 %; Platelet Count 209 k/uL (150-450); RBC 4.21 m/uL (4.30-5.90); RDW 17.8 % (11.5-15.5)
[2020-02-02 05:01] LABS: Calcium 9.4 mg/dL (8.4-10.2); Potassium 4.2 mmol/L (3.5-5.1)
--- NOTE | 2020-02-02 06:40 | XR ---
EXAMINATION TYPE: XR chest 1V DATE OF EXAM: 02/02/2020 CLINICAL HISTORY: Difficulty breathing and CHF progress study. TECHNIQUE: Single AP portable upright view of the chest is obtained. COMPARISON: Chest x-ray from one day earlier and older studies. FINDINGS: There is persistent cardiomegaly with dual lead pacemaker/AICD and atherosclerotic thoraci c aorta. There is persistent small to moderate size left pleural fluid collection extending to left l lacy apex. Background chronic emphysematous change with left mid to lower lung opacities and medial ri ght basilar opacity. No pneumothorax seen bilaterally. Osseous structures are intact. IMPRESSION: Overall stable findings, cardiomegaly with small to moderate size left pleural fluid co llection and diffuse left mid to lower lung acute infiltrate and/or atelectasis are all redemonstrate d
--- NOTE | 2020-02-02 08:14 | P.PN ---
Subjective Patient is seen in follow-up for acute kidney injury and hyponatremia. Sodium level stable at 131 today. Renal function is stable. Does get dyspneic without oxygen support. Maintained on dobutamine and lasix drip. Patient has systolic CHF with ejection fraction of less than 20% with moderate tricuspid regurgitation and pulmonary hypertension. Urine output 50-100 mL an hour. Vital signs are stable. General: The patient appeared well nourished and normally developed. HEENT: Head exam is unremarkable. Neck is without jugular venous distension. LUNGS: Breath sounds decreased. HEART: Rate and Rhythm are regular. First and second heart sounds normal. No murmurs, rubs or gallops. ABDOMEN: Abdominal exam reveals normal bowel sounds. Non-tender and non- distended. No evidence of peritonitis. EXTREMITITES: 1+ edema. Objective - Vital Signs Vital signs: Vital Signs Temp 98 F 02/02/20 04:00 Pulse 101 H 02/02/20 07:30 Resp 12 02/02/20 07:30 BP 103/74 02/02/20 07:30 Pulse Ox 97 02/02/20 07:30 Intake & Output 02/01/20 02/02/20 02/02/20 18:59 06:59 18:59 Intake Total 566.333 559.667 20 Output Total 1710 1730 50 Balance -1143.667 -1170.333 -30 Weight 91.9 kg 92.1 kg Intake: IV 190 240 20 Normal saline 190 240 20 Intake, IV Titration 76.333 79.667 Amount Furosemide 100 mg In 76.333 79.667 Sodium Chloride 0.9% 90 ml @ 10 MG/HR 10 mls/hr IV .Q10H [facility] Rx#: [id number] Oral 300 240 Output: Chest Tube Drainage 140 Pleural Catheter Left Mid 140 -Axillary Chest Urine 1570 1730 50 Other: Voiding Method Indwelling Catheter Indwelling Catheter - Labs CBC & Chem 7: 02/02/20 04:06 02/02/20 04:06 Labs: Abnormal Lab Results - Last 24 Hours (Table) 02/02/20 02/02/20 Range/Units 04:06 04:06 RBC 4.21 L (4.30-5.90) m/uL Hgb 11.7 L (13.0-17.5) gm/dL Hct 37.9 L (39.0-53.0) % MCHC 30.8 L (31.0-37.0) g/dL RDW 17.8 H (11.5-15.5) % Lymphocytes # 0.6 L (1.0-4.8) k/uL Sodium 131 L (137-145) mmol/L Chloride 96 L (98-107) mmol/L Carbon Dioxide 31 H (22-30) mmol/L BUN 31 H (9-20) mg/dL Creatinine 1.49 H (0.66-1.25) mg/dL Glucose 101 H (74-99) mg/dL Microbiology - Last 24 Hours (Table) 01/27/20 14:30 Gram Stain - Final Pleural Fluid Body Fluid Culture - Final Staphylococcus epidermidis Acinetobacter lwoffi Assessment and Plan Plan: Assessment: 1. Acute kidney injury mostly prerenal secondary to cardiorenal syndrome. Renal function stable. 2. Acute on chronic systolic CHF with ejection fraction of less than 20% with moderate tricuspid regurgitation and pulmonary hypertension. 3. Hypervolemic hyponatremia. Status post Samsca. Stable. 4. Chronic left-sided pleural effusion. Patient has a Pleurx catheter. 5. Hyperkalemia secondary to acute kidney injury. Lisinopril discontinued. Better. 6. Volume overload. Plan: Maintian Lasix drip at 10 mL an hour. Maintain fluid restriction. Continue to monitor renal function and urine output. Repeat electrolytes in the morning. Avoid nephrotoxins. Hospice being considered.
[2020-02-02] MEDS: ASPIRIN 81 MG PO SCH (08:41)
[2020-02-02] MEDS: FAMOTIDINE 20 MG TAB PO SCH (08:41)
[2020-02-02] MEDS: MIDODRINE 5 MG TAB PO SCH ×3 (08:41→18:38)
[2020-02-02] MEDS: CLOPIDOGREL 75 MG TAB PO SCH (08:41)
[2020-02-02] MEDS: DOBUTamine DRIP 500 MG in DEXTROSE/WATER 1 250ML.BAG IV SCH ×2 (08:41→08:46)
[2020-02-02] MEDS: ATORVASTATIN 40 MG TAB PO SCH (08:41)
[2020-02-02] MEDS: VENLAFAXINE HCL 50 MG TAB PO SCH ×2 (08:44→18:39)
[2020-02-02] MEDS: VANCOMYCIN 1,500 MG in SODIUM CHLORIDE 0.9% 250 ML IVPB SCH (08:45)
[2020-02-02] MEDS: HEPARIN SODIUM,PORCINE 5,000 UNIT/ML 1 ML VIAL SQ SCH ×2 (08:45→19:46)
[2020-02-02] MEDS: LIOTHYRONINE SODIUM 5 MCG TAB PO SCH (08:45)
[2020-02-02] MEDS: NOREPINEPHRINE 4 MG in SODIUM CHLORIDE 0.9% 250 ML IV SCH ×2 (08:47→18:44)
--- NOTE | 2020-02-02 11:13 | PN ---
PROGRESS NOTE This patient is followed here for ischemic cardiomyopathy and refractory heart failure. The patient has improved a lot as compared to yesterday. The patient had a urine output of 3.5 L in the last 24 hours. He has responded to the Lasix drip as well as the Lasix IV bolus and Zaroxolyn. His urine showed random urine sodium was 76, which is a good sign. I had a discussion with the patient's daughter, patient is a DNR, but they want to continue maximum medical treatment. Hopefully, we will be able to wean him off the dobutamine drip in the next few days. The patient is feeling better. His swelling in the legs has improved. Blood pressure is 95/71 mmHg, heart rate is 75 per minute. First and second heart sounds are normal. Bilateral basal rales are noted. Chest x-ray shows moderate degree of pleural effusion. This was discussed with Dr. Bronson. I will recommend to continue the patient on Lasix drip at 10 mg/hour. We will add Zaroxolyn 5 mg daily and Aldactone 25 mg b.i.d. is added. We will follow the patient's potassium. If patient continues putting out good urine output, we will try to wean him off the dobutamine from tomorrow. MMODL / IJN: [id number] /
--- NOTE | 2020-02-02 12:01 | P.PN ---
Subjective Progress Note Date: 02/02/20 This is a 74-year-old male patient of Dr. Burnett, Dr. Gilbert and Dr. Xi Ordaz with a previous medical history significant for hypertension, hyperlipidemia, osteoarthritis, prostate cancer that was diagnosed back in 2006 status post implants as well as Lupron injection, coronary artery disease with stent of the circumflex, severe cardiomyopathy and chronic systolic heart failure with known ejection fraction of 25%, bradycardia status post AICD implantation, recurrent left-sided pleural effusion status post Pleurx catheter insertion August 2019 by cardiothoracic surgery. Patient drains this himself or his daughter of 100-200 mL subpleural fluid daily. Patient also has history of hypertension, [id number] smoking history. Patient complains of shortness of breath for the past month gradually worsening. Shortness of breath is exceptionally worse with exertion. No chest pain, no cough or sputum production, reports weight loss. He complains of nausea occasionally, no abdominal pain. He complains of lightheadedness. He denies any use of steroids for the past 6 weeks. He denies any change and his medications recently. Patient relates that he has been using his mother's home oxygen at 4 L nasal cannula around the clock. Patient came into [facility] emergency center for evaluation, WBC 7.8, hemoglobin 13.8, d-dimer elevated at 4.08. CT angiogram of the chest did not show any pulmonary embolism. There was a small right-sided loculated pleural effusion along with pseudotumor in the left lung consistent with pleural fluid. No evidence of pneumonia. No airspace disease. 3 cm poorly marginated infiltrate in the right lower lobe and significance is unknown. Patient was hypotensive in the emergency center with systolic blood pressure down to 75. He was started on vasopressors and admitted into the intensive care unit with consults in place for pulmonary medicine and cardiology. Abdominal ultrasound revealed mild gallbladder wall thickening and air fluid that could relate cholecystitis. Heart failure also possible. Small gallstone or gallbladder polyp. Fatty liver. 01/21: Patient remains in intensive care unit. He is seen today sitting in the recliner. His breathing appears to be more comfortable. Patient states that he is feeling tight and did not sleep well last night. We will plan to increase melatonin dose. Patient has been seen by cardiology this morning and started on dobutamine. Patient is currently on norepinephrine as well. Echocardiogram reveals ejection fraction less than 20%, moderate mitral regurgitation, moderate tricuspid regurgitation, mild to moderate pulmonary hypertension.. Potassium this morning is 6.3 and pulmonary medicine has ordered insulin and dextrose. Patient is to be redrawn at noon today. WBC 7.9, hemoglobin 13.6, troponin 0.077. BUN 41 and creatinine 1.46. Acute hepatitis panel negative. Patient is currently on Lasix 40 mg oral twice daily. TSH will be ordered. Chest x-ray reveals changes of heart failure with interstitial pulmonary edema. Continued moderate left effusion with prominent left basilar atelectasis and/or consolidation. Slight worsening aeration of the right base 01/22: Patient has been afebrile, heart rate 97, blood pressure 95/68, pulse ox 98% on 4 L nasal cannula. Repeat blood work reveals CBC unremarkable, sodium 1:30, potassium 4.8, chloride 96, CO2 25, BUN 33 and creatinine 0.85. AST 126, ALT 145, alkaline phosphatase 262. TSH 5.680 and free T4 1 0.38. Patient remains in the intensive care unit. Dobutamine drip increased to 5. Patient remains on levofloxacin as well. Patient states that he did not sleep last night. He is utilizing Xanax twice daily. He denies having any chest pain and no lower extremity edema. He does complain of shortness of breath. No lightheadedness or dizziness. Cytomel added and midodrine increased to 10 mg 3 times daily. Patient is concerned about his mother and his friend staying with her at this time. We will communicate with Dr. Burnett and ask for home care service to be arranged for his mother. Do not anticipate that he will be ready for discharge for another 48-72 hours. 01/23: Patient remains in intensive care unit on dobutamine at 5 mcg/kg/m and levo fed which is to be weaned off. Dr. Napoles is planning for another 24 hours of IV dobutamine. Patient states that he is feeling off today complaining of nausea. He states he did get some sleep last night. Patient has been noted to be more anxious and due to lack of appetite and insomnia, Remeron will be added. He continues to have shortness of breath with minimal activity. He remains awake and alert but he is stating that he wants to go home. We did arrange for home care for his mother yesterday. WBC 5.7, hemoglobin 12.8, potassium 5.3, creatinine 0.75. We did start midodrine yesterday 3 times daily 10 mg. The blood pressure seems to be stable today. Chest x-ray showing worsening CHF for developing ARDS on background mild underlying emphysematous change there is increasing central alveolar and interstitial edema and/or infiltrates and cardiomegaly. No concern for ARDS at this point per Dr. Contreras. Culture on Pleurx fluid is staph epidermidis. 01/24: Repeat chest x-ray reveals similar moderate pulmonary vascular congestion and interstitial edema likely on the basis of decompensated heart failure. Retrocardiac airspace disease is also stable that may represent small plural effusion and atelectasis or less likely pneumonia. Patient is afebrile, heart rate running between 76 and 106, blood pressure 95/75, pulse ox 96% on 2 L nasal cannula. Repeat lab work reveals unremarkable CBC. Sodium 1:30, potassium 5.4, chloride 97, CO2 22, BUN 26 and creatinine 0.81. Pleural fluid was Staphylococcus epidermidis and alphahemolytic streptococcus. Yesterday evening, patient was attempting to leave the intensive care unit in and removed hospice volunteer and IV. Patient was returned to his room and IV access and monitoring was resumed. Patient is alert at this time. Nursing passes on that patient awakes and is very confused. He has not had consistent of sleep. Patient complains of feeling tired. Pulmonary has resumed his Seroquel and Effexor. We will continue Remeron as well both Seroquel and Remeron move to supper time. Patient is still on dobutamine for another 24 hours. He has been off norepineph rine since yesterday at 11 AM. He has a sitter at the bedside at this time. Consult added for Dr. Brown regarding hyponatremia. 01/25: Patient continues to have episodes of confusion but is easily reoriented. He is cooperative and follows commands during these episodes. He is able to answer all questions appropriately to time place and person. Ammonia level from yesterday was less than 9. He is continued on dobutamine drip at 5 g for another 24 hours.. Patient was given 1 dose of IV Lasix 40 mg this morning. Patient has been seen by Dr. Brown and ordered Lasix IV 40 mg every 12 hours. Urine osmolality 497, cortisol level 22. Sodium 129, potassium 5.4, chloride 95, CO2 28, BUN 24 and creatinine 0.86. WBC 6.2, hemoglobin 9.6, platelet count 226. Pro-calcitonin 0.14. Repeat chest x-ray reveals stable retrocardiac opacities may again represent small pleural effusion and atelectasis or less likely pneumonia. Primary consideration is decompensated congestive heart failure. 01/26: Patient remains in the intensive care unit. He continues to have episodes of confusion but is easily reoriented. He is having occasional panic attack with increased anxiety. We will resume Xanax and continue his other psychiatric medications. He did sleep well last night most likely related to the Remeron and melatonin. Dobutamine has been decreased today to 2.5 mcg/kg/m. He is off norepinephrine. Repeat lab work reveals WBC 5.4, hemoglobin 11.9, sodium 128, potassium 5.2, creatinine 0.94. Dr. Brown is on consult regarding hyponatremia. 314: Patient remains in intensive care unit sitting up in chair. He is complaining of pain to the right groin. Denies any dizziness or chest pain. Continues to have shortness of breath. He has not had any episodes of confusion overnight or today. Patient states that he slept well during the evening. Dobutamine continues to be at 2.5 MCG/KG/M. However he continues to be hypotensive. Morning meds were held due to his pressure. Sodium 128, potassium 5.1, BUN 28, creatinine 1.06 01/28: Patient remains in intensive care unit sitting up in bed. Patient has no complete concerns at this time. He denies any difficulty breathing or shortness of breath. He continues to be on dobutamine and hypotensive. Hemoglobin 11.2, sodium 127, potassium 5.6, BUN 31, creatinine 1.56, AST 86, ALT 88, alkaline phosphatase 206. The Pleurx catheters in place. Patient is producing better urine output. 01/29: Patient remains in the intensive care unit. Dobutamine was discontinued this morning. Patient is complaining of having dizziness on and off. Blood pressure is been marginal. He is scheduled for one dose of Lasix 40 a blood pressure is maintained. Patient is also complaining of significant weakness. He continues to have lower extremity edema. Confusion episodes have been less frequent. Patient is afebrile, heart rate 76, blood pressure 90/60, pulse ox 96% on 2 L nasal cannula. Repeat blood work reveals WBC 7.4, hemoglobin 11.5, platelet count 225. Sed rate 24, C-reactive protein 60.3. Sodium 129, potassium 5.5, chloride 99, CO2 23, BUN 33, creatinine 1.64. Blood sugar 65. Liver function tests remain elevated with AST 78, ALT 83, alkaline phosphatase 223. Pro-calcitonin 0.52. Patient has been on IV antibiotics in the form of vancomycin. Patient has been seen by Dr. Sen with recommendations for either Bactrim or doxycycline depending on kidney function at time of discharge for one to 2 week course. 01/30: Patient was unable to be weaned off dobutamine yesterday. He has been continued on dobutamine. He has had essentially no urine output. He received Lasix 40 mg yesterday followed by Lasix 80 mg IV push. Patient is complaining of feeling dizzy. He is up to the chair into bed only. He has been afebrile, heart rate 98, blood pressure 80/69, pulse ox 95%. Repeat blood work reveals WBC 6.5, hemoglobin 11.5, platelet count 206. Sodium 132, potassium 4.9, chloride 101, CO2 23, BUN 35 and creatinine 1.65. Blood sugars running between [address] Ramirez discussed with the patient his current condition and prognosis in detail. Discussed option of no CODE STATUS and also of hospice care. This was previously discussed over the weekend with the patient as well. Patient seems to understand. Case management has been updated. Nursing to discuss with cardiology in order for them to further give patient details on his prognosis regarding his cardiac function and prognosis. Venous duplex of the bilateral lower extending negative for DVT. 01/31: Patient is seen in the intensive care unit. He remains on dobutamine at 2.5 mcg/kg/m. Has been started on Lasix drip this morning. Urine output overnight has been 45-70 mL per hour. Currently urine output is at 35 mL per hour. Patient has been afebrile, heart rate 101, blood pressure 89/57, pulse ox 100% on 2 L nasal cannula. The patient remains a full code despite discussion yesterday. Dr. Grey also discussed and reinforced need for hospice care and transition to no code. Hospice informational meeting to take place today and his daughter is to be in attendance. 02/01: Patient remains on the intensive care unit. He remains on dobutamine. Lasix drip was discontinued. Patient has been diuresing very well. Chest x-ray reveals overall stable findings. Cardiomegaly with small to moderate size left pleural fluid collection and diffuse left mid to lower lung acute infiltrate and/or atelectasis redemonstrated. Dr. Bronson is concern for loculated fluid and may order a CAT scan and involve cardiothoracic surgery. Patient's CODE STATUS has been changed to no code. Patient is afebrile, heart rate 94, blood pressure 117/67, pulse ox 98% on 2 L nasal cannula. Repeat blood work reveals Donna BC 6, hemoglobin 11.7, platelet count 209. Sodium 131, potassium 4.2, chloride 96, CO2 31, BUN 31 creatinine 1.49. Objective - Vital Signs Vital signs: Vital Signs Temp 98 F 02/02/20 04:00 Pulse 94 02/02/20 11:00 Resp 25 H 02/02/20 11:00 BP 117/67 02/02/20 11:00 Pulse Ox 98 02/02/20 11:00 Intake & Output 02/01/20 02/02/20 02/02/20 18:59 06:59 18:59 Intake Total 786.059 559.667 479.833 Output Total 1710 1730 775 Balance -923.941 -1170.333 -295.167 Weight 91.9 kg 92.1 kg Intake: IV 190 240 50 Normal saline 190 240 50 Intake, IV Titration 296.059 79.667 329.833 Amount DOBUTamine DRIP 500 mg In 219.726 Dextrose/Water 1 250ml. bag @ 2.5 MCG/KG/MIN 7.14 mls/hr IV .Q24H TOD Rx#: [id number] Furosemide 100 mg In 76.333 79.667 79.833 Sodium Chloride 0.9% 90 ml @ 10 MG/HR 10 mls/hr IV .Q10H TOD Rx#: [id number] Vancomycin 1,500 mg In 250 Sodium Chloride 0.9% 250 ml @ 125 mls/hr IVPB Q24H TOD Rx#:[id number] Oral 300 240 100 Output: Chest Tube Drainage 140 Pleural Catheter Left Mid 140 -Axillary Chest Urine 1570 1730 775 Other: Voiding Method Indwelling Catheter Indwelling Catheter - Exam Review of Systems Constitutional: Reports fatigue, Reports lethargy, Reports poor appetite, Reports weakness, Reports weight loss, Denies chills, Denies fever, reports daytime sleepiness Ears, nose, mouth and throat: Denies dysphagia, Denies headache, Denies nasal congestion, Denies nasal discharge, Denies sore throat, reports vertigo Cardiovascular: Reports decreased exercise tolerance, Reports dyspnea on exertion, Reports lightheadedness, Reports orthopnea, Reports shortness of breath, Denies chest pain, Denies syncope Respiratory: Reports dyspnea slightly improved, Reports home oxygen, Denies cough, Denies cough with sputum, Denies excessive sputum, Denies hemoptysis, Denies respiratory infections, Denies sleep apnea, Denies wheezing Gastrointestinal: Reports loss of appetite, Reports nausea, Denies abdominal pain, Denies diarrhea, Denies vomiting Genitourinary: Denies dysuria, Denies urinary retention Musculoskeletal: Reports muscle weakness, Denies frequent falls, Denies gait dysfunction Integumentary: Denies pruritus, Denies rash Neurological: Reports change in mentation, Denies change in speech, Denies numbness, reports weakness continued Psychiatric: Reports anxiety, reports depression, reports insomnia Endocrine: Denies fatigue, Denies weight change Physical examination Gen: This is a 74-year-old male. Patient is sitting up in chair. No respiratory distress noted at rest. HEENT: Head is atraumatic, normocephalic. Pupils equal, round. Sclerae is anicteric. NECK: Supple. No JVD. No lymphadenopathy. No thyromegaly. LUNGS: Diminished breath sounds Pleurx catheter in the left. HEART: Regular rate and rhythm. Systolic murmur. ABDOMEN: Soft. Bowel sounds are present. No masses. No tenderness. EXTREMITIES: 1+ pedal edema. No calf tenderness. Dorsalis pedis +2 bilaterally. NEUROLOGICAL: Patient is awake, alert and oriented x3. Cranial nerves 2 through 12 are grossly intact. - Labs CBC & Chem 7: 02/02/20 04:06 02/02/20 04:06 Labs: Abnormal Lab Results - Last 24 Hours (Table) 02/02/20 02/02/20 Range/Units 04:06 04:06 RBC 4.21 L (4.30-5.90) m/uL Hgb 11.7 L (13.0-17.5) gm/dL Hct 37.9 L (39.0-53.0) % MCHC 30.8 L (31.0-37.0) g/dL RDW 17.8 H (11.5-15.5) % Lymphocytes # 0.6 L (1.0-4.8) k/uL Sodium 131 L (137-145) mmol/L Chloride 96 L (98-107) mmol/L Carbon Dioxide 31 H (22-30) mmol/L BUN 31 H (9-20) mg/dL Creatinine 1.49 H (0.66-1.25) mg/dL Glucose 101 H (74-99) mg/dL Microbiology - Last 24 Hours (Table) 01/27/20 14:30 Gram Stain - Final Pleural Fluid Body Fluid Culture - Final Staphylococcus epidermidis Acinetobacter lwoffi Assessment and Plan Plan: 1. Acute on chronic systolic heart failure with known ejection fraction of 25%. Repeat echocardiogram as above. Dobutamine drip has been continued. Patient is currently off norepinephrine. Lasix gtt. Continue midodrine 10 mg 3 times daily. 2. Severe cardiomyopathy status post AICD. 3. Chronic left-sided pleural effusion status post pleural catheter insertion. Nursing is draining once daily. Culture positive for alpha hemolytic strep and Streptococcus epidermidis. Continue vancomycin. Dr. Sen consult appreciated. Concern for loculated fluid collection. Patient may undergo CAT scan. 4. Cardiogenic shock secondary to severe cardiomyopathy requiring vasopressors. Patient is currently off norepinephrine. 5. History of coronary artery disease status post stenting of circumflex with mild elevation of troponins, possible acute non-ST VA. Cardiology consult. Aspirin 81 mg daily, Lipitor 40 mg daily, Plavix 75 mg daily, 6. Hyperlipidemia. 7. History of prostate cancer status post radiation therapy and Lupron in jections. 8. Elevated liver function tests possibly related to combination of heart failure and fatty liver. Acute hepatitis panel negative. 9. Generalized anxiety disorder. Continue Xanax 2.5 mg twice daily and Remeron 7.5 mg. 10. Hyperkalemia. Continue Lasix, no potassium supplementation. 11. DVT prophylaxis. Heparin subcu. 12. GI prophylaxis. Pepcid. 13. Hyponatremia. Consult with nephrology appreciated. 14. Acute metabolic encephalopathy secondary to insomnia and ICU hosp italization. Continue Seroquel and Effexor and continue Remeron as well and melatonin 10 mg at bedtime. 15. Hypothyroidism. Patient was started on Cytomel 5 g daily. 16. Recurrent depression. Continue Seroquel 50 mg daily and Effexor 100 mg twice daily. Discharge plan: To be determined. Most likely return home. Possibly home with hospice. Hospice meeting. CODE STATUS: CODE STATUS has been discussed with the patient with recommendations for no code due to current treatment and prognosis. CODE STATUS is currently full code. Impression and plan of care have been directed as dictated by the signing physician. Funmilayo Diaz nurse practitioner acting as scribe for signing physician.
--- NOTE | 2020-02-02 12:31 | CT ---
EXAMINATION TYPE: CT chest wo con DATE OF EXAM: 02/02/2020 COMPARISON: 01/20/[address] dated 02/04/2016 HISTORY: Difficulty breathing, loculated effusion CT DLP: 466.5 mGycm. Automated Exposure Control for Dose Reduction was Utilized. TECHNIQUE: CT scan of the thorax is performed without IV contrast. FINDINGS: LUNGS: There is a similar appearing loculated left pleural effusion in comparison to the prior of 01/19 and similar positioning of a left thoracostomy tube. There is a peripheral rind of atelectasis. The numerous nodular components, particularly along the left mediastinal border such as on image 29 raise concern for a possible neoplastic process. There is also a new layering small to moderate right pleural effusion. Right upper lobe anterior 8 mm pulmonary nodule is present. Subpleural 4 mm pulmonary nodule on the l ateral right upper lobe on image 28. Spiculated irregular opacity of the right lower lobe is seen sim ilar to the prior measuring approximately 3.1 x 2.4 cm. This could relate to pneumonia or neoplastic process. Bronchoscopy could be considered. Nodular prominence of the distal pulmonary artery and the right middle lobe is seen on image 39. Subsegmental scattered atelectasis. MEDIASTINUM: Lack of IV contrast is noted to limit evaluation for mediastinal and especially hilar ad enopathy. Enlarged right paratracheal lymph node measures 1.7 cm in short axis, similar to the prior partially calcified subcarinal lymph node is enlarged measuring 1.8 cm. Calcified left paratracheal l ymph node appears as a benign granuloma.. The heart is enlarged and there is a somewhat nodular peric ardial effusion. Borders are difficult to define given the adjacent nodular pleural thickening. Left- sided cardiac device is seen. OTHER: There is new trace ascites in the upper visualized abdomen. Benign splenic granulomas incident ally seen. Indeterminate 8 mm sclerotic lesion of the L1 vertebral body is seen. There is some sclero sis of the cervical spine that is only partially visualized on image 1. IMPRESSION: 1. Persistent loculated left pleural effusion with multinodular pleural thickening. This raises suspi cion for an underlying neoplastic process and cytologic analysis of left pleural fluid is recommended . 2. Small pericardial effusion with question nodular borders versus borders from the adjacent nodular pleural effusion. CT with contrast could better delineate the borders and evaluate for enhancing maryjo cardium of pericarditis. If there is true nodularity pericarditis or metastatic implants would have t o be considered. 3. Cardiomegaly and new right small to moderate pleural effusion, consider cardiogenic fluid overload of congestive heart failure. New trace ascites is also seen. 4. Spiculated opacity in the right lower lobe measuring 3.1 cm could be neoplastic or infectious. Bro nchoscopy could be considered. Additional subcentimeter pulmonary nodules are seen on the right. 5. Nonspecific sclerotic focus of L1 and questionably of the cervical spine, visualized on one image only. These may be benign or degenerative as they appear present on the prior exam of 02/04/2016.
--- NOTE | 2020-02-02 12:44 | P.PN ---
Subjective Progress Note Date: 02/02/20 Principal diagnosis: Acute Severe systolic congestive heart failure This is a 74-year-old male patient with known history of coronary artery disease with previous coronary intervention and stenting of the circumflex in addition to history of severe cardiomyopathy with an ejection fraction of 25% and chronic systolic dysfunction and severe resting bradycardia close the was chamber ICD placement. The patient was also having recurrent left-sided pleural effusion and he underwent a Pleurx catheter insertion back in August 2019 by cardiothoracic surgery. He has been undergoing daily drainage from his left lung and he typically drinks approximately 200 mL of pleural fluid.. The patient also has hypertension, prostate cancer and he has been treated with prostatic radiation therapy/implants. He has also history of osteoarthritis. The patient is an ex-smoker. [id number] smoking history. He came into the hospital because of worsening shortness of breath.. His been progressively getting more short of breath over the past month. His shortness of breath is essentially exertional and he also has orthopnea. No reported chest pain. No reported cough or sputum production. He is an ex-smoker. No wheezing. No previous history of DVT or pulmonary embolism. No fever. The white cell count at time of admission was 7.8. Hemoglobin was at 13.8. Coagulation profile was within normal. D-dimer was elevated at 4.08 and based on that the patient was given a CT angiogram that showed no evidence of any pulmonary embolism. 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 No evidence of any pneumonia. No evidence of any airspace disease. There was a 3 cm poorly marginated infiltrate in the right lower lobe and the significance of this abnormality is not known. In the emergency department, the patient was having episodes of hypotension. His systolic blood pressure was as low as 75. He was given pressors and currently is running on low-dose levothyroid at 0.03 g per KG per minute. His cardiac rhythm is ventricularly paced at the rate of 100. Note that the patient some minimal troponin elevation. ProBNP level was quite elevated. Lactic acid level was 4.2, admission dropped down to 2 and currently is on IV with KVO. The patient is seen today 01/22/2020 in follow-up in the intensive care unit. He is currently awake and alert in no acute distress. Sitting up at the bedside. Maintaining O2 saturations in the 90s on 4 L/m per nasal cannula. Today's chest x-ray continues to show evidence of fluid volume overload. Echocardiogram reveals ejection fraction less than 20%. He is still requiring a small amount of norepinephrine at 0.03 mcg/kg/m. Potassium is 6.3. Sodium 130. Creatinine 1.46. White count 7.9. Hemoglobin 13.6. Troponin 0.077. He remains on Lasix 40 mg by mouth twice a day. Still remains in a positive balance. Weight is stable. The patient is seen today 01/23/2020 in follow-up in the in the chair at the bedside. Maintaining O2 saturations in the 90s on 4 L/m per nasal cannula. Chest x-ray showing improvement in the volume status. He is breathing a bit easier today compared to yesterday, he is complaining of weakness and fatigue. He is currently on norepinephrine at 0.04 mcg/kg/m. Dobutamine at 5 mcg/kg/m. Maintaining adequate urine output. Blood and urine cultures reveal no growth. White count 7.6. Hemoglobin 13.1. sodium 130. Creatinine 0.85. Potassium 4.8. TSH 5.68. T4 1 0.38. the patient is seen today 01/24/2020 in The intensive care unit. He is awake and alert in no acute distress. Maintaining good O2 saturations in the 90s on 4 L/m per nasal cannula. Chest x-ray continues to show some worsening congestive heart failure with mild underlying emphysema. There is increased central alveol interstitial edemaand/or infiltrates. Pleural fluid cultures reveal no growth. Blood cultures reveal no growth. He continues on norepinephrine at 0.01 mcg/kg/min. Remains on Dobutamine at 5 mcg/kg/min. White count 5.7. Hemoglobin 12.8. Potassium 5.3. 5.3. Creatinine 0.75. He remains on midodrine TID. BP marginal. On lasix 40 BID. The patient is seen today 01/27/2020 in follow up in the ICU. He is currently resting comfortably in bed. Awake, alert in no acute distress. He did have issues with anxiety earlier this a.m. Treated with Xanax and improved. Chest x-ray continues to show persistent left basilar opacity and left midlung opacity. Plan to drain fluid again today per Pleurx. We will send more cultures and fluid analysis. Cultures have been revealing Staphylococcus epidermidis and Acinetobacter. Follow-up cultures with coag-negative staph. vancomycin will be added Continue ceftriaxone. Dobutamine at 2.5 mcg/kg/m. Remains off norepinephrine. White count 5.4. Hemoglobin 11.9. Sodium 128. Potassium 5.2. Creatinine 0.94. On today's evaluation of 01/28/2020 the patient is feeling okay and he denies having any worsening shortness of breath. There was a concern of a left-sided pleural space infection. The patient a Pleurx catheter in place. There have been 2 cultures that are showing coagulase-negative staph, staph epidermidis in one of the cultures showed inflammatory except a glucose and Acinetobacter. The patient was placed on a combination of Rocephin and vancomycin. Nevertheless the fluid was reevaluated and analyzed. The fluid LDH and protein remains on a cell count remains low as not suggestive of any empyema or pleural space infection. Noted the patient is undergoing drainage and a daily basis. He is feeling well. He is on dobutamine at a dose of 2.5 mcg/kg per minute. He may need norepinephrine infusion on and off to maintain his blood pressure. His white cell count is not elevated. Sodium level is at 128 which is inconsistent with his CHF. Pro-calcitonin level was at 0.17. The chest x-ray from today showed retrocardiac opacity that may represent an underlying pleural effusion/atelectasis. Right lung essentially clear. No fever no chills. Altered mentation. No other significant events overnight. The patient is producing a better urine output. Balance is -6 20 mL over the past 24 hours. On today's evaluation of 01/29/2020, the patient is feeling well. He is sitting up on a chair. He is on dobutamine 2.5 mcg/kg per minute. He is on no Lasix for now. Repeat fluid evaluation from the pleural drainage showed coagulase-neg ative staph epidermidis. The patient is on vancomycin. I'm not absolutely sure there is a true infection. The fluid analysis came back negative for infection or exudate in last turner to be severely a transudative fluid and the white cells and the pleural fluid is low. The total amount of output from yesterday's drainage was 25 mL. He is afebrile. He has no significant leukocytosis. I am going to ask IDs opinion regarding the possibility of a pleural space infection which I think it's not highly likely at this point in time. Meanwhile, the patient's creatinine is up to 1.5. This is to be monitored. No angina. No palpitation. No other complaints otherwise. Vancomycin level needs to be checked also. He is being supported with norepinephrine infusion for blood pressure support. Reevaluated today on 01/30/20, patient was seen in the intensive care unit, remains on Dobutrex at 2.5 mcg/kg/m, he is also on Lasix, feeling better, breathing easier, responding well to diuretics. However considering that the patient is still on Dobutrex, I plan to keep him in the ICU for the next 24 hours. Patient is not requiring any norepinephrine. Chest x-ray continues to show some retrocardiac loculated pleural effusion in the left hemithorax, and improving interstitial edema. WBC count is 7.4 hemoglobin is 11.5. Electrolytes showed elevated potassium of 5.5 sodium is 129 BUN is 33 and creatinine is 1.64. Albumin is 2.8 Reevaluated today on 01/31/20, patient was taken off dobutamine yesterday, however after dobutamine was discontinued, his urine output was extremely poor. He was placed back again by cardiology on dobutamine, and he remains on diuretics, and his urine output is excellent. Patient is feeling better, breathing easier. Hardly any cough no wheezing no shortness of breath, continues to have left pleural effusion, with a Pleurx catheter remains in place. Chest x-ray is suggestive of interstitial edema. Cytology from the pleural effusion remains pending. Patient was noted to have asymmetrical swelling of the lower extremities today, hence a venous Doppler was done. It was negative for deep vein thrombosis. Labs from today were reviewed. Creatinine is 1.65. Holding about the same over the last 4 days. Remains on diuretics as per nephrology Reevaluated today on 02/01/20, patient remains on Dobutrex, and now he was started on Lasix infusion at 10 mg per hour. Overall cardiac status is extremely poor, patient was seen by hospice, and I believe that is very appropriate to consider hospice on this patient. Clearly has a terminal disease, and I believe his long-term prognosis and quality of life is extremely poor. Patient obviously is considering hospice, and he would have another session with hospice staff later today. In the meantime, the plan is to continue dobutamine and Lasix. Patient is developing worsening left-sided pleural effusion in spite of of left Pleurx catheter in place. And he is clearly developing interstitial edema. Labs and chest x-ray were reviewed today Reevaluated today on 02/02/20, patient remains on dobutamine at 2.5 mcg/kg/m. Remains on Lasix at 10 mg per hour drip. Remains in negative balance over the last 24 hours, patient is over a liter negative balance. Electrolytes are basically about the same BUN is 31 creatinine up to 1.49 from 1.45 yesterday. Clinically the patient is feeling better, chest x-ray continues to show significant possibly loculated effusion on the left side, in spite of Pleurx catheter in place. CT of the chest showed persistent loculated left pleural effusion with multinodular pleural thickening raising the possibility of underlying malignancy. There is also a 3.1 cm spiculated mass in the right lower lobe. Previous cytology on the left pleural effusion was a negative for malignancy. This could very well be parapneumonic in nature or again malignancy is not entirely ruled out but felt to be less likely. Objective - Vital Signs Vital signs: Vital Signs Temp 98 F 02/02/20 04:00 Pulse 94 02/02/20 11:00 Resp 25 H 02/02/20 11:00 BP 117/67 02/02/20 11:00 Pulse Ox 98 02/02/20 11:00 Intake & Output 02/01/20 02/02/20 02/02/20 18:59 06:59 18:59 Intake Total 786.059 559.667 479.833 Output Total 1710 1730 775 Balance -923.941 -1170.333 -295.167 Weight 91.9 kg 92.1 kg Intake: IV 190 240 50 Normal saline 190 240 50 Intake, IV Titration 296.059 79.667 329.833 Amount DOBUTamine DRIP 500 mg In 219.726 Dextrose/Water 1 250ml. bag @ 2.5 MCG/KG/MIN 7.14 mls/hr IV .Q24H [facility] Rx#: [id number] Furosemide 100 mg In 76.333 79.667 79.833 Sodium Chloride 0.9% 90 ml @ 10 MG/HR 10 mls/hr IV .Q10H [facility] Rx#: [id number] Vancomycin 1,500 mg In 250 Sodium Chloride 0.9% 250 ml @ 125 mls/hr IVPB Q24H [facility] Rx#:[id number] Oral 300 240 100 Output: Chest Tube Drainage 140 Pleural Catheter Left Mid 140 -Axillary Chest Urine 1570 1730 775 Other: Voiding Method Indwelling Catheter Indwelling Catheter - Exam Physical Exam: Revealed 74-year-old white male on 4 L nasal cannula, in no distress. Head: Atraumatic, normocephalic. HEENT:[Neck is supple.] [No neck masses.] [No thyromegaly.] [No JVD.] PERRLA, EOMI, no icterus. Throat is clear. Chest: [Symmetrical chest expansion, diminished breath sounds at the bases and crackles, at the bases especially at the left base] Pleurx catheter noted in the left anterior chest area. Cardiac Exam: [Normal S1 and S2, no S3 gallop, 2/6 systolic murmur thought the precordium. Abdomen: [Soft, nontender, no megaly, no rebound, no guarding, normal bowel sounds.] Extremities: [No clubbing, asymmetric of swelling and edema noted in the right lower extremity compared to left lower extremity hence venous Doppler was done and it was negative Neurological Exam: [No focal neurologic deficit.] Alert oriented 3. Psychiatric: Normal mood, affect and normal mental status examination. Skin: No rashes. - Labs CBC & Chem 7: 02/02/20 04:06 02/02/20 04:06 Labs: Abnormal Lab Results - Last 24 Hours (Table) 02/02/20 02/02/20 Range/Units 04:06 04:06 RBC 4.21 L (4.30-5.90) m/uL Hgb 11.7 L (13.0-17.5) gm/dL Hct 37.9 L (39.0-53.0) % MCHC 30.8 L (31.0-37.0) g/dL RDW 17.8 H (11.5-15.5) % Lymphocytes # 0.6 L (1.0-4.8) k/uL Sodium 131 L (137-145) mmol/L Chloride 96 L (98-107) mmol/L Carbon Dioxide 31 H (22-30) mmol/L BUN 31 H (9-20) mg/dL Creatinine 1.49 H (0.66-1.25) mg/dL Glucose 101 H (74-99) mg/dL Microbiology - Last 24 Hours (Table) 01/27/20 14:30 Gram Stain - Final Pleural Fluid Body Fluid Culture - Final Staphylococcus epidermidis Acinetobacter lwoffi Assessment and Plan Assessment: Impression: Acute hypoxic respiratory failure secondary to acute severe systolic congestive heart failure. And impaired LV function. Coronary artery disease and previous non-ST elevation myocardial infarction, possible acute non-ST elevation myocardial infarction on this admission. Chronic left-sided pleural effusion, status post Pleurx catheter insertion. Considering the loculation noted on the CT of the chest, thoracic surgery was reconsulted. Biventricular AICD placement. History of prostate cancer followed by radiation and presently on Lupron injections. Degenerative joint disease. Acute kidney injury, improving. Could be cardiorenal in nature. Recommendation: Continue Pleurx catheter drainage, Continue diuretics. Presently on Lasix IV infusion at 10 mg per hour. Continue dobutamine. Presently at 2.5 mcg/kg/m Reconsult thoracic surgery to evaluate for possible TPA through the left Pleurx catheter. Continue to monitor electrolytes and renal profile daily. Overall long-term prognosis is poor, I still believe hospice is very appropriate. Time with Patient: Less than 30
[2020-02-02] MEDS: SPIRONOLACTONE 25 MG TAB PO SCH (14:00)
[2020-02-02] MEDS: METOLAZONE 5 MG TAB PO SCH (14:00)
--- NOTE | 2020-02-02 17:56 | P.GSCN ---
History of Present Illness Consult date: 02/02/20 Reason for Consult: Loculated left pleural effusion. Requesting physician: Wili Bronson History of present illness: This is a 74-year-old gentleman who is followed by Dr. Gal Burnett on an outpatient basis. His past medical history significant for recurrent left pleural effusions with placement of Pleurx catheter by Dr. Grant Perez in August 2019, cardiomyopathy, chronic systolic dysfunction with an ejection fraction of 10-15% with history of AICD placement, coronary artery disease with previous coronary stenting, hyperlipidemia, hypertension, remote history of smoking dependence, depression and history of prostate cancer with radiation treatment. The patient presented to the emergency department on 01/20/2020 with complaints of progressive shortness of breath over a 1 month period. The shortness of breath is worse with activity and with lying flat. As mentioned above he has a history of recurrent left pleural effusions and is status post left Pleurx catheter placement which he has been draining himself at home. The patient does report that once the Pleurx catheter is draining his shortness of breath improves for short time. The patient denies any recent fever, cough, hemoptysis, nausea or vomiting. A chest x-ray was completed in the emergency department which demonstrated a left pleural effusion and pleural thickening on the left lateral chest wall. For further evaluation a CT chest in general was completed to rule out pulmonary embolus. The results of the CT chest in general demonstrated no evidence of pulmonary embolism, although showed an enlarged heart, irregular pleural thickening on the left lateral chest wall with loculated pleural fluid in the major fissure and no mediastinal adenopathy or hilar masses demonstrated. A 2-D echocardiogram was completed on 01/21/2020 which showed an overall left ventricular systolic function to be severely impaired with an ejection fraction of less than 20%, moderate mitral valve regurgitation, moderate tricuspid valve regurgitation, mild to moderate pulmonary hypertension and trace to mild pulmonic valve regurgitation. Patient is currently hemodynamically stable although is on a beta mean at 2.5 mcg/kg/m and a Lasix drip at 10 mg per hour. The patient does report that since his admission history his of breath has improved over his hospital course. A computed tomography scan of his chest was completed today which demonstrated a persistent loculated left pleural effusion with a peripheral rind of atelectasis, numerous nodular components, particularly seen along the left mediastinal border with a race for concern of possible neoplastic process. It also demonstrated a new layering small to moderate right pleural effusion, right upper lobe anterior 8 mm pulmonary nodule, and a spiculated irregular opacity of the right lower lobe measuring 3.1-2.4 cm suspicious for pneumonia or neoplastic process. Due to the loculated left pleural effusion despite Pleurx catheter placement a consult was placed to Dr. Grant Perez from cardiothoracic surgery for further evaluation and treatment recommendations. Review of Systems A 14 point review of systems was completed and was negative except as mentioned in HPI. Past Medical History Past Medical History: Coronary Artery Disease (CAD), Heart Failure, Hyperlipidemia, Hypertension, Respiratory Disorder (Recurrent left pleural effusion status post Pleurx catheter placement.) Additional Past Medical History / Comment(s): PROSTATE CANCER (2006-HAD IMPLANT). Recurrent LEFT PLEURAL EFFUSIONs status post Pleurx catheter placement in August 2019 History of Any Multi-Drug Resistant Organisms: None Reported Past Surgical History: AICD, Hernia Repair (Right inguinal), Orthopedic Surgery Additional Past Surgical History / Comment(s): TOTAL RIGHT HIP (2014). ORIF OF RIGHT HIP, REMOVAL OF HARDWARE RT HIP, 07/12/15. CARDIAC SURGERY Past Anesthesia/Blood Transfusion Reactions: No Reported Reaction Type of Cardiac Device: Permanent Pacemaker, AICD Device Placement Date:: 06/06/16 Past Psychological History: Anxiety, Depression Smoking Status: Former smoker Past Alcohol Use History: None Reported Past Drug Use History: None Reported - Past Family History Mother Family Medical History: Cancer, Hypertension Additional Family Medical History / Comment(s): MELANOMA Father Family Medical History: Congestive Heart Failure (CHF) Additional Family Medical History / Comment(s): Father at age 89 from congestive heart failure. Sister(s) Family Medical History: No Reported History Additional Family Medical History / Comment(s): Patient has one half sister with no major medical problems. Daughter(s) Family Medical History: No Reported History Additional Family Medical History / Comment(s): Patient has one daughter with no major medical problems. Son(s) Family Medical History: No Reported History Additional Family Medical History / Comment(s): Patient has 2 sons, one in a motor vehicle accident after he was hit by a semitruck. Second son has no major medical problems. Medications and Allergies Home Medications Medication Instructions Recorded Confirmed Type Carvedilol [Coreg] 3.125 mg PO BID-W/MEALS #60 tab 02/10/16 01/21/20 Rx Nitroglycerin Sl Tabs [Nitrostat] 0.4 mg SUBLINGUAL Q5M PRN #25 tab 02/10/16 01/21/20 Rx Aspirin 81 mg PO QAM 06/03/16 01/21/20 History Atorvastatin [Lipitor] 40 mg PO QAM 06/03/16 01/21/20 History Clopidogrel [Plavix] 75 mg PO QAM 06/03/16 01/21/20 History Furosemide [Lasix] 20 mg PO DAILY@1400 06/03/16 01/21/20 History Lisinopril [Zestril] 2.5 mg PO QAM 06/03/16 01/21/20 History Acetaminophen [Tylenol Arthritis] 650 mg PO Q6H PRN 10/07/16 01/21/20 History Midodrine [ProAmatine] 10 mg PO BID 07/05/19 01/21/20 History Furosemide [Lasix] 40 mg PO DAILY 01/21/20 01/21/20 History QUEtiapine [SEROquel] 25 mg PO HS 01/21/20 01/21/20 History Venlafaxine HCl [Effexor] 100 mg PO BID-W/MEALS 01/21/20 01/21/20 History Allergies Allergy/AdvReac Type Severity Reaction Status Date / Time No Known Allergies Allergy Verified 01/21/20 12:14 Surgical - Exam Vital Signs Temp Pulse Resp BP Pulse Ox 98.9 F 81 24 77/58 93 L 01/20/20 22:13 01/20/20 22:13 01/20/20 22:13 01/20/20 22:13 01/20/20 22:13 - General no distress, no pain, chronically ill - Eyes PERRL, normal ocular movement - ENT normal pinna, normal nares, normal mucosa, no hearing loss, no congestion - Neck Neck is supple, no lymphadenopathy. no masses, no bruits, trachea midline, no venous distension - Respiratory Lung sounds with few scattered crackles throughout, diminished to his bilateral bases left greater than right. Respirations are symmetrical and nonlabored. Left chest wall Pleurx catheter site with dressing clean and dry. - Cardiovascular Irregular rhythm with controlled rate. S1 and S2 present, negative for S3, gallop or murmur. +1 edema to his bilateral lower extremities. - Abdomen Abdomen is soft, nontender and nondistended. Active bowel sounds present all 4 abdominal quadrants. No guarding or rigidity. No organomegaly appreciated. - Genitourinary Deferred - Rectum Deferred - Integumentary no rash, no growths, no abnormal pigmentation - Neurologic normal coordination, normal sensation - Musculoskeletal Generalized weakness. Strength equal bilaterally. normal gait, normal posture - Psychiatric oriented to time, oriented to person, oriented to place, speech is normal, memory intact Results - Labs 02/02/20 04:06 02/02/20 04:06 Abnormal Lab Results - Last 24 Hours (Table) 02/02/20 02/02/20 Range/Units 04:06 04:06 RBC 4.21 L (4.30-5.90) m/uL Hgb 11.7 L (13.0-17.5) gm/dL Hct 37.9 L (39.0-53.0) % MCHC 30.8 L (31.0-37.0) g/dL RDW 17.8 H (11.5-15.5) % Lymphocytes # 0.6 L (1.0-4.8) k/uL Sodium 131 L (137-145) mmol/L Chloride 96 L (98-107) mmol/L Carbon Dioxide 31 H (22-30) mmol/L BUN 31 H (9-20) mg/dL Creatinine 1.49 H (0.66-1.25) mg/dL Glucose 101 H (74-99) mg/dL Microbiology - Last 24 Hours (Table) 01/27/20 14:30 Gram Stain - Final Pleural Fluid Body Fluid Culture - Final Staphylococcus epidermidis Acinetobacter lwoffi Diabetes panel 02/02/20 Range/Units 04:06 Sodium 131 L (137-145) mmol/L Potassium 4.2 (3.5-5.1) mmol/L Chloride 96 L (98-107) mmol/L Carbon Dioxide 31 H (22-30) mmol/L BUN 31 H (9-20) mg/dL Creatinine 1.49 H (0.66-1.25) mg/dL Glucose 101 H (74-99) mg/dL Calcium 9.4 (8.4-10.2) mg/dL Calcium panel 02/02/20 Range/Units 04:06 Calcium 9.4 (8.4-10.2) mg/dL Pituitary panel 02/02/20 Range/Units 04:06 Sodium 131 L (137-145) mmol/L Potassium 4.2 (3.5-5.1) mmol/L Chloride 96 L (98-107) mmol/L Carbon Dioxide 31 H (22-30) mmol/L BUN 31 H (9-20) mg/dL Creatinine 1.49 H (0.66-1.25) mg/dL Glucose 101 H (74-99) mg/dL Calcium 9.4 (8.4-10.2) mg/dL Adrenal panel 02/02/20 Range/Units 04:06 Sodium 131 L (137-145) mmol/L Potassium 4.2 (3.5-5.1) mmol/L Chloride 96 L (98-107) mmol/L Carbon Dioxide 31 H (22-30) mmol/L BUN 31 H (9-20) mg/dL Creatinine 1.49 H (0.66-1.25) mg/dL Glucose 101 H (74-99) mg/dL Calcium 9.4 (8.4-10.2) mg/dL - Imaging Chest x-ray: report reviewed, image reviewed CT scan - chest: report reviewed, image reviewed Assessment and Plan Assessment: 1. Dyspnea secondary to acute severe systolic congestive heart failure and impaired left ventricular function 2. Chronic left-sided pleural effusion, status post Pleurx catheter insertion in August 2020 3. Coronary artery disease with previous stent placement to the circumflex cor onary artery 4. Severe systolic congestive heart failure and impaired left ventricular function, status post biventricular AICD placement 5. History of hypertension 6. History of hyperlipidemia 7. History of prostate cancer with radiation therapy 8. Remote history of tobacco abuse. Plan: The patient was seen and examined at his bedside in the intensive care unit. H is chart and diagnostics reviewed. His case was discussed in detail with Dr. Grant Perez from cardiothoracic surgery. Dr. Perez reviewed the patient's computed tomography scan of his chest and discussed the findings with the patient. 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 The patient reports that his symptoms have been improving since his hospitalization and the Pleurx catheter continues to have minimal output. Further surgical intervention is warranted at this time. Thank you Dr. Bronson for this consult and we will continue to follow this patient on an as-needed basis. Time with Patient: Greater than 30
[2020-02-02] MEDS: QUEtiapine 50 MG TAB PO SCH (18:39)
[2020-02-02] MEDS: MELATONIN 5 MG TABLET PO SCH (19:47)
[2020-02-03] MEDS: ALPRAZolam 0.25 MG TAB PO PRN (00:06)
[2020-02-03] MEDS: BACLOFEN 10 MG TAB PO PRN ×2 (00:06→15:43)
[2020-02-03 05:48] LABS: Anisocytosis Slight; Basophils % (A) 1 %; Eosinophils # (A) 0.1 k/uL (0-0.7); Eosinophils % (A) 2 %; HCT 39.1 % (39.0-53.0); HGB 11.8 gm/dL (13.0-17.5); Hypochromasia Marked; Lymphocytes # (A) 0.6 k/uL (1.0-4.8); Lymphocytes % (A) 12 %; MCH 27.5 pg (25.0-35.0); MCHC 30.3 g/dL (31.0-37.0); MCV 90.9 fL (80.0-100.0); Mean Platelet Volume 7.4; Monocytes # (A) 0.5 k/uL (0-1.0); Monocytes % (A) 10 %; Neutrophils # (A) 3.7 k/uL (1.3-7.7); Neutrophils % (A) 73 %; Platelet Count 208 k/uL (150-450); RDW 17.7 % (11.5-15.5); WBC 5.1 k/uL (3.8-10.6)
[2020-02-03 06:06] LABS: Potassium 3.5 mmol/L (3.5-5.1)
[2020-02-03] MEDS: MIDODRINE 5 MG TAB PO SCH ×3 (06:50→17:41)
[2020-02-03] MEDS: VENLAFAXINE HCL 50 MG TAB PO SCH ×2 (06:50→17:41)
[2020-02-03] MEDS: FUROSEMIDE 100 MG in SODIUM CHLORIDE 0.9% 90 ML IV SCH ×2 (06:55→15:33)
--- NOTE | 2020-02-03 07:13 | XR ---
EXAMINATION TYPE: XR chest 1V DATE OF EXAM: 02/03/2020 COMPARISON: 02/02/2020 HISTORY: Congestive heart failure TECHNIQUE: Single frontal view of the chest is obtained. FINDINGS: Again the heart is enlarged. There is a persistent retrocardiac opacity that appears sligh tly improved from the prior. Dual lead left-sided cardiac device is seen. Mild pulmonary vascular con gestion remains. No pneumothorax or right pleural effusion seen. Diffuse osseous demineralization. IMPRESSION: Improving left basilar opacity that may represent a small pleural effusion and atelectas is or less likely pneumonia. Mild pulmonary vascular congestion persists.
[2020-02-03] MEDS ORDERED: VANCOMYCIN TROUGH DUE 1 EACH MISC MISCELLANE ONE (08:00)
[2020-02-03] MEDS ORDERED: POTASSIUM CHLORIDE ER 20 MEQ TAB.ER PO ONE ×2 (09:00→11:00)
[2020-02-03] MEDS: DOBUTamine DRIP 500 MG in DEXTROSE/WATER 1 250ML.BAG IV SCH (09:11)
[2020-02-03] MEDS: ATORVASTATIN 40 MG TAB PO SCH (09:12)
[2020-02-03] MEDS: LIOTHYRONINE SODIUM 5 MCG TAB PO SCH (09:12)
[2020-02-03] MEDS: SPIRONOLACTONE 25 MG TAB PO SCH (09:12)
[2020-02-03] MEDS: CLOPIDOGREL 75 MG TAB PO SCH (09:12)
[2020-02-03] MEDS: ASPIRIN 81 MG PO SCH (09:12)
[2020-02-03] MEDS: FAMOTIDINE 20 MG TAB PO SCH (09:13)
[2020-02-03] MEDS: METOLAZONE 5 MG TAB PO SCH (09:13)
[2020-02-03] MEDS: HEPARIN SODIUM,PORCINE 5,000 UNIT/ML 1 ML VIAL SQ SCH ×2 (09:13→21:03)
--- NOTE | 2020-02-03 10:28 | P.PN ---
Subjective Patient is seen in follow-up for acute kidney injury and hyponatremia. Sodium level stable at 132 today. Renal function is stable. Does get dyspneic without oxygen support. Maintained on dobutamine and lasix drip. Patient has systolic CHF with ejection fraction of less than 20% with moderate tricuspid regurgitation and pulmonary hypertension. Urine output over 100 mL an hour. Vital signs are stable. General: The patient appeared well nourished and normally developed. HEENT: Head exam is unremarkable. Neck is without jugular venous distension. LUNGS: Breath sounds decreased. HEART: Rate and Rhythm are regular. First and second heart sounds normal. No murmurs, rubs or gallops. ABDOMEN: Abdominal exam reveals normal bowel sounds. Non-tender and non- distended. No evidence of peritonitis. EXTREMITITES: 1+ edema. Objective - Vital Signs Vital signs: Vital Signs Temp 97.4 F L 02/03/20 04:00 Pulse 99 02/03/20 10:00 Resp 22 02/03/20 10:00 BP 85/61 02/03/20 10:00 Pulse Ox 96 02/03/20 10:00 Intake & Output 02/02/20 02/03/20 02/03/20 18:59 06:59 18:59 Intake Total 912.833 853.833 214.93 Output Total 1850 2160 605 Balance -937.167 -1306.167 -390.07 Weight 91.9 kg Intake: IV 123 120 40 Normal saline 123 120 40 Intake, IV Titration 329.833 193.833 174.93 Amount DOBUTamine DRIP 500 mg In 174.93 Dextrose/Water 1 250ml. bag @ 2.5 MCG/KG/MIN 7.14 mls/hr IV .Q24H TOD Rx#: [id number] Furosemide 100 mg In 79.833 193.833 Sodium Chloride 0.9% 90 ml @ 10 MG/HR 10 mls/hr IV .Q10H TOD Rx#: [id number] Vancomycin 1,500 mg In 250 Sodium Chloride 0.9% 250 ml @ 125 mls/hr IVPB Q24H TOD Rx#:[id number] Oral 460 540 Output: Chest Tube Drainage 150 Pleural Catheter Left Mid 150 -Axillary Chest Urine 1850 2010 605 Other: Voiding Method Indwelling Catheter Indwelling Catheter - Labs CBC & Chem 7: 02/03/20 04:37 02/03/20 04:37 Labs: Abnormal Lab Results - Last 24 Hours (Table) 02/03/20 02/03/20 Range/Units 04:37 04:37 Hgb 11.8 L (13.0-17.5) gm/dL MCHC 30.3 L (31.0-37.0) g/dL RDW 17.7 H (11.5-15.5) % Lymphocytes # 0.6 L (1.0-4.8) k/uL Sodium 132 L (137-145) mmol/L Chloride 92 L (98-107) mmol/L Carbon Dioxide 34 H (22-30) mmol/L BUN 31 H (9-20) mg/dL Creatinine 1.51 H (0.66-1.25) mg/dL Assessment and Plan Plan: Assessment: 1. Acute kidney injury mostly prerenal secondary to cardiorenal syndrome. Renal function stable. 2. Acute on chronic systolic CHF with ejection fraction of less than 20% with moderate tricuspid regurgitation and pulmonary hypertension. 3. Hypervolemic hyponatremia. Status post Samsca. Stable. 4. Chronic left-sided pleural effusion. Patient has a Pleurx catheter. 5. Hyperkalemia secondary to acute kidney injury. Lisinopril discontinued. Now hypokalemic, being replaced. 6. Volume overload. Plan: Maintian Lasix drip at 10 mL an hour. Maintain fluid restriction. Continue to monitor renal function and urine output. Repeat electrolytes in the morning. Avoid nephrotoxins. Not agreeable to hospice at this time. Maintain dobutamine. Potassium replaced.
[2020-02-03] MEDS: VANCOMYCIN 1,500 MG in SODIUM CHLORIDE 0.9% 250 ML IVPB SCH (10:32)
[2020-02-03] MEDS ORDERED: SPIRONOLACTONE 25 MG TAB PO ONE (11:00)
--- NOTE | 2020-02-03 11:03 | PN ---
PROGRESS NOTE This patient is being treated for ischemic cardiomyopathy. Patient's electronic medical records reviewed. The patient is sleeping comfortably in the bed without any respiratory distress. Blood pressure is 90/61 mmHg. First and second heart sounds are normal. Lungs examination reveals bilateral basal rales. Cardiothoracic surgery reviewed the chest x- ray finding could be suggestive of fibrotic thorax. The patient's urine output remains good. ASSESSMENT AND PLAN: Ischemic cardiomyopathy with refractory heart failure. Patient is responding to the current regimen. I will increase the dose of Aldactone to 50 mg daily and we will try to wean him off slowly the Dobutrex. Continue IV Lasix drip and Zaroxolyn. MMODL / IJN: [id number] /
--- NOTE | 2020-02-03 11:50 | P.PN ---
Subjective Progress Note Date: 02/03/20 Principal diagnosis: Acute Severe systolic congestive heart failure This is a 74-year-old male patient with known history of coronary artery disease with previous coronary intervention and stenting of the circumflex in addition to history of severe cardiomyopathy with an ejection fraction of 25% and chronic systolic dysfunction and severe resting bradycardia close the was chamber ICD placement. The patient was also having recurrent left-sided pleural effusion and he underwent a Pleurx catheter insertion back in August 2019 by cardiothoracic surgery. He has been undergoing daily drainage from his left lung and he typically drinks approximately 200 mL of pleural fluid.. The patient also has hypertension, prostate cancer and he has been treated with prostatic radiation therapy/implants. He has also history of osteoarthritis. The patient is an ex-smoker. [id number] smoking history. He came into the hospital because of worsening shortness of breath.. His been progressively getting more short of breath over the past month. His shortness of breath is essentially exertional and he also has orthopnea. No reported chest pain. No reported cough or sputum production. He is an ex-smoker. No wheezing. No previous history of DVT or pulmonary embolism. No fever. The white cell count at time of admission was 7.8. Hemoglobin was at 13.8. Coagulation profile was within normal. D-dimer was elevated at 4.08 and based on that the patient was given a CT angiogram that showed no evidence of any pulmonary embolism. 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 No evidence of any pneumonia. No evidence of any airspace disease. There was a 3 cm poorly marginated infiltrate in the right lower lobe and the significance of this abnormality is not known. In the emergency department, the patient was having episodes of hypotension. His systolic blood pressure was as low as 75. He was given pressors and currently is running on low-dose levothyroid at 0.03 g per KG per minute. His cardiac rhythm is ventricularly paced at the rate of 100. Note that the patient some minimal troponin elevation. ProBNP level was quite elevated. Lactic acid level was 4.2, admission dropped down to 2 and currently is on IV with KVO. The patient is seen today 01/22/2020 in follow-up in the intensive care unit. He is currently awake and alert in no acute distress. Sitting up at the bedside. Maintaining O2 saturations in the 90s on 4 L/m per nasal cannula. Today's chest x-ray continues to show evidence of fluid volume overload. Echocardiogram reveals ejection fraction less than 20%. He is still requiring a small amount of norepinephrine at 0.03 mcg/kg/m. Potassium is 6.3. Sodium 130. Creatinine 1.46. White count 7.9. Hemoglobin 13.6. Troponin 0.077. He remains on Lasix 40 mg by mouth twice a day. Still remains in a positive balance. Weight is stable. The patient is seen today 01/23/2020 in follow-up in the in the chair at the bedside. Maintaining O2 saturations in the 90s on 4 L/m per nasal cannula. Chest x-ray showing improvement in the volume status. He is breathing a bit easier today compared to yesterday, he is complaining of weakness and fatigue. He is currently on norepinephrine at 0.04 mcg/kg/m. Dobutamine at 5 mcg/kg/m. Maintaining adequate urine output. Blood and urine cultures reveal no growth. White count 7.6. Hemoglobin 13.1. sodium 130. Creatinine 0.85. Potassium 4.8. TSH 5.68. T4 1 0.38. the patient is seen today 01/24/2020 in The intensive care unit. He is awake and alert in no acute distress. Maintaining good O2 saturations in the 90s on 4 L/m per nasal cannula. Chest x-ray continues to show some worsening congestive heart failure with mild underlying emphysema. There is increased central alveol interstitial edemaand/or infiltrates. Pleural fluid cultures reveal no growth. Blood cultures reveal no growth. He continues on norepinephrine at 0.01 mcg/kg/min. Remains on Dobutamine at 5 mcg/kg/min. White count 5.7. Hemoglobin 12.8. Potassium 5.3. 5.3. Creatinine 0.75. He remains on midodrine TID. BP marginal. On lasix 40 BID. The patient is seen today 01/27/2020 in follow up in the ICU. He is currently resting comfortably in bed. Awake, alert in no acute distress. He did have issues with anxiety earlier this a.m. Treated with Xanax and improved. Chest x-ray continues to show persistent left basilar opacity and left midlung opacity. Plan to drain fluid again today per Pleurx. We will send more cultures and fluid analysis. Cultures have been revealing Staphylococcus epidermidis and Acinetobacter. Follow-up cultures with coag-negative staph. vancomycin will be added Continue ceftriaxone. Dobutamine at 2.5 mcg/kg/m. Remains off norepinephrine. White count 5.4. Hemoglobin 11.9. Sodium 128. Potassium 5.2. Creatinine 0.94. On today's evaluation of 01/28/2020 the patient is feeling okay and he denies having any worsening shortness of breath. There was a concern of a left-sided pleural space infection. The patient a Pleurx catheter in place. There have been 2 cultures that are showing coagulase-negative staph, staph epidermidis in one of the cultures showed inflammatory except a glucose and Acinetobacter. The patient was placed on a combination of Rocephin and vancomycin. Nevertheless the fluid was reevaluated and analyzed. The fluid LDH and protein remains on a cell count remains low as not suggestive of any empyema or pleural space infection. Noted the patient is undergoing drainage and a daily basis. He is feeling well. He is on dobutamine at a dose of 2.5 mcg/kg per minute. He may need norepinephrine infusion on and off to maintain his blood pressure. His white cell count is not elevated. Sodium level is at 128 which is inconsistent with his CHF. Pro-calcitonin level was at 0.17. The chest x-ray from today showed retrocardiac opacity that may represent an underlying pleural effusion/atelectasis. Right lung essentially clear. No fever no chills. Altered mentation. No other significant events overnight. The patient is producing a better urine output. Balance is -6 20 mL over the past 24 hours. On today's evaluation of 01/29/2020, the patient is feeling well. He is sitting up on a chair. He is on dobutamine 2.5 mcg/kg per minute. He is on no Lasix for now. Repeat fluid evaluation from the pleural drainage showed coagulase-neg ative staph epidermidis. The patient is on vancomycin. I'm not absolutely sure there is a true infection. The fluid analysis came back negative for infection or exudate in nocturnist to be severely a transudative fluid and the white cells and the pleural fluid is low. The total amount of output from yesterday's drainage was 25 mL. He is afebrile. He has no significant leukocytosis. I am going to ask IDs opinion regarding the possibility of a pleural space infection which I think it's not highly likely at this point in time. Meanwhile, the patient's creatinine is up to 1.5. This is to be monitored. No angina. No palpitation. No other complaints otherwise. Vancomycin level needs to be checked also. He is being supported with norepinephrine infusion for blood pressure support. Reevaluated today on 01/30/20, patient was seen in the intensive care unit, remains on Dobutrex at 2.5 mcg/kg/m, he is also on Lasix, feeling better, breathing easier, responding well to diuretics. However considering that the patient is still on Dobutrex, I plan to keep him in the ICU for the next 24 hours. Patient is not requiring any norepinephrine. Chest x-ray continues to show some retrocardiac loculated pleural effusion in the left hemithorax, and improving interstitial edema. WBC count is 7.4 hemoglobin is 11.5. Electrolytes showed elevated potassium of 5.5 sodium is 129 BUN is 33 and creatinine is 1.64. Albumin is 2.8 Reevaluated today on 01/31/20, patient was taken off dobutamine yesterday, however after dobutamine was discontinued, his urine output was extremely poor. He was placed back again by cardiology on dobutamine, and he remains on diuretics, and his urine output is excellent. Patient is feeling better, breathing easier. Hardly any cough no wheezing no shortness of breath, continues to have left pleural effusion, with a Pleurx catheter remains in place. Chest x-ray is suggestive of interstitial edema. Cytology from the pleural effusion remains pending. Patient was noted to have asymmetrical swelling of the lower extremities today, hence a venous Doppler was done. It was negative for deep vein thrombosis. Labs from today were reviewed. Creatinine is 1.65. Holding about the same over the last 4 days. Remains on diuretics as per nephrology Reevaluated today on 02/01/20, patient remains on Dobutrex, and now he was started on Lasix infusion at 10 mg per hour. Overall cardiac status is extremely poor, patient was seen by hospice, and I believe that is very appropriate to consider hospice on this patient. Clearly has a terminal disease, and I believe his long-term prognosis and quality of life is extremely poor. Patient obviously is considering hospice, and he would have another session with hospice staff later today. In the meantime, the plan is to continue dobutamine and Lasix. Patient is developing worsening left-sided pleural effusion in spite of of left Pleurx catheter in place. And he is clearly developing interstitial edema. Labs and chest x-ray were reviewed today Reevaluated today on 02/02/20, patient remains on dobutamine at 2.5 mcg/kg/m. Remains on Lasix at 10 mg per hour drip. Remains in negative balance over the last 24 hours, patient is over a liter negative balance. Electrolytes are basically about the same BUN is 31 creatinine up to 1.49 from 1.45 yesterday. Clinically the patient is feeling better, chest x-ray continues to show significant possibly loculated effusion on the left side, in spite of Pleurx catheter in place. CT of the chest showed persistent loculated left pleural effusion with multinodular pleural thickening raising the possibility of underlying malignancy. There is also a 3.1 cm spiculated mass in the right lower lobe. Previous cytology on the left pleural effusion was a negative for malignancy. This could very well be parapneumonic in nature or again malignancy is not entirely ruled out but felt to be less likely. Reevaluated today on 02/03/20, patient remains on dobutamine remains on Lasix drip, has good urine output, continues to have shortness of breath and crackles on physical examination. Seen by thoracic surgery, no intervention including TPA infusion and the pleural space is recommended at this point. Although the patient does have loculated pleural effusion. Considering the patient's cardiac condition, I still believe the patient is a poor candidate for any intervention. Again malignancy in the right lower lobe is not entirely ruled out. Previous c ytology has been negative. Patient is now not agreeable to hospice referral. Overall prognosis remains extremely poor. Objective - Vital Signs Vital signs: Vital Signs Temp 97.4 F L 02/03/20 04:00 Pulse 101 H 02/03/20 11:00 Resp 23 02/03/20 11:00 BP 106/95 02/03/20 11:00 Pulse Ox 91 L 02/03/20 11:00 Intake & Output 02/02/20 02/03/20 02/03/20 18:59 06:59 18:59 Intake Total 912.833 853.833 391.93 Output Total 1850 2160 1030 Balance -937.167 -1306.167 -638.07 Weight 91.9 kg Intake: IV 123 120 50 Normal saline 123 120 50 Intake, IV Titration 329.833 193.833 341.93 Amount DOBUTamine DRIP 500 mg In 174.93 Dextrose/Water 1 250ml. bag @ 2.5 MCG/KG/MIN 7.14 mls/hr IV .Q24H TOD Rx#: [id number] Furosemide 100 mg In 79.833 193.833 Sodium Chloride 0.9% 90 ml @ 10 MG/HR 10 mls/hr IV .Q10H TOD Rx#: [id number] Vancomycin 1,500 mg In 250 167 Sodium Chloride 0.9% 250 ml @ 125 mls/hr IVPB Q24H TOD Rx#:[id number] Oral 460 540 Output: Chest Tube Drainage 150 Pleural Catheter Left Mid 150 -Axillary Chest Urine 0 2009 1030 Other: Voiding Method Indwelling Catheter Indwelling Catheter Indwelling Catheter - Exam Physical Exam: Revealed 74-year-old white male on 4 L nasal cannula, in no distress. Head: Atraumatic, normocephalic. HEENT:[Neck is supple.] [No neck masses.] [No thyromegaly.] [No JVD.] PERRLA, EOMI, no icterus. Throat is clear. Chest: [Symmetrical chest expansion, crackles and rhonchi noted that the left base. Pleurx catheter is noted on the left side Cardiac Exam: [Normal S1 and S2, no S3 gallop, 2/6 systolic murmur thought the precordium. Abdomen: [Soft, nontender, no megaly, no rebound, no guarding, normal bowel sounds.] Extremities: [No clubbing, asymmetric of swelling and edema noted in the right lower extremity compared to left lower extremity hence venous Doppler was done and it was negative Neurological Exam: [No focal neurologic deficit.] Alert oriented 3. Psychiatric: Normal mood, affect and normal mental status examination. Skin: No rashes. - Labs CBC & Chem 7: 02/03/20 04:37 02/03/20 04:37 Labs: Abnormal Lab Results - Last 24 Hours (Table) 03/20/20 03/20/20 Range/Units 04:37 04:37 Hgb 11.8 L (13.0-17.5) gm/dL MCHC 30.3 L (31.0-37.0) g/dL RDW 17.7 H (11.5-15.5) % Lymphocytes # 0.6 L (1.0-4.8) k/uL Sodium 132 L (137-145) mmol/L Chloride 92 L (98-107) mmol/L Carbon Dioxide 34 H (22-30) mmol/L BUN 31 H (9-20) mg/dL Creatinine 1.51 H (0.66-1.25) mg/dL Assessment and Plan Assessment: Impression: Acute hypoxic respiratory failure secondary to acute severe systolic congestive heart failure. And impaired LV function. Coronary artery disease and previous non-ST elevation myocardial infarction, possible acute non-ST elevation myocardial infarction on this admission. Chronic left-sided pleural effusion, status post Pleurx catheter insertion. Effusion is loculated, ideally speaking with requiring decortication, however the patient is definitely not a candidate for any surgical intervention Biventricular AICD placement. History of prostate cancer followed by radiation and presently on Lupron injections. Degenerative joint disease. Acute kidney injury, improving. Could be cardiorenal in nature. Recommendation: Continue Pleurx catheter drainage, Continue Lasix infusion at 10 mg per hour Continue dobutamine. Today he is at 2.1 mcg/kg/m Seen by thoracic surgery, no intervention is recommended,. Overall long-term prognosis is poor, Hospice should be reconsidered. We will follow the patient on when necessary basis. Time with Patient: Less than 30
[2020-02-03] MEDS: NOREPINEPHRINE 4 MG in SODIUM CHLORIDE 0.9% 250 ML IV SCH (12:25)
--- NOTE | 2020-02-03 14:40 | P.PN ---
Subjective Progress Note Date: 02/03/20 This is a 74-year-old male patient of Dr. Burnett, Dr. Gilbert and Dr. Xi Ordaz with a previous medical history significant for hypertension, hyperlipidemia, osteoarthritis, prostate cancer that was diagnosed back in 2006 status post implants as well as Lupron injection, coronary artery disease with stent of the circumflex, severe cardiomyopathy and chronic systolic heart failure with known ejection fraction of 25%, bradycardia status post AICD implantation, recurrent left-sided pleural effusion status post Pleurx catheter insertion August 2019 by cardiothoracic surgery. Patient drains this himself or his daughter of 100-200 mL subpleural fluid daily. Patient also has history of hypertension, [id number] smoking history. Patient complains of shortness of breath for the past month gradually worsening. Shortness of breath is exceptionally worse with exertion. No chest pain, no cough or sputum production, reports weight loss. He complains of nausea occasionally, no abdominal pain. He complains of lightheadedness. He denies any use of steroids for the past 6 weeks. He denies any change and his medications recently. Patient relates that he has been using his mother's home oxygen at 4 L nasal cannula around the clock. Patient came into [facility] emergency center for evaluation, WBC 7.8, hemoglobin 13.8, d-dimer elevated at 4.08. CT angiogram of the chest did not show any pulmonary embolism. There was a small right-sided loculated pleural effusion along with pseudotumor in the left lung consistent with pleural fluid. No evidence of pneumonia. No airspace disease. 3 cm poorly marginated infiltrate in the right lower lobe and significance is unknown. Patient was hypotensive in the emergency center with systolic blood pressure down to 75. He was started on vasopressors and admitted into the intensive care unit with consults in place for pulmonary medicine and cardiology. Abdominal ultrasound revealed mild gallbladder wall thickening and air fluid that could relate cholecystitis. Heart failure also possible. Small gallstone or gallbladder polyp. Fatty liver. 01/21: Patient remains in intensive care unit. He is seen today sitting in the recliner. His breathing appears to be more comfortable. Patient states that he is feeling tight and did not sleep well last night. We will plan to increase melatonin dose. Patient has been seen by cardiology this morning and started on dobutamine. Patient is currently on norepinephrine as well. Echocardiogram reveals ejection fraction less than 20%, moderate mitral regurgitation, moderate tricuspid regurgitation, mild to moderate pulmonary hypertension.. Potassium this morning is 6.3 and pulmonary medicine has ordered insulin and dextrose. Patient is to be redrawn at noon today. WBC 7.9, hemoglobin 13.6, troponin 0.077. BUN 41 and creatinine 1.46. Acute hepatitis panel negative. Patient is currently on Lasix 40 mg oral twice daily. TSH will be ordered. Chest x-ray reveals changes of heart failure with interstitial pulmonary edema. Continued moderate left effusion with prominent left basilar atelectasis and/or consolidation. Slight worsening aeration of the right base 01/22: Patient has been afebrile, heart rate 97, blood pressure 95/68, pulse ox 98% on 4 L nasal cannula. Repeat blood work reveals CBC unremarkable, sodium 1:30, potassium 4.8, chloride 96, CO2 25, BUN 33 and creatinine 0.85. AST 126, ALT 145, alkaline phosphatase 262. TSH 5.680 and free T4 1 0.38. Patient remains in the intensive care unit. Dobutamine drip increased to 5. Patient remains on levofloxacin as well. Patient states that he did not sleep last night. He is utilizing Xanax twice daily. He denies having any chest pain and no lower extremity edema. He does complain of shortness of breath. No lightheadedness or dizziness. Cytomel added and midodrine increased to 10 mg 3 times daily. Patient is concerned about his mother and his friend staying with her at this time. We will communicate with Dr. Burnett and ask for home care service to be arranged for his mother. Do not anticipate that he will be ready for discharge for another 48-72 hours. 01/23: Patient remains in intensive care unit on dobutamine at 5 mcg/kg/m and levo fed which is to be weaned off. Dr. Napoles is planning for another 24 hours of IV dobutamine. Patient states that he is feeling off today complaining of nausea. He states he did get some sleep last night. Patient has been noted to be more anxious and due to lack of appetite and insomnia, Remeron will be added. He continues to have shortness of breath with minimal activity. He remains awake and alert but he is stating that he wants to go home. We did arrange for home care for his mother yesterday. WBC 5.7, hemoglobin 12.8, potassium 5.3, creatinine 0.75. We did start midodrine yesterday 3 times daily 10 mg. The blood pressure seems to be stable today. Chest x-ray showing worsening CHF for developing ARDS on background mild underlying emphysematous change there is increasing central alveolar and interstitial edema and/or infiltrates and cardiomegaly. No concern for ARDS at this point per Dr. Contreras. Culture on Pleurx fluid is staph epidermidis. 01/24: Repeat chest x-ray reveals similar moderate pulmonary vascular congestion and interstitial edema likely on the basis of decompensated heart failure. Retrocardiac airspace disease is also stable that may represent small plural effusion and atelectasis or less likely pneumonia. Patient is afebrile, heart rate running between 76 and 106, blood pressure 95/75, pulse ox 96% on 2 L nasal cannula. Repeat lab work reveals unremarkable CBC. Sodium 1:30, potassium 5.4, chloride 97, CO2 22, BUN 26 and creatinine 0.81. Pleural fluid was Staphylococcus epidermidis and alphahemolytic streptococcus. Yesterday evening, patient was attempting to leave the intensive care unit in and removed security monitor and IV. Patient was returned to his room and IV access and monitoring was resumed. Patient is alert at this time. Nursing passes on that patient awakes and is very confused. He has not had consistent of sleep. Patient complains of feeling tired. Pulmonary has resumed his Seroquel and Effexor. We will continue Remeron as well both Seroquel and Remeron move to supper time. Patient is still on dobutamine for another 24 hours. He has been off norepineph rine since yesterday at 11 AM. He has a sitter at the bedside at this time. Consult added for Dr. Brown regarding hyponatremia. 01/25: Patient continues to have episodes of confusion but is easily reoriented. He is cooperative and follows commands during these episodes. He is able to answer all questions appropriately to time place and person. Ammonia level from yesterday was less than 9. He is continued on dobutamine drip at 5 g for another 24 hours.. Patient was given 1 dose of IV Lasix 40 mg this morning. Patient has been seen by Dr. Brown and ordered Lasix IV 40 mg every 12 hours. Urine osmolality 497, cortisol level 22. Sodium 129, potassium 5.4, chloride 95, CO2 28, BUN 24 and creatinine 0.86. WBC 6.2, hemoglobin 9.6, platelet count 226. Pro-calcitonin 0.14. Repeat chest x-ray reveals stable retrocardiac opacities may again represent small pleural effusion and atelectasis or less likely pneumonia. Primary consideration is decompensated congestive heart failure. 01/26: Patient remains in the intensive care unit. He continues to have episodes of confusion but is easily reoriented. He is having occasional panic attack with increased anxiety. We will resume Xanax and continue his other psychiatric medications. He did sleep well last night most likely related to the Remeron and melatonin. Dobutamine has been decreased today to 2.5 mcg/kg/m. He is off norepinephrine. Repeat lab work reveals WBC 5.4, hemoglobin 11.9, sodium 128, potassium 5.2, creatinine 0.94. Dr. Brown is on consult regarding hyponatremia. 314: Patient remains in intensive care unit sitting up in chair. He is complaining of pain to the right groin. Denies any dizziness or chest pain. Continues to have shortness of breath. He has not had any episodes of confusion overnight or today. Patient states that he slept well during the evening. Dobutamine continues to be at 2.5 MCG/KG/M. However he continues to be hypotensive. Morning meds were held due to his pressure. Sodium 128, potassium 5.1, BUN 28, creatinine 1.06 01/28: Patient remains in intensive care unit sitting up in bed. Patient has no complete concerns at this time. He denies any difficulty breathing or shortness of breath. He continues to be on dobutamine and hypotensive. Hemoglobin 11.2, sodium 127, potassium 5.6, BUN 31, creatinine 1.56, AST 86, ALT 88, alkaline phosphatase 206. The Pleurx catheters in place. Patient is producing better urine output. 01/29: Patient remains in the intensive care unit. Dobutamine was discontinued this morning. Patient is complaining of having dizziness on and off. Blood pressure is been marginal. He is scheduled for one dose of Lasix 40 a blood pressure is maintained. Patient is also complaining of significant weakness. He continues to have lower extremity edema. Confusion episodes have been less frequent. Patient is afebrile, heart rate 76, blood pressure 90/60, pulse ox 96% on 2 L nasal cannula. Repeat blood work reveals WBC 7.4, hemoglobin 11.5, platelet count 225. Sed rate 24, C-reactive protein 60.3. Sodium 129, potassium 5.5, chloride 99, CO2 23, BUN 33, creatinine 1.64. Blood sugar 65. Liver function tests remain elevated with AST 78, ALT 83, alkaline phosphatase 223. Pro-calcitonin 0.52. Patient has been on IV antibiotics in the form of vancomycin. Patient has been seen by Dr. Sen with recommendations for either Bactrim or doxycycline depending on kidney function at time of discharge for one to 2 week course. 01/30: Patient was unable to be weaned off dobutamine yesterday. He has been continued on dobutamine. He has had essentially no urine output. He received Lasix 40 mg yesterday followed by Lasix 80 mg IV push. Patient is complaining of feeling dizzy. He is up to the chair into bed only. He has been afebrile, heart rate 98, blood pressure 80/69, pulse ox 95%. Repeat blood work reveals WBC 6.5, hemoglobin 11.5, platelet count 206. Sodium 132, potassium 4.9, chloride 101, CO2 23, BUN 35 and creatinine 1.65. Blood sugars running between [address] Ramirez discussed with the patient his current condition and prognosis in detail. Discussed option of no CODE STATUS and also of hospice care. This was previously discussed over the weekend with the patient as well. Patient seems to understand. Case management has been updated. Nursing to discuss with cardiology in order for them to further give patient details on his prognosis regarding his cardiac function and prognosis. Venous duplex of the bilateral lower extending negative for DVT. 01/31: Patient is seen in the intensive care unit. He remains on dobutamine at 2.5 mcg/kg/m. Has been started on Lasix drip this morning. Urine output overnight has been 45-70 mL per hour. Currently urine output is at 35 mL per hour. Patient has been afebrile, heart rate 101, blood pressure 89/57, pulse ox 100% on 2 L nasal cannula. The patient remains a full code despite discussion yesterday. Dr. Grey also discussed and reinforced need for hospice care and transition to no code. Hospice informational meeting to take place today and his daughter is to be in attendance. 02/01: Patient remains on the intensive care unit. He remains on dobutamine. Lasix drip was discontinued. Patient has been diuresing very well. Chest x-ray reveals overall stable findings. Cardiomegaly with small to moderate size left pleural fluid collection and diffuse left mid to lower lung acute infiltrate and/or atelectasis redemonstrated. Dr. Bronson is concern for loculated fluid and may order a CAT scan and involve cardiothoracic surgery. Patient's CODE STATUS has been changed to no code. Patient is afebrile, heart rate 94, blood pressure 117/67, pulse ox 98% on 2 L nasal cannula. Repeat blood work reveals Donna BC 6, hemoglobin 11.7, platelet count 209. Sodium 131, potassium 4.2, chloride 96, CO2 31, BUN 31 creatinine 1.49. 02/02: Patient remains in the intensive care unit. He is on dobutamine drip which is being weaned very slowly. He has been seen by cardiothoracic surgery with no plan for any intervention. Patient is afebrile, heart rate 86, blood pressure 90/67, pulse ox 97%. CBC unremarkable, sodium 132, potassium 3.5, chloride 90, CO2 34, BUN 31 creatinine 1.51. Repeat chest x-ray reveals improving left basilar opacities that may represent small pleural effusion and atelectasis or less likely pneumonia. Mild pulmonary vascular congestion persists. Patient has been continued on Lasix drip per nephrology. Patient is on a fluid restriction. Cardiology has increased Aldactone to 50 mg daily Objective - Vital Signs Vital signs: Vital Signs Temp 97.4 F L 02/03/20 04:00 Pulse 101 H 02/03/20 11:00 Resp 23 02/03/20 11:00 BP 106/95 02/03/20 11:00 Pulse Ox 91 L 02/03/20 11:00 Intake & Output 02/02/20 02/03/20 02/03/20 18:59 06:59 18:59 Intake Total 912.833 853.833 391.93 Output Total 1850 2160 1030 Balance -937.167 -1306.167 -638.07 Weight 91.9 kg Intake: IV 123 120 50 Normal saline 123 120 50 Intake, IV Titration 329.833 193.833 341.93 Amount DOBUTamine DRIP 500 mg In 174.93 Dextrose/Water 1 250ml. bag @ 2.5 MCG/KG/MIN 7.14 mls/hr IV .Q24H [facility] Rx#: [id number] Furosemide 100 mg In 79.833 193.833 Sodium Chloride 0.9% 90 ml @ 10 MG/HR 10 mls/hr IV .Q10H [facility] Rx#: [id number] Vancomycin 1,500 mg In 250 167 Sodium Chloride 0.9% 250 ml @ 125 mls/hr IVPB Q24H [facility] Rx#:[id number] Oral 460 540 Output: Chest Tube Drainage 150 Pleural Catheter Left Mid 150 -Axillary Chest Urine 1850 20090 Other: Voiding Method Indwelling Catheter Indwelling Catheter Indwelling Catheter - Exam Review of Systems Constitutional: Reports fatigue, Reports lethargy, Reports poor appetite, Reports weakness, Reports weight loss, Denies chills, Denies fever, reports day time sleepiness Ears, nose, mouth and throat: Denies dysphagia, Denies headache, Denies nasal congestion, Denies nasal discharge, Denies sore throat, reports vertigo Cardiovascular: Reports decreased exercise tolerance, Reports dyspnea on exertion, Reports lightheadedness, Reports orthopnea, Reports shortness of breath, Denies chest pain, Denies syncope Respiratory: Reports dyspnea slightly improved, Reports home oxygen-uses his mother's, Denies cough, Denies cough with sputum, Denies excessive sputum, Denies hemoptysis, Denies respiratory infections, Denies sleep apnea, Denies wheezing Gastrointestinal: Reports loss of appetite, Reports nausea, Denies abdominal pain, Denies diarrhea, Denies vomiting Genitourinary: Denies dysuria, Denies urinary retention Musculoskeletal: Reports muscle weakness, Denies frequent falls, Denies gait dysfunction Integumentary: Denies pruritus, Denies rash Neurological: Reports change in mentation, Denies change in speech, Denies numbness, reports weakness continued Psychiatric: Reports anxiety, reports depression, reports insomnia Endocrine: Denies fatigue, Denies weight change Physical examination Gen: This is a 74-year-old male. Patient is sitting on edge of bed. No respiratory distress noted at rest. HEENT: Head is atraumatic, normocephalic. Pupils equal, round. Sclerae is anicteric. NECK: Supple. No JVD. No lymphadenopathy. No thyromegaly. LUNGS: Diminished breath sounds Pleurx catheter in the left. HEART: Regular rate and rhythm. Systolic murmur. ABDOMEN: Soft. Bowel sounds are present. No masses. No tenderness. EXTREMITIES: 1+ pedal edema. No calf tenderness. Dorsalis pedis +2 bilaterally. NEUROLOGICAL: Patient is awake, alert and oriented x3. Cranial nerves 2 through 12 are grossly intact. - Labs CBC & Chem 7: 02/03/20 04:37 02/03/20 04:37 Labs: Abnormal Lab Results - Last 24 Hours (Table) 02/03/20 02/03/20 Range/Units 04:37 04:37 Hgb 11.8 L (13.0-17.5) gm/dL MCHC 30.3 L (31.0-37.0) g/dL RDW 17.7 H (11.5-15.5) % Lymphocytes # 0.6 L (1.0-4.8) k/uL Sodium 132 L (137-145) mmol/L Chloride 92 L (98-107) mmol/L Carbon Dioxide 34 H (22-30) mmol/L BUN 31 H (9-20) mg/dL Creatinine 1.51 H (0.66-1.25) mg/dL Assessment and Plan Plan: 1. Acute on chronic systolic heart failure with known ejection fraction of 25%. Repeat echocardiogram as above. Dobutamine drip is being weaned. Patient is currently off norepinephrine. Lasix gtt. Continue midodrine 10 mg 3 times daily. Aldactone 50 mg daily, Zaroxolyn 5 mg daily 2. Severe cardiomyopathy status post AICD. 3. Chronic left-sided pleural effusion status post pleural catheter insertion. Nursing is draining once daily. Culture positive for alpha hemolytic strep and Streptococcus epidermidis. Continue vancomycin. Dr. Sen consult appreciated. Concern for loculated fluid collection. Cardiothoracic surgery evaluation appreciated. No plan for any surgical intervention. 4. Cardiogenic shock secondary to severe cardiomyopathy requiring vasopressors. Patient is currently off norepinephrine. 5. History of coronary artery disease status post stenting of circumflex with mild elevation of troponins, possible acute non-ST [place]. Cardiology consult. Aspirin 81 mg daily, Lipitor 40 mg daily, Plavix 75 mg daily, 6. Hyperlipidemia. 7. History of prostate cancer status post radiation therapy and Lupron injections. 8. Elevated liver function tests possibly related to combination of heart failure and fatty liver. Acute hepatitis panel negative. 9. Generalized anxiety disorder. Continue Xanax 2.5 mg twice daily and Remeron 7.5 mg. 10. Hyperkalemia. Continue Lasix, no potassium supplementation. 11. DVT prophylaxis. Heparin subcu. 12. GI prophylaxis. Pepcid. 13. Hyponatremia. Consult with nephrology appreciated. 14. Acute metabolic encephalopathy secondary to insomnia and ICU hospitalization. Continue Seroquel and Effexor and continue Remeron as well and melatonin 10 mg at bedtime. 15. Hypothyroidism. Patient was started on Cytomel 5 g daily. 16. Recurrent depression. Continue Seroquel 50 mg daily and Effexor 100 mg twice daily. Discharge plan: To be determined. Most likely return home. CODE STATUS: NO CODE Impression and plan of care have been directed as dictated by the signing physician. Funmilayo Diaz nurse practitioner acting as scribe for signing physician.
--- NOTE | 2020-02-03 15:58 | P.PN ---
Progress Note - Text Progress Note Date: 02/02/20 DATE OF SERVICE: 02/02/2020 REASON FOR FOLLOWUP: PleurX catheter positive culture. INTERVAL HISTORY: The patient remains to be afebrile, patient is breathing more comfortably. He did have a cough with occasional sputum. The patient denies any chest pain no nausea no vomiting no abdominal pain no diarrhea PHYSICAL EXAMINATION: Blood pressure is 100/71 with a pulse of 105, temperature 98. He is 98% on 2 L nasal cannula. General description is an elderly male up in the chair in no distress. RESPIRATORY SYSTEM: Unlabored breathing with decreased breath sounds at the base. No wheeze. HEART: S1, S2. Regular rate and rhythm. ABDOMEN: Soft. No tenderness. LABS: Hemoglobin is 11.7, white count 6.0. BUN of 30, creatinine 1.45. DIAGNOSTIC IMPRESSION AND PLAN: Patient with a positive PleurX catheter culture with Staph epidermidis in this patient who is currently covered with vancomycin; to continue now and monitor clinical course closely.patient is status post CT of the chest with evidence of loculated fluid CT surgery has been consulted Continue with supportive care.
--- NOTE | 2020-02-03 16:00 | P.PN ---
Progress Note - Text Progress Note Date: 02/03/20 REASON FOR FOLLOWUP: PleurX catheter positive culture. INTERVAL HISTORY: The patient remains to be afebrile, patient is breathing comfortably. The patient denies significant cough or sputum production no chest pain No nausea no vomiting no abdominal pain no diarrhea. Patient is still on dobutamine and Lasix drip PHYSICAL EXAMINATION: Blood pressure is 100/78 with a pulse of 105, temperature 98. He is 98% on 2 L nasal cannula. General description is an elderly male up in the chair in no distress. RESPIRATORY SYSTEM: Unlabored breathing with decreased breath sounds at the base. No wheeze. HEART: S1, S2. Regular rate and rhythm. ABDOMEN: Soft. No tenderness. LABS: Hemoglobin is 11.7, white count 5.0. BUN of 30, creatinine 1.51. DIAGNOSTIC IMPRESSION AND PLAN: Patient with a positive PleurX catheter culture with Staph epidermidis in this patient who is currently covered with vancomycin; patient did have CT of the chest Which did shows loculated fluid, CT surgery saw the patient recommending no interest surgical intervention Patient to continue with vancomycin either transition to oral or discontinue if the patient is made hospice
[2020-02-03] MEDS: QUEtiapine 50 MG TAB PO SCH (19:09)
[2020-02-03] MEDS: MELATONIN 5 MG TABLET PO SCH (21:03)
[2020-02-04] MEDS: FUROSEMIDE 100 MG in SODIUM CHLORIDE 0.9% 90 ML IV SCH ×3 (01:33→20:43)
--- NOTE | 2020-02-04 06:26 | XR ---
EXAMINATION TYPE: XR chest 1V portable DATE OF EXAM: 02/04/2020 HISTORY: sob. REFERENCE: Previous study dated 02/03/2020. FINDINGS: There is a bipolar pacemaker place on the left. The heart is enlarged. The study is rotated and this partially explains the increased opacity in the left hemithorax. I suspect left basilar airspace disease. There is a left-sided effusion. There is mi ld vascular congestion. IMPRESSION: 1. ROTATED STUDY. 2. CARDIOMEGALY. 3. VASCULAR CONGESTION. 4. LEFT BASILAR AIRSPACE DISEASE WITH A CONCOMITANT EFFUSION.
[2020-02-04 06:43] LABS: Anisocytosis Slight; HCT 38.7 % (39.0-53.0); HGB 12.1 gm/dL (13.0-17.5); Hypochromasia Marked; MCHC 31.2 g/dL (31.0-37.0); Mean Platelet Volume 7.6; Platelet Count 200 k/uL (150-450); RDW 17.6 % (11.5-15.5); WBC 5.2 k/uL (3.8-10.6)
[2020-02-04 07:20] LABS: Albumin 2.8 g/dL (3.5-5.0); Calcium 9.2 mg/dL (8.4-10.2); Potassium 3.6 mmol/L (3.5-5.1); Total Bilirubin 0.7 mg/dL (0.2-1.3)
[2020-02-04] MEDS: ATORVASTATIN 40 MG TAB PO SCH (09:27)
[2020-02-04] MEDS: FAMOTIDINE 20 MG TAB PO SCH (09:27)
[2020-02-04] MEDS: SPIRONOLACTONE 25 MG TAB PO SCH (09:28)
[2020-02-04] MEDS: MIDODRINE 5 MG TAB PO SCH ×3 (09:28→17:46)
[2020-02-04] MEDS: HEPARIN SODIUM,PORCINE 5,000 UNIT/ML 1 ML VIAL SQ SCH ×2 (09:28→20:54)
[2020-02-04] MEDS: NOREPINEPHRINE 4 MG in SODIUM CHLORIDE 0.9% 250 ML IV SCH (09:28)
[2020-02-04] MEDS: ASPIRIN 81 MG PO SCH (09:28)
[2020-02-04] MEDS: CLOPIDOGREL 75 MG TAB PO SCH (09:28)
[2020-02-04] MEDS: DOBUTamine DRIP 500 MG in DEXTROSE/WATER 1 250ML.BAG IV SCH ×2 (09:29→12:33)
[2020-02-04] MEDS: VENLAFAXINE HCL 50 MG TAB PO SCH ×2 (09:30→17:46)
[2020-02-04] MEDS: LIOTHYRONINE SODIUM 5 MCG TAB PO SCH (09:31)
[2020-02-04] MEDS: METOLAZONE 5 MG TAB PO SCH (09:31)
--- NOTE | 2020-02-04 09:32 | PN ---
PROGRESS NOTE This patient's EMR is reviewed. The patient is treated here for advanced refractory heart failure as well as an ischemic cardiomyopathy. The patient is seems to be doing well. He is comfortable. We tried to wean off the dobutamine yesterday, but we had to restart 1.25 mics of dobutamine because of the less urine output. Now, patient's urine output is 100-150 mL/hour. The patient is comfortable. First and second heart sounds are normal. Lungs reveals bilateral basal rales. The patient's electrolytes are normal. Creatinine is 1.60. IMPRESSION: Advanced refractory heart failure. At present, I will continue the patient on dobutamine for next 48 hours and try to wean him off on Thursday. If we are unable to wean off dobutamine, may consider transfer to [facility] where sometimes they can put the patient on Milrinone pump with a chronic Milrinone infusion. The patient wants to have everything done. The family member does not want to put the patient in hospice. MMBAMBI / SRAVANTHIN: [id number] /
[2020-02-04] MEDS ORDERED: POTASSIUM CHLORIDE ER 20 MEQ TAB.ER PO STA (09:35)
--- NOTE | 2020-02-04 10:00 | P.PN ---
Subjective Progress Note Date: 02/04/20 Principal diagnosis: Advanced cardiomyopathy, CHF with worsening exacerbation, left-sided pleural effusion, Horne genic shock, known multiple vessel coronary artery disease, elevated liver enzyme, hypertension, hyponatremia and metabolic encephalopathy. This is a 74-year-old male patient of Dr. Burnett, Dr. Gilbert and Dr. Xi Ordaz with a previous medical history significant for hypertension, hyperlipidemia, osteoarthritis, prostate cancer that was diagnosed back in 2006 status post implants as well as Lupron injection, coronary artery disease with stent of the circumflex, severe cardiomyopathy and chronic systolic heart failure with known ejection fraction of 25%, bradycardia status post AICD implantation, recurrent left-sided pleural effusion status post Pleurx catheter insertion August 2019 by cardiothoracic surgery. Patient drains this himself or his daughter of 100-200 mL subpleural fluid daily. Patient also has history of hypertension, 20-mubz-ltgl smoking history. Patient complains of shortness of breath for the past month gradually worsening. Shortness of breath is exceptionally worse with exertion. No chest pain, no cough or sputum productio n, reports weight loss. He complains of nausea occasionally, no abdominal pain. He complains of lightheadedness. He denies any use of steroids for the past 6 weeks. He denies any change and his medications recently. Patient relates that he has been using his mother's home oxygen at 4 L nasal cannula around the clock. Patient came into [facility] emergency center for evaluation, WBC 7.8, hemoglobin 13.8, d-dimer elevated at 4.08. CT angiogram of the chest did not show any pulmonary embolism. There was a small right-sided loculated pleural effusion along with pseudotumor in the left lung consistent with pleural fluid. No evidence of pneumonia. No airspace disease. 3 cm poorly marginated infiltrate in the right lower lobe and significance is unknown. Patient was h ypotensive in the emergency center with systolic blood pressure down to 75. He was started on vasopressors and admitted into the intensive care unit with consults in place for pulmonary medicine and cardiology. Abdominal ultrasound revealed mild gallbladder wall thickening and air fluid that could relate cholecystitis. Heart failure also possible. Small gallstone or gallbladder polyp. Fatty liver. 01/21: Patient remains in intensive care unit. He is seen today sitting in the recliner. His breathing appears to be more comfortable. Patient states that he is feeling tight and did not sleep well last night. We will plan to increase melatonin dose. Patient has been seen by cardiology this morning and started on dobutamine. Patient is currently on norepinephrine as well. Echocardiogram reveals ejection fraction less than 20%, moderate mitral regurgitation, moderate tricuspid regurgitation, mild to moderate pulmonary hypertension.. Potassium this morning is 6.3 and pulmonary medicine has ordered insulin and dextrose. Patient is to be redrawn at noon today. WBC 7.9, hemoglobin 13.6, troponin 0.077. BUN 41 and creatinine 1.46. Acute hepatitis panel negative. Patient is currently on Lasix 40 mg oral twice daily. TSH will be ordered. Chest x-ray reveals changes of heart failure with interstitial pulmonary edema. Continued moderate left effusion with prominent left basilar atelectasis and/or consolidation. Slight worsening aeration of the right base 01/22: Patient has been afebrile, heart rate 97, blood pressure 95/68, pulse ox 98% on 4 L nasal cannula. Repeat blood work reveals CBC unremarkable, sodium 1:30, potassium 4.8, chloride 96, CO2 25, BUN 33 and creatinine 0.85. AST 126, ALT 145, alkaline phosphatase 262. TSH 5.680 and free T4 1 0.38. Patient remains in the intensive care unit. Dobutamine drip increased to 5. Patient remains on levofloxacin as well. Patient states that he did not sleep last night. He is utilizing Xanax twice daily. He denies having any chest pain and no lower extremity edema. He does complain of shortness of breath. No lightheadedness or dizziness. Cytomel added and midodrine increased to 10 mg 3 times daily. Patient is concerned about his mother and his friend staying with her at this time. We will communicate with Dr. Burnett and ask for home care service to be arranged for his mother. Do not anticipate that he will be ready for discharge for another 48-72 hours. 01/23: Patient remains in intensive care unit on dobutamine at 5 mcg/kg/m and levo fed which is to be weaned off. Dr. Napoles is planning for another 24 hours of IV dobutamine. Patient states that he is feeling off today complaining of nausea. He states he did get some sleep last night. Patient has been noted to be more anxious and due to lack of appetite and insomnia, Remeron will be added. He continues to have shortness of breath with minimal activity. He remains awake and alert but he is stating that he wants to go home. We did arrange for home care for his mother yesterday. WBC 5.7, hemoglobin 12.8, potassium 5.3, creatinine 0.75. We did start midodrine yesterday 3 times daily 10 mg. The blood pressure seems to be stable today. Chest x-ray showing worsening CHF for developing ARDS on background mild underlying emphysematous change there is increasing central alveolar and interstitial edema and/or infiltrates and cardi omegaly. No concern for ARDS at this point per Dr. Contreras. Culture on Pleurx fluid is staph epidermidis. 01/24: Repeat chest x-ray reveals similar moderate pulmonary vascular congestion and interstitial edema likely on the basis of decompensated heart failure. Retrocardiac airspace disease is also stable that may represent small plural effusion and atelectasis or less likely pneumonia. Patient is afebrile, heart rate running between 76 and 106, blood pressure 95/75, pulse ox 96% on 2 L nasal cannula. Repeat lab work reveals unremarkable CBC. Sodium 1:30, potassium 5.4, chloride 97, CO2 22, BUN 26 and creatinine 0.81. Pleural fluid was Staphylococcus epidermidis and alphahemolytic streptococcus. Yesterday evening, patient was attempting to leave the intensive care unit in and removed court recording monitor and IV. Patient was returned to his room and IV access and monitoring was resumed. Patient is alert at this time. Nursing passes on that patient awakes and is very confused. He has not had consistent of sleep. Patient complains of feeling tired. Pulmonary has resumed his Seroquel and Effexor. We will continue Remeron as well both Seroquel and Remeron move to supper time. Patient is still on dobutamine for another 24 hours. He has been off norepinephrine since yesterday at 11 AM. He has a sitter at the bedside at this time. Consult added for Dr. Brown regarding hyponatremia. 01/25: Patient continues to have episodes of confusion but is easily reoriented. He is cooperative and follows commands during these episodes. He is able to answer all questions appropriately to time place and person. Ammonia level from yesterday was less than 9. He is continued on dobutamine drip at 5 g for another 24 hours.. Patient was given 1 dose of IV Lasix 40 mg this morning. Patient has been seen by Dr. Brown and ordered Lasix IV 40 mg every 12 hours. Urine osmolality 497, cortisol level 22. Sodium 129, potassium 5.4, chloride 95, CO2 28, BUN 24 and creatinine 0.86. WBC 6.2, hemoglobin 9.6, platelet count 226. Pro-calcitonin 0.14. Repeat chest x-ray reveals stable retrocardiac opacities may again represent small pleural effusion and atelectasis or less likely pneumonia. Primary consideration is decompensated congestive heart failure. 01/26: Patient remains in the intensive care unit. He continues to have episodes of confusion but is easily reoriented. He is having occasional panic attack with increased anxiety. We will resume Xanax and continue his other psychiatric medications. He did sleep well last night most likely related to the Remeron and melatonin. Dobutamine has been decreased today to 2.5 mcg/kg/m. He is off norepinephrine. Repeat lab work reveals WBC 5.4, hemoglobin 11.9, sodium 128, potassium 5.2, creatinine 0.94. Dr. Brown is on consult regarding hyponatremia. 314: Patient remains in intensive care unit sitting up in chair. He is complaining of pain to the right groin. Denies any dizziness or chest pain. Continues to have shortness of breath. He has not had any episodes of confusion overnight or today. Patient states that he slept well during the evening. Dobutamine continues to be at 2.5 MCG/KG/M. However he continues to be hypotensive. Morning meds were held due to his pressure. Sodium 128, potassium 5.1, BUN 28, creatinine 1.06 01/28: Patient remains in intensive care unit sitting up in bed. Patient has no complete concerns at this time. He denies any difficulty breathing or shortness of breath. He continues to be on dobutamine and hypotensive. Hemoglobin 11.2, sodium 127, potassium 5.6, BUN 31, creatinine 1.56, AST 86, ALT 88, alkaline phosphatase 206. The Pleurx catheters in place. Patient is producing better urine output. 01/29: Patient remains in the intensive care unit. Dobutamine was discontinued this morning. Patient is complaining of having dizziness on and off. Blood pressure is been marginal. He is scheduled for one dose of Lasix 40 a blood pressure is maintained. Patient is also complaining of significant weakness. He continues to have lower extremity edema. Confusion episodes have been less frequent. Patient is afebrile, heart rate 76, blood pressure 90/60, pulse ox 96% on 2 L nasal cannula. Repeat blood work reveals WBC 7.4, hemoglobin 11.5, platelet count 225. Sed rate 24, C-reactive protein 60.3. Sodium 129, potassium 5.5, chloride 99, CO2 23, BUN 33, creatinine 1.64. Blood sugar 65. Liver function tests remain elevated with AST 78, ALT 83, alkaline phosphatase 223. Pro-calcitonin 0.52. Patient has been on IV antibiotics in the form of vancomycin. Patient has been seen by Dr. Sen with recommendations for either Bactrim or doxycycline depending on kidney function at time of discharge for one to 2 week course. 01/30: Patient was unable to be weaned off dobutamine yesterday. He has been continued on dobutamine. He has had essentially no urine output. He received Lasix 40 mg yesterday followed by Lasix 80 mg IV push. Patient is complaining of feeling dizzy. He is up to the chair into bed only. He has been afebrile, heart rate 98, blood pressure 80/69, pulse ox 95%. Repeat blood work reveals WBC 6.5, hemoglobin 11.5, platelet count 206. Sodium 132, potassium 4.9, chloride 101, CO2 23, BUN 35 and creatinine 1.65. Blood sugars running between [address] Ramirez discussed with the patient his current condition and prognosis in detail. Discussed option of no CODE STATUS and also of hospice care. This was previously discussed over the weekend with the patient as well. Patient seems to understand. Case management has been updated. Nursing to discuss with cardiology in order for them to further give patient details on his prognosis regarding his cardiac function and prognosis. Venous duplex of the bilateral lower extending negative for DVT. 01/31: Patient is seen in the intensive care unit. He remains on dobutamine at 2.5 mcg/kg/m. Has been started on Lasix drip this morning. Urine output overnight has been 45-70 mL per hour. Currently urine output is at 35 mL per hour. Patient has been afebrile, heart rate 101, blood pressure 89/57, pulse ox 100% on 2 L nasal cannula. The patient remains a full code despite discussion yesterday. Dr. Grey also discussed and reinforced need for hospice care and transition to no code. Hospice informational meeting to take place today and his daughter is to be in attendance. 02/01: Patient remains on the intensive care unit. He remains on dobutamine. La six drip was discontinued. Patient has been diuresing very well. Chest x-ray reveals overall stable findings. Cardiomegaly with small to moderate size left pleural fluid collection and diffuse left mid to lower lung acute infiltrate and/or atelectasis redemonstrated. Dr. Bronson is concern for loculated fluid and may order a CAT scan and involve cardiothoracic surgery. Patient's CODE STATUS has been changed to no code. Patient is afebrile, heart rate 94, blood pressure 117/67, pulse ox 98% on 2 L nasal cannula. Repeat blood work reveals Donna BC 6, hemoglobin 11.7, platelet count 209. Sodium 131, potassium 4.2, chloride 96, CO2 31, BUN 31 creatinine 1.49. 02/02: Patient remains in the intensive care unit. He is on dobutamine drip which is being weaned very slowly. He has been seen by cardiothoracic surgery with no plan for any intervention. Patient is afebrile, heart rate 86, blood pressure 90/67, pulse ox 97%. CBC unremarkable, sodium 132, potassium 3.5, chloride 90, CO2 34, BUN 31 creatinine 1.51. Repeat chest x-ray reveals improving left basilar opacities that may represent small pleural effusion and atelectasis or less likely pneumonia. Mild pulmonary vascular congestion persists. Patient has been continued on Lasix drip per nephrology. Patient is on a fluid restriction. Cardiology has increased Aldactone to 50 mg daily 02/03: Patient remain in the ICU on dobutamine drip his blood pressure remain slightly bit low patient kidney function has improved slightly bit from before. His pleural effusion is slightly but better is still debilitated still very we ak, still on Aldactone 50 mg daily along with Lasix 10 mg drip and hour for now. By the end of the weekend patient will be switched to entirely oral meds and thinking about hospice care while he is on his cardiac medication and comfort care if we can achieve this goal at home sometimes early this week. Objective - Vital Signs Vital signs: Vital Signs Temp 96.9 F L 02/04/20 04:00 Pulse 90 02/04/20 07:00 Resp 21 02/04/20 07:00 BP 101/68 02/04/20 07:00 Pulse Ox 93 L 02/04/20 07:00 Intake & Output 02/03/20 02/04/20 02/04/20 18:59 06:59 18:59 Intake Total 1358.591 227.595 30 Output Total 1770 1250 425 Balance -411.409 -1022.405 -395 Weight 88.2 kg Intake: IV 120 120 30 Normal saline 120 120 30 Intake, IV Titration 638.591 107.595 Amount DOBUTamine DRIP 500 mg In 218.258 7.595 Dextrose/Water 1 250ml. bag @ 2.5 MCG/KG/MIN 7.14 mls/hr IV .Q24H [facility], [facility]1983 Rx#: [id number] Furosemide 100 mg In 86.333 100 Sodium Chloride 0.9% 90 ml @ 10 MG/HR 10 mls/hr IV .Q10H [facility] Rx#: [id number] Vancomycin 1,500 mg In 334 Sodium Chloride 0.9% 250 ml @ 125 mls/hr IVPB Q24H [facility] Rx#:[id number] Oral 600 Output: Chest Tube Drainage 100 Pleural Catheter Left Mid 100 -Axillary Chest Urine 1770 1150 425 Other: Voiding Method Indwelling Catheter Indwelling Catheter Indwelling Catheter - Exam - Exam Review of Systems Constitutional: Reports fatigue, Reports lethargy, Reports poor appetite, Reports weakness, Reports weight loss, Denies chills, Denies fever, reports daytime sleepiness Ears, nose, mouth and throat: Denies dysphagia, Denies headache, Denies nasal congestion, Denies nasal discharge, Denies sore throat, reports vertigo Cardiovascular: Reports decreased exercise tolerance, Reports dyspnea on exertion, Reports lightheadedness, Reports orthopnea, Reports shortness of b reath, Denies chest pain, Denies syncope Respiratory: Reports dyspnea slightly improved, Reports home oxygen-uses his mother's, Denies cough, Denies cough with sputum, Denies excessive sputum, Denies hemoptysis, Denies respiratory infections, Denies sleep apnea, Denies wheezing Gastrointestinal: Reports loss of appetite, Reports nausea, Denies abdominal pain, Denies diarrhea, Denies vomiting Genitourinary: Denies dysuria, Denies urinary retention Musculoskeletal: Reports muscle weakness, Denies frequent falls, Denies gait dysfunction Integumentary: Denies pruritus, Denies rash Neurological: Reports change in mentation, Denies change in speech, Denies numbness, reports weakness continued Psychiatric: Reports anxiety, reports depression, reports insomnia Endocrine: Denies fatigue, Denies weight change Physical examination Gen: This is a 74-year-old male. Patient is sitting on edge of bed. No respiratory distress noted at rest. HEENT: Head is atraumatic, normocephalic. Pupils equal, round. Sclerae is anicteric. NECK: Supple. No JVD. No lymphadenopathy. No thyromegaly. LUNGS: Diminished breath sounds Pleurx catheter in the left. HEART: Regular rate and rhythm. Systolic murmur. ABDOMEN: Soft. Bowel sounds are present. No masses. No tenderness. EXTREMITIES: 1+ pedal edema. No calf tenderness. Dorsalis pedis +2 bilaterally. NEUROLOGICAL: Patient is awake, alert and oriented x3. Cranial nerves 2 through 12 are grossly intact. - Labs CBC & Chem 7: 02/04/20 06:26 02/04/20 06:26 Labs: Abnormal Lab Results - Last 24 Hours (Table) 02/04/20 02/04/20 Range/Units 06:26 06:26 Hgb 12.1 L (13.0-17.5) gm/dL Hct 38.7 L (39.0-53.0) % RDW 17.6 H (11.5-15.5) % Chloride 91 L (98-107) mmol/L Carbon Dioxide 32 H (22-30) mmol/L BUN 33 H (9-20) mg/dL Creatinine 1.60 H (0.66-1.25) mg/dL ALT 52 H (4-49) U/L Alkaline Phosphatase 195 H (38-126) U/L Total Protein 6.0 L (6.3-8.2) g/dL Albumin 2.8 L (3.5-5.0) g/dL Assessment and Plan Plan: 1 advance ischemic cardiac myopathy: Still on medical management patient is not doing well he has end-stage cardiac disease with extremely high mortality in the next few weeks. 2 cardiogenic shock with low ejection fraction of 25 percentile post AICD patient remain on dobutamine and Lasix at drip at this point his blood pressures not holding well with it as medication continue to readjust his medication without having to affect his blood pressure kidney function. 3 left-sided pleural effusion: Slightly but better at this point with pleural cath insertion which been drained. 4 sepsis: Patient still been treated for strep epidermis with vancomycin and seen Dr. Sen. 5 advance atherosclerotic heart disease with PCI and stent of the circumflex coronary artery with mildly elevated troponin as a [facility]acute [facility] patient is seeing cardiology still on secondary prevention. 6 elevated liver function test: Most likely combination of hypoperfusion and fatty liver hepatitis panel was negative and patient liver enzyme has improved with improved circulation and function. 7 hyponatremia: Has improved at this point with a sodium above 1:30 still seen nephrology. 8 acute metabolic encephalopathy with mild to ICU psychosis, has improved some still on Seroquel and Effexor or along with Remeron. 9 to thyroidism: Remain on Cytomel 5 g daily. 10 depression: Has been on circumflex well and Effexor. 11 hyperlipidemia: Still on statin. 12 advance congestive heart failure mostly systolic and mostly chronic with acute component at this point patient is not able to tolerate Entresto, still on Lasix drip along with Aldactone patient eventually will be sent home on hospice care and comfort care. CODE STATUS: DO NOT RESUSCITATE. Discharge planning: Most likely home with hospice on Thursday.
--- NOTE | 2020-02-04 10:26 | P.PN ---
Subjective Patient is seen in follow-up for acute kidney injury and hyponatremia. Sodium level up to 137 today. Renal function is stable. Does get dyspneic without oxygen support. Maintained on dobutamine and lasix drip. Patient has systolic CHF with ejection fraction of less than 20% with moderate tricuspid regurgitation and pulmonary hypertension. Urine output over 100 mL an hour. Vital signs are stable. General: The patient appeared well nourished and normally developed. HEENT: Head exam is unremarkable. Neck is without jugular venous distension. LUNGS: Breath sounds decreased. HEART: Rate and Rhythm are regular. First and second heart sounds normal. No murmurs, rubs or gallops. ABDOMEN: Abdominal exam reveals normal bowel sounds. Non-tender and non- distended. No evidence of peritonitis. EXTREMITITES: 1+ edema. R > L. Objective - Vital Signs Vital signs: Vital Signs Temp 96.9 F L 02/04/20 04:00 Pulse 90 02/04/20 07:00 Resp 21 02/04/20 07:00 BP 101/68 02/04/20 07:00 Pulse Ox 93 L 02/04/20 07:00 Intake & Output 02/03/20 02/04/20 02/04/20 18:59 06:59 18:59 Intake Total 1358.591 227.595 30 Output Total 1770 1250 425 Balance -411.409 -1022.405 -395 Weight 88.2 kg Intake: IV 120 120 30 Normal saline 120 120 30 Intake, IV Titration 638.591 107.595 Amount DOBUTamine DRIP 500 mg In 218.258 7.595 Dextrose/Water 1 250ml. bag @ 2.5 MCG/KG/MIN 7.14 mls/hr IV .Q24H [facility] Rx#: [id number] Furosemide 100 mg In 86.333 100 Sodium Chloride 0.9% 90 ml @ 10 MG/HR 10 mls/hr IV .Q10H [facility] Rx#: [id number] Vancomycin 1,500 mg In 334 Sodium Chloride 0.9% 250 ml @ 125 mls/hr IVPB Q24H [facility] Rx#:[id number] Oral 600 Output: Chest Tube Drainage 100 Pleural Catheter Left Mid 100 -Axillary Chest Urine 1770 1150 425 Other: Voiding Method Indwelling Catheter Indwelling Catheter Indwelling Catheter - Labs CBC & Chem 7: 02/04/20 06:26 02/04/20 06:26 Labs: Abnormal Lab Results - Last 24 Hours (Table) 02/04/20 02/04/20 Range/Units 06:26 06:26 Hgb 12.1 L (13.0-17.5) gm/dL Hct 38.7 L (39.0-53.0) % RDW 17.6 H (11.5-15.5) % Chloride 91 L (98-107) mmol/L Carbon Dioxide 32 H (22-30) mmol/L BUN 33 H (9-20) mg/dL Creatinine 1.60 H (0.66-1.25) mg/dL ALT 52 H (4-49) U/L Alkaline Phosphatase 195 H (38-126) U/L Total Protein 6.0 L (6.3-8.2) g/dL Albumin 2.8 L (3.5-5.0) g/dL Assessment and Plan Plan: Assessment: 1. Acute kidney injury mostly prerenal secondary to cardiorenal syndrome. Renal function slightly worse which is due to diuresis. 2. Acute on chronic systolic CHF with ejection fraction of less than 20% with moderate tricuspid regurgitation and pulmonary hypertension. 3. Hypervolemic hyponatremia. Status post Samsca. Better. 4. Chronic left-sided pleural effusion. Patient has a Pleurx catheter. 5. Hyperkalemia secondary to acute kidney injury. Lisinopril discontinued. Now hypokalemic, being replaced. 6. Volume overload. Plan: Maintian Lasix drip at 10 mL an hour. Maintain fluid restriction. Continue to monitor renal function and urine output. Repeat electrolytes in the morning. Avoid nephrotoxins. Not agreeable to hospice at this time. Maintain dobutamine per cardiology.
[2020-02-04] MEDS: VANCOMYCIN 1,500 MG in SODIUM CHLORIDE 0.9% 250 ML IVPB SCH (12:31)
[2020-02-04] MEDS: QUEtiapine 50 MG TAB PO SCH (17:47)
--- NOTE | 2020-02-04 18:45 | PN ---
PROGRESS NOTE DATE OF SERVICE: 02/04/2020 REASON FOR FOLLOWUP: Positive Pleur-X catheter culture with Staph epi. INTERVAL HISTORY: The patient is currently afebrile. Patient has been breathing comfortably. He did have very minimal cough. Occasional sputum. No hemoptysis. No chest pain. No nausea, no vomiting. No abdominal pain. No diarrhea. PHYSICAL EXAMINATION: Blood pressure 98/72 with a pulse of 79, temperature 96.5. He is 98% on 2 L nasal cannula. General description is an elderly male lying in bed in no distress. Respiratory system: Unlabored breathing. Decreased breath sounds in the bases. No wheeze. Heart S1, S2. Regular rate and rhythm. ABDOMEN: Soft. No tenderness. LABS: Hemoglobin is 12.1, white count 5.2, creatinine 1.60. DIAGNOSTIC IMPRESSION AND PLAN: Patient with a positive culture from his Pleur-X catheter with Staph epidermidis. The patient did have loculated fluid surgical intervention. Patient is covered with vancomycin, transition to oral on discharge. Continue supportive care. MMODL / IJN: [id number] /
[2020-02-04] MEDS: MELATONIN 5 MG TABLET PO SCH (20:55)
[2020-02-05 05:00] LABS: Anisocytosis Slight; HCT 38.9 % (39.0-53.0); Hypochromasia Moderate; MCH 27.5 pg (25.0-35.0); MCHC 30.7 g/dL (31.0-37.0); MCV 89.4 fL (80.0-100.0); Platelet Count 180 k/uL (150-450); RBC 4.36 m/uL (4.30-5.90); RDW 17.5 % (11.5-15.5); WBC 5.7 k/uL (3.8-10.6)
[2020-02-05 05:17] LABS: Albumin 2.9 g/dL (3.5-5.0); Calcium 9.2 mg/dL (8.4-10.2); Potassium 3.6 mmol/L (3.5-5.1); Total Bilirubin 0.7 mg/dL (0.2-1.3)
[2020-02-05] MEDS: NOREPINEPHRINE 4 MG in SODIUM CHLORIDE 0.9% 250 ML IV SCH ×2 (06:08→12:46)
[2020-02-05] MEDS: FUROSEMIDE 100 MG in SODIUM CHLORIDE 0.9% 90 ML IV SCH (06:22)
--- NOTE | 2020-02-05 06:46 | XR ---
EXAMINATION TYPE: XR chest 1V portable DATE OF EXAM: 02/05/2020 HISTORY: sob. REFERENCE: Previous study dated 02/04/2020. FINDINGS: A bipolar pacemaker is in place on the left. There is worsening vascular congestion and interstitial edema. There is confluent left basilar airspa ce disease which may represent confluent edema or pneumonia. There is blunting of both CP angles sugg esting small bilateral effusions. IMPRESSION: 1. WORSENING CHANGES OF PULMONARY EDEMA. 2. CONTINUING CONFLUENT LEFT BASILAR AIRSPACE DISEASE MAY REPRESENT CONFLUENT EDEMA OR PNEUMONIA. 3. SMALL, BILATERAL EFFUSIONS.
[2020-02-05] MEDS: FAMOTIDINE 20 MG TAB PO SCH (08:28)
[2020-02-05] MEDS: ASPIRIN 81 MG PO SCH (08:28)
[2020-02-05] MEDS: CLOPIDOGREL 75 MG TAB PO SCH (08:28)
[2020-02-05] MEDS: ATORVASTATIN 40 MG TAB PO SCH (08:28)
[2020-02-05] MEDS: VANCOMYCIN 1,500 MG in SODIUM CHLORIDE 0.9% 250 ML IVPB SCH (08:28)
[2020-02-05] MEDS: VENLAFAXINE HCL 50 MG TAB PO SCH ×2 (08:28→18:16)
[2020-02-05] MEDS: SPIRONOLACTONE 25 MG TAB PO SCH (08:28)
[2020-02-05] MEDS: MIDODRINE 5 MG TAB PO SCH ×3 (08:28→18:16)
[2020-02-05] MEDS: METOLAZONE 5 MG TAB PO SCH (08:29)
[2020-02-05] MEDS: HEPARIN SODIUM,PORCINE 5,000 UNIT/ML 1 ML VIAL SQ SCH ×2 (08:29→20:36)
[2020-02-05] MEDS: LIOTHYRONINE SODIUM 5 MCG TAB PO SCH (08:29)
--- NOTE | 2020-02-05 10:28 | P.PN ---
Subjective Patient is seen in follow-up for acute kidney injury and hyponatremia. Renal function gradually worsening due to diuresis. Does get dyspneic without oxygen support. Maintained on dobutamine and lasix drip. Dobutamine is being weaned off by cardiology. Patient has systolic CHF with ejection fraction of less than 20% with moderate tricuspid regurgitation and pulmonary hypertension. Urine output over 100 mL an hour. Vital signs are stable. General: The patient appeared well nourished and normally developed. HEENT: Head exam is unremarkable. Neck is without jugular venous distension. LUNGS: Breath sounds decreased. HEART: Rate and Rhythm are regular. First and second heart sounds normal. No murmurs, rubs or gallops. ABDOMEN: Abdominal exam reveals normal bowel sounds. Non-tender and non- distended. No evidence of peritonitis. EXTREMITITES: 1+ edema. R > L. Objective - Vital Signs Vital signs: Vital Signs Temp 96.5 F L 02/05/20 04:00 Pulse 100 02/05/20 09:00 Resp 16 02/05/20 09:00 BP 107/93 02/05/20 09:00 Pulse Ox 97 02/05/20 09:00 Intake & Output 02/04/20 02/05/20 02/05/20 18:59 06:59 18:59 Intake Total 741.404 288.333 30 Output Total 1235 1275 455 Balance -493.596 -986.667 -425 Weight 88.8 kg Intake: IV 130 110 30 Normal saline 130 110 30 Intake, IV Titration 161.404 178.333 Amount DOBUTamine DRIP 500 mg In 61.404 Dextrose/Water 1 250ml. bag @ 2.5 MCG/KG/MIN 7.14 mls/hr IV .Q24H TOD Rx#: [id number] Furosemide 100 mg In 100 178.333 Sodium Chloride 0.9% 90 ml @ 10 MG/HR 10 mls/hr IV .Q10H TOD Rx#: [id number] Oral 450 Output: Urine 1235 1275 455 Other: Voiding Method Indwelling Catheter Indwelling Catheter Indwelling Catheter - Labs CBC & Chem 7: 02/05/20 04:18 02/05/20 04:18 Labs: Abnormal Lab Results - Last 24 Hours (Table) 02/05/20 02/05/20 Range/Units 04:18 04:18 Hgb 12.0 L (13.0-17.5) gm/dL Hct 38.9 L (39.0-53.0) % MCHC 30.7 L (31.0-37.0) g/dL RDW 17.5 H (11.5-15.5) % Sodium 130 L (137-145) mmol/L Chloride 88 L (98-107) mmol/L Carbon Dioxide 36 H (22-30) mmol/L BUN 35 H (9-20) mg/dL Creatinine 1.72 H (0.66-1.25) mg/dL ALT 51 H (4-49) U/L Alkaline Phosphatase 191 H (38-126) U/L Total Protein 6.0 L (6.3-8.2) g/dL Albumin 2.9 L (3.5-5.0) g/dL Assessment and Plan Plan: Assessment: 1. Acute kidney injury mostly prerenal secondary to cardiorenal syndrome. Renal function worsening due to diuresis. 2. Acute on chronic systolic CHF with ejection fraction of less than 20% with moderate tricuspid regurgitation and pulmonary hypertension. 3. Hypervolemic hyponatremia. Sodium level 130 today. 4. Chronic left-sided pleural effusion. Patient has a Pleurx catheter. 5. Hyperkalemia secondary to acute kidney injury. Lisinopril discontinued. Now hypokalemic, being replaced. 6. Volume overload. Plan: Maintian Lasix drip at 10 mL an hour. Samsca 15 mg once today. Maintain fluid restriction. Continue to monitor renal function and urine output. Repeat electrolytes in the morning. Avoid nephrotoxins. Not agreeable to hospice at this time. Dobutamine being weaned by cardiology. Possible transfer to [facility] for continuous milrinone drip.
[2020-02-05] MEDS ORDERED: TOLVAPTAN 15 MG 1/2 TABLET PO ONE (11:00)
--- NOTE | 2020-02-05 11:12 | P.PN ---
Subjective Progress Note Date: 02/05/20 Principal diagnosis: Advanced cardiomyopathy, CHF with worsening exacerbation, left-sided pleural effusion, Horne genic shock, known multiple vessel coronary artery disease, elevated liver enzyme, hypertension, hyponatremia and metabolic encephalopathy. This is a 74-year-old male patient of Dr. Burnett, Dr. Gilbert and Dr. Xi Ordaz with a previous medical history significant for hypertension, hyperlipidemia, osteoarthritis, prostate cancer that was diagnosed back in 2006 status post implants as well as Lupron injection, coronary artery disease with stent of the circumflex, severe cardiomyopathy and chronic systolic heart failure with known ejection fraction of 25%, bradycardia status post AICD implantation, recurrent left-sided pleural effusion status post Pleurx catheter insertion August 2019 by cardiothoracic surgery. Patient drains this himself or his daughter of 100-200 mL subpleural fluid daily. Patient also has history of hypertension, [id number] smoking history. Patient complains of shortness of breath for the past month gradually worsening. Shortness of breath is exceptionally worse with exertion. No chest pain, no cough or sputum productio n, reports weight loss. He complains of nausea occasionally, no abdominal pain. He complains of lightheadedness. He denies any use of steroids for the past 6 weeks. He denies any change and his medications recently. Patient relates that he has been using his mother's home oxygen at 4 L nasal cannula around the clock. Patient came into [facility] emergency center for evaluation, WBC 7.8, hemoglobin 13.8, d-dimer elevated at 4.08. CT angiogram of the chest did not show any pulmonary embolism. There was a small right-sided loculated pleural effusion along with pseudotumor in the left lung consistent with pleural fluid. No evidence of pneumonia. No airspace disease. 3 cm poorly marginated infiltrate in the right lower lobe and significance is unknown. Patient was h ypotensive in the emergency center with systolic blood pressure down to 75. He was started on vasopressors and admitted into the intensive care unit with consults in place for pulmonary medicine and cardiology. Abdominal ultrasound revealed mild gallbladder wall thickening and air fluid that could relate cholecystitis. Heart failure also possible. Small gallstone or gallbladder polyp. Fatty liver. 01/21: Patient remains in intensive care unit. He is seen today sitting in the recliner. His breathing appears to be more comfortable. Patient states that he is feeling tight and did not sleep well last night. We will plan to increase melatonin dose. Patient has been seen by cardiology this morning and started on dobutamine. Patient is currently on norepinephrine as well. Echocardiogram reveals ejection fraction less than 20%, moderate mitral regurgitation, moderate tricuspid regurgitation, mild to moderate pulmonary hypertension.. Potassium this morning is 6.3 and pulmonary medicine has ordered insulin and dextrose. Patient is to be redrawn at noon today. WBC 7.9, hemoglobin 13.6, troponin 0.077. BUN 41 and creatinine 1.46. Acute hepatitis panel negative. Patient is currently on Lasix 40 mg oral twice daily. TSH will be ordered. Chest x-ray reveals changes of heart failure with interstitial pulmonary edema. Continued moderate left effusion with prominent left basilar atelectasis and/or consolidation. Slight worsening aeration of the right base 01/22: Patient has been afebrile, heart rate 97, blood pressure 95/68, pulse ox 98% on 4 L nasal cannula. Repeat blood work reveals CBC unremarkable, sodium 1:30, potassium 4.8, chloride 96, CO2 25, BUN 33 and creatinine 0.85. AST 126, ALT 145, alkaline phosphatase 262. TSH 5.680 and free T4 1 0.38. Patient remains in the intensive care unit. Dobutamine drip increased to 5. Patient remains on levofloxacin as well. Patient states that he did not sleep last night. He is utilizing Xanax twice daily. He denies having any chest pain and no lower extremity edema. He does complain of shortness of breath. No lightheadedness or dizziness. Cytomel added and midodrine increased to 10 mg 3 times daily. Patient is concerned about his mother and his friend staying with her at this time. We will communicate with Dr. Burnett and ask for home care service to be arranged for his mother. Do not anticipate that he will be ready for discharge for another 48-72 hours. 01/23: Patient remains in intensive care unit on dobutamine at 5 mcg/kg/m and levo fed which is to be weaned off. Dr. Napoles is planning for another 24 hours of IV dobutamine. Patient states that he is feeling off today complaining of nausea. He states he did get some sleep last night. Patient has been noted to be more anxious and due to lack of appetite and insomnia, Remeron will be added. He continues to have shortness of breath with minimal activity. He remains awake and alert but he is stating that he wants to go home. We did arrange for home care for his mother yesterday. WBC 5.7, hemoglobin 12.8, potassium 5.3, creatinine 0.75. We did start midodrine yesterday 3 times daily 10 mg. The blood pressure seems to be stable today. Chest x-ray showing worsening CHF for developing ARDS on background mild underlying emphysematous change there is increasing central alveolar and interstitial edema and/or infiltrates and cardi omegaly. No concern for ARDS at this point per Dr. Contreras. Culture on Pleurx fluid is staph epidermidis. 01/24: Repeat chest x-ray reveals similar moderate pulmonary vascular congestion and interstitial edema likely on the basis of decompensated heart failure. Retrocardiac airspace disease is also stable that may represent small plural effusion and atelectasis or less likely pneumonia. Patient is afebrile, heart rate running between 76 and 106, blood pressure 95/75, pulse ox 96% on 2 L nasal cannula. Repeat lab work reveals unremarkable CBC. Sodium 1:30, potassium 5.4, chloride 97, CO2 22, BUN 26 and creatinine 0.81. Pleural fluid was Staphylococcus epidermidis and alphahemolytic streptococcus. Yesterday evening, patient was attempting to leave the intensive care unit in and removed funeral director/embalmer/owner and IV. Patient was returned to his room and IV access and monitoring was resumed. Patient is alert at this time. Nursing passes on that patient awakes and is very confused. He has not had consistent of sleep. Patient complains of feeling tired. Pulmonary has resumed his Seroquel and Effexor. We will continue Remeron as well both Seroquel and Remeron move to supper time. Patient is still on dobutamine for another 24 hours. He has been off norepinephrine since yesterday at 11 AM. He has a sitter at the bedside at this time. Consult added for Dr. Brown regarding hyponatremia. 01/25: Patient continues to have episodes of confusion but is easily reoriented. He is cooperative and follows commands during these episodes. He is able to answer all questions appropriately to time place and person. Ammonia level from yesterday was less than 9. He is continued on dobutamine drip at 5 g for another 24 hours.. Patient was given 1 dose of IV Lasix 40 mg this morning. Patient has been seen by Dr. Brown and ordered Lasix IV 40 mg every 12 hours. Urine osmolality 497, cortisol level 22. Sodium 129, potassium 5.4, chloride 95, CO2 28, BUN 24 and creatinine 0.86. WBC 6.2, hemoglobin 9.6, platelet count 226. Pro-calcitonin 0.14. Repeat chest x-ray reveals stable retrocardiac opacities may again represent small pleural effusion and atelectasis or less likely pneumonia. Primary consideration is decompensated congestive heart failure. 01/26: Patient remains in the intensive care unit. He continues to have episodes of confusion but is easily reoriented. He is having occasional panic attack with increased anxiety. We will resume Xanax and continue his other psychiatric medications. He did sleep well last night most likely related to the Remeron and melatonin. Dobutamine has been decreased today to 2.5 mcg/kg/m. He is off norepinephrine. Repeat lab work reveals WBC 5.4, hemoglobin 11.9, sodium 128, potassium 5.2, creatinine 0.94. Dr. Brown is on consult regarding hyponatremia. 314: Patient remains in intensive care unit sitting up in chair. He is complaining of pain to the right groin. Denies any dizziness or chest pain. Continues to have shortness of breath. He has not had any episodes of confusion overnight or today. Patient states that he slept well during the evening. Dobutamine continues to be at 2.5 MCG/KG/M. However he continues to be hypotensive. Morning meds were held due to his pressure. Sodium 128, potassium 5.1, BUN 28, creatinine 1.06 01/28: Patient remains in intensive care unit sitting up in bed. Patient has no complete concerns at this time. He denies any difficulty breathing or shortness of breath. He continues to be on dobutamine and hypotensive. Hemoglobin 11.2, sodium 127, potassium 5.6, BUN 31, creatinine 1.56, AST 86, ALT 88, alkaline phosphatase 206. The Pleurx catheters in place. Patient is producing better urine output. 01/29: Patient remains in the intensive care unit. Dobutamine was discontinued this morning. Patient is complaining of having dizziness on and off. Blood pressure is been marginal. He is scheduled for one dose of Lasix 40 a blood pressure is maintained. Patient is also complaining of significant weakness. He continues to have lower extremity edema. Confusion episodes have been less frequent. Patient is afebrile, heart rate 76, blood pressure 90/60, pulse ox 96% on 2 L nasal cannula. Repeat blood work reveals WBC 7.4, hemoglobin 11.5, platelet count 225. Sed rate 24, C-reactive protein 60.3. Sodium 129, potassium 5.5, chloride 99, CO2 23, BUN 33, creatinine 1.64. Blood sugar 65. Liver function tests remain elevated with AST 78, ALT 83, alkaline phosphatase 223. Pro-calcitonin 0.52. Patient has been on IV antibiotics in the form of vancomycin. Patient has been seen by Dr. Sen with recommendations for either Bactrim or doxycycline depending on kidney function at time of discharge for one to 2 week course. 01/30: Patient was unable to be weaned off dobutamine yesterday. He has been continued on dobutamine. He has had essentially no urine output. He received Lasix 40 mg yesterday followed by Lasix 80 mg IV push. Patient is complaining of feeling dizzy. He is up to the chair into bed only. He has been afebrile, heart rate 98, blood pressure 80/69, pulse ox 95%. Repeat blood work reveals WBC 6.5, hemoglobin 11.5, platelet count 206. Sodium 132, potassium 4.9, chloride 101, CO2 23, BUN 35 and creatinine 1.65. Blood sugars running between [address] Ramirez discussed with the patient his current condition and prognosis in detail. Discussed option of no CODE STATUS and also of hospice care. This was previously discussed over the weekend with the patient as well. Patient seems to understand. Case management has been updated. Nursing to discuss with cardiology in order for them to further give patient details on his prognosis regarding his cardiac function and prognosis. Venous duplex of the bilateral lower extending negative for DVT. 01/31: Patient is seen in the intensive care unit. He remains on dobutamine at 2.5 mcg/kg/m. Has been started on Lasix drip this morning. Urine output overnight has been 45-70 mL per hour. Currently urine output is at 35 mL per hour. Patient has been afebrile, heart rate 101, blood pressure 89/57, pulse ox 100% on 2 L nasal cannula. The patient remains a full code despite discussion yesterday. Dr. Grey also discussed and reinforced need for hospice care and transition to no code. Hospice informational meeting to take place today and his daughter is to be in attendance. 02/01: Patient remains on the intensive care unit. He remains on dobutamine. La six drip was discontinued. Patient has been diuresing very well. Chest x-ray reveals overall stable findings. Cardiomegaly with small to moderate size left pleural fluid collection and diffuse left mid to lower lung acute infiltrate and/or atelectasis redemonstrated. Dr. Bronson is concern for loculated fluid and may order a CAT scan and involve cardiothoracic surgery. Patient's CODE STATUS has been changed to no code. Patient is afebrile, heart rate 94, blood pressure 117/67, pulse ox 98% on 2 L nasal cannula. Repeat blood work reveals Donna BC 6, hemoglobin 11.7, platelet count 209. Sodium 131, potassium 4.2, chloride 96, CO2 31, BUN 31 creatinine 1.49. 02/02: Patient remains in the intensive care unit. He is on dobutamine drip which is being weaned very slowly. He has been seen by cardiothoracic surgery with no plan for any intervention. Patient is afebrile, heart rate 86, blood pressure 90/67, pulse ox 97%. CBC unremarkable, sodium 132, potassium 3.5, chloride 90, CO2 34, BUN 31 creatinine 1.51. Repeat chest x-ray reveals improving left basilar opacities that may represent small pleural effusion and atelectasis or less likely pneumonia. Mild pulmonary vascular congestion persists. Patient has been continued on Lasix drip per nephrology. Patient is on a fluid restriction. Cardiology has increased Aldactone to 50 mg daily 02/03: Patient remain in the ICU on dobutamine drip his blood pressure remain slightly bit low patient kidney function has improved slightly bit from before. His pleural effusion is slightly but better is still debilitated still very we ak, still on Aldactone 50 mg daily along with Lasix 10 mg drip and hour for now. By the end of the weekend patient will be switched to entirely oral meds and thinking about hospice care while he is on his cardiac medication and comfort care if we can achieve this goal at home sometimes early this week. 02/04: Patient remain in the ICU still on dobutamine drip and Lasix drip he has less shortness of breath less CHF symptoms today still very sick still bedridden function is very limited this point. Again talk about the possibility of going home on comfort care or hospice in the next day. His IV diuretics will be changed to oral by tomorrow and try to readjust his medication and prepare for his discharge. Objective - Vital Signs Vital signs: Vital Signs Temp 96.5 F L 02/05/20 04:00 Pulse 100 02/05/20 09:00 Resp 16 02/05/20 09:00 BP 107/93 02/05/20 09:00 Pulse Ox 97 02/05/20 09:00 Intake & Output 02/04/20 02/05/20 02/05/20 18:59 06:59 18:59 Intake Total 741.404 288.333 30 Output Total 1235 1275 455 Balance -493.596 -986.667 -425 Weight 88.8 kg Intake: IV 130 110 30 Normal saline 130 110 30 Intake, IV Titration 161.404 178.333 Amount DOBUTamine DRIP 500 mg In 61.404 Dextrose/Water 1 250ml. bag @ 2.5 MCG/KG/MIN 7.14 mls/hr IV .Q24H TOD Rx#: [id number] Furosemide 100 mg In 100 178.333 Sodium Chloride 0.9% 90 ml @ 10 MG/HR 10 mls/hr IV .Q10H TOD Rx#: [id number] Oral 450 Output: Urine 1235 1275 455 Other: Voiding Method Indwelling Catheter Indwelling Catheter Indwelling Catheter - Exam - Exam Review of Systems Constitutional: Reports fatigue, Reports lethargy, Reports poor appetite, Reports weakness, Reports weight loss, Denies chills, Denies fever, reports daytime sleepiness Ears, nose, mouth and throat: Denies dysphagia, Denies headache, Denies nasal congestion, Denies nasal discharge, Denies sore throat, reports vertigo Cardiovascular: Reports decreased exercise tolerance, Reports dyspnea on exertion, Reports lightheadedness, Reports orthopnea, Reports shortness of breath, Denies chest pain, Denies syncope Respiratory: Reports dyspnea slightly improved, Reports home oxygen-uses his mother's, Denies cough, Denies cough with sputum, Denies excessive sputum, Denies hemoptysis, Denies respiratory infections, Denies sleep apnea, Denies wheezing Gastrointestinal: Reports loss of appetite, Reports nausea, Denies abdominal pain, Denies diarrhea, Denies vomiting Genitourinary: Denies dysuria, Denies urinary retention Musculoskeletal: Reports muscle weakness, Denies frequent falls, Denies gait dysfunction Integumentary: Denies pruritus, Denies rash Neurological: Reports change in mentation, Denies change in speech, Denies numbness, reports weakness continued Psychiatric: Reports anxiety, reports depression, reports insomnia Endocrine: Denies fatigue, Denies weight change Physical examination Gen: This is a 74-year-old male. Patient is sitting on edge of bed. No respiratory distress noted at rest. HEENT: Head is atraumatic, normocephalic. Pupils equal, round. Sclerae is anicteric. NECK: Supple. No JVD. No lymphadenopathy. No thyromegaly. LUNGS: Diminished breath sounds Pleurx catheter in the left. HEART: Regular rate and rhythm. Systolic murmur. ABDOMEN: Soft. Bowel sounds are present. No masses. No tenderness. EXTREMITIES: 1+ pedal edema. No calf tenderness. Dorsalis pedis +2 bilaterally. NEUROLOGICAL: Patient is awake, alert and oriented x3. Cranial nerves 2 through 12 are grossly intact. - Labs CBC & Chem 7: 02/05/20 04:18 02/05/20 04:18 Labs: Abnormal Lab Results - Last 24 Hours (Table) 02/05/20 02/05/20 Range/Units 04:18 04:18 Hgb 12.0 L (13.0-17.5) gm/dL Hct 38.9 L (39.0-53.0) % MCHC 30.7 L (31.0-37.0) g/dL RDW 17.5 H (11.5-15.5) % Sodium 130 L (137-145) mmol/L Chloride 88 L (98-107) mmol/L Carbon Dioxide 36 H (22-30) mmol/L BUN 35 H (9-20) mg/dL Creatinine 1.72 H (0.66-1.25) mg/dL ALT 51 H (4-49) U/L Alkaline Phosphatase 191 H (38-126) U/L Total Protein 6.0 L (6.3-8.2) g/dL Albumin 2.9 L (3.5-5.0) g/dL Assessment and Plan Plan: 1 advance ischemic cardiac myopathy: Still on medical management patient is not doing well he has end-stage cardiac disease with extremely high mortality in the next few weeks. 2 cardiogenic shock with low ejection fraction of 25 percentile post AICD patient remain on dobutamine and Lasix at drip at this point his blood pressures not holding well with it as medication continue to readjust his medication without having to affect his blood pressure kidney function. Plan to switch his diuretics to oral furosemide by tomorrow and may be would be off dobutamine. 3 left-sided pleural effusion: Slightly but better at this point with pleural cath insertion which been drained daily. 4 sepsis: Patient still been treated for strep epidermis with vancomycin and seen Dr. Sen. 5 advance atherosclerotic heart disease with PCI and stent of the circumflex coronary artery with mildly elevated troponin as a nonacute MS patient is seeing cardiology still on secondary prevention. 6 elevated liver function test: Most likely combination of hypoperfusion and fatty liver hepatitis panel was negative and patient liver enzyme has improved with improved circulation and function. 7 hyponatremia: Has improved at this point with a sodium above 1:30 still seen nephrology. 8 acute metabolic encephalopathy with mild to ICU psychosis, has improved some still on Seroquel and Effexor or along with Remeron. 9 to thyroidism: Remain on Cytomel 5 g daily. 10 depression: Has been on circumflex well and Effexor. 11 hyperlipidemia: Still on statin. 12 advance congestive heart failure mostly systolic and mostly chronic with acute component at this point patient is not able to tolerate Entresto, still on Lasix drip along with Aldactone patient eventually will be sent home on hospice care and comfort care. CODE STATUS: DO NOT RESUSCITATE. Discharge planning: Most likely home with hospice on Thursday.
--- NOTE | 2020-02-05 11:23 | PN ---
PROGRESS NOTE This patient is treated for refractory heart failure, ischemic cardiomyopathy. The patient remains comfortable. Denies any orthopnea, PND. The patient's vital signs are stable. He had urine output of 2.5 L yesterday. He is putting out about 100 mL of urine per hour. The patient's creatinine is gradually creeping up. First and second heart sounds are normal. Lungs still reveal bilateral basal rales. Chest x-ray suggestive of congestive heart failure. The patient has 1+ edema. I will cut down the dobutamine drip by 1 mL/hour and we will try to wean him off tomorrow, day after tomorrow. If the patient's urine output deteriorates and the patient's condition deteriorates, one should consider possible transfer to [facility] and whether he could be a candidate for Milrinone infusion pump. RAGHU / ERIN: [id number] /
[2020-02-05] MEDS ORDERED: POTASSIUM CHLORIDE ER 20 MEQ TAB.ER PO STA (12:44)
[2020-02-05] MEDS: QUEtiapine 50 MG TAB PO SCH (18:16)
--- NOTE | 2020-02-05 19:56 | PN ---
PROGRESS NOTE DATE OF SERVICE: 02/05/2020 REASON FOR FOLLOWUP: Positive Pleur-X catheter culture. INTERVAL HISTORY: The patient is currently afebrile, has been breathing comfortably. Continues to have occasional cough. No sputum. No hemoptysis. No chest pain. No abdominal pain. No diarrhea. PHYSICAL EXAMINATION: Blood pressure is 89/59 with a pulse of 86. Temperature 96.6. She is 97% on 2 L nasal cannula. General description is an elderly male up in the bed in no distress. Respiratory system: Unlabored breathing. Decreased breath sounds at the bases. No wheeze. Heart S1, S2 regular rate and rhythm. Abdomen soft, no tenderness. LABS: Hemoglobin is 12, white count 5.7, BUN 35, creatinine 1.72. DIAGNOSTIC IMPRESSION AND PLAN: Patient with positive culture from the Pleur-X catheter showing cefepime and Acinetobacter, possible colonization versus mild infection. Patient is covered with Vancomycin. Plan to finish therapy with doxycycline. However, in view of her overall prognosis, if possible plan for hospice, antibiotic can be discontinued. MMODL / IJN: [id number] /
[2020-02-05] MEDS: MELATONIN 5 MG TABLET PO SCH (20:36)
[2020-02-06] MEDS: DOBUTamine DRIP 500 MG in DEXTROSE/WATER 1 250ML.BAG IV SCH ×2 (05:39→22:23)
[2020-02-06] MEDS: NOREPINEPHRINE 4 MG in SODIUM CHLORIDE 0.9% 250 ML IV SCH ×2 (05:40→18:30)
[2020-02-06 05:42] LABS: Anisocytosis Slight; HCT 39.8 % (39.0-53.0); HGB 12.2 gm/dL (13.0-17.5); Hypochromasia Moderate; MCH 27.6 pg (25.0-35.0); MCHC 30.7 g/dL (31.0-37.0); MCV 89.9 fL (80.0-100.0); Mean Platelet Volume 8.1; Platelet Count 201 k/uL (150-450); RBC 4.42 m/uL (4.30-5.90); RDW 17.7 % (11.5-15.5); WBC 7.3 k/uL (3.8-10.6)
[2020-02-06 06:16] LABS: Calcium 9.1 mg/dL (8.4-10.2); Potassium 3.5 mmol/L (3.5-5.1)
--- NOTE | 2020-02-06 07:37 | XR ---
EXAMINATION TYPE: XR chest 1V portable DATE OF EXAM: 02/06/2020 Comparison: 02/05/2020 Clinical History: 74-year-old male pulmonary edema Findings: Left anterior chest wall AICD generator with right atrial and right ventricular leads. Heart remains mild to moderately enlarged. Diffuse interstitial opacity along with small to moderate-sized left ple ural effusion with retrocardiac and left basilar opacity. Impression: Continued CHF with interstitial pulmonary edema, slight improvement from prior. Continued small-to-mo derate left effusion with adjacent atelectasis and/or consolidation.
[2020-02-06] MEDS: METOLAZONE 5 MG TAB PO SCH (09:00)
[2020-02-06] MEDS: SPIRONOLACTONE 25 MG TAB PO SCH (09:00)
[2020-02-06] MEDS: FAMOTIDINE 20 MG TAB PO SCH (09:00)
[2020-02-06] MEDS: ATORVASTATIN 40 MG TAB PO SCH (09:00)
[2020-02-06] MEDS: MIDODRINE 5 MG TAB PO SCH ×3 (09:00→17:16)
[2020-02-06] MEDS: CLOPIDOGREL 75 MG TAB PO SCH (09:00)
[2020-02-06] MEDS: HEPARIN SODIUM,PORCINE 5,000 UNIT/ML 1 ML VIAL SQ SCH ×2 (09:00→20:01)
[2020-02-06] MEDS: LIOTHYRONINE SODIUM 5 MCG TAB PO SCH (09:00)
[2020-02-06] MEDS: ASPIRIN 81 MG PO SCH (09:00)
[2020-02-06] MEDS: VENLAFAXINE HCL 50 MG TAB PO SCH ×2 (09:01→17:16)
[2020-02-06] MEDS: DOCUSATE 100 MG CAP PO PRN (09:16)
[2020-02-06] MEDS ORDERED: Potassium Replacement Protocol 1 EACH MISC MISCELLANE PRN (09:29)
[2020-02-06 10:01] VITALS: BMI 27.8
--- NOTE | 2020-02-06 10:42 | PN ---
PROGRESS NOTE Derick is a 74-year-old gentleman who is admitted to hospital with class 4 congestive heart failure, has underlying ischemic cardiomyopathy. He is currently on Lasix drip at 10 mg an hour, which I am going to decrease to 5 mg. He is also on a small dose of dobutamine and they are currently in the process of weaning him off the dobutamine, but the blood pressure does not tolerated. He is on midodrine because of hypotension. Also on aspirin, Lipitor, Plavix. On exam this morning, he is comfortable at rest. Heart rate is 80 beats per minute. Blood pressure is 94/70. Respiratory rate is 18. O2 sat is 97%. There is no jugular venous distention. Carotid upstroke is normal. There is no bruit. Chest exam reveals good air entry bilaterally. Heart exam reveals first and second heart sounds. No gallop. No murmur. Abdomen is soft, nontender. Exam of extremities did not reveal any edema. Peripheral pulses are felt. Labs show that the hemoglobin is 12.2, potassium is 3.5, creatinine is 1.8. ASSESSMENT: Acute exacerbation of chronic systolic heart failure class 4. Continue the Lasix drip. Continue the dobutamine. Prognosis guarded. I will decrease the dose of Lasix. MMODL / IJN: [id number] /
[2020-02-06] MEDS: VANCOMYCIN 1,500 MG in SODIUM CHLORIDE 0.9% 250 ML IVPB SCH (10:43)
[2020-02-06] MEDS: POTASSIUM CHLORIDE ER 20 MEQ TAB.ER PO SCH ×2 (10:45→13:20)
[2020-02-06] MEDS: FUROSEMIDE 100 MG in SODIUM CHLORIDE 0.9% 90 ML IV SCH ×2 (10:45→20:01)
--- NOTE | 2020-02-06 10:57 | P.PN ---
Subjective Patient is seen in follow-up for acute kidney injury and hyponatremia. Renal function gradually worsening due to diuresis. Does get dyspneic without oxygen support. Maintained on dobutamine and lasix drip. Dobutamine is being weaned off by cardiology. Patient has systolic CHF with ejection fraction of less than 20% with moderate tricuspid regurgitation and pulmonary hypertension. Urine output stable. Vital signs are stable. General: The patient appeared well nourished and normally developed. HEENT: Head exam is unremarkable. Neck is without jugular venous distension. LUNGS: Breath sounds decreased. HEART: Rate and Rhythm are regular. First and second heart sounds normal. No murmurs, rubs or gallops. ABDOMEN: Abdominal exam reveals normal bowel sounds. Non-tender and non- distended. No evidence of peritonitis. EXTREMITITES: 1+ edema. R > L. Objective - Vital Signs Vital signs: Vital Signs Temp 97.0 F L 02/06/20 04:00 Pulse 85 02/06/20 10:00 Resp 31 H 02/06/20 10:00 BP 124/99 02/06/20 10:00 Pulse Ox 98 02/06/20 10:00 Intake & Output 02/05/20 02/06/20 02/06/20 18:59 06:59 18:59 Intake Total 330 90 130 Output Total 1580 600 550 Balance -1250 -510 -420 Weight 88 kg 88 kg Intake: IV 130 90 30 Normal saline 130 90 30 Intake, IV Titration 100 Amount Furosemide 100 mg In 100 Sodium Chloride 0.9% 90 ml @ 5 MG/HR 5 mls/hr IV .Q20H [facility] Rx#:[id number] Oral 200 Output: Urine 1580 600 550 Other: Voiding Method Indwelling Catheter Indwelling Catheter Indwelling Catheter - Labs CBC & Chem 7: 02/06/20 04:43 02/06/20 04:43 Labs: Abnormal Lab Results - Last 24 Hours (Table) 02/06/20 02/06/20 Range/Units 04:43 04:43 Hgb 12.2 L (13.0-17.5) gm/dL MCHC 30.7 L (31.0-37.0) g/dL RDW 17.7 H (11.5-15.5) % Sodium 131 L (137-145) mmol/L Chloride 88 L (98-107) mmol/L Carbon Dioxide 32 H (22-30) mmol/L BUN 40 H (9-20) mg/dL Creatinine 1.89 H (0.66-1.25) mg/dL Glucose 141 H (74-99) mg/dL Assessment and Plan Plan: Assessment: 1. Acute kidney injury mostly prerenal secondary to cardiorenal syndrome. Renal function worsening due to diuresis. 2. Acute on chronic systolic CHF with ejection fraction of less than 20% with moderate tricuspid regurgitation and pulmonary hypertension. 3. Hypervolemic hyponatremia. Sodium level 131 today. 4. Chronic left-sided pleural effusion. Patient has a Pleurx catheter. 5. Hyperkalemia secondary to acute kidney injury. Lisinopril discontinued. Now hypokalemic, being replaced. 6. Volume overload. Plan: Lasix drip decreased to 5 mL an hour this AM. Maintain fluid restriction. Continue to monitor renal function and urine output. Repeat electrolytes in the morning. Avoid nephrotoxins. Not agreeable to hospice at this time. Dobutamine being weaned by cardiology.
--- NOTE | 2020-02-06 13:33 | P.PN ---
Subjective Progress Note Date: 02/06/20 This is a 74-year-old male patient of Dr. Burnett, Dr. Gilbert and Dr. Xi Ordaz with a previous medical history significant for hypertension, hyperlipidemia, osteoarthritis, prostate cancer that was diagnosed back in 2006 status post implants as well as Lupron injection, coronary artery disease with stent of the circumflex, severe cardiomyopathy and chronic systolic heart failure with known ejection fraction of 25%, bradycardia status post AICD implantation, recurrent left-sided pleural effusion status post Pleurx catheter insertion August 2019 by cardiothoracic surgery. Patient drains this himself or his daughter of 100-200 mL subpleural fluid daily. Patient also has history of hypertension, 55-paen-afee smoking history. Patient complains of shortness of breath for the past month gradually worsening. Shortness of breath is exceptionally worse with exertion. No chest pain, no cough or sputum production, reports weight loss. He complains of nausea occasionally, no abdominal pain. He complains of lightheadedness. He denies any use of steroids for the past 6 weeks. He denies any change and his medications recently. Patient relates that he has been using his mother's home oxygen at 4 L nasal cannula around the clock. Patient came into [facility] emergency center for evaluation, WBC 7.8, hemoglobin 13.8, d-dimer elevated at 4.08. CT angiogram of the chest did not show any pulmonary embolism. There was a small right-sided loculated pleural effusion along with pseudotumor in the left lung consistent with pleural fluid. No evidence of pneumonia. No airspace disease. 3 cm poorly marginated infiltrate in the right lower lobe and significance is unknown. Patient was hypotensive in the emergency center with systolic blood pressure down to 75. He was started on vasopressors and admitted into the intensive care unit with consults in place for pulmonary medicine and cardiology. Abdominal ultrasound revealed mild gallbladder wall thickening and air fluid that could relate cholecystitis. Heart failure also possible. Small gallstone or gallbladder polyp. Fatty liver. 01/21: Patient remains in intensive care unit. He is seen today sitting in the recliner. His breathing appears to be more comfortable. Patient states that he is feeling tight and did not sleep well last night. We will plan to increase melatonin dose. Patient has been seen by cardiology this morning and started on dobutamine. Patient is currently on norepinephrine as well. Echocardiogram reveals ejection fraction less than 20%, moderate mitral regurgitation, moderate tricuspid regurgitation, mild to moderate pulmonary hypertension.. Potassium this morning is 6.3 and pulmonary medicine has ordered insulin and dextrose. Patient is to be redrawn at noon today. WBC 7.9, hemoglobin 13.6, troponin 0.077. BUN 41 and creatinine 1.46. Acute hepatitis panel negative. Patient is currently on Lasix 40 mg oral twice daily. TSH will be ordered. Chest x-ray reveals changes of heart failure with interstitial pulmonary edema. Continued moderate left effusion with prominent left basilar atelectasis and/or consolidation. Slight worsening aeration of the right base 01/22: Patient has been afebrile, heart rate 97, blood pressure 95/68, pulse ox 98% on 4 L nasal cannula. Repeat blood work reveals CBC unremarkable, sodium 1:30, potassium 4.8, chloride 96, CO2 25, BUN 33 and creatinine 0.85. AST 126, ALT 145, alkaline phosphatase 262. TSH 5.680 and free T4 1 0.38. Patient remains in the intensive care unit. Dobutamine drip increased to 5. Patient remains on levofloxacin as well. Patient states that he did not sleep last night. He is utilizing Xanax twice daily. He denies having any chest pain and no lower extremity edema. He does complain of shortness of breath. No lightheadedness or dizziness. Cytomel added and midodrine increased to 10 mg 3 times daily. Patient is concerned about his mother and his friend staying with her at this time. We will communicate with Dr. Burnett and ask for home care service to be arranged for his mother. Do not anticipate that he will be ready for discharge for another 48-72 hours. 01/23: Patient remains in intensive care unit on dobutamine at 5 mcg/kg/m and levo fed which is to be weaned off. Dr. Napoles is planning for another 24 hours of IV dobutamine. Patient states that he is feeling off today complaining of nausea. He states he did get some sleep last night. Patient has been noted to be more anxious and due to lack of appetite and insomnia, Remeron will be added. He continues to have shortness of breath with minimal activity. He remains awake and alert but he is stating that he wants to go home. We did arrange for home care for his mother yesterday. WBC 5.7, hemoglobin 12.8, potassium 5.3, creatinine 0.75. We did start midodrine yesterday 3 times daily 10 mg. The blood pressure seems to be stable today. Chest x-ray showing worsening CHF for developing ARDS on background mild underlying emphysematous change there is increasing central alveolar and interstitial edema and/or infiltrates and cardiomegaly. No concern for ARDS at this point per Dr. Contreras. Culture on Pleurx fluid is staph epidermidis. 01/24: Repeat chest x-ray reveals similar moderate pulmonary vascular congestion and interstitial edema likely on the basis of decompensated heart failure. Retrocardiac airspace disease is also stable that may represent small plural effusion and atelectasis or less likely pneumonia. Patient is afebrile, heart rate running between 76 and 106, blood pressure 95/75, pulse ox 96% on 2 L nasal cannula. Repeat lab work reveals unremarkable CBC. Sodium 1:30, potassium 5.4, chloride 97, CO2 22, BUN 26 and creatinine 0.81. Pleural fluid was Staphylococcus epidermidis and alphahemolytic streptococcus. Yesterday evening, patient was attempting to leave the intensive care unit in and removed campus monitor and IV. Patient was returned to his room and IV access and monitoring was resumed. Patient is alert at this time. Nursing passes on that patient awakes and is very confused. He has not had consistent of sleep. Patient complains of feeling tired. Pulmonary has resumed his Seroquel and Effexor. We will continue Remeron as well both Seroquel and Remeron move to supper time. Patient is still on dobutamine for another 24 hours. He has been off norepineph rine since yesterday at 11 AM. He has a sitter at the bedside at this time. Consult added for Dr. Brown regarding hyponatremia. 01/25: Patient continues to have episodes of confusion but is easily reoriented. He is cooperative and follows commands during these episodes. He is able to answer all questions appropriately to time place and person. Ammonia level from yesterday was less than 9. He is continued on dobutamine drip at 5 g for another 24 hours.. Patient was given 1 dose of IV Lasix 40 mg this morning. Patient has been seen by Dr. Brown and ordered Lasix IV 40 mg every 12 hours. Urine osmolality 497, cortisol level 22. Sodium 129, potassium 5.4, chloride 95, CO2 28, BUN 24 and creatinine 0.86. WBC 6.2, hemoglobin 9.6, platelet count 226. Pro-calcitonin 0.14. Repeat chest x-ray reveals stable retrocardiac opacities may again represent small pleural effusion and atelectasis or less likely pneumonia. Primary consideration is decompensated congestive heart failure. 01/26: Patient remains in the intensive care unit. He continues to have episodes of confusion but is easily reoriented. He is having occasional panic attack with increased anxiety. We will resume Xanax and continue his other psychiatric medications. He did sleep well last night most likely related to the Remeron and melatonin. Dobutamine has been decreased today to 2.5 mcg/kg/m. He is off norepinephrine. Repeat lab work reveals WBC 5.4, hemoglobin 11.9, sodium 128, potassium 5.2, creatinine 0.94. Dr. Brown is on consult regarding hyponatremia. 314: Patient remains in intensive care unit sitting up in chair. He is complaining of pain to the right groin. Denies any dizziness or chest pain. Continues to have shortness of breath. He has not had any episodes of confusion overnight or today. Patient states that he slept well during the evening. Dobutamine continues to be at 2.5 MCG/KG/M. However he continues to be hypotensive. Morning meds were held due to his pressure. Sodium 128, potassium 5.1, BUN 28, creatinine 1.06 01/28: Patient remains in intensive care unit sitting up in bed. Patient has no complete concerns at this time. He denies any difficulty breathing or shortness of breath. He continues to be on dobutamine and hypotensive. Hemoglobin 11.2, sodium 127, potassium 5.6, BUN 31, creatinine 1.56, AST 86, ALT 88, alkaline phosphatase 206. The Pleurx catheters in place. Patient is producing better urine output. 01/29: Patient remains in the intensive care unit. Dobutamine was discontinued this morning. Patient is complaining of having dizziness on and off. Blood pressure is been marginal. He is scheduled for one dose of Lasix 40 a blood pressure is maintained. Patient is also complaining of significant weakness. He continues to have lower extremity edema. Confusion episodes have been less frequent. Patient is afebrile, heart rate 76, blood pressure 90/60, pulse ox 96% on 2 L nasal cannula. Repeat blood work reveals WBC 7.4, hemoglobin 11.5, platelet count 225. Sed rate 24, C-reactive protein 60.3. Sodium 129, potassium 5.5, chloride 99, CO2 23, BUN 33, creatinine 1.64. Blood sugar 65. Liver function tests remain elevated with AST 78, ALT 83, alkaline phosphatase 223. Pro-calcitonin 0.52. Patient has been on IV antibiotics in the form of vancomycin. Patient has been seen by Dr. Sen with recommendations for either Bactrim or doxycycline depending on kidney function at time of discharge for one to 2 week course. 01/30: Patient was unable to be weaned off dobutamine yesterday. He has been continued on dobutamine. He has had essentially no urine output. He received Lasix 40 mg yesterday followed by Lasix 80 mg IV push. Patient is complaining of feeling dizzy. He is up to the chair into bed only. He has been afebrile, heart rate 98, blood pressure 80/69, pulse ox 95%. Repeat blood work reveals WBC 6.5, hemoglobin 11.5, platelet count 206. Sodium 132, potassium 4.9, chloride 101, CO2 23, BUN 35 and creatinine 1.65. Blood sugars running between [address] Ramirez discussed with the patient his current condition and prognosis in detail. Discussed option of no CODE STATUS and also of hospice care. This was previously discussed over the weekend with the patient as well. Patient seems to understand. Case management has been updated. Nursing to discuss with cardiology in order for them to further give patient details on his prognosis regarding his cardiac function and prognosis. Venous duplex of the bilateral lower extending negative for DVT. 01/31: Patient is seen in the intensive care unit. He remains on dobutamine at 2.5 mcg/kg/m. Has been started on Lasix drip this morning. Urine output overnight has been 45-70 mL per hour. Currently urine output is at 35 mL per hour. Patient has been afebrile, heart rate 101, blood pressure 89/57, pulse ox 100% on 2 L nasal cannula. The patient remains a full code despite discussion yesterday. Dr. Grey also discussed and reinforced need for hospice care and transition to no code. Hospice informational meeting to take place today and his daughter is to be in attendance. 02/01: Patient remains on the intensive care unit. He remains on dobutamine. Lasix drip was discontinued. Patient has been diuresing very well. Chest x-ray reveals overall stable findings. Cardiomegaly with small to moderate size left pleural fluid collection and diffuse left mid to lower lung acute infiltrate and/or atelectasis redemonstrated. Dr. Bronson is concern for loculated fluid and may order a CAT scan and involve cardiothoracic surgery. Patient's CODE STATUS has been changed to no code. Patient is afebrile, heart rate 94, blood pressure 117/67, pulse ox 98% on 2 L nasal cannula. Repeat blood work reveals Donna BC 6, hemoglobin 11.7, platelet count 209. Sodium 131, potassium 4.2, chloride 96, CO2 31, BUN 31 creatinine 1.49. 02/02: Patient remains in the intensive care unit. He is on dobutamine drip which is being weaned very slowly. He has been seen by cardiothoracic surgery with no plan for any intervention. Patient is afebrile, heart rate 86, blood pressure 90/67, pulse ox 97%. CBC unremarkable, sodium 132, potassium 3.5, chloride 90, CO2 34, BUN 31 creatinine 1.51. Repeat chest x-ray reveals improving left basilar opacities that may represent small pleural effusion and atelectasis or less likely pneumonia. Mild pulmonary vascular congestion persists. Patient has been continued on Lasix drip per nephrology. Patient is on a fluid restriction. Cardiology has increased Aldactone to 50 mg daily 02/03: Patient remain in the ICU on dobutamine drip his blood pressure remain slightly bit low patient kidney function has improved slightly bit from before. His pleural effusion is slightly but better is still debilitated still very weak, still on Aldactone 50 mg daily along with Lasix 10 mg drip and hour for now. By the end of the weekend patient will be switched to entirely oral meds and thinking about hospice care while he is on his cardiac medication and comfort care if we can achieve this goal at home sometimes early this week. 02/04: Patient remain in the ICU still on dobutamine drip and Lasix drip he has less shortness of breath less CHF symptoms today still very sick still bedridden function is very limited this point. Again talk about the possibility of going home on comfort care or hospice in the next day. His IV diuretics will be changed to oral by tomorrow and try to readjust his medication and prepare for his discharge. 02/05: Repeat chest x-ray reveals CHF with interstitial pulmonary edema slight improvement. Continue small to moderate left effusion with adjacent atelectasis and/or consolidation. Patient is currently on dobutamine drip that is being weaned as well as Lasix drip which has been decreased to 5 mL per hour. He is continued on fluid restriction.. He has had good urine output proximal 100 mL per hour. Patient denies any new complaints. Dr. Sen has recommended completing course of antibiotics with doxycycline. If hospice is the plan, antibiotic can be discontinued. Plan will be to discharge patient once medications can be weaned. Patient has been afebrile, heart rate 87, respirations 29, blood pressure 94/60, pulse ox 95% on 2 L nasal cannula. CBC u nremarkable. BUN 40 creatinine 1.89, sodium 131, potassium 3.5, chloride 88, CO2 32. Objective - Vital Signs Vital signs: Vital Signs Temp 97.0 F L 02/06/20 04:00 Pulse 81 02/06/20 11:00 Resp 22 02/06/20 11:00 BP 76/64 02/06/20 11:00 Pulse Ox 94 L 02/06/20 11:00 Intake & Output 02/05/20 02/06/20 02/06/20 18:59 06:59 18:59 Intake Total 330 90 140 Output Total 1580 600 625 Balance -8461 -206 -782 Weight 88 kg 88 kg Intake: IV 130 90 40 Normal saline 130 90 40 Intake, IV Titration 100 Amount Furosemide 100 mg In 100 Sodium Chloride 0.9% 90 ml @ 5 MG/HR 5 mls/hr IV .Q20H [facility] Rx#:[id number] Oral 200 Output: Urine 1580 600 625 Other: Voiding Method Indwelling Catheter Indwelling Catheter Indwelling Catheter - Exam Review of Systems Constitutional: Reports fatigue, Reports lethargy, Reports poor appetite, Reports weakness, Reports weight loss, Denies chills, Denies fever, reports daytime sleepiness Ears, nose, mouth and throat: Denies dysphagia, Denies headache, Denies nasal congestion, Denies nasal discharge, Denies sore throat, reports vertigo Cardiovascular: Reports decreased exercise tolerance, Reports dyspnea on exertion, Reports lightheadedness, Reports orthopnea, Reports shortness of breath, Denies chest pain, Denies syncope Respiratory: Reports dyspnea slightly improved, Reports home oxygen-uses his mother's, Denies cough, Denies cough with sputum, Denies excessive sputum, Denies hemoptysis, Denies respiratory infections Gastrointestinal: Reports loss of appetite, Reports nausea, Denies abdominal pain, Denies diarrhea, Denies vomiting Genitourinary: Denies dysuria, Denies urinary retention Musculoskeletal: Reports muscle weakness, Denies frequent falls, Denies gait dysfunction Integumentary: Denies pruritus, Denies rash Neurological: Reports change in mentation, Denies change in speech, Denies numbness, reports weakness continued Psychiatric: Reports anxiety, reports depression, reports insomnia Endocrine: Denies fatigue, Denies weight change Physical examination Gen: This is a 74-year-old male. Patient is sitting in chair. No respiratory distress noted at rest. HEENT: Head is atraumatic, normocephalic. Pupils equal, round. Sclerae is anicteric. NECK: Supple. No JVD. No lymphadenopathy. No thyromegaly. LUNGS: Diminished breath sounds Pleurx catheter in the left. HEART: Regular rate and rhythm. Systolic murmur. ABDOMEN: Soft. Bowel sounds are present. No masses. No tenderness. EXTREMITIES: 1+ pedal edema. No calf tenderness. Dorsalis pedis +2 bilaterally. NEUROLOGICAL: Patient is awake, alert and oriented x3. Cranial nerves 2 through 12 are grossly intact. - Labs CBC & Chem 7: 02/06/20 04:43 02/06/20 04:43 Labs: Abnormal Lab Results - Last 24 Hours (Table) 02/06/20 02/06/20 Range/Units 04:43 04:43 Hgb 12.2 L (13.0-17.5) gm/dL MCHC 30.7 L (31.0-37.0) g/dL RDW 17.7 H (11.5-15.5) % Sodium 131 L (137-145) mmol/L Chloride 88 L (98-107) mmol/L Carbon Dioxide 32 H (22-30) mmol/L BUN 40 H (9-20) mg/dL Creatinine 1.89 H (0.66-1.25) mg/dL Glucose 141 H (74-99) mg/dL Assessment and Plan Plan: 1. Acute on chronic systolic heart failure with known ejection fraction of 25%. Repeat echocardiogram as above. Dobutamine drip is being weaned. Patient is currently off norepinephrine. Lasix gtt. Continue midodrine 10 mg 3 times daily. Aldactone 50 mg daily, Zaroxolyn 5 mg daily 2. Severe cardiomyopathy status post AICD. 3. Chronic left-sided pleural effusion status post pleural catheter insertion. Nursing is draining once daily. Culture positive for alpha hemolytic strep and Streptococcus epidermidis. Continue vancomycin. Dr. Sen consult appreciated. Concern for loculated fluid collection. Cardiothoracic surgery evaluation appreciated. No plan for any surgical intervention. 4. Cardiogenic shock secondary to severe cardiomyopathy requiring vasopressors. Patient is currently off norepinephrine. 5. History of coronary artery disease status post stenting of circumflex with mild elevation of troponins, possible acute non-ST DC. Cardiology consult. Aspirin 81 mg daily, Lipitor 40 mg daily, Plavix 75 mg daily, 6. Hyperlipidemia. 7. History of prostate cancer status post radiation therapy and Lupron injections. 8. Elevated liver function tests possibly related to combination of heart failure and fatty liver. Acute hepatitis panel negative. 9. Generalized anxiety disorder. Continue Xanax 2.5 mg twice daily and Remeron 7.5 mg. 10. Hyperkalemia. Continue Lasix, no potassium supplementation. 11. DVT prophylaxis. Heparin subcu. 12. GI prophylaxis. Pepcid. 13. Hyponatremia. Consult with nephrology appreciated. 14. Acute metabolic encephalopathy secondary to insomnia and ICU hospitalization. Continue Seroquel and Effexor and continue Remeron as well and melatonin 10 mg at bedtime. 15. Hypothyroidism. Patient was started on Cytomel 5 g daily. 16. Recurrent depression. Continue Seroquel 50 mg daily and Effexor 100 mg twice daily. 17. Acute kidney injury with chronic kidney disease stage II. Discharge plan: Home in the next 24-48 hours.. CODE STATUS: NO CODE Impression and plan of care have been directed as dictated by the signing phys braulio. Funmilayo Diaz nurse practitioner acting as scribe for signing physician.
[2020-02-06 16:05] LABS: Magnesium 2.1 mg/dL (1.6-2.3); Potassium 4.2 mmol/L (3.5-5.1)
[2020-02-06] MEDS: QUEtiapine 50 MG TAB PO SCH (18:30)
--- NOTE | 2020-02-06 19:50 | PN ---
PROGRESS NOTE DATE OF SERVICE: 02/06/2020 REASON FOR FOLLOWUP: PleurX catheter positive culture. INTERVAL HISTORY: The patient is currently afebrile. The patient is breathing comfortably. He denies having any chest pain. Occasional cough. No abdominal pain. No diarrhea. He is currently being weaned off the dobutamine. PHYSICAL EXAMINATION: Blood pressure 95/73 with a pulse of 101, temperature 98. He is 95% on 2 L nasal cannula. General description is an elderly male up in the chair in no distress. RESPIRATORY SYSTEM: Unlabored breathing with decreased breath sounds at the base. No wheeze. HEART: S1, S2. Regular rate and rhythm. ABDOMEN: Soft. No tenderness. LABS: Hemoglobin is 12.2, white count 7.3, creatinine 1.89. DIAGNOSTIC IMPRESSION AND PLAN: Patient with a positive PleurX catheter culture with Staphylococcus epidermidis and Acinetobacter lwoffi, possibly contamination versus mild infection. The patient is covered with vancomycin, Pharmacy to dose. Plan to finish therapy with a short course of oral doxycycline, monitoring clinical course closely. MMODL / IJN: [id number] /
[2020-02-06] MEDS: ALPRAZolam 0.25 MG TAB PO PRN (20:01)
[2020-02-06] MEDS: MELATONIN 5 MG TABLET PO SCH (20:01)
[2020-02-07 04:40] LABS: Anisocytosis Slight; Basophils # (A) 0.1 k/uL (0-0.2); Basophils % (A) 1 %; Eosinophils # (A) 0.1 k/uL (0-0.7); Eosinophils % (A) 1 %; HCT 40.8 % (39.0-53.0); HGB 12.5 gm/dL (13.0-17.5); Hypochromasia Moderate; Lymphocytes # (A) 0.7 k/uL (1.0-4.8); Lymphocytes % (A) 9 %; MCH 27.5 pg (25.0-35.0); MCHC 30.7 g/dL (31.0-37.0); MCV 89.5 fL (80.0-100.0); Mean Platelet Volume 8.4; Monocytes # (A) 0.7 k/uL (0-1.0); Monocytes % (A) 9 %; Neutrophils # (A) 5.7 k/uL (1.3-7.7); Neutrophils % (A) 76 %; Platelet Count 207 k/uL (150-450); RBC 4.56 m/uL (4.30-5.90); RDW 17.5 % (11.5-15.5); WBC 7.5 k/uL (3.8-10.6)
[2020-02-07 04:52] LABS: Calcium 9.2 mg/dL (8.4-10.2); Potassium 3.9 mmol/L (3.5-5.1)
[2020-02-07] MEDS ORDERED: POTASSIUM CHLORIDE ER 20 MEQ TAB.ER PO SCH (06:00)
[2020-02-07] MEDS: FUROSEMIDE 100 MG in SODIUM CHLORIDE 0.9% 90 ML IV SCH (06:28)
[2020-02-07] MEDS: VENLAFAXINE HCL 50 MG TAB PO SCH ×2 (06:30→17:20)
[2020-02-07] MEDS: MIDODRINE 5 MG TAB PO SCH ×3 (06:30→17:20)
--- NOTE | 2020-02-07 07:31 | XR ---
EXAMINATION TYPE: XR chest 1V portable DATE OF EXAM: 02/07/2020 CLINICAL HISTORY: Difficulty breathing and CHF progress study. TECHNIQUE: Single AP portable upright view of the chest is obtained. COMPARISON: Chest x-ray from one day earlier and older studies. CT chest 5 days ago. FINDINGS: Persistent cardiomegaly with dual lead pacemaker/AICD along with atherosclerotic thoracic aorta. Persistent small to moderate size left pleural fluid collection extending laterally. There is persistent left mid to lower lung opacity and background diffuse interstitial opacity bilaterally. Ti ny right pleural effusion is presumed stable. Osseous structures remain demineralized. Underlying sco liosis in the lumbar spine is redemonstrated. IMPRESSION: Overall stable findings, possible continued CHF exacerbation as there is cardiomegaly w ith suspected interstitial edema and persistent small to moderate-sized left pleural fluid collection . There is associated left mid to lower lung atelectasis and/or infiltrate redemonstrated.
[2020-02-07] MEDS ORDERED: VANCOMYCIN TROUGH DUE 1 EACH MISC MISCELLANE ONE (08:00)
[2020-02-07] MEDS: SPIRONOLACTONE 25 MG TAB PO SCH (09:01)
[2020-02-07] MEDS: CLOPIDOGREL 75 MG TAB PO SCH (09:01)
[2020-02-07] MEDS: LIOTHYRONINE SODIUM 5 MCG TAB PO SCH (09:01)
[2020-02-07] MEDS: ASPIRIN 81 MG PO SCH (09:01)
[2020-02-07] MEDS: VANCOMYCIN 1,500 MG in SODIUM CHLORIDE 0.9% 250 ML IVPB SCH ×2 (09:01→09:05)
[2020-02-07] MEDS: FAMOTIDINE 20 MG TAB PO SCH (09:01)
[2020-02-07] MEDS: METOLAZONE 5 MG TAB PO SCH (09:01)
[2020-02-07] MEDS: HEPARIN SODIUM,PORCINE 5,000 UNIT/ML 1 ML VIAL SQ SCH ×2 (09:01→21:44)
[2020-02-07] MEDS: ATORVASTATIN 40 MG TAB PO SCH (09:01)
[2020-02-07] MEDS ORDERED: VANCOMYCIN IV PER PHARMACY 1 EACH MISC MISCELLANE PRN (09:10)
[2020-02-07] MEDS: FUROSEMIDE 40 MG TAB PO SCH ×2 (10:16→16:20)
[2020-02-07] MEDS: NOREPINEPHRINE 4 MG in SODIUM CHLORIDE 0.9% 250 ML IV SCH (10:21)
--- NOTE | 2020-02-07 10:40 | P.PN ---
Subjective Patient is seen in follow-up for acute kidney injury and hyponatremia. Renal function gradually worsening due to diuresis. Does get dyspneic without oxygen support. Maintained on dobutamine and lasix drip. Dobutamine is being weaned off by cardiology. Patient has systolic CHF with ejection fraction of less than 20% with moderate tricuspid regurgitation and pulmonary hypertension. Urine output also less compared to yesterday. Vital signs are stable. General: The patient appeared well nourished and normally developed. HEENT: Head exam is unremarkable. Neck is without jugular venous distension. LUNGS: Breath sounds decreased. HEART: Rate and Rhythm are regular. First and second heart sounds normal. No murmurs, rubs or gallops. ABDOMEN: Abdominal exam reveals normal bowel sounds. Non-tender and non- distended. No evidence of peritonitis. EXTREMITITES: 1+ edema. R > L. Objective - Vital Signs Vital signs: Vital Signs Temp 97.9 F 02/07/20 08:00 Pulse 86 02/07/20 10:00 Resp 19 02/07/20 10:00 BP 94/62 02/07/20 10:00 Pulse Ox 92 L 02/07/20 10:00 Intake & Output 02/06/20 02/07/20 02/07/20 18:59 06:59 18:59 Intake Total 985.886 218.583 430 Output Total 1071 700 240 Balance -85.114 -481.417 190 Weight 88 kg 89.3 kg Intake: IV 100 120 30 Normal saline 100 120 30 Intake, IV Titration 265.886 98.583 Amount DOBUTamine DRIP 500 mg In 165.886 Dextrose/Water 1 250ml. bag @ 2.5 MCG/KG/MIN 7.14 mls/hr IV .Q24H TOD Rx#: [id number] Furosemide 100 mg In 100 98.583 Sodium Chloride 0.9% 90 ml @ 5 MG/HR 5 mls/hr IV .Q20H TOD Rx#:[id number] Oral 620 400 Output: Chest Tube Drainage 150 Pleural Catheter Left Mid 150 -Axillary Chest Urine 1070 550 240 Stool 1 Other: Voiding Method Indwelling Catheter Indwelling Catheter # Voids 0 - Labs CBC & Chem 7: 02/07/20 03:55 02/07/20 03:55 Labs: Abnormal Lab Results - Last 24 Hours (Table) 02/07/20 02/07/20 02/07/20 Range/Units 03:55 03:55 07:52 Hgb 12.5 L (13.0-17.5) gm/dL MCHC 30.7 L (31.0-37.0) g/dL RDW 17.5 H (11.5-15.5) % Lymphocytes # 0.7 L (1.0-4.8) k/uL Sodium 130 L (137-145) mmol/L Chloride 88 L (98-107) mmol/L Carbon Dioxide 33 H (22-30) mmol/L BUN 44 H (9-20) mg/dL Creatinine 2.04 H (0.66-1.25) mg/dL Vancomycin Trough 32.3 H* ug/mL Microbiology - Last 24 Hours (Table) 01/27/20 14:30 Acid Fast Bacilli Smear - Final Pleural Fluid Acid Fast Bacilli Culture - Preliminary 01/27/20 14:30 Fungal Culture - Preliminary Pleural Fluid Assessment and Plan Plan: Assessment: 1. Acute kidney injury mostly prerenal secondary to cardiorenal syndrome. Renal function worsening due to diuresis. Creatinine 2.04 today. 2. Acute on chronic systolic CHF with ejection fraction of less than 20% with moderate tricuspid regurgitation and pulmonary hypertension. 3. Hypervolemic hyponatremia. Sodium level 130 today. 4. Chronic left-sided pleural effusion. Patient has a Pleurx catheter. 5. Hyperkalemia secondary to acute kidney injury. Lisinopril discontinued. Now hypokalemic, being replaced. 6. Volume overload. Plan: Stop Lasix drip and start IV Lasix 80 mg twice daily. Maintain fluid restriction. Continue to monitor renal function and urine output. Repeat electrolytes in the morning. Avoid nephrotoxins. Not agreeable to hospice at this time. Dobutamine being weaned by cardiology. Monitor vancomycin level. Dose to be adjusted for renal function.
--- NOTE | 2020-02-07 11:27 | PN ---
PROGRESS NOTE A 74-year-old gentleman who is admitted to the hospital with acute exacerbation of chronic refractory heart failure. This morning his blood pressure is doing okay without the dobutamine. The shortness of breath has improved. He is currently going into palliative care. I am going to stop the IV Lasix and start him on oral Lasix and continue the Zaroxolyn. PHYSICAL EXAM: Comfortable at rest. Heart rate is 86 beats per minute. Blood pressure is 94/60, respiratory rate is 18. O2 saturation is 92% on 2 L. Chest exam reveals diminished air entry at the bases. Heart exam reveals first and second heart sounds. No gallop. Has a systolic murmur at the apex. Abdomen is soft. Exam of extremities did not reveal any edema. Peripheral pulses are felt. LABS: Show a hemoglobin of 12.5, platelet count is 207. Potassium is 3.9 creatinine is 2. ASSESSMENT: Chronic refractory heart failure. Will switch the patient to p.o. Lasix, hopefully home with palliative care tomorrow. MMBAMBI / SRAVANTHIN: [id number] /
--- NOTE | 2020-02-07 12:47 | P.PN ---
Subjective Progress Note Date: 02/07/20 This is a 74-year-old male patient of Dr. Burnett, Dr. Gilbert and Dr. Xi Ordaz with a previous medical history significant for hypertension, hyperlipidemia, osteoarthritis, prostate cancer that was diagnosed back in 2006 status post implants as well as Lupron injection, coronary artery disease with stent of the circumflex, severe cardiomyopathy and chronic systolic heart failure with known ejection fraction of 25%, bradycardia status post AICD implantation, recurrent left-sided pleural effusion status post Pleurx catheter insertion August 2019 by cardiothoracic surgery. Patient drains this himself or his daughter of 100-200 mL subpleural fluid daily. Patient also has history of hypertension, [id number] smoking history. Patient complains of shortness of breath for the past month gradually worsening. Shortness of breath is exceptionally worse with exertion. No chest pain, no cough or sputum production, reports weight loss. He complains of nausea occasionally, no abdominal pain. He complains of lightheadedness. He denies any use of steroids for the past 6 weeks. He denies any change and his medications recently. Patient relates that he has been using his mother's home oxygen at 4 L nasal cannula around the clock. Patient came into [facility] emergency center for evaluation, WBC 7.8, hemoglobin 13.8, d-dimer elevated at 4.08. CT angiogram of the chest did not show any pulmonary embolism. There was a small right-sided loculated pleural effusion along with pseudotumor in the left lung consistent with pleural fluid. No evidence of pneumonia. No airspace disease. 3 cm poorly marginated infiltrate in the right lower lobe and significance is unknown. Patient was hypotensive in the emergency center with systolic blood pressure down to 75. He was started on vasopressors and admitted into the intensive care unit with consults in place for pulmonary medicine and cardiology. Abdominal ultrasound revealed mild gallbladder wall thickening and air fluid that could relate cholecystitis. Heart failure also possible. Small gallstone or gallbladder polyp. Fatty liver. 01/21: Patient remains in intensive care unit. He is seen today sitting in the recliner. His breathing appears to be more comfortable. Patient states that he is feeling tight and did not sleep well last night. We will plan to increase melatonin dose. Patient has been seen by cardiology this morning and started on dobutamine. Patient is currently on norepinephrine as well. Echocardiogram reveals ejection fraction less than 20%, moderate mitral regurgitation, moderate tricuspid regurgitation, mild to moderate pulmonary hypertension.. Potassium this morning is 6.3 and pulmonary medicine has ordered insulin and dextrose. Patient is to be redrawn at noon today. WBC 7.9, hemoglobin 13.6, troponin 0.077. BUN 41 and creatinine 1.46. Acute hepatitis panel negative. Patient is currently on Lasix 40 mg oral twice daily. TSH will be ordered. Chest x-ray reveals changes of heart failure with interstitial pulmonary edema. Continued moderate left effusion with prominent left basilar atelectasis and/or consolidation. Slight worsening aeration of the right base 01/22: Patient has been afebrile, heart rate 97, blood pressure 95/68, pulse ox 98% on 4 L nasal cannula. Repeat blood work reveals CBC unremarkable, sodium 1:30, potassium 4.8, chloride 96, CO2 25, BUN 33 and creatinine 0.85. AST 126, ALT 145, alkaline phosphatase 262. TSH 5.680 and free T4 1 0.38. Patient remains in the intensive care unit. Dobutamine drip increased to 5. Patient remains on levofloxacin as well. Patient states that he did not sleep last night. He is utilizing Xanax twice daily. He denies having any chest pain and no lower extremity edema. He does complain of shortness of breath. No lightheadedness or dizziness. Cytomel added and midodrine increased to 10 mg 3 times daily. Patient is concerned about his mother and his friend staying with her at this time. We will communicate with Dr. Burnett and ask for home care service to be arranged for his mother. Do not anticipate that he will be ready for discharge for another 48-72 hours. 01/23: Patient remains in intensive care unit on dobutamine at 5 mcg/kg/m and levo fed which is to be weaned off. Dr. Napoles is planning for another 24 hours of IV dobutamine. Patient states that he is feeling off today complaining of nausea. He states he did get some sleep last night. Patient has been noted to be more anxious and due to lack of appetite and insomnia, Remeron will be added. He continues to have shortness of breath with minimal activity. He remains awake and alert but he is stating that he wants to go home. We did arrange for home care for his mother yesterday. WBC 5.7, hemoglobin 12.8, potassium 5.3, creatinine 0.75. We did start midodrine yesterday 3 times daily 10 mg. The blood pressure seems to be stable today. Chest x-ray showing worsening CHF for developing ARDS on background mild underlying emphysematous change there is increasing central alveolar and interstitial edema and/or infiltrates and cardiomegaly. No concern for ARDS at this point per Dr. Contreras. Culture on Pleurx fluid is staph epidermidis. 01/24: Repeat chest x-ray reveals similar moderate pulmonary vascular congestion and interstitial edema likely on the basis of decompensated heart failure. Retrocardiac airspace disease is also stable that may represent small plural effusion and atelectasis or less likely pneumonia. Patient is afebrile, heart rate running between 76 and 106, blood pressure 95/75, pulse ox 96% on 2 L nasal cannula. Repeat lab work reveals unremarkable CBC. Sodium 1:30, potassium 5.4, chloride 97, CO2 22, BUN 26 and creatinine 0.81. Pleural fluid was Staphylococcus epidermidis and alphahemolytic streptococcus. Yesterday evening, patient was attempting to leave the intensive care unit in and removed surveillance agent and IV. Patient was returned to his room and IV access and monitoring was resumed. Patient is alert at this time. Nursing passes on that patient awakes and is very confused. He has not had consistent of sleep. Patient complains of feeling tired. Pulmonary has resumed his Seroquel and Effexor. We will continue Remeron as well both Seroquel and Remeron move to supper time. Patient is still on dobutamine for another 24 hours. He has been off norepineph rine since yesterday at 11 AM. He has a sitter at the bedside at this time. Consult added for Dr. Brown regarding hyponatremia. 01/25: Patient continues to have episodes of confusion but is easily reoriented. He is cooperative and follows commands during these episodes. He is able to answer all questions appropriately to time place and person. Ammonia level from yesterday was less than 9. He is continued on dobutamine drip at 5 g for another 24 hours.. Patient was given 1 dose of IV Lasix 40 mg this morning. Patient has been seen by Dr. Brown and ordered Lasix IV 40 mg every 12 hours. Urine osmolality 497, cortisol level 22. Sodium 129, potassium 5.4, chloride 95, CO2 28, BUN 24 and creatinine 0.86. WBC 6.2, hemoglobin 9.6, platelet count 226. Pro-calcitonin 0.14. Repeat chest x-ray reveals stable retrocardiac opacities may again represent small pleural effusion and atelectasis or less likely pneumonia. Primary consideration is decompensated congestive heart failure. 01/26: Patient remains in the intensive care unit. He continues to have episodes of confusion but is easily reoriented. He is having occasional panic attack with increased anxiety. We will resume Xanax and continue his other psychiatric medications. He did sleep well last night most likely related to the Remeron and melatonin. Dobutamine has been decreased today to 2.5 mcg/kg/m. He is off norepinephrine. Repeat lab work reveals WBC 5.4, hemoglobin 11.9, sodium 128, potassium 5.2, creatinine 0.94. Dr. Brown is on consult regarding hyponatremia. 314: Patient remains in intensive care unit sitting up in chair. He is complaining of pain to the right groin. Denies any dizziness or chest pain. Continues to have shortness of breath. He has not had any episodes of confusion overnight or today. Patient states that he slept well during the evening. Dobutamine continues to be at 2.5 MCG/KG/M. However he continues to be hypotensive. Morning meds were held due to his pressure. Sodium 128, potassium 5.1, BUN 28, creatinine 1.06 01/28: Patient remains in intensive care unit sitting up in bed. Patient has no complete concerns at this time. He denies any difficulty breathing or shortness of breath. He continues to be on dobutamine and hypotensive. Hemoglobin 11.2, sodium 127, potassium 5.6, BUN 31, creatinine 1.56, AST 86, ALT 88, alkaline phosphatase 206. The Pleurx catheters in place. Patient is producing better urine output. 01/29: Patient remains in the intensive care unit. Dobutamine was discontinued this morning. Patient is complaining of having dizziness on and off. Blood pressure is been marginal. He is scheduled for one dose of Lasix 40 a blood pressure is maintained. Patient is also complaining of significant weakness. He continues to have lower extremity edema. Confusion episodes have been less frequent. Patient is afebrile, heart rate 76, blood pressure 90/60, pulse ox 96% on 2 L nasal cannula. Repeat blood work reveals WBC 7.4, hemoglobin 11.5, platelet count 225. Sed rate 24, C-reactive protein 60.3. Sodium 129, potassium 5.5, chloride 99, CO2 23, BUN 33, creatinine 1.64. Blood sugar 65. Liver function tests remain elevated with AST 78, ALT 83, alkaline phosphatase 223. Pro-calcitonin 0.52. Patient has been on IV antibiotics in the form of vancomycin. Patient has been seen by Dr. Sen with recommendations for either Bactrim or doxycycline depending on kidney function at time of discharge for one to 2 week course. 01/30: Patient was unable to be weaned off dobutamine yesterday. He has been continued on dobutamine. He has had essentially no urine output. He received Lasix 40 mg yesterday followed by Lasix 80 mg IV push. Patient is complaining of feeling dizzy. He is up to the chair into bed only. He has been afebrile, heart rate 98, blood pressure 80/69, pulse ox 95%. Repeat blood work reveals WBC 6.5, hemoglobin 11.5, platelet count 206. Sodium 132, potassium 4.9, chloride 101, CO2 23, BUN 35 and creatinine 1.65. Blood sugars running between [address] Ramirez discussed with the patient his current condition and prognosis in detail. Discussed option of no CODE STATUS and also of hospice care. This was previously discussed over the weekend with the patient as well. Patient seems to understand. Case management has been updated. Nursing to discuss with cardiology in order for them to further give patient details on his prognosis regarding his cardiac function and prognosis. Venous duplex of the bilateral lower extending negative for DVT. 01/31: Patient is seen in the intensive care unit. He remains on dobutamine at 2.5 mcg/kg/m. Has been started on Lasix drip this morning. Urine output overnight has been 45-70 mL per hour. Currently urine output is at 35 mL per hour. Patient has been afebrile, heart rate 101, blood pressure 89/57, pulse ox 100% on 2 L nasal cannula. The patient remains a full code despite discussion yesterday. Dr. Grey also discussed and reinforced need for hospice care and transition to no code. Hospice informational meeting to take place today and his daughter is to be in attendance. 02/01: Patient remains on the intensive care unit. He remains on dobutamine. Lasix drip was discontinued. Patient has been diuresing very well. Chest x-ray reveals overall stable findings. Cardiomegaly with small to moderate size left pleural fluid collection and diffuse left mid to lower lung acute infiltrate and/or atelectasis redemonstrated. Dr. Bronson is concern for loculated fluid and may order a CAT scan and involve cardiothoracic surgery. Patient's CODE STATUS has been changed to no code. Patient is afebrile, heart rate 94, blood pressure 117/67, pulse ox 98% on 2 L nasal cannula. Repeat blood work reveals Donna BC 6, hemoglobin 11.7, platelet count 209. Sodium 131, potassium 4.2, chloride 96, CO2 31, BUN 31 creatinine 1.49. 02/02: Patient remains in the intensive care unit. He is on dobutamine drip which is being weaned very slowly. He has been seen by cardiothoracic surgery with no plan for any intervention. Patient is afebrile, heart rate 86, blood pressure 90/67, pulse ox 97%. CBC unremarkable, sodium 132, potassium 3.5, chloride 90, CO2 34, BUN 31 creatinine 1.51. Repeat chest x-ray reveals improving left basilar opacities that may represent small pleural effusion and atelectasis or less likely pneumonia. Mild pulmonary vascular congestion persists. Patient has been continued on Lasix drip per nephrology. Patient is on a fluid restriction. Cardiology has increased Aldactone to 50 mg daily 02/03: Patient remain in the ICU on dobutamine drip his blood pressure remain slightly bit low patient kidney function has improved slightly bit from before. His pleural effusion is slightly but better is still debilitated still very weak, still on Aldactone 50 mg daily along with Lasix 10 mg drip and hour for now. By the end of the weekend patient will be switched to entirely oral meds and thinking about hospice care while he is on his cardiac medication and comfort care if we can achieve this goal at home sometimes early this week. 02/04: Patient remain in the ICU still on dobutamine drip and Lasix drip he has less shortness of breath less CHF symptoms today still very sick still bedridden function is very limited this point. Again talk about the possibility of going home on comfort care or hospice in the next day. His IV diuretics will be changed to oral by tomorrow and try to readjust his medication and prepare for his discharge. 02/05: Repeat chest x-ray reveals CHF with interstitial pulmonary edema slight improvement. Continue small to moderate left effusion with adjacent atelectasis and/or consolidation. Patient is currently on dobutamine drip that is being weaned as well as Lasix drip which has been decreased to 5 mL per hour. He is continued on fluid restriction.. He has had good urine output proximal 100 mL per hour. Patient denies any new complaints. Dr. Sen has recommended completing course of antibiotics with doxycycline. If hospice is the plan, antibiotic can be discontinued. Plan will be to discharge patient once medications can be weaned. Patient has been afebrile, heart rate 87, respirations 29, blood pressure 94/60, pulse ox 95% on 2 L nasal cannula. CBC u nremarkable. BUN 40 creatinine 1.89, sodium 131, potassium 3.5, chloride 88, CO2 32. 02/06: Patient is currently off dobutamine drip. He is still on Lasix drip and transition to oral Lasix this morning at 40 mg [address] Ordaz. Patient has continued with good urine output. Repeat chest x-ray reveals overall stable findings, possible continued heart failure exacerbation, cardiomegaly suspected interstitial edema and interstitial small to moderate size left pleural effusion. Associated left mid to lower lung atelectasis and/or infiltrate redemonstrated. Dr. Sen has recommended a short course of oral doxycycline at home. Patient has been afebrile, heart rate 86, blood pressure 94/62, pulse ox 92% on 2 L nasal cannula. Sodium 130, potassium 3.9, chloride 88, CO2 33, BUN 44, creatinine 2.04. We will transition patient to oral doxycycline and off vancomycin at this time. Nursing to check ambulatory pulse ox to determine if patient is needing home oxygen therapy. Kruse catheter to be removed later today or early tomorrow. Anticipate discharge to home tomorrow. Objective - Vital Signs Vital signs: Vital Signs Temp 97.9 F 02/07/20 08:00 Pulse 86 02/07/20 10:00 Resp 19 02/07/20 10:00 BP 94/62 02/07/20 10:00 Pulse Ox 92 L 02/07/20 10:00 Intake & Output 02/06/20 02/07/20 02/07/20 18:59 06:59 18:59 Intake Total 985.886 218.583 430 Output Total 1071 700 240 Balance -85.114 -481.417 190 Weight 88 kg 89.3 kg Intake: IV 100 120 30 Normal saline 100 120 30 Intake, IV Titration 265.886 98.583 Amount DOBUTamine DRIP 500 mg In 165.886 Dextrose/Water 1 250ml. bag @ 2.5 MCG/KG/MIN 7.14 mls/hr IV .Q24H TOD Rx#: [id number] Furosemide 100 mg In 100 98.583 Sodium Chloride 0.9% 90 ml @ 5 MG/HR 5 mls/hr IV .Q20H TOD Rx#:[id number] Oral 620 400 Output: Chest Tube Drainage 150 Pleural Catheter Left Mid 150 -Axillary Chest Urine 1070 550 240 Stool 1 Other: Voiding Method Indwelling Catheter Indwelling Catheter # Voids 0 - Exam Review of Systems Constitutional: Reports fatigue, denies lethargy, Reports poor appetite, Reports weakness, Reports weight loss, Denies chills, Denies fever, reports daytime sleepiness Ears, nose, mouth and throat: Denies dysphagia, Denies headache, Denies nasal congestion, Denies nasal discharge, Denies sore throat, reports vertigo Cardiovascular: Reports decreased exercise tolerance, Reports dyspnea on exertion, Reports lightheadedness, Reports orthopnea, Reports shortness of breath, Denies chest pain, Denies syncope Respiratory: Reports dyspnea improved, Reports home oxygen-uses his mother's, Denies cough, Denies cough with sputum, Denies excessive sputum, Denies hemoptysis, Denies respiratory infections Gastrointestinal: Reports loss of appetite, Reports nausea, Denies abdominal pain, Denies diarrhea, Denies vomiting Genitourinary: Denies dysuria, Denies urinary retention Musculoskeletal: Reports muscle weakness, Denies frequent falls, Denies gait dysfunction Integumentary: Denies pruritus, Denies rash Neurological: Reports change in mentation, Denies change in speech, Denies numbness, reports weakness continued Psychiatric: Reports anxiety, reports depression, reports insomnia Endocrine: Denies fatigue, Denies weight change Physical examination Gen: This is a 74-year-old male. Patient is sitting in chair. No respiratory distress noted at rest. HEENT: Head is atraumatic, normocephalic. Pupils equal, round. Sclerae is anicteric. NECK: Supple. No JVD. No lymphadenopathy. No thyromegaly. LUNGS: Diminished breath sounds Pleurx catheter in the left. HEART: Regular rate and rhythm. Systolic murmur. ABDOMEN: Soft. Bowel sounds are present. No masses. No tenderness. Kruse draining clear madeline urine. EXTREMITIES: 1+ pedal edema. No calf tenderness. Dorsalis pedis +2 bilaterally. NEUROLOGICAL: Patient is awake, alert and oriented x3. Cranial nerves 2 through 12 are grossly intact. - Labs CBC & Chem 7: 02/07/20 03:55 02/07/20 03:55 Labs: Abnormal Lab Results - Last 24 Hours (Table) 02/07/20 02/07/20 02/07/20 Range/Units 03:55 03:55 07:52 Hgb 12.5 L (13.0-17.5) gm/dL MCHC 30.7 L (31.0-37.0) g/dL RDW 17.5 H (11.5-15.5) % Lymphocytes # 0.7 L (1.0-4.8) k/uL Sodium 130 L (137-145) mmol/L Chloride 88 L (98-107) mmol/L Carbon Dioxide 33 H (22-30) mmol/L BUN 44 H (9-20) mg/dL Creatinine 2.04 H (0.66-1.25) mg/dL Vancomycin Trough 32.3 H* ug/mL Microbiology - Last 24 Hours (Table) 01/27/20 14:30 Acid Fast Bacilli Smear - Final Pleural Fluid Acid Fast Bacilli Culture - Preliminary 01/27/20 14:30 Fungal Culture - Preliminary Pleural Fluid Assessment and Plan Plan: 1. Acute on chronic systolic heart failure with known ejection fraction of 25%. Repeat echocardiogram as above. Dobutamine drip discontinued. Patient is currently off norepinephrine. Lasix gtt discontinued and transitioned to oral Lasix. Continue midodrine 10 mg 3 times daily. Aldactone 50 mg daily, Zaroxolyn 5 mg daily 2. Severe cardiomyopathy status post AICD. 3. Chronic left-sided pleural effusion status post pleural catheter insertion. Nursing is draining once daily. Culture positive for alpha hemolytic strep and Streptococcus epidermidis. Continue vancomycin. Dr. Sen consult appreciated. Concern for loculated fluid collection. Cardiothoracic surgery evaluation appreciated. No plan for any surgical intervention. 4. Cardiogenic shock secondary to severe cardiomyopathy requiring vasopressors. Patient is currently off norepinephrine. 5. History of coronary artery disease status post stenting of circumflex with mild elevation of troponins, possible acute non-ST FL. Cardiology consult. Aspirin 81 mg daily, Lipitor 40 mg daily, Plavix 75 mg daily, 6. Hyperlipidemia. 7. History of prostate cancer status post radiation therapy and Lupron inje ctions. 8. Elevated liver function tests possibly related to combination of heart failure and fatty liver. Acute hepatitis panel negative. 9. Generalized anxiety disorder. Continue Xanax 2.5 mg twice daily and Remeron 7.5 mg. 10. Hyperkalemia. Continue Lasix, no potassium supplementation. 11. DVT prophylaxis. Heparin subcu. 12. GI prophylaxis. Pepcid. 13. Hyponatremia. Consult with nephrology appreciated. 14. Acute metabolic encephalopathy secondary to insomnia and ICU hospit alization. Continue Seroquel and Effexor and continue Remeron as well and melatonin 10 mg at bedtime. 15. Hypothyroidism. Patient was started on Cytomel 5 g daily. 16. Recurrent depression. Continue Seroquel 50 mg daily and Effexor 100 mg twice daily. 17. Acute kidney injury with chronic kidney disease stage II. Discharge plan: Home with [facility] and palliative care on Thursday. CODE STATUS: NO CODE Impression and plan of care have been directed as dictated by the signing physician. Funmilayo Diaz nurse practitioner acting as scribe for signing physician.
[2020-02-07] MEDS: DOXYCYCLINE 100 MG CAP PO SCH ×2 (15:04→21:44)
--- NOTE | 2020-02-07 16:29 | PN ---
PROGRESS NOTE DATE OF SERVICE: 02/07/2020 REASON FOR FOLLOWUP: PleurX catheter culture with Staph epi. INTERVAL HISTORY: The patient is currently afebrile, has been breathing comfortably. Denies having any chest pain. Occasional cough. No abdominal pain or diarrhea. PHYSICAL EXAMINATION: Blood pressure is 89/69 with a pulse of 104, temperature 98. He is 94% on room air. General description is an elderly male up in the bed in no distress. RESPIRATORY SYSTEM: Unlabored breathing with decreased breath sounds at the base. No wheeze. HEART: S1, S2. Regular rate and rhythm. ABDOMEN: Soft. No tenderness. LAB: Hemoglobin is 12.5, white count 7.5. Creatinine is up at 2.04. Vancomycin trough elevated at 32.3. DIAGNOSTIC IMPRESSION AND PLAN: Patient with a PleurX catheter positive culture with Staphylococcus epidermidis, now with elevated vancomycin trough and creatinine. Vancomycin has been discontinued. Oral doxycycline has been added. Will monitor his clinical course closely. Continue with supportive care. MMODL / IJN: [id number] /
[2020-02-07] MEDS: QUEtiapine 50 MG TAB PO SCH (17:20)
[2020-02-07] MEDS ORDERED: FUROSEMIDE 100 MG in SODIUM CHLORIDE 0.9% 90 ML IV SCH (18:45)
[2020-02-07] MEDS: MELATONIN 5 MG TABLET PO SCH (21:44)
[2020-02-08 04:48] LABS: Anisocytosis Slight; Basophils # (A) 0.1 k/uL (0-0.2); Basophils % (A) 1 %; Calcium 9.3 mg/dL (8.4-10.2); Eosinophils # (A) 0.1 k/uL (0-0.7); Eosinophils % (A) 1 %; HCT 40.2 % (39.0-53.0); HGB 12.4 gm/dL (13.0-17.5); Hypochromasia Moderate; Lymphocytes # (A) 0.6 k/uL (1.0-4.8); Lymphocytes % (A) 9 %; MCH 27.6 pg (25.0-35.0); MCHC 30.9 g/dL (31.0-37.0); MCV 89.4 fL (80.0-100.0); Mean Platelet Volume 8.4; Monocytes # (A) 0.6 k/uL (0-1.0); Monocytes % (A) 9 %; Neutrophils # (A) 4.8 k/uL (1.3-7.7); Neutrophils % (A) 76 %; Platelet Count 210 k/uL (150-450); Potassium 3.9 mmol/L (3.5-5.1); RDW 17.6 % (11.5-15.5); WBC 6.3 k/uL (3.8-10.6)
[2020-02-08] MEDS ORDERED: Potassium Replacement Protocol 1 EACH MISC MISCELLANE PRN (05:19)
[2020-02-08] MEDS ORDERED: POTASSIUM CHLORIDE ER 20 MEQ TAB.ER PO SCH (06:00)
[2020-02-08] MEDS: MIDODRINE 5 MG TAB PO SCH ×3 (06:54→16:52)
[2020-02-08] MEDS: VENLAFAXINE HCL 50 MG TAB PO SCH ×2 (06:56→16:52)
[2020-02-08] MEDS: DOBUTamine DRIP 500 MG in DEXTROSE/WATER 1 250ML.BAG IV SCH (07:36)
[2020-02-08] MEDS: NOREPINEPHRINE 4 MG in SODIUM CHLORIDE 0.9% 250 ML IV SCH ×2 (08:29→18:23)
[2020-02-08] MEDS: METOLAZONE 5 MG TAB PO SCH (08:36)
[2020-02-08] MEDS: LIOTHYRONINE SODIUM 5 MCG TAB PO SCH (08:36)
[2020-02-08] MEDS: DOXYCYCLINE 100 MG CAP PO SCH ×2 (08:36→21:47)
[2020-02-08] MEDS: CLOPIDOGREL 75 MG TAB PO SCH (08:37)
[2020-02-08] MEDS: FAMOTIDINE 20 MG TAB PO SCH (08:37)
[2020-02-08] MEDS: HEPARIN SODIUM,PORCINE 5,000 UNIT/ML 1 ML VIAL SQ SCH ×2 (08:37→21:46)
[2020-02-08] MEDS: SPIRONOLACTONE 25 MG TAB PO SCH (08:37)
[2020-02-08] MEDS: ASPIRIN 81 MG PO SCH (08:37)
[2020-02-08] MEDS: ATORVASTATIN 40 MG TAB PO SCH (08:37)
--- NOTE | 2020-02-08 10:08 | P.PN ---
Subjective Patient is seen in follow-up for acute kidney injury and hyponatremia. Renal function is fairly stable. Still complains of shortness of breath. Dobutamine was weaned off yesterday. Currently on Lasix drip at 5 mL an hour. Patient has systolic CHF with ejection fraction of less than 20% with moderate tricuspid regurgitation and pulmonary hypertension. Urine output about 30-50 mL an hour. Vital signs are stable. General: The patient appeared well nourished and normally developed. HEENT: Head exam is unremarkable. Neck is without jugular venous distension. LUNGS: Breath sounds decreased. HEART: Rate and Rhythm are regular. First and second heart sounds normal. No murmurs, rubs or gallops. ABDOMEN: Abdominal exam reveals normal bowel sounds. Non-tender and non- distended. No evidence of peritonitis. EXTREMITITES: 1+ edema. R > L. Objective - Vital Signs Vital signs: Vital Signs Temp 97.9 F 02/08/20 08:00 Pulse 78 02/08/20 09:00 Resp 17 02/08/20 09:00 BP 80/64 02/08/20 09:00 Pulse Ox 100 02/08/20 09:00 Intake & Output 02/07/20 02/08/20 02/08/20 18:59 06:59 18:59 Intake Total 1030 60 15 Output Total 526 624 145 Balance 504 -564 -130 Weight 86.8 kg Intake: IV 30 55 15 Furosemide 100 mg In 55 15 Sodium Chloride 0.9% 90 ml @ 5 MG/HR 5 mls/hr IV .Q20H TOD Rx#:[id number] Normal saline 30 Intake, IV Titration 5 Amount Furosemide 100 mg In 5 Sodium Chloride 0.9% 90 ml @ 5 MG/HR 5 mls/hr IV .Q20H TOD Rx#:[id number] Oral 1000 Output: Chest Tube Drainage 50 Pleural Catheter Left Mid 50 -Axillary Chest Urine 525 574 145 Stool 1 Other: Voiding Method Indwelling Catheter Indwelling Catheter - Labs CBC & Chem 7: 02/08/20 04:26 02/08/20 04:26 Labs: Abnormal Lab Results - Last 24 Hours (Table) 02/08/20 02/08/20 Range/Units 04:26 04:26 Hgb 12.4 L (13.0-17.5) gm/dL MCHC 30.9 L (31.0-37.0) g/dL RDW 17.6 H (11.5-15.5) % Lymphocytes # 0.6 L (1.0-4.8) k/uL Sodium 130 L (137-145) mmol/L Chloride 87 L (98-107) mmol/L Carbon Dioxide 32 H (22-30) mmol/L BUN 49 H (9-20) mg/dL Creatinine 2.12 H (0.66-1.25) mg/dL Assessment and Plan Plan: Assessment: 1. Acute kidney injury mostly prerenal secondary to cardiorenal syndrome. Renal function worsening due to diuresis. Creatinine fairly stable at 2.12 today. 2. Acute on chronic systolic CHF with ejection fraction of less than 20% with moderate tricuspid regurgitation and pulmonary hypertension. 3. Hypervolemic hyponatremia. Sodium level 130 today. 4. Chronic left-sided pleural effusion. Patient has a Pleurx catheter. 5. Hyperkalemia secondary to acute kidney injury. Lisinopril discontinued. Now hypokalemic, being replaced. 6. Volume overload. 7. Hypotension due to underlying cardiac status maintained on midodrine. Plan: Discontinue Lasix drip and start Demadex 40 mg twice daily. Dobutamine was weaned off on February 06. Maintain fluid restriction. Continue to monitor renal function and urine output. Repeat electrolytes in the morning. Avoid nephrotoxins. Not agreeable to hospice at this time. Vancomycin discontinued.
[2020-02-08] MEDS: ALPRAZolam 0.25 MG TAB PO PRN (10:56)
[2020-02-08] MEDS ORDERED: TORSEMIDE 20 MG TAB PO ONE (11:03)
--- NOTE | 2020-02-08 11:48 | PN ---
PROGRESS NOTE This is a 74-year-old gentleman that is admitted to class 4 congestive heart failure. I stopped his Lasix drip yesterday and started him on oral Lasix. He became short of breath last night. I had to start him back on the Lasix drip. This morning the Lasix drip had been stopped and he is going to be started on Demadex this evening and hopefully he can be discharged home tomorrow. On exam, heart rate is 85 beats per minute. Blood pressure is 100/70. Respiratory rate is 18. Chest exam reveals diminished air entry at the bases. Heart exam reveals first and second heart sounds. No gallop. Abdomen is soft. Exam of extremities reveals mild edema over both lower extremities. Labs show a hemoglobin of 12.4, platelet count is 210. Potassium is 3.9, BUN is 49, creatinine is 2. ASSESSMENT: Chronic class 4 congestive heart failure. Will stop Lasix. Start on Demadex. Continue aspirin, Lipitor, Plavix. Cut down the dose of spironolactone to 25 given the hypotension. MMODL / IJN: [id number] /
--- NOTE | 2020-02-08 12:15 | P.PN ---
Subjective Progress Note Date: 02/08/20 This is a 74-year-old male patient of Dr. Burnett, Dr. Gilbert and Dr. Xi Ordaz with a previous medical history significant for hypertension, hyperlipidemia, osteoarthritis, prostate cancer that was diagnosed back in 2006 status post implants as well as Lupron injection, coronary artery disease with stent of the circumflex, severe cardiomyopathy and chronic systolic heart failure with known ejection fraction of 25%, bradycardia status post AICD implantation, recurrent left-sided pleural effusion status post Pleurx catheter insertion August 2019 by cardiothoracic surgery. Patient drains this himself or his daughter of 100-200 mL subpleural fluid daily. Patient also has history of hypertension, [id number] smoking history. Patient complains of shortness of breath for the past month gradually worsening. Shortness of breath is exceptionally worse with exertion. No chest pain, no cough or sputum production, reports weight loss. He complains of nausea occasionally, no abdominal pain. He complains of lightheadedness. He denies any use of steroids for the past 6 weeks. He denies any change and his medications recently. Patient relates that he has been using his mother's home oxygen at 4 L nasal cannula around the clock. Patient came into [facility] emergency center for evaluation, WBC 7.8, hemoglobin 13.8, d-dimer elevated at 4.08. CT angiogram of the chest did not show any pulmonary embolism. There was a small right-sided loculated pleural effusion along with pseudotumor in the left lung consistent with pleural fluid. No evidence of pneumonia. No airspace disease. 3 cm poorly marginated infiltrate in the right lower lobe and significance is unknown. Patient was hypotensive in the emergency center with systolic blood pressure down to 75. He was started on vasopressors and admitted into the intensive care unit with consults in place for pulmonary medicine and cardiology. Abdominal ultrasound revealed mild gallbladder wall thickening and air fluid that could relate cholecystitis. Heart failure also possible. Small gallstone or gallbladder polyp. Fatty liver. 01/21: Patient remains in intensive care unit. He is seen today sitting in the recliner. His breathing appears to be more comfortable. Patient states that he is feeling tight and did not sleep well last night. We will plan to increase melatonin dose. Patient has been seen by cardiology this morning and started on dobutamine. Patient is currently on norepinephrine as well. Echocardiogram reveals ejection fraction less than 20%, moderate mitral regurgitation, moderate tricuspid regurgitation, mild to moderate pulmonary hypertension.. Potassium this morning is 6.3 and pulmonary medicine has ordered insulin and dextrose. Patient is to be redrawn at noon today. WBC 7.9, hemoglobin 13.6, troponin 0.077. BUN 41 and creatinine 1.46. Acute hepatitis panel negative. Patient is currently on Lasix 40 mg oral twice daily. TSH will be ordered. Chest x-ray reveals changes of heart failure with interstitial pulmonary edema. Continued moderate left effusion with prominent left basilar atelectasis and/or consolidation. Slight worsening aeration of the right base 01/22: Patient has been afebrile, heart rate 97, blood pressure 95/68, pulse ox 98% on 4 L nasal cannula. Repeat blood work reveals CBC unremarkable, sodium 1:30, potassium 4.8, chloride 96, CO2 25, BUN 33 and creatinine 0.85. AST 126, ALT 145, alkaline phosphatase 262. TSH 5.680 and free T4 1 0.38. Patient remains in the intensive care unit. Dobutamine drip increased to 5. Patient remains on levofloxacin as well. Patient states that he did not sleep last night. He is utilizing Xanax twice daily. He denies having any chest pain and no lower extremity edema. He does complain of shortness of breath. No lightheadedness or dizziness. Cytomel added and midodrine increased to 10 mg 3 times daily. Patient is concerned about his mother and his friend staying with her at this time. We will communicate with Dr. Burnett and ask for home care service to be arranged for his mother. Do not anticipate that he will be ready for discharge for another 48-72 hours. 01/23: Patient remains in intensive care unit on dobutamine at 5 mcg/kg/m and levo fed which is to be weaned off. Dr. Napoles is planning for another 24 hours of IV dobutamine. Patient states that he is feeling off today complaining of nausea. He states he did get some sleep last night. Patient has been noted to be more anxious and due to lack of appetite and insomnia, Remeron will be added. He continues to have shortness of breath with minimal activity. He remains awake and alert but he is stating that he wants to go home. We did arrange for home care for his mother yesterday. WBC 5.7, hemoglobin 12.8, potassium 5.3, creatinine 0.75. We did start midodrine yesterday 3 times daily 10 mg. The blood pressure seems to be stable today. Chest x-ray showing worsening CHF for developing ARDS on background mild underlying emphysematous change there is increasing central alveolar and interstitial edema and/or infiltrates and cardiomegaly. No concern for ARDS at this point per Dr. Contreras. Culture on Pleurx fluid is staph epidermidis. 01/24: Repeat chest x-ray reveals similar moderate pulmonary vascular congestion and interstitial edema likely on the basis of decompensated heart failure. Retrocardiac airspace disease is also stable that may represent small plural effusion and atelectasis or less likely pneumonia. Patient is afebrile, heart rate running between 76 and 106, blood pressure 95/75, pulse ox 96% on 2 L nasal cannula. Repeat lab work reveals unremarkable CBC. Sodium 1:30, potassium 5.4, chloride 97, CO2 22, BUN 26 and creatinine 0.81. Pleural fluid was Staphylococcus epidermidis and alphahemolytic streptococcus. Yesterday evening, patient was attempting to leave the intensive care unit in and removed crib tender and IV. Patient was returned to his room and IV access and monitoring was resumed. Patient is alert at this time. Nursing passes on that patient awakes and is very confused. He has not had consistent of sleep. Patient complains of feeling tired. Pulmonary has resumed his Seroquel and Effexor. We will continue Remeron as well both Seroquel and Remeron move to supper time. Patient is still on dobutamine for another 24 hours. He has been off norepineph rine since yesterday at 11 AM. He has a sitter at the bedside at this time. Consult added for Dr. Brown regarding hyponatremia. 01/25: Patient continues to have episodes of confusion but is easily reoriented. He is cooperative and follows commands during these episodes. He is able to answer all questions appropriately to time place and person. Ammonia level from yesterday was less than 9. He is continued on dobutamine drip at 5 g for another 24 hours.. Patient was given 1 dose of IV Lasix 40 mg this morning. Patient has been seen by Dr. Brown and ordered Lasix IV 40 mg every 12 hours. Urine osmolality 497, cortisol level 22. Sodium 129, potassium 5.4, chloride 95, CO2 28, BUN 24 and creatinine 0.86. WBC 6.2, hemoglobin 9.6, platelet count 226. Pro-calcitonin 0.14. Repeat chest x-ray reveals stable retrocardiac opacities may again represent small pleural effusion and atelectasis or less likely pneumonia. Primary consideration is decompensated congestive heart failure. 01/26: Patient remains in the intensive care unit. He continues to have episodes of confusion but is easily reoriented. He is having occasional panic attack with increased anxiety. We will resume Xanax and continue his other psychiatric medications. He did sleep well last night most likely related to the Remeron and melatonin. Dobutamine has been decreased today to 2.5 mcg/kg/m. He is off norepinephrine. Repeat lab work reveals WBC 5.4, hemoglobin 11.9, sodium 128, potassium 5.2, creatinine 0.94. Dr. Brown is on consult regarding hyponatremia. 314: Patient remains in intensive care unit sitting up in chair. He is complaining of pain to the right groin. Denies any dizziness or chest pain. Continues to have shortness of breath. He has not had any episodes of confusion overnight or today. Patient states that he slept well during the evening. Dobutamine continues to be at 2.5 MCG/KG/M. However he continues to be hypotensive. Morning meds were held due to his pressure. Sodium 128, potassium 5.1, BUN 28, creatinine 1.06 01/28: Patient remains in intensive care unit sitting up in bed. Patient has no complete concerns at this time. He denies any difficulty breathing or shortness of breath. He continues to be on dobutamine and hypotensive. Hemoglobin 11.2, sodium 127, potassium 5.6, BUN 31, creatinine 1.56, AST 86, ALT 88, alkaline phosphatase 206. The Pleurx catheters in place. Patient is producing better urine output. 01/29: Patient remains in the intensive care unit. Dobutamine was discontinued this morning. Patient is complaining of having dizziness on and off. Blood pressure is been marginal. He is scheduled for one dose of Lasix 40 a blood pressure is maintained. Patient is also complaining of significant weakness. He continues to have lower extremity edema. Confusion episodes have been less frequent. Patient is afebrile, heart rate 76, blood pressure 90/60, pulse ox 96% on 2 L nasal cannula. Repeat blood work reveals WBC 7.4, hemoglobin 11.5, platelet count 225. Sed rate 24, C-reactive protein 60.3. Sodium 129, potassium 5.5, chloride 99, CO2 23, BUN 33, creatinine 1.64. Blood sugar 65. Liver function tests remain elevated with AST 78, ALT 83, alkaline phosphatase 223. Pro-calcitonin 0.52. Patient has been on IV antibiotics in the form of vancomycin. Patient has been seen by Dr. Sen with recommendations for either Bactrim or doxycycline depending on kidney function at time of discharge for one to 2 week course. 01/30: Patient was unable to be weaned off dobutamine yesterday. He has been continued on dobutamine. He has had essentially no urine output. He received Lasix 40 mg yesterday followed by Lasix 80 mg IV push. Patient is complaining of feeling dizzy. He is up to the chair into bed only. He has been afebrile, heart rate 98, blood pressure 80/69, pulse ox 95%. Repeat blood work reveals WBC 6.5, hemoglobin 11.5, platelet count 206. Sodium 132, potassium 4.9, chloride 101, CO2 23, BUN 35 and creatinine 1.65. Blood sugars running between [address] Ramirez discussed with the patient his current condition and prognosis in detail. Discussed option of no CODE STATUS and also of hospice care. This was previously discussed over the weekend with the patient as well. Patient seems to understand. Case management has been updated. Nursing to discuss with cardiology in order for them to further give patient details on his prognosis regarding his cardiac function and prognosis. Venous duplex of the bilateral lower extending negative for DVT. 01/31: Patient is seen in the intensive care unit. He remains on dobutamine at 2.5 mcg/kg/m. Has been started on Lasix drip this morning. Urine output overnight has been 45-70 mL per hour. Currently urine output is at 35 mL per hour. Patient has been afebrile, heart rate 101, blood pressure 89/57, pulse ox 100% on 2 L nasal cannula. The patient remains a full code despite discussion yesterday. Dr. Grey also discussed and reinforced need for hospice care and transition to no code. Hospice informational meeting to take place today and his daughter is to be in attendance. 02/01: Patient remains on the intensive care unit. He remains on dobutamine. Lasix drip was discontinued. Patient has been diuresing very well. Chest x-ray reveals overall stable findings. Cardiomegaly with small to moderate size left pleural fluid collection and diffuse left mid to lower lung acute infiltrate and/or atelectasis redemonstrated. Dr. Bronson is concern for loculated fluid and may order a CAT scan and involve cardiothoracic surgery. Patient's CODE STATUS has been changed to no code. Patient is afebrile, heart rate 94, blood pressure 117/67, pulse ox 98% on 2 L nasal cannula. Repeat blood work reveals Donna BC 6, hemoglobin 11.7, platelet count 209. Sodium 131, potassium 4.2, chloride 96, CO2 31, BUN 31 creatinine 1.49. 02/02: Patient remains in the intensive care unit. He is on dobutamine drip which is being weaned very slowly. He has been seen by cardiothoracic surgery with no plan for any intervention. Patient is afebrile, heart rate 86, blood pressure 90/67, pulse ox 97%. CBC unremarkable, sodium 132, potassium 3.5, chloride 90, CO2 34, BUN 31 creatinine 1.51. Repeat chest x-ray reveals improving left basilar opacities that may represent small pleural effusion and atelectasis or less likely pneumonia. Mild pulmonary vascular congestion persists. Patient has been continued on Lasix drip per nephrology. Patient is on a fluid restriction. Cardiology has increased Aldactone to 50 mg daily 02/03: Patient remain in the ICU on dobutamine drip his blood pressure remain slightly bit low patient kidney function has improved slightly bit from before. His pleural effusion is slightly but better is still debilitated still very weak, still on Aldactone 50 mg daily along with Lasix 10 mg drip and hour for now. By the end of the weekend patient will be switched to entirely oral meds and thinking about hospice care while he is on his cardiac medication and comfort care if we can achieve this goal at home sometimes early this week. 02/04: Patient remain in the ICU still on dobutamine drip and Lasix drip he has less shortness of breath less CHF symptoms today still very sick still bedridden function is very limited this point. Again talk about the possibility of going home on comfort care or hospice in the next day. His IV diuretics will be changed to oral by tomorrow and try to readjust his medication and prepare for his discharge. 02/05: Repeat chest x-ray reveals CHF with interstitial pulmonary edema slight improvement. Continue small to moderate left effusion with adjacent atelectasis and/or consolidation. Patient is currently on dobutamine drip that is being weaned as well as Lasix drip which has been decreased to 5 mL per hour. He is continued on fluid restriction.. He has had good urine output proximal 100 mL per hour. Patient denies any new complaints. Dr. Sen has recommended completing course of antibiotics with doxycycline. If hospice is the plan, antibiotic can be discontinued. Plan will be to discharge patient once medications can be weaned. Patient has been afebrile, heart rate 87, respirations 29, blood pressure 94/60, pulse ox 95% on 2 L nasal cannula. CBC u nremarkable. BUN 40 creatinine 1.89, sodium 131, potassium 3.5, chloride 88, CO2 32. 02/06: Patient is currently off dobutamine drip. He is still on Lasix drip and transition to oral Lasix this morning at 40 mg [address] Ordaz. Patient has continued with good urine output. Repeat chest x-ray reveals overall stable findings, possible continued heart failure exacerbation, cardiomegaly suspected interstitial edema and interstitial small to moderate size left pleural effusion. Associated left mid to lower lung atelectasis and/or infiltrate redemonstrated. Dr. Sen has recommended a short course of oral doxycycline at home. Patient has been afebrile, heart rate 86, blood pressure 94/62, pulse ox 92% on 2 L nasal cannula. Sodium 130, potassium 3.9, chloride 88, CO2 33, BUN 44, creatinine 2.04. We will transition patient to oral doxycycline and off vancomycin at this time. Nursing to check ambulatory pulse ox to determine if patient is needing home oxygen therapy. Kruse catheter to be removed later today or early tomorrow. Anticipate discharge to home tomorrow. 02/07: Patient remains in the intensive care unit. He is off dobutamine. He was resumed on Lasix drip yesterday afternoon. Plan is to start Demadex 40 mg twice daily and discontinue Lasix drip. Urine output has been running 30-50 mL per hour. Patient is afebrile, heart rate 81, blood pressure and 95/73, pulse ox 94% on 2 L nasal cannula. CBC is unremarkable, sodium 130, potassium 3.9, chloride 87, CO2 32, BUN 49 creatinine 2.12. Patient remains on fluid restriction 1500 ML's. Objective - Vital Signs Vital signs: Vital Signs Temp 97.9 F 02/08/20 08:00 Pulse 85 02/08/20 11:00 Resp 33 H 02/08/20 11:00 BP 100/71 02/08/20 11:00 Pulse Ox 98 02/08/20 11:00 Intake & Output 02/07/20 02/08/20 02/08/20 18:59 06:59 18:59 Intake Total 1030 60 25 Output Total 526 624 195 Balance 847 -129 -390 Weight 86.8 kg Intake: IV 30 55 15 Furosemide 100 mg In 55 15 Sodium Chloride 0.9% 90 ml @ 5 MG/HR 5 mls/hr IV .Q20H TOD Rx#:[id number] Normal saline 30 Intake, IV Titration 5 10 Amount Furosemide 100 mg In 5 10 Sodium Chloride 0.9% 90 ml @ 5 MG/HR 5 mls/hr IV .Q20H TOD Rx#:[id number] Oral 1000 Output: Chest Tube Drainage 50 Pleural Catheter Left Mid 50 -Axillary Chest Urine 525 574 195 Stool 1 Other: Voiding Method Indwelling Catheter Indwelling Catheter - Exam Review of Systems Constitutional: Reports fatigue, denies lethargy, Reports poor appetite, Reports weakness, Reports weight loss, Denies chills, Denies fever, reports daytime sleepiness Ears, nose, mouth and throat: Denies dysphagia, Denies headache, Denies nasal congestion, Denies nasal discharge, Denies sore throat, reports vertigo Cardiovascular: Reports decreased exercise tolerance, Reports dyspnea on exertion, Reports lightheadedness, Reports orthopnea, Reports shortness of breath, Denies chest pain, Denies syncope Respiratory: Reports dyspnea with activity, Reports home oxygen-uses his mother's, Denies cough, Denies cough with sputum, Denies excessive sputum, Denies hemoptysis, Denies respiratory infections Gastrointestinal: Reports loss of appetite, Reports nausea, Denies abdominal pain, Denies diarrhea, Denies vomiting Genitourinary: Denies dysuria, Denies urinary retention Musculoskeletal: Reports muscle weakness, Denies frequent falls, Denies gait dysfunction Integumentary: Denies pruritus, Denies rash Neurological: Reports change in mentation, Denies change in speech, Denies numbness, reports weakness continued Psychiatric: Reports anxiety, reports depression, reports insomnia Endocrine: Denies fatigue, Denies weight change Physical examination Gen: This is a 74-year-old male. Patient is sitting in chair. No respiratory distress noted at rest. HEENT: Head is atraumatic, normocephalic. Pupils equal, round. Sclerae is anicteric. NECK: Supple. No JVD. No lymphadenopathy. No thyromegaly. LUNGS: Diminished breath sounds Pleurx catheter in the left. HEART: Regular rate and rhythm. Systolic murmur. ABDOMEN: Soft. Bowel sounds are present. No masses. No tenderness. Kruse draining clear madeline urine. EXTREMITIES: 1+ pedal edema. No calf tenderness. Dorsalis pedis +2 bilaterally. NEUROLOGICAL: Patient is awake, alert and oriented x3. Cranial nerves 2 through 12 are grossly intact. - Labs CBC & Chem 7: 02/08/20 04:26 02/08/20 04:26 Labs: Abnormal Lab Results - Last 24 Hours (Table) 02/08/20 02/08/20 Range/Units 04:26 04:26 Hgb 12.4 L (13.0-17.5) gm/dL MCHC 30.9 L (31.0-37.0) g/dL RDW 17.6 H (11.5-15.5) % Lymphocytes # 0.6 L (1.0-4.8) k/uL Sodium 130 L (137-145) mmol/L Chloride 87 L (98-107) mmol/L Carbon Dioxide 32 H (22-30) mmol/L BUN 49 H (9-20) mg/dL Creatinine 2.12 H (0.66-1.25) mg/dL Assessment and Plan Plan: 1. Acute on chronic systolic heart failure with known ejection fraction of 25%. Repeat echocardiogram as above. Dobutamine drip discontinued. Patient is currently off norepinephrine. Lasix gtt to be discontinued and transitioned to oral torsemide. Continue midodrine 10 mg 3 times daily. Aldactone 50 mg daily, Zaroxolyn 5 mg daily 2. Severe cardiomyopathy status post AICD. 3. Chronic left-sided pleural effusion status post pleural catheter insertion. Nursing is draining once daily. Culture positive for alpha hemolytic strep and Streptococcus epidermidis. Discontinued vancomycin. Dr. Sen consult appreciated. Concern for loculated fluid collection. Cardiothoracic surgery evaluation appreciated. No plan for any surgical intervention. Oral doxycycline added. 4. Cardiogenic shock secondary to severe cardiomyopathy requiring vasopressors. Patient is currently off norepinephrine. 5. History of coronary artery disease status post stenting of circumflex with mild elevation of troponins, possible acute non-ST MN. Cardiology consult. Aspirin 81 mg daily, Lipitor 40 mg daily, Plavix 75 mg daily, 6. Hyperlipidemia. 7. History of prostate cancer status post radiation therapy and Lupron injections. 8. Elevated liver function tests possibly related to combination of heart failure and fatty liver. Acute hepatitis panel negative. 9. Generalized anxiety disorder. Continue Xanax 2.5 mg twice daily and Remeron 7.5 mg. 10. Hyperkalemia. Continue Lasix, no potassium supplementation. 11. DVT prophylaxis. Heparin subcu. 12. GI prophylaxis. Pepcid. 13. Hyponatremia. Consult with nephrology appreciated. 14. Acute metabolic encephalopathy secondary to insomnia and ICU hospitalization. Continue Seroquel and Effexor and continue Remeron as well and melatonin 10 mg at bedtime. 15. Hypothyroidism. Patient was started on Cytomel 5 g daily. 16. Recurrent depression. Continue Seroquel 50 mg daily and Effexor 100 mg twice daily. 17. Acute kidney injury with chronic kidney disease stage II. Discharge plan: Home with [facility] and palliative care on Thursday. CODE STATUS: NO CODE Impression and plan of care have been directed as dictated by the signing physician. Funmilayo Diaz nurse practitioner acting as scribe for signing physician.
--- NOTE | 2020-02-08 17:05 | PN ---
PROGRESS NOTE DATE OF SERVICE: 02/08/2020 REASON FOR FOLLOWUP: PleurX catheter culture positive for Staph epi. INTERVAL HISTORY: The patient is currently afebrile. The patient is breathing slightly comfortably. Denies having any chest pain. Occasional cough. No nausea, vomiting, abdominal pain or diarrhea. PHYSICAL EXAMINATION: Blood pressure is 89/78 with a pulse of 103, temperature 98. He is 98% on 2 L nasal cannula. General description is an elderly male up in the chair in no distress. RESPIRATORY SYSTEM: Unlabored breathing with decreased breath sounds at the base. No wheeze. HEART: S1, S2. Regular rate and rhythm. ABDOMEN: Soft. No tenderness. LABS: Hemoglobin is 12.4, white count 6.3, BUN of 49, creatinine 2.12. DIAGNOSTIC IMPRESSION AND PLAN: Patient with a positive PleurX catheter culture with Staphylococcus epidermidis. Patient was on vancomycin and then that was discontinued because of his elevated vancomycin trough and risk for nephrotoxicity. On doxycycline; to continue while monitoring his kidney function closely. Continue with supportive care. MMODL / IJN: [id number] /
[2020-02-08] MEDS: QUEtiapine 50 MG TAB PO SCH (18:24)
[2020-02-08] MEDS: MELATONIN 5 MG TABLET PO SCH (21:46)
[2020-02-08] MEDS: TORSEMIDE 20 MG TAB PO SCH (21:47)
[2020-02-09] MEDS: DOBUTamine DRIP 500 MG in DEXTROSE/WATER 1 250ML.BAG IV SCH (05:00)
[2020-02-09 06:22] LABS: Calcium 9.6 mg/dL (8.4-10.2)
[2020-02-09 06:23] LABS: Potassium 5.2 mmol/L (3.5-5.1)
[2020-02-09] MEDS: MIDODRINE 5 MG TAB PO SCH ×2 (06:58→12:16)
[2020-02-09] MEDS: VENLAFAXINE HCL 50 MG TAB PO SCH (06:58)
[2020-02-09] MEDS: HEPARIN SODIUM,PORCINE 5,000 UNIT/ML 1 ML VIAL SQ SCH (08:29)
[2020-02-09] MEDS: TORSEMIDE 20 MG TAB PO SCH (08:29)
[2020-02-09] MEDS: NOREPINEPHRINE 4 MG in SODIUM CHLORIDE 0.9% 250 ML IV SCH (08:30)
[2020-02-09] MEDS: METOLAZONE 5 MG TAB PO SCH (08:30)
[2020-02-09] MEDS: DOXYCYCLINE 100 MG CAP PO SCH (08:30)
[2020-02-09] MEDS: ATORVASTATIN 40 MG TAB PO SCH (08:30)
[2020-02-09] MEDS: FAMOTIDINE 20 MG TAB PO SCH (08:30)
[2020-02-09] MEDS: CLOPIDOGREL 75 MG TAB PO SCH (08:30)
[2020-02-09] MEDS: LIOTHYRONINE SODIUM 5 MCG TAB PO SCH (08:30)
[2020-02-09] MEDS: ASPIRIN 81 MG PO SCH (08:30)
[2020-02-09 08:38] VITALS: TEMP 97.5
[2020-02-09] MEDS ORDERED: SPIRONOLACTONE 25 MG TAB PO SCH (09:00)
--- NOTE | 2020-02-09 11:53 | P.DS ---
Providers Date of admission: 01/21/20 01:37 Expected date of discharge: 02/09/20 Attending physician: Amie Milligan Consults: 01/21/20 01:34 Consult Physician Stat Consulting Provider: Bin Contreras Consult Reason/Comments: Hypotensive patient. CHF exacerbation Do you want consulting provider notified?: Already Contacted Consult Physician Stat Consulting Provider: Srinath Ordaz Consult Reason/Comments: CHF exacerbation Do you want consulting provider notified?: Already Contacted 01/25/20 13:30 Consult Physician Routine Consulting Provider: Albertina Brown Consult Reason/Comments: hyponatremia Do you want consulting provider notified?: Yes 01/29/20 08:29 Consult Physician Routine Consulting Provider: Guilherme Sen Consult Reason/Comments: Staph infection Do you want consulting provider notified?: Yes 02/02/20 10:52 Consult Physician Routine Consulting Provider: Grant Perez Consult Reason/Comments: loculateed effusion Do you want consulting provider notified?: Yes Primary care physician: [facility] Course: This is a 74-year-old male patient of Dr. Burnett, Dr. Gilbert and Dr. Xi Ordaz with a previous medical history significant for hypertension, hyperlipidemia, osteoarthritis, prostate cancer that was diagnosed back in 2006 status post implants as well as Lupron injection, coronary artery disease with stent of the circumflex, severe cardiomyopathy and chronic systolic heart failure with known ejection fraction of 25%, bradycardia status post AICD implantation, recurrent left-sided pleural effusion status post Pleurx catheter insertion August 2019 by cardiothoracic surgery. Patient drains this himself or his daughter of 100-200 mL subpleural fluid daily. Patient also has history of hypertension, [id number] smoking history. Patient complains of shortness of breath for the past month gradually worsening. Shortness of breath is exceptionally worse with exertion. No chest pain, no cough or sputum production, reports weight loss. He complains of nausea occasionally, no abdominal pain. He complains of lightheadedness. He denies any use of steroids for the past 6 weeks. He denies any change and his medications recently. Patient relates that he has been using his mother's home oxygen at 4 L nasal cannula around the clock. Patient came into [facility] emergency center for evaluation, WBC 7.8, hemoglobin 13.8, d-dimer elevated at 4.08. CT angiogram of the chest did not show any pulmonary embolism. There was a small right-sided loculated pleural effusion along with pseudotumor in the left lung consistent with pleural fluid. No evidence of pneumonia. No airspace disease. 3 cm poorly marginated infiltrate in the right lower lobe and significance is unknown. Patient was hypotensive in the emergency center with systolic blood pressure down to 75. He was started on vasopressors and admitted into the intensive care unit with consults in place for pulmonary medicine and cardiology. Abdominal ultrasound revealed mild gallbladder wall thickening and air fluid that could relate cholecystitis. Heart failure also possible. Small gallstone or gallbladder polyp. Fatty liver. 01/21: Patient remains in intensive care unit. He is seen today sitting in the recliner. His breathing appears to be more comfortable. Patient states that he is feeling tight and did not sleep well last night. We will plan to increase melatonin dose. Patient has been seen by cardiology this morning and started on dobutamine. Patient is currently on norepinephrine as well. Echocardiogram re veals ejection fraction less than 20%, moderate mitral regurgitation, moderate tricuspid regurgitation, mild to moderate pulmonary hypertension.. Potassium this morning is 6.3 and pulmonary medicine has ordered insulin and dextrose. Patient is to be redrawn at noon today. WBC 7.9, hemoglobin 13.6, troponin 0.077. BUN 41 and creatinine 1.46. Acute hepatitis panel negative. Patient is currently on Lasix 40 mg oral twice daily. TSH will be ordered. Chest x-ray reveals changes of heart failure with interstitial pulmonary edema. Continued moderate left effusion with prominent left basilar atelectasis and/or consolidation. Slight worsening aeration of the right base 01/22: Patient has been afebrile, heart rate 97, blood pressure 95/68, pulse ox 98% on 4 L nasal cannula. Repeat blood work reveals CBC unremarkable, sodium 1:30, potassium 4.8, chloride 96, CO2 25, BUN 33 and creatinine 0.85. AST 126, ALT 145, alkaline phosphatase 262. TSH 5.680 and free T4 1 0.38. Patient remains in the intensive care unit. Dobutamine drip increased to 5. Patient remains on levofloxacin as well. Patient states that he did not sleep last night. He is utilizing Xanax twice daily. He denies having any chest pain and no lower extremity edema. He does complain of shortness of breath. No lightheadedness or dizziness. Cytomel added and midodrine increased to 10 mg 3 times daily. Patient is concerned about his mother and his friend staying with her at this time. We will communicate with Dr. Burnett and ask for home care service to be arranged for his mother. Do not anticipate that he will be ready for discharge for another 48-72 hours. 01/23: Patient remains in intensive care unit on dobutamine at 5 mcg/kg/m and levo fed which is to be weaned off. Dr. Napoles is planning for another 24 hours of IV dobutamine. Patient states that he is feeling off today complaining of nausea. He states he did get some sleep last night. Patient has been noted to be more anxious and due to lack of appetite and insomnia, Remeron will be added. He continues to have shortness of breath with minimal activity. He remains awake and alert but he is stating that he wants to go home. We did arrange for home care for his mother yesterday. WBC 5.7, hemoglobin 12.8, potassium 5.3, creatinine 0.75. We did start midodrine yesterday 3 times daily 10 mg. The blood pressure seems to be stable today. Chest x-ray showing worsening CHF for developing ARDS on background mild underlying emphysematous change there is increasing central alveolar and interstitial edema and/or infiltrates and cardiomegaly. No concern for ARDS at this point per Dr. Contreras. Culture on Pleurx fluid is staph epidermidis. 01/24: Repeat chest x-ray reveals similar moderate pulmonary vascular congestion and interstitial edema likely on the basis of decompensated heart failure. Retrocardiac airspace disease is also stable that may represent small plural effusion and atelectasis or less likely pneumonia. Patient is afebrile, heart rate running between 76 and 106, blood pressure 95/75, pulse ox 96% on 2 L nasal cannula. Repeat lab work reveals unremarkable CBC. Sodium 1:30, potassium 5.4, chloride 97, CO2 22, BUN 26 and creatinine 0.81. Pleural fluid was Staphylococcus epidermidis and alphahemolytic streptococcus. Yesterday evening, patient was attempting to leave the intensive care unit in and removed air sampling and monitoring and IV. Patient was returned to his room and IV access and monitoring was resumed. Patient is alert at this time. Nursing passes on that patient awakes and is very confused. He has not had consistent of sleep. Patient complains of feeling tired. Pulmonary has resumed his Seroquel and Effexor. We will continue Remeron as well both Seroquel and Remeron move to supper time. Stevan lilly is still on dobutamine for another 24 hours. He has been off norepinephrine since yesterday at 11 AM. He has a sitter at the bedside at this time. Consult added for Dr. Brown regarding hyponatremia. 01/25: Patient continues to have episodes of confusion but is easily reoriented. He is cooperative and follows commands during these episodes. He is able to answer all questions appropriately to time place and person. Ammonia level from yesterday was less than 9. He is continued on dobutamine drip at 5 g for another 24 hours.. Patient was given 1 dose of IV Lasix 40 mg this morning. Patient has been seen by Dr. Brown and ordered Lasix IV 40 mg every 12 hours. Urine osmolality 497, cortisol level 22. Sodium 129, potassium 5.4, chloride 95, CO2 28, BUN 24 and creatinine 0.86. WBC 6.2, hemoglobin 9.6, platelet count 226. Pro-calcitonin 0.14. Repeat chest x-ray reveals stable retrocardiac opacities may again represent small pleural effusion and atelectasis or less likely pneumonia. Primary consideration is decompensated congestive heart failure. 01/26: Patient remains in the intensive care unit. He continues to have episodes of confusion but is easily reoriented. He is having occasional panic attack with increased anxiety. We will resume Xanax and continue his other psychiatric medications. He did sleep well last night most likely related to the Remeron and melatonin. Dobutamine has been decreased today to 2.5 mcg/kg/m. He is off norepinephrine. Repeat lab work reveals WBC 5.4, hemoglobin 11.9, sodium 128, potassium 5.2, creatinine 0.94. Dr. Brown is on consult regarding hyponatremia. 314: Patient remains in intensive care unit sitting up in chair. He is complaining of pain to the right groin. Denies any dizziness or chest pain. Continues to have shortness of breath. He has not had any episodes of confusion overnight or today. Patient states that he slept well during the evening. Dobutamine continues to be at 2.5 MCG/KG/M. However he continues to be hypotensive. Morning meds were held due to his pressure. Sodium 128, potassium 5.1, BUN 28, creatinine 1.06 01/28: Patient remains in intensive care unit sitting up in bed. Patient has no complete concerns at this time. He denies any difficulty breathing or shortness of breath. He continues to be on dobutamine and hypotensive. Hemoglobin 11.2, sodium 127, potassium 5.6, BUN 31, creatinine 1.56, AST 86, ALT 88, alkaline phosphatase 206. The Pleurx catheters in place. Patient is producing better urine output. 01/29: Patient remains in the intensive care unit. Dobutamine was discontinued this morning. Patient is complaining of having dizziness on and off. Blood pressure is been marginal. He is scheduled for one dose of Lasix 40 a blood pressure is maintained. Patient is also complaining of significant weakness. He continues to have lower extremity edema. Confusion episodes have been less frequent. Patient is afebrile, heart rate 76, blood pressure 90/60, pulse ox 96% on 2 L nasal cannula. Repeat blood work reveals WBC 7.4, hemoglobin 11.5, platelet count 225. Sed rate 24, C-reactive protein 60.3. Sodium 129, potassium 5.5, chloride 99, CO2 23, BUN 33, creatinine 1.64. Blood sugar 65. Liver function tests remain elevated with AST 78, ALT 83, alkaline phosphatase 223. Pro-calcitonin 0.52. Patient has been on IV antibiotics in the form of vancomycin. Patient has been seen by Dr. Sen with recommendations for either Bactrim or doxycycline depending on kidney function at time of discharge for one to 2 week course. 01/30: Patient was unable to be weaned off dobutamine yesterday. He has been continued on dobutamine. He has had essentially no urine output. He received Lasix 40 mg yesterday followed by Lasix 80 mg IV push. Patient is complaining of feeling dizzy. He is up to the chair into bed only. He has been afebrile, heart rate 98, blood pressure 80/69, pulse ox 95%. Repeat blood work reveals WBC 6.5, hemoglobin 11.5, platelet count 206. Sodium 132, potassium 4.9, chloride 101, CO2 23, BUN 35 and creatinine 1.65. Blood sugars running between [address] Ramirez discussed with the patient his current condition and prognosis in detail. Discussed option of no CODE STATUS and also of hospice care. This was previously discussed over the weekend with the patient as well. Patient seems to understand. Case management has been updated. Nursing to discuss with cardiology in order for them to further give patient details on his prognosis regarding his cardiac function and prognosis. Venous duplex of the bilateral lower extending negative for DVT. 01/31: Patient is seen in the intensive care unit. He remains on dobutamine at 2.5 mcg/kg/m. Has been started on Lasix drip this morning. Urine output overnight has been 45-70 mL per hour. Currently urine output is at 35 mL per hour. Patient has been afebrile, heart rate 101, blood pressure 89/57, pulse ox 100% on 2 L nasal cannula. The patient remains a full code despite discussion yesterday. Dr. Grey also discussed and reinforced need for hospice care and transition to no code. Hospice informational meeting to take place today and his daughter is to be in attendance. 02/01: Patient remains on the intensive care unit. He remains on dobutamine. Lasix drip was discontinued. Patient has been diuresing very well. Chest x-ray reveals overall stable findings. Cardiomegaly with small to moderate size left pleural fluid collection and diffuse left mid to lower lung acute infiltrate and/or atelectasis redemonstrated. Dr. Bronson is concern for loculated fluid and may order a CAT scan and involve cardiothoracic surgery. Patient's CODE STATUS has been changed to no code. Patient is afebrile, heart rate 94, blood pressure 117/67, pulse ox 98% on 2 L nasal cannula. Repeat blood work reveals Donna BC 6, hemoglobin 11.7, platelet count 209. Sodium 131, potassium 4.2, chloride 96, CO2 31, BUN 31 creatinine 1.49. 02/02: Patient remains in the intensive care unit. He is on dobutamine drip which is being weaned very slowly. He has been seen by cardiothoracic surgery with no plan for any intervention. Patient is afebrile, heart rate 86, blood pressure 90/67, pulse ox 97%. CBC unremarkable, sodium 132, potassium 3.5, chloride 90, CO2 34, BUN 31 creatinine 1.51. Repeat chest x-ray reveals improving left basilar opacities that may represent small pleural effusion and atelectasis or less likely pneumonia. Mild pulmonary vascular congestion persists. Patient has been continued on Lasix drip per nephrology. Patient is on a fluid restriction. Cardiology has increased Aldactone to 50 mg daily 02/03: Patient remain in the ICU on dobutamine drip his blood pressure remain slightly bit low patient kidney function has improved slightly bit from before. His pleural effusion is slightly but better is still debilitated still very weak, still on Aldactone 50 mg daily along with Lasix 10 mg drip and hour for now. By the end of the weekend patient will be switched to entirely oral meds and thinking about hospice care while he is on his cardiac medication and comfort care if we can achieve this goal at home sometimes early this week. 02/04: Patient remain in the ICU still on dobutamine drip and Lasix drip he has less shortness of breath less CHF symptoms today still very sick still bedridden function is very limited this point. Again talk about the possibility of going home on comfort care or hospice in the next day. His IV diuretics will be changed to oral by tomorrow and try to readjust his medication and prepare for his discharge. 02/05: Repeat chest x-ray reveals CHF with interstitial pulmonary edema slight improvement. Continue small to moderate left effusion with adjacent atelectasis and/or consolidation. Patient is currently on dobutamine drip that is being weaned as well as Lasix drip which has been decreased to 5 mL per hour. He is continued on fluid restriction.. He has had good urine output proximal 100 mL per hour. Patient denies any new complaints. Dr. Sen has recommended completing course of antibiotics with doxycycline. If hospice is the plan, antibiotic can be discontinued. Plan will be to discharge patient once medications can be weaned. Patient has been afebrile, heart rate 87, respirations 29, blood pressure 94/60, pulse ox 95% on 2 L nasal cannula. CBC unremarkable. BUN 40 creatinine 1.89, sodium 131, potassium 3.5, chloride 88, CO2 32. 02/06: Patient is currently off dobutamine drip. He is still on Lasix drip and transition to oral Lasix this morning at 40 mg [address] Ordaz. Patient has continued with good urine output. Repeat chest x-ray reveals overall stable findings, possible continued heart failure exacerbation, cardiomegaly suspected interstitial edema and interstitial small to moderate size left pleural effusion. Associated left mid to lower lung atelectasis and/or infiltrate redemonstrated. Dr. Sen has recommended a short course of oral doxycycline at home. Patient has been afebrile, heart rate 86, blood pressure 94/62, pulse ox 92% on 2 L nasal cannula. Sodium 130, potassium 3.9, chloride 88, CO2 33, BUN 44, creatinine 2.04. We will transition patient to oral doxycycline and off vancomycin at this time. Nursing to check ambulatory pulse ox to determine if patient is needing home oxygen therapy. Kruse catheter to be removed later today or early tomorrow. Anticipate discharge to home tomorrow. 02/07: Patient remains in the intensive care unit. He is off dobutamine. He was resumed on Lasix drip yesterday afternoon. Plan is to start Demadex 40 mg twice daily and discontinue Lasix drip. Urine output has been running 30-50 mL per hour. Patient is afebrile, heart rate 81, blood pressure and 95/73, pulse ox 94% on 2 L nasal cannula. CBC is unremarkable, sodium 130, potassium 3.9, chloride 87, CO2 32, BUN 49 creatinine 2.12. Patient remains on fluid restriction 1500 ML's. 02/08: Patient has been afebrile, heart rate 92, blood pressure 102/84 with similar episodes lower at 89/66, pulse ox 94% on room air. Patient was assessed for home oxygen need and did not meet criteria. I'll repeat lab work reveals sodium 128, potassium 5.2, chloride 88, CO2 25, BUN 53 and creatinine 2.33. Patient is currently on oral medications. Patient has no insurance coverage for medications and case coordinator is making arrangements for indigent funds. Discussed discharge with the patient on a daily basis regarding need for palliative care and soon for hospice care. Discussed via phone with daughter and DME have been arranged. Patient does not meet criteria for oxygen which she was concerned about. Patient will be discharged home later today once arrangements are completed. Discharge diagnoses: 1. Acute on chronic systolic heart failure with known ejection fraction of 25%. 2. Severe cardiomyopathy status post AICD. 3. Chronic left-sided pleural effusion status post pleural catheter insertion. 4. Cardiogenic shock secondary to severe cardiomyopathy requiring vasopressors. 5. History of coronary artery disease status post stenting of circumflex with mild elevation of troponins, possible acute non-ST OK. 6. Hyperlipidemia. 7. History of prostate cancer status post radiation therapy and Lupron injections. 8. Elevated liver function tests possibly related to combination of heart failure and fatty liver. 9. Generalized anxiety disorder. 10. Hyperkalemia. 11. DVT prophylaxis. 12. GI prophylaxis. 13. Hyponatremia. 14. Acute metabolic encephalopathy secondary to insomnia and ICU hospitalization. 15. Hypothyroidism. 16. Recurrent depression. 17. Acute kidney injury with chronic kidney disease stage II. Discharge plan: Home with [facility] care and palliative care. Anticipate patient will be transitioned to hospice care shortly after discharge. Impression and plan of care have been directed as dictated by the signing physician. Funmilayo Diaz nurse practitioner acting as scribe for signing physician. Patient Condition at Discharge: Good Plan - Discharge Summary New Discharge Prescriptions: New Spironolactone [Aldactone] 25 mg PO DAILY #30 tab Liothyronine Sodium [Cytomel] 5 mcg PO DAILY #30 tab Torsemide [Demadex] 40 mg PO BID #120 tab Baclofen [Lioresal] 10 mg PO QID PRN #120 tab PRN Reason: Pain Melatonin 10 mg PO HS tablet Midodrine [ProAmatine] 10 mg PO AC-TID #90 tab Doxycycline [Vibramycin] 100 mg PO BID #10 cap ALPRAZolam [Xanax] 0.25 mg PO BID PRN #6 tab PRN Reason: Anxiety Metolazone [Zaroxolyn] 5 mg PO DAILY #30 tab Continue Nitroglycerin Sl Tabs [Nitrostat] 0.4 mg SUBLINGUAL Q5M PRN #25 tab PRN Reason: Chest Pain Atorvastatin [Lipitor] 40 mg PO QAM Clopidogrel [Plavix] 75 mg PO QAM Aspirin 81 mg PO QAM Acetaminophen [Tylenol Arthritis] 650 mg PO Q6H PRN PRN Reason: Pain QUEtiapine [SEROquel] 25 mg PO HS Venlafaxine HCl [Effexor] 100 mg PO BID-W/MEALS Discontinued Carvedilol [Coreg] 3.125 mg PO BID-W/MEALS #60 tab Furosemide [Lasix] 20 mg PO DAILY@1400 Lisinopril [Zestril] 2.5 mg PO QAM Midodrine [ProAmatine] 10 mg PO BID Furosemide [Lasix] 40 mg PO DAILY Discharge Medication List Nitroglycerin Sl Tabs [Nitrostat] 0.4 mg SUBLINGUAL Q5M PRN #25 tab 02/10/16 [Rx] Aspirin 81 mg PO QAM 06/03/16 [History] Atorvastatin [Lipitor] 40 mg PO QAM 06/03/16 [History] Clopidogrel [Plavix] 75 mg PO QAM 06/03/16 [History] Acetaminophen [Tylenol Arthritis] 650 mg PO Q6H PRN 10/07/16 [History] QUEtiapine [SEROquel] 25 mg PO HS 01/21/20 [History] Venlafaxine HCl [Effexor] 100 mg PO BID-W/MEALS 01/21/20 [History] ALPRAZolam [Xanax] 0.25 mg PO BID PRN #6 tab 02/09/20 [Rx] Baclofen [Lioresal] 10 mg PO QID PRN #120 tab 02/09/20 [Rx] Doxycycline [Vibramycin] 100 mg PO BID #10 cap 02/09/20 [Rx] Liothyronine Sodium [Cytomel] 5 mcg PO DAILY #30 tab 02/09/20 [Rx] Melatonin 10 mg PO HS tablet 02/09/20 [Rx] Metolazone [Zaroxolyn] 5 mg PO DAILY #30 tab 02/09/20 [Rx] Midodrine [ProAmatine] 10 mg PO AC-TID #90 tab 02/09/20 [Rx] Spironolactone [Aldactone] 25 mg PO DAILY #30 tab 02/09/20 [Rx] Torsemide [Demadex] 40 mg PO BID #120 tab 02/09/20 [Rx] Follow up Appointment(s)/Referral(s): Gal Burnett MD [Primary Care Provider] - 1-2 days [facility], [NON-STAFF] - 1-2 Days (This is also the phone number to contact the [facility] Palliative Care team. )
[2020-02-09 12:16] VITALS: BP 99/66; PULSE 71; RESP 11
--- NOTE | 2020-02-09 12:24 | PN ---
PROGRESS NOTE The patient is seen for followup for acute kidney injury. There are plans for discharge to palliative care. Currently patient is comfortable. He denies any significant complaints. PHYSICAL EXAMINATION: On examination today, blood pressure was 102/84, heart rate 92 per minute, he is afebrile. EXAMINATION OF THE HEART: S1 and S2. EXAMINATION OF THE LUNGS: Bilateral breath sounds are heard. ABDOMEN: Soft, nontender. Examination of the lower extremities shows edema, 2+ bilaterally. MANAGER RESEARCH exam is grossly intact. LABS: Labs show sodium 128, potassium 5.2, chloride 88, BUN 53, creatinine 2.3. Hemoglobin 12.4 g/dL from yesterday. Vancomycin level was high at 32.3 on 02/06. ASSESSMENT: 1. Acute kidney injury, acute tubular necrosis, currently nonoliguric. Continue current oral diuretics. 2. Congestive heart failure, systolic dysfunction and cardiomyopathy, acute on top of chronic. 3. Cardiomyopathy, ejection fraction 20%, currently off of dobutamine. 4. Hypervolemic hyponatremia. 5. Mild hyperkalemia associated with acute kidney injury. Continue to monitor for now. 6. Toxic vancomycin levels, most likely contributing to the acute kidney injury as well. PLAN: Hold Aldactone if potassium is higher tomorrow. Continue with the loop diuretics for now. Agree with plans to discharge to palliative care. MMODL / IJN: [id number] /
--- NOTE | 2020-02-09 12:58 | PN ---
PROGRESS NOTE Asael is a 74-year-old gentleman who was admitted to the hospital with refractory heart failure. He is doing better, ready to be discharged home on oral Demadex. On exam today,.afebrile. Heart rate is 71 beats, blood pressure 99/56, respiratory rate is 18. Chest: exam reveals diminished air entry at the bases. HEART: Exam reveals first and second heart sounds. No gallop. Exam of extremities reveals 1+ edema bilaterally. LABS: Show a hemoglobin of 12.4, potassium is 5.2, creatinine is 2.3. ASSESSMENT: Chronic refractory heart failure. PLAN: Given the elevated potassium, let us stop the Aldactone and discharge. MMODL / IJN: [id number] /
--- NOTE | 2020-02-10 11:24 | CDI ---
Documentation Clarification Form Date: 02/10/20 From: Renate Troy Phone: If you have a question about this query, please contact Soraida Cortes, Electronic Page Makeup System Operator at [phone] between 8am and 5pm. Admit Date: 01/21/20 Discharge Date: 02/09/20 Patient Name: NICOLE OSULLIVAN Visit Number: [id number] ATTENTION: The Clinical Documentation Specialists (CDI) and [facility] Coding Staff appreciate your assistance in clarifying documentation. Please respond to the clarification below the line at the bottom and electronically sign. The CDI & [facility] Coding staff will review the response and follow-up if needed. Please note: Queries are made part of the Legal Health Record. If you have any questions, please contact the author of this message via ITS. Dear Dr. Gal Burnett, The diagnosis sepsis was documented in the your 02/04 PN, but is not noted in subsequent documentation. History/Risk Factors: HTN w CKD II & acute on chronic systolic CHF, pleural effusion, cardiogenic shock Clinical Indicators: Per 01/24 PN: Chronic left sided pleural effusion s/p pleural catheter insertoin. Culture positive for alphahemolytic strep and Streptococcus epidermis, patient started on Ceftriaxone & Vanco. WBC : 7.8 Lactic acid: 4.2 Lactic acid Reflex: Y Blood cultures: Staphylococcus epidermidis, Acinetobacter Iwoffi, Alpha hemolytic Streptococcus Vitals signs on admission: T-98.9, P-103, R-24, BP-77/58, O2-93 (RA) Other Clinical Indicators: Procalcitonin- .15, CRP-3/16-60.3 Treatment: IV Ceftriaxone & Vanco ID Consult: Patient did not have any fever or elevated WBC however he has grown stap epidermis on multiple occasion from his pleural fluid with a question of mild infection vs colonization of Pleurx catheter there was no evidence of any tunnel infection. Patient not behaving as empyema. In your professional opinion, please clarify if these findings signify one of the following conditions, whether the condition is POA, and cause, if known: 1. Condition Sepsis ruled out SIRS, without underlying infectious process Sepsis Severe Sepsis Septic Shock Other, please specify __Cardiogenic Shock Unable to determine 2. Present on Admission Yes No 3. Identify the (suspected) organism 4. Link or clarify if there is associated (due to/with): Infection of pleurx catheter Other, please specify Unable to determine MTDD
--- NOTE | 2020-02-10 11:35 | CDI ---
Documentation Clarification Form Date: 02/10/20 From: Renate Troy Phone: If you have a question about this query, please contact Soraida Cortes, Aluminum Boat Assembly Supervisor at [phone] between 8am and 5pm. Admit Date: 01/21/20 Discharge Date: 02/09/20 Patient Name: NICOLE OSULLIVAN Visit Number: [id number] ATTENTION: The Clinical Documentation Specialists (CDI) and [facility] Coding Staff appreciate your assistance in clarifying documentation. Please respond to the clarification below the line at the bottom and electronically sign. The CDI & [facility] Coding staff will review the response and follow-up if needed. Please note: Queries are made part of the Legal Health Record. If you have any questions, please contact the author of this message via ITS. Dear Dr. Gal Burnett, Possible acute non-ST myocardial infarction is documented in your 02/03 PN and DS. Patient History/Risk Factors: HTN w CKD II & acute on chronic systolic CHF, pleural effusion, cardiogenic shock, ischemic cardiomyopathy, s/p heart cath w stent Clinical Indicators: Presented w difficulty breathing. No chest pain, no cough or sputum production. Troponin 01/19: 0.091, 0.087, 0.077 EKG Results: Ventricular paced rhythm Treatment: medical regimen Cardiology Consult: Minimal elevation of troponin. No evidenc to suggest acute coronary syndrome. In order to capture the severity of condition and necessary documentation specificity, please clarify: Type of Infarction: Type II NV, please indicate underlying etiology NSTEMI Unable to determine Other Condition, please specify MTDD
--- NOTE | 2020-02-16 10:24 | CDI ---
Documentation Clarification Form Date: 02/10/20 From: Renate Troy Phone: If you have a question about this query, please contact Soraida Cortes, Embossed Or Impressed Lettering Painter at [phone] between 8am and 5pm. Admit Date: 01/21/20 Discharge Date: 02/09/20 Patient Name: NICOLE OSULLIVAN Visit Number: [id number] ATTENTION: The Clinical Documentation Specialists (CDI) and [facility] Coding Staff appreciate your assistance in clarifying documentation. Please respond to the clarification below the line at the bottom and electronically sign. The CDI & [facility] Coding staff will review the response and follow-up if needed. Please note: Queries are made part of the Legal Health Record. If you have any questions, please contact the author of this message via ITS. Dear Dr. Gal Burnett, Possible acute non-ST myocardial infarction is documented in your 02/03 PN and DS. Patient History/Risk Factors: HTN w CKD II & acute on chronic systolic CHF, pleural effusion, cardiogenic shock, ischemic cardiomyopathy, s/p heart cath w stent Clinical Indicators: Presented w difficulty breathing. No chest pain, no cough or sputum production. Troponin 01/19: 0.091, 0.087, 0.077 EKG Results: Ventricular paced rhythm Treatment: medical regimen Cardiology Consult: Minimal elevation of troponin. No evidenc to suggest acute coronary syndrome. In order to capture the severity of condition and necessary documentation specificity, please clarify: Type of Infarction: Type II [place], please indicate underlying etiology NSTEMI Unable to determine Other Condition, please specify no IN MTDD
== END 2020-02-09 13:30 | disposition home health service (06) | DRG 291 ==
LOC: EC 22:11 → 2SICU 01-21 01:37
PROVIDERS: ADMIT Family Medicine; ATTEND Family Medicine
DX: I13.0 Hypertensive heart and chronic kidney disease with heart failure and stage 1 through stage 4 chronic kidney disease, or unspecified chronic kidney disease (principal); I50.23 Acute on chronic systolic (congestive) heart failure; J96.01 Acute respiratory failure with hypoxia; N17.0 Acute kidney failure with tubular necrosis; R57.0 Cardiogenic shock; G93.41 Metabolic encephalopathy; E87.2 Acidosis; J90 Pleural effusion, not elsewhere classified; F33.9 Major depressive disorder, recurrent, unspecified; E87.1 Hypo-osmolality and hyponatremia; K80.10 Calculus of gallbladder with chronic cholecystitis without obstruction; J98.11 Atelectasis; C34.31 Malignant neoplasm of lower lobe, right bronchus or lung; Z66 Do not resuscitate; Z51.5 Encounter for palliative care; I27.20 Pulmonary hypertension, unspecified; K76.0 Fatty (change of) liver, not elsewhere classified; C61 Malignant neoplasm of prostate; J43.9 Emphysema, unspecified; I25.5 Ischemic cardiomyopathy; I08.1 Rheumatic disorders of both mitral and tricuspid valves; E78.5 Hyperlipidemia, unspecified; E87.5 Hyperkalemia; N18.2 Chronic kidney disease, stage 2 (mild); G47.00 Insomnia, unspecified; E03.9 Hypothyroidism, unspecified; M19.90 Unspecified osteoarthritis, unspecified site; I25.10 Atherosclerotic heart disease of native coronary artery without angina pectoris; F41.1 Generalized anxiety disorder; K82.4 Cholesterolosis of gallbladder; T50.2X5A Adverse effect of carbonic-anhydrase inhibitors, benzothiadiazides and other diuretics, initial encounter; I25.2 Old myocardial infarction; R79.89 Other specified abnormal findings of blood chemistry; Z79.82 Long term (current) use of aspirin; Z79.02 Long term (current) use of antithrombotics/antiplatelets; Z79.899 Other long term (current) drug therapy; Z95.810 Presence of automatic (implantable) cardiac defibrillator; Z87.891 Personal history of nicotine dependence; Z92.3 Personal history of irradiation; Z98.890 Other specified postprocedural states; Z96.641 Presence of right artificial hip joint; Z74.01 Bed confinement status; Z95.5 Presence of coronary angioplasty implant and graft; Z80.8 Family history of malignant neoplasm of other organs or systems; Z82.49 Family history of ischemic heart disease and other diseases of the circulatory system
CPT/HCPCS: 36415; 71045; 71046; 71250; 71275; 76705; 80048; 80053; 80074; 80202; 81001; 81003; 82140; 82533; 82945; 83605; 83615; 83735; 83880; 83935; 84132; 84145; 84157; 84300; 84439; 84443; 84484; 85025; 85027; 85379; 85610; 85652; 85730; 86140; 87040; 87070; 87075; 87077; 87102; 87116; 87186; 87205; 87206; 87252; 87496; 87498; 87502; 87529; 87634; 87798; 88108; 88305; 88341; 88342; 89050; 93005; 93306; 93970; 96365; 96366; 96367; 96368; 96375; 99285